=== PATIENT | female | born 1950 | race Caucasian/White ===

== ENCOUNTER 2016-03-05 12:53 | Emergency (ER) | payer MEDICARE, OTHER ==
[2016-03-05 14:00] VITALS: TEMP 98.3
[2016-03-05] MEDS ORDERED: IPRATROPIUM-ALBUTEROL 3 ML NEB INHALATION STA (14:56)
[2016-03-05] MEDS ORDERED: ASPIRIN 81 MG CHEW PO STA (14:58)
[2016-03-05 15:20] LABS: Basophils # (A) 0.1 k/uL (0-0.2); Basophils % (A) 1 %; CH 28.3; CHCM 32.9; Eosinophils # (A) 0.5 k/uL (0-0.7); Eosinophils % (A) 4 %; HCT 34.9 % (34.0-46.0); HGB 11.3 gm/dL (11.4-16.0); Luc # (Auto) 0.24; Luc % (Auto) 2; Lymphocytes # (A) 1.5 k/uL (1.0-4.8); Lymphocytes % (A) 12 %; MCHC 32.5 g/dL (31.0-37.0); MCV 86.1 fL (80.0-100.0); Monocytes # (A) 0.8 k/uL (0-1.0); Monocytes % (A) 6 %; Neutrophils # (A) 9.3 k/uL (1.3-7.7); Neutrophils % (A) 76 %; RBC 4.05 m/uL (3.80-5.40); RDW 13.6 % (11.5-15.5); WBC 12.2 k/uL (3.8-10.6)
[2016-03-05 15:25] LABS: Anion Gap 10 mmol/L; Blood Urea Nitrogen 30 mg/dL (7-17); Calcium 9.3 mg/dL (8.4-10.2); Carbon Dioxide 29 mmol/L (22-30); Chloride 98 mmol/L (98-107); Glucose 167 mg/dL (74-99); Magnesium 1.6 mg/dL (1.6-2.3); Non-African American GFR(MDRD) 55 (>60 ml/min/1.73 sqM); Potassium 5.1 mmol/L (3.5-5.1); Sodium 137 mmol/L (137-145)
--- NOTE | 2016-03-05 15:31 | ED ---
Chest Pain HPI - General Chief Complaint: Upper Respiratory Infection Stated Complaint: Chest Pain Time Seen by Provider: 03/05/16 14:37 Source: patient Mode of arrival: wheelchair Limitations: no limitations - History of Present Illness Initial Comments: Patient is a 65-year-old female with a history of CHF and COPD who presents to ED with a chief complaint of cough, shortness of breath, increased congestion. Patient states that her symptoms have been present over the course the past 2-1/ 2 weeks. She states that she went to go see her primary care practitioner, who started her on a course of antibiotics for home. Patient states that she did not have any improvement of her symptoms with this medication. She states that her PCP was concerned that she might be having an exacerbation of CHF. Patient also has a history of aortic stenosis with history of Her approximate 7 years ago. Patient follows with Dr. Silva (sp?) as her certified medical dosimetrist. She states she has an appointment with his physician at the end of the month. Patient denies any chest pain or diaphoresis. She states that she does note increased chest tightness that is resolved by using her albuterol nebulizer. Patient also notes increased sputum production. She describes the sputum as yellowish-green in color. Patient denies any fevers or chills. Patient denies any swelling in the lower extremities. - Related Data Home Medications Medication Instructions Recorded Confirmed Aspirin 81 mg PO DAILY 02/10/14 03/05/16 Digoxin [Lanoxin] 125 mcg PO HS 02/10/14 03/05/16 Lisinopril [Prinivil] 5 mg PO DAILY 02/10/14 03/05/16 PARoxetine HCL [Paxil] 20 mg PO DAILY 02/10/14 03/05/16 Albuterol Sulfate [Proair Hfa] 2 puff INHALATION RT-BID PRN 06/02/14 03/05/16 Atorvastatin [Lipitor] 40 mg PO HS 06/02/14 03/05/16 Zolpidem [Ambien] 5 mg PO HS PRN 06/02/14 03/05/16 Famotidine [Pepcid] 40 mg PO DAILY 01/02/15 03/05/16 HYDROcodone/APAP 10-325MG [Willard 1 tab PO QID PRN 01/02/15 03/05/16 10-325] Insulin Aspart [NovoLOG] See Protocol SQ TID-W/MEALS PRN 01/02/15 03/05/16 Insulin Glargine,Hum.rec.anlog 16 unit SQ HS 01/02/15 03/05/16 [Lantus Solostar] Carvedilol [Coreg] 3.125 mg PO BID 03/16/15 03/05/16 Furosemide [Lasix] 40 mg PO DAILY 03/16/15 03/05/16 Cetirizine HCl [Zyrtec] 10 mg PO DAILY 11/12/15 03/05/16 Albuterol Nebulized [Ventolin 2.5 mg INHALATION RT-TID PRN 03/05/16 03/05/16 Nebulized] Tiotropium [place] [Spiriva] 1 cap INHALATION RT-DAILY 03/05/16 03/05/16 Previous Rx's Medication Instructions Recorded Moxifloxacin HCl [Avelox] 400 mg PO DAILY #5 tablet 03/05/16 predniSONE 40 mg PO DAILY #10 tab 03/05/16 Allergies Allergy/AdvReac Type Severity Reaction Status Date / Time oxytetracycline Allergy Rash/Hives Verified 03/05/16 14:24 [From Terramycin] oxytetracycline HCl Allergy Rash/Hives Verified 03/05/16 14:24 [From Terramycin] Review of Systems ROS Statement: Those systems with pertinent positive or pertinent negative responses have been documented in the HPI. ROS Other: All systems not noted in ROS Statement are negative. Constitutional: Denies: fever, chills, weakness Eyes: Denies: eye pain ENT: Denies: throat pain Respiratory: Reports: cough, wheezes. Denies: dyspnea, hemoptysis, stridor Cardiovascular: Reports: dyspnea on exertion. Denies: chest pain, palpitations Endocrine: Denies: fatigue Gastrointestinal: Denies: abdominal pain, nausea, vomiting Genitourinary: Denies: urgency, dysuria Musculoskeletal: Denies: back pain Skin: Denies: rash, lesions Neurological: Denies: headache, weakness Past Medical History Past Medical History: Asthma, Cancer, Heart Failure, COPD, Diabetes Mellitus, GERD/Reflux, Hyperlipidemia, Hypertension, Myocardial Infarction (non Q-wave), Osteoarthritis (OA), Renal Disease Additional Past Medical History / Comment(s): HX BLOOD IN URINE, hx leukemia, O2 AT 2L [place], SILENT [place] Last Myocardial Infarction Date:: UNKNOWN History of Any Multi-Drug Resistant Organisms: None Reported Past Surgical History: AICD, Back Surgery, Cholecystectomy, Heart Catheterization, Hernia Repair, Hysterectomy, Orthopedic Surgery, Tonsillectomy Additional Past Surgical History / Comment(s): EDD 06/25/14, JOAN cataract, bone marrow transplant, venogram-last 03/17/15, right wrist, C-5 fusion, EYE LID SX. AORTIC VALVE REPLACEMENT x2, MITRAL VALVE REPAIR, Past Anesthesia/Blood Transfusion Reactions: No Reported Reaction Type of Cardiac Device: AICD Device Placement Date:: 2009-[employer] Past Psychological History: Anxiety, Depression Smoking Status: Never smoker Past Alcohol Use History: None Reported Past Drug Use History: None Reported - Past Family History Father Family Medical History: Cancer General Exam Limitations: no limitations General appearance: alert, in no apparent distress Head exam: Present: atraumatic, normocephalic Eye exam: Present: normal appearance, PERRL, other (Patient wears glasses) Pupils: Present: normal accommodation ENT exam: Present: normal exam, normal oropharynx Neck exam: Present: normal inspection Respiratory exam: Present: wheezes Cardiovascular Exam: Present: regular rate, normal rhythm, systolic murmur (4/6 systolic murmur best appreciated at the right sternal border) GI/Abdominal exam: Present: soft. Absent: distended, tenderness Extremities exam: Present: normal inspection. Absent: tenderness Neurological exam: Present: alert, oriented X3 Psychiatric exam: Present: normal affect, normal mood Skin exam: Present: warm, dry, intact Course Vital Signs 03/05/16 03/05/16 03/05/16 13:56 14:48 15:21 Temperature 98.3 F Pulse Rate 94 86 Respiratory 16 18 Rate Blood Pressure 121/65 O2 Sat by Pulse 94 L Oximetry 03/05/16 03/05/16 03/05/16 15:32 16:14 16:40 Temperature Pulse Rate 86 90 87 Respiratory 18 16 Rate Blood Pressure 111/60 116/70 O2 Sat by Pulse 98 95 Oximetry Chest Pain MDM - MDM Patient is a 65-year-old female who presents to ED with a chief complaint of shortness of breath and cough. Patient states that the symptoms of the present intermittently over the course the past 2.5 weeks. Patient denies any fevers or chills associated with these symptoms. Does note that she has had increased sputum production. His sputum is greenish-yellow in color. Patient does have a known history of COPD. Patient also has a history of CHF. She was treated with amoxicillin as an outpatient without improvement of her symptoms. As such , the patient's PCP was concerned that the patient may be suffering from an acute exacerbation of CHF. Will check a chest x-ray, BNP. Check troponin as well. Check CBC, BMP, mag. Provide patient with dose of albuterol nebulizer. 4:27 PM Updated patient of overall findings, including no evidence of fluid overload on x-ray. Patient will be discharged with a 5-day course of prednisone. Patient will also be discharged with a 5-day course of Avelox. Suspect the patient is suffering from acute exacerbation of COPD. Counseled the patient to follow up with her PCP for further management of her long-term health problems. Encouraged the patient return to the ED should her symptoms worsen in any way, shape, or form. I have answered all the patient's questions to her satisfaction. I have encouraged the patient to use her albuterol nebulizer every 6 hours over the course in the next 24 hours and as needed over the course of the next 48 hours. Disposition Clinical Impression: COPD with exacerbation, Acute bronchitis Disposition: HOME SELF-CARE Condition: Good Instructions: Upper Respiratory Infection (ED), Acute Bronchitis (ED), COPD ( Chronic Obstructive Pulmonary Disease) (ED), Prednisone (By mouth) Additional Instructions: Please return to the ED should you have worsening cough or shortness of breath while at home. Also return should you have worsening chest pain. Prescriptions: Moxifloxacin HCl [Avelox] 400 mg PO DAILY #5 tablet predniSONE 40 mg PO DAILY #10 tab Referrals: Kaylee Suero MD [Primary Care Provider] - 03/07/16 (Please follow up with Dr. Suero on Monday to ensure that your symptoms are improving) Time of Disposition: 16:27
[2016-03-05] MEDS ORDERED: predniSONE 20 MG TAB PO STA (16:00)
[2016-03-05 16:41] VITALS: BP 116/70; PULSE 87; RESP 16
--- NOTE | 2016-03-05 16:42 | XR ---
EXAMINATION TYPE: XR chest 2V DATE OF EXAM: 03/05/2016 3:38 PM COMPARISON: 11/12/2015 INDICATION: Cough short of breath TECHNIQUE: Frontal and lateral views of the chest are obtained. FINDINGS: The heart size is normal. Pulmonary vasculature is prominent. Electronic device overlies left chest. The lungs are clear. Stent is in the ascending thoracic aortic region. Old right rib fractures evide nt on 4 and 6. IMPRESSION: 1. Correlate for mild volume overload.
== END 2016-03-05 16:41 | disposition home or self-care (01) ==
LOC: EC 12:53
DX: J44.1 Chronic obstructive pulmonary disease with (acute) exacerbation (principal); J44.0 Chronic obstructive pulmonary disease with (acute) lower respiratory infection; J20.9 Acute bronchitis, unspecified; E11.9 Type 2 diabetes mellitus without complications; E78.5 Hyperlipidemia, unspecified; I10 Essential (primary) hypertension; I25.2 Old myocardial infarction; I50.9 Heart failure, unspecified; K21.9 Gastro-esophageal reflux disease without esophagitis; Z79.4 Long term (current) use of insulin; Z79.82 Long term (current) use of aspirin; Z95.810 Presence of automatic (implantable) cardiac defibrillator; Z79.899 Other long term (current) drug therapy; Z88.1 Allergy status to other antibiotic agents; F41.9 Anxiety disorder, unspecified; F32.9 Major depressive disorder, single episode, unspecified; J45.909 Unspecified asthma, uncomplicated; I11.0 Hypertensive heart disease with heart failure; Z95.2 Presence of prosthetic heart valve
CPT/HCPCS: 99284 ×2; 36415; 94640; 93005; 83880; 80048; 83735; 84484; 85025; 71020; J7512

== ENCOUNTER → 2016-04-20 | Outpatient (CLI) | payer MEDICARE, OTHER ==
[2016-04-20 07:55] LABS: Blood Urea Nitrogen 33 mg/dL (7-17); Non-African American GFR(MDRD) 57 (>60 ml/min/1.73 sqM)
--- NOTE | 2016-04-20 09:22 | CT ---
EXAMINATION TYPE: CT brain wo/w con DATE OF EXAM: 04/20/2016 9:17 AM COMPARISON: 11/26/2015 HISTORY: Dizziness CT DLP: 1988.3 mGycm Unenhanced followed by contrast enhanced CT of the brain was performed. Omni 300/100 ml. The ventricles, basal cisterns and sulci overlying the cerebral convexities demonstrate mild enlargem ent. There is no evidence for intracranial hemorrhage or sulcal effacement. There is decreased attenuation about the periventricular white matter and deep white matter of both c erebral hemispheres, compatible with chronic small vessel ischemia. Differential diagnosis does inclu de demyelination. No mass effects are seen.No midline shift. Osseous calvarium is intact. Chronic ethmoidal and the maxillary sinusitis with changes of prior par tial medial maxillary antrectomy. No enhancing lesion. If symptoms persist consider MRI. IMPRESSION: 1. Age related atrophic and chronic small vessel ischemic change without acute intracranial process s een at this time. No enhancing lesion identified.
--- NOTE | 2016-05-03 09:41 | ENG ---
DATE OF SERVICE: 04/20/2016 INDICATION FOR EXAMINATION: A 65-year-old presented with a chief complaint of dizziness which occurs with head motion with loss of balance. Caloric test : Unilateral weakness on the right. No directional preponderance. FFS: Negative. GAZE TEST: Negative. SINUSOIDAL TRACKING TEST: No significant break-ups. OKN TEST: No asymmetry. SPONTANEOUS NYSTAGMUS: Eye open negative. Eye closed negative. POSITIONAL NYSTAGMUS: Supine Negative. Right lateral negative, left lateral negative. ARIANNA-HALLPIKE TEST: Could not be performed because of patient having COPD and being on oxygen. CONCLUSION: The video electronystagmogram could not be done completely because patient has chronic obstructive pulmonary disease and being on continuous oxygen; however, unilateral weakness on the right is indicative of right peripheral vestibular dysfunction. Clinical correlations are advised. MTDD
== END | disposition home or self-care (01) ==
LOC: RADCTMAIN 07:19
PROVIDERS: ATTEND Psychiatry & Neurology Neurology
DX: C71.0 Malignant neoplasm of cerebrum, except lobes and ventricles (principal)
CPT/HCPCS: 92540; 92537; 82565; 84520; 70470; 36415; Q9967

== ENCOUNTER → 2016-08-08 | Outpatient (CLI) | payer MEDICARE, OTHER ==
[2016-08-08 12:49] LABS: Anion Gap 9 mmol/L; Blood Urea Nitrogen 29 mg/dL (7-17); Carbon Dioxide 29 mmol/L (22-30); Chloride 100 mmol/L (98-107); Non-African American GFR(MDRD) 55 (>60 ml/min/1.73 sqM); Potassium 5.5 mmol/L (3.5-5.1); Sodium 138 mmol/L (137-145)
== END | disposition home or self-care (01) ==
LOC: LABWHC1 11:51
PROVIDERS: ATTEND Internal Medicine Cardiovascular Disease
DX: I50.22 Chronic systolic (congestive) heart failure (principal)
CPT/HCPCS: 36415; 80051; 82565; 84520

== ENCOUNTER 2016-09-09 14:09 | Inpatient (IN) | payer MEDICARE, OTHER ==
[2016-09-09] MEDS ORDERED: KETOROLAC 30 MG/ML 1 ML VIAL IVP STA (14:24)
[2016-09-09] MEDS ORDERED: SODIUM CHLORIDE 0.9% 1,000 ML IV STA ×2 (14:24)
[2016-09-09] MEDS ORDERED: SODIUM CHLORIDE 0.9% 500 ML IV STA (14:24)
--- NOTE | 2016-09-09 14:25 | ED ---
General Adult HPI - General Chief complaint: Fever Stated complaint: Fever Time Seen by Provider: 09/09/16 14:23 Source: patient, RN notes reviewed, old records reviewed Mode of arrival: wheelchair Limitations: no limitations - History of Present Illness Initial comments: This is a 66-year-old the other ER for evaluation. This patient presents for evaluation regarding elevated temperature, fever, back pain weakness and nausea. Dysuria and pain and increased urination. Patient does have history of multiple urinary tract infections. No travel history no sick contacts no chest pain or shortness of breath no cough, no abdominal pain. - Related Data Home Medications Medication Instructions Recorded Confirmed Aspirin 81 mg PO DAILY 02/10/14 09/09/16 Digoxin [Lanoxin] 125 mcg PO HS 02/10/14 09/09/16 Lisinopril [Prinivil] 5 mg PO DAILY 02/10/14 09/09/16 PARoxetine HCL [Paxil] 20 mg PO DAILY 02/10/14 09/09/16 Albuterol Sulfate [Proair Hfa] 2 puff INHALATION RT-BID PRN 06/02/14 09/09/16 Atorvastatin [Lipitor] 40 mg PO HS 06/02/14 09/09/16 Zolpidem [Ambien] 5 mg PO HS PRN 06/02/14 09/09/16 Famotidine [Pepcid] 40 mg PO DAILY 01/02/15 09/09/16 Insulin Aspart [NovoLOG] See Protocol SQ TID-W/MEALS PRN 01/02/15 09/09/16 Insulin Glargine,Hum.rec.anlog 16 unit SQ HS 01/02/15 09/09/16 [Lantus Solostar] Carvedilol [Coreg] 3.125 mg PO BID 03/16/15 09/09/16 Furosemide [Lasix] 40 mg PO DAILY 03/16/15 09/09/16 Cetirizine HCl [Zyrtec] 10 mg PO DAILY 11/12/15 09/09/16 Albuterol Nebulized [Ventolin 2.5 mg INHALATION RT-TID PRN 03/05/16 09/09/16 Nebulized] Tiotropium [place] [Spiriva] 1 cap INHALATION RT-DAILY 03/05/16 09/09/16 metFORMIN HCL [Glucophage] 500 mg PO BID 09/09/16 09/09/16 Allergies Allergy/AdvReac Type Severity Reaction Status Date / Time oxytetracycline Allergy Rash/Hives Verified 09/09/16 14:34 [From Terramycin] oxytetracycline HCl Allergy Rash/Hives Verified 09/09/16 14:34 [From Terramycin] Review of Systems ROS Statement: Those systems with pertinent positive or pertinent negative responses have been documented in the HPI. ROS Other: All systems not noted in ROS Statement are negative. Past Medical History Past Medical History: Asthma, Cancer, Heart Failure, COPD, Diabetes Mellitus, GERD/Reflux, Hyperlipidemia, Hypertension, Myocardial Infarction (non Q-wave), Osteoarthritis (OA), Renal Disease Additional Past Medical History / Comment(s): HX BLOOD IN URINE, hx leukemia, O2 AT 2L [place], SILENT [place] Last Myocardial Infarction Date:: UNKNOWN History of Any Multi-Drug Resistant Organisms: None Reported Past Surgical History: AICD, Back Surgery, Cholecystectomy, Heart Catheterization, Hernia Repair, Hysterectomy, Orthopedic Surgery, Tonsillectomy Additional Past Surgical History / Comment(s): EDD 06/25/14, JOAN cataract, bone marrow transplant, venogram-last 03/17/15, right wrist, C-5 fusion, EYE LID SX. AORTIC VALVE REPLACEMENT x2, MITRAL VALVE REPAIR, Past Anesthesia/Blood Transfusion Reactions: No Reported Reaction Type of Cardiac Device: AICD Device Placement Date:: 2009-[employer] Past Psychological History: Anxiety, Depression Smoking Status: Never smoker Past Alcohol Use History: None Reported Past Drug Use History: None Reported - Past Family History Father Family Medical History: Cancer Mother Family Medical History: Diabetes Mellitus, Myocardial Infarction ([place]) General Exam Limitations: no limitations General appearance: alert, in no apparent distress Head exam: Present: atraumatic, normocephalic, normal inspection Eye exam: Present: normal appearance, PERRL, EOMI. Absent: scleral icterus, conjunctival injection, periorbital swelling ENT exam: Present: normal exam, mucous membranes moist Neck exam: Present: normal inspection. Absent: tenderness, meningismus, lymphadenopathy Respiratory exam: Present: normal lung sounds bilaterally. Absent: respiratory distress, wheezes, rales, rhonchi, stridor Cardiovascular Exam: Present: normal rhythm, tachycardia, normal heart sounds. Absent: systolic murmur, diastolic murmur, rubs, gallop, clicks GI/Abdominal exam: Present: soft, normal bowel sounds. Absent: distended, tenderness, guarding, rebound, rigid Extremities exam: Present: normal inspection, full ROM, normal capillary refill. Absent: tenderness, pedal edema, joint swelling, calf tenderness Back exam: Present: normal inspection Neurological exam: Present: alert, oriented X3, CN II-XII intact Psychiatric exam: Present: normal affect, normal mood Skin exam: Present: warm, dry, intact, normal color. Absent: rash Course Vital Signs 09/09/16 09/09/16 09/09/16 14:15 15:06 16:06 Temperature 101.1 F H Pulse Rate 122 H 114 H 104 H Respiratory 16 18 18 Rate Blood Pressure 169/81 158/93 107/55 O2 Sat by Pulse 93 L 96 98 Oximetry 09/09/16 16:53 Temperature 99.4 F Pulse Rate 101 H Respiratory 18 Rate Blood Pressure 103/50 O2 Sat by Pulse 99 Oximetry EKG Findings - EKG Comments: EKG Findings:: EKG shows sinus tachycardia rate 111, TX 120, QRS 120, QTC 489 Medical Decision Making - Medical Decision Making 66. The year for evaluation available positive bowel pain leukocytosis. Patient be admitted for IV antibiotics IV resuscitation. - Lab Data Result diagrams: 09/14/16 06:53 09/14/16 06:51 Lab Results 09/09/16 09/09/16 09/09/16 Range/Units 14:47 14:47 14:47 WBC 24.7 H (3.8-10.6) k/uL RBC 4.02 (3.80-5.40) m/uL Hgb 11.6 (11.4-16.0) gm/dL Hct 34.8 (34.0-46.0) % MCV 86.5 (80.0-100.0) fL MCH 28.9 (25.0-35.0) pg MCHC 33.4 (31.0-37.0) g/dL RDW 13.5 (11.5-15.5) % Plt Count 181 (150-450) k/uL Neutrophils % 94 % Lymphocytes % 2 % Monocytes % 3 % Eosinophils % 1 % Basophils % 0 % Neutrophils # 23.3 H (1.3-7.7) k/uL Lymphocytes # 0.4 L (1.0-4.8) k/uL Monocytes # 0.7 (0-1.0) k/uL Eosinophils # 0.2 (0-0.7) k/uL Basophils # 0.1 (0-0.2) k/uL PT (9.0-12.0) sec INR (<1.2) APTT (22.0-30.0) sec Sodium 134 L (137-145) mmol/L Potassium 4.3 (3.5-5.1) mmol/L Chloride 100 (98-107) mmol/L Carbon Dioxide 25 (22-30) mmol/L Anion Gap 9 mmol/L BUN 28 H (7-17) mg/dL Creatinine 0.85 (0.52-1.04) mg/dL Est GFR (MDRD) Af Amer >60 (>60 ml/min/1.73 sqM) Est GFR (MDRD) Non-Af >60 (>60 ml/min/1.73 sqM) Glucose 252 H (74-99) mg/dL Plasma Lactic Acid Claudio (0.7-2.0) mmol/L Calcium 9.4 (8.4-10.2) mg/dL Phosphorus 2.4 L (2.5-4.5) mg/dL Magnesium 1.0 L* (1.6-2.3) mg/dL Total Bilirubin 1.0 (0.2-1.3) mg/dL AST 83 H (14-36) U/L ALT 53 H (9-52) U/L Alkaline Phosphatase 100 (38-126) U/L Total Creatine Kinase 100 (30-135) U/L CK-MB (CK-2) 1.3 (0.0-2.4) ng/mL CK-MB (CK-2) Rel Index 1.3 Troponin I 0.017 (0.000-0.034) ng/mL Total Protein 7.5 (6.3-8.2) g/dL Albumin 3.8 (3.5-5.0) g/dL Urine Color Urine Appearance (Clear) Urine pH (5.0-8.0) Ur Specific [place] (1.001-1.035) Urine Protein (Negative) Urine Glucose (UA) (Negative) Urine Ketones (Negative) Urine Blood (Negative) Urine Nitrite (Negative) Urine Bilirubin (Negative) Urine Urobilinogen (<2.0) mg/dL Ur Leukocyte Esterase (Negative) Urine RBC (0-5) /hpf Urine WBC (0-5) /hpf Ur Squamous Epith Cells (0-4) /hpf Urine Bacteria (None) /hpf 09/09/16 09/09/16 09/09/16 Range/Units 14:47 14:47 15:07 WBC (3.8-10.6) k/uL RBC (3.80-5.40) m/uL Hgb (11.4-16.0) gm/dL Hct (34.0-46.0) % MCV (80.0-100.0) fL MCH (25.0-35.0) pg MCHC (31.0-37.0) g/dL RDW (11.5-15.5) % Plt Count (150-450) k/uL Neutrophils % % Lymphocytes % % Monocytes % % Eosinophils % % Basophils % % Neutrophils # (1.3-7.7) k/uL Lymphocytes # (1.0-4.8) k/uL Monocytes # (0-1.0) k/uL Eosinophils # (0-0.7) k/uL Basophils # (0-0.2) k/uL PT 10.7 (9.0-12.0) sec INR 1.1 (<1.2) APTT 21.1 L (22.0-30.0) sec Sodium (137-145) mmol/L Potassium (3.5-5.1) mmol/L Chloride (98-107) mmol/L Carbon Dioxide (22-30) mmol/L Anion Gap mmol/L BUN (7-17) mg/dL Creatinine (0.52-1.04) mg/dL Est GFR (MDRD) Af Amer (>60 ml/min/1.73 sqM) Est GFR (MDRD) Non-Af (>60 ml/min/1.73 sqM) Glucose (74-99) mg/dL Plasma Lactic Acid Claudio 1.5 (0.7-2.0) mmol/L Calcium (8.4-10.2) mg/dL Phosphorus (2.5-4.5) mg/dL Magnesium (1.6-2.3) mg/dL Total Bilirubin (0.2-1.3) mg/dL AST (14-36) U/L ALT (9-52) U/L Alkaline Phosphatase (38-126) U/L Total Creatine Kinase (30-135) U/L CK-MB (CK-2) (0.0-2.4) ng/mL CK-MB (CK-2) Rel Index Troponin I (0.000-0.034) ng/mL Total Protein (6.3-8.2) g/dL Albumin (3.5-5.0) g/dL Urine Color Yellow Urine Appearance Clear (Clear) Urine pH 6.5 (5.0-8.0) Ur Specific [place] 1.013 (1.001-1.035) Urine Protein 3+ H (Negative) Urine Glucose (UA) Trace H (Negative) Urine Ketones Negative (Negative) Urine Blood Small H (Negative) Urine Nitrite Negative (Negative) Urine Bilirubin Negative (Negative) Urine Urobilinogen <2.0 (<2.0) mg/dL Ur Leukocyte Esterase Negative (Negative) Urine RBC 7 H (0-5) /hpf Urine WBC 2 (0-5) /hpf Ur Squamous Epith Cells <1 (0-4) /hpf Urine Bacteria Rare H (None) /hpf - Radiology Data Radiology results: report reviewed (Chest x-ray CT of the pelvis negative for acute disease), image reviewed Disposition Clinical Impression: Urinary tract infection, Hypomagnesemia, Fever, Sepsis, Leukocytosis Disposition: ADMITTED IP TO THIS [facility] Condition: Fair
[2016-09-09] MEDS ORDERED: cefTRIAXone 2,000 MG in SODIUM CHLORIDE 0.9% 100 ML IVPB STA (14:26)
[2016-09-09] MEDS ORDERED: ACETAMINOPHEN IV (For NPO) 1,000 MG in EMPTY BAG 1 BAG IVPB STA (14:26)
[2016-09-09 15:14] LABS: Appearance,Urine Clear (Clear); Bacteria,Urine Rare /hpf; Bilirubin,Urine Negative (Negative); Glucose,Urine (UA) Trace (Negative); Ketones,Urine Negative (Negative); Leukocyte Esterase,Urine Negative (Negative); Nitrite,Urine Negative (Negative); PH, Urine 6.5 (5.0-8.0); Particle Count 2807; Protein,Urine 3+ (Negative); RBC,Urine 7 /hpf (0-5); Specific Gravity,Urine 1.013 (1.001-1.035); Squamous Epithelial Cell,Urine <1 /hpf (0-4); UA Billing (MACRO vs. MICRO) MICRO; Urobilinogen,Urine <2.0 mg/dL (<2.0); WBC,Urine 2 /hpf (0-5)
[2016-09-09 15:14] LABS: ALT 53 U/L (9-52); AST 83 U/L (14-36); Alkaline Phosphatase 100 U/L (38-126); Anion Gap 9 mmol/L; Blood Urea Nitrogen 28 mg/dL (7-17); Calcium 9.4 mg/dL (8.4-10.2); Carbon Dioxide 25 mmol/L (22-30); Chloride 100 mmol/L (98-107); Glucose 252 mg/dL (74-99); Non-African American GFR(MDRD) >60 (>60 ml/min/1.73 sqM); Phosphorous 2.4 mg/dL (2.5-4.5); Potassium 4.3 mmol/L (3.5-5.1); Sodium 134 mmol/L (137-145); Total Protein 7.5 g/dL (6.3-8.2)
[2016-09-09 15:19] LABS: INR 1.1 (<1.2); Prothrombin Time 10.7 sec (9.0-12.0)
[2016-09-09 15:28] LABS: Basophils # (A) 0.1 k/uL (0-0.2); Basophils % (A) 0 %; CH 28.4; Eosinophils # (A) 0.2 k/uL (0-0.7); Eosinophils % (A) 1 %; HCT 34.8 % (34.0-46.0); HDW 2.51; HGB 11.6 gm/dL (11.4-16.0); Luc # (Auto) 0.08; Luc % (Auto) 0; Lymphocytes # (A) 0.4 k/uL (1.0-4.8); Lymphocytes % (A) 2 %; MCH 28.9 pg (25.0-35.0); MCHC 33.4 g/dL (31.0-37.0); MCV 86.5 fL (80.0-100.0); Mean Platelet Volume 7.3; Monocytes # (A) 0.7 k/uL (0-1.0); Monocytes % (A) 3 %; Neutrophils # (A) 23.3 k/uL (1.3-7.7); Neutrophils % (A) 94 %; RBC 4.02 m/uL (3.80-5.40); RDW 13.5 % (11.5-15.5); WBC 24.7 k/uL (3.8-10.6); WBC (Perox) 24.43
--- NOTE | 2016-09-09 15:33 | XR ---
EXAMINATION TYPE: XR chest 2V DATE OF EXAM: 09/09/2016 HISTORY: Weakness. REFERENCE: Previous study dated 03/05/2016. FINDINGS: There is a multilead pacing device in place on the left. The heart is mildly enlarged. There is chronic pleural parenchymal change at the right lung base. I d o not see evidence of pneumonia or edema. There are multiple healed right-sided rib fractures. IMPRESSION: 1. MILD CARDIOMEGALY. 2. CHRONIC PLEURAL PARENCHYMAL CHANGE, RIGHT LUNG BASE. 3. POSTTRAUMATIC CHANGE.
[2016-09-09] MEDS ORDERED: RX INFO: IV CONTRAST WAS GIVEN 1 EACH MISC MISCELLANE PRN (15:35)
[2016-09-09 15:37] LABS: Creatine Kinase MB 1.3 ng/mL (0.0-2.4); Troponin I 0.017 ng/mL (0.000-0.034)
[2016-09-09 15:44] LABS: Partial Thromboplastin Time 21.1 sec (22.0-30.0)
--- NOTE | 2016-09-09 16:53 | CT ---
EXAMINATION TYPE: CT abdomen pelvis w con DATE OF EXAM: 09/09/2016 COMPARISON: 04/03/2012 HISTORY: 66-year-old female with abdominal pain and diarrhea. History of leukemia. TECHNIQUE: Contiguous axial scanning of the abdomen and pelvis following administration of 100 ml Omn ipaque 300 IV contrast. Delayed images through the kidneys and coronal/sagittal reconstructions perf ormed. CT DLP: 485.7 mGycm Automated exposure control for dose reduction was used. FINDINGS: The heart is upper limits of normal in size without pericardial effusion. An AICD right ventricular l ead is seen. Calcifications are marker for coronary artery disease. Prior surgical changes along the lower right lateral hemithorax with a overlying areas of fat necrosi s in the subcutaneous fat. Hazy and reticular densities in the lower lungs are unchanged likely refle cting some degree of underlying fibrosis. Small hiatal hernia. No focal liver lesion or biliary ductal dilatation. Portal venous system is patent Gallbladder surgically absent. Adrenal glands, kidneys, spleen, pancreas appear within normal limits. Moderate atherosclerotic calcifications within the abdominal aorta without aneurysm. No dilated small bowel, free fluid, or free air. No mesenteric or retroperitoneal lymphadenopathy see n. There are some surgical changes along the anterior lower abdominal wall. There is some soft tissue th ickening along the superficial fascia of the ventral abdominal wall musculature just above the umbili cus. This measures 2.9 cm wide and 1.0 cm thick. Possible scar tissue slightly more situated from juancarlos or. Correlate with physical exam findings. Prominent fecal distention of the rectum measuring up to 7.1 cm wide. No abnormal fluid collection th e pelvis. Previously seen cystic right adnexal lesion is no longer apparent. Circumferential bladder wall thickening. Bones: Degenerative changes at the pubic symphysis, hips, and lumbar spine with grade 1 anterolisthes es at L4-L5 and L5-S1. No osseous destructive process. IMPRESSION: 1. PROMINENT FECAL DISTENTION OF THE RECTUM MEASURING UP TO 7.1 CM WIDE. GIVEN THE PROVIDED HISTORY O F DIARRHEA, FECAL IMPACTION IS UNLIKELY. CLINICALLY CORRELATE. 2. SOME SOFT TISSUE THICKENING (2.9 X 1.0 CM) ALONG THE ABDOMINAL WALL MUSCULATURE JUST ABOVE THE UMB ILICUS COULD REPRESENT SOME CHRONIC SCAR TISSUE BUT APPEARS MORE PRONOUNCED FROM 2013. CORRELATE WITH PHYSICAL EXAM FINDINGS TO EXCLUDE A PALPABLE ABNORMALITY. 3. CIRCUMFERENTIAL BLADDER WALL THICKENING. CORRELATE TO EXCLUDE CYSTITIS. 4. SMALL HIATAL HERNIA. 5. CHRONIC POSTSURGICAL CHANGES ALONG THE LATERAL LOWER RIGHT HEMITHORAX.
[2016-09-09] MEDS: SODIUM CHLORIDE 0.9% 1,000 ML IV SCH (17:59)
[2016-09-09] MEDS: MAGNESIUM SULFATE-D5W PMX 1 GM in DEXTROSE/WATER 1 100ML.BAG IVPB SCH ×2 (18:01→20:37)
[2016-09-09] MEDS ORDERED: ALBUTEROL NEBULIZED 2.5 MG/3 ML INHALATION PRN (19:16)
[2016-09-09] MEDS: CARVEDILOL 3.125 MG TAB PO SCH (20:19)
[2016-09-09 20:32] LABS: Glucose,Whole Blood 379 mg/dL (75-99)
[2016-09-09] MEDS: INSULIN GLARGINE 100 UNIT/ML 10 ML VIAL SQ SCH (20:34)
[2016-09-09] MEDS: DIGOXIN 125 MCG TAB PO SCH (20:34)
[2016-09-09] MEDS: ATORVASTATIN 40 MG TAB PO SCH (20:34)
[2016-09-09] MEDS: metFORMIN 500 MG TAB PO SCH (20:34)
[2016-09-09] MEDS: INSULIN LISPRO (humaLOG) 300 UNIT/3 ML VIAL SQ SCH (20:34)
[2016-09-09] MEDS: HYDROcodone/APAP 5-325MG 1 EACH TAB PO PRN (20:36)
[2016-09-09] MEDS: AMPICILLIN-SULBACTAM 3 GM in SODIUM CHLORIDE 0.9% 100 ML IVPB SCH (20:37)
[2016-09-09 20:42] LABS: Hemoglobin A1C 10.5 % (4.2-6.1)
[2016-09-09] MEDS: ZOLPIDEM 5 MG TAB PO PRN (22:50)
[2016-09-10] MEDS: AMPICILLIN-SULBACTAM 3 GM in SODIUM CHLORIDE 0.9% 100 ML IVPB SCH ×5 (00:14→23:15)
[2016-09-10] MEDS: SODIUM CHLORIDE 0.9% 1,000 ML IV SCH ×3 (01:03→13:04)
[2016-09-10] MEDS: MAGNESIUM SULFATE-D5W PMX 1 GM in DEXTROSE/WATER 1 100ML.BAG IVPB SCH ×2 (02:06→03:28)
[2016-09-10] MEDS: HYDROcodone/APAP 5-325MG 1 EACH TAB PO PRN ×3 (05:48→19:39)
[2016-09-10] MEDS: TIOTROPIUM 18 MCG/PUFF INHALER INHALATION SCH (07:32)
[2016-09-10 07:49] LABS: Basophils % (A) 0 %; CH 28.1; CHCM 31.5; Eosinophils % (A) 0 %; HCT 28.9 % (34.0-46.0); HDW 2.45; HGB 9.4 gm/dL (11.4-16.0); Luc % (Auto) 1; Lymphocytes # (A) 0.4 k/uL (1.0-4.8); Lymphocytes % (A) 2 %; MCH 29.1 pg (25.0-35.0); MCHC 32.5 g/dL (31.0-37.0); MCV 89.6 fL (80.0-100.0); Mean Platelet Volume 7.4; Monocytes # (A) 0.5 k/uL (0-1.0); Monocytes % (A) 3 %; Neutrophils # (A) 15.7 k/uL (1.3-7.7); Neutrophils % (A) 94 %; RBC 3.23 m/uL (3.80-5.40); RDW 13.7 % (11.5-15.5); WBC 16.6 k/uL (3.8-10.6)
[2016-09-10 07:54] LABS: Anion Gap 6 mmol/L; Blood Urea Nitrogen 33 mg/dL (7-17); Calcium 8.4 mg/dL (8.4-10.2); Carbon Dioxide 24 mmol/L (22-30); Chloride 105 mmol/L (98-107); Glucose 208 mg/dL (74-99); Magnesium 2.4 mg/dL (1.6-2.3); Non-African American GFR(MDRD) 52 (>60 ml/min/1.73 sqM); Phosphorous 3.6 mg/dL (2.5-4.5); Potassium 4.6 mmol/L (3.5-5.1); Sodium 135 mmol/L (137-145)
[2016-09-10 07:55] LABS: Glucose,Whole Blood 226 mg/dL (75-99)
[2016-09-10] MEDS: LISINOPRIL 5 MG TAB PO SCH (08:17)
[2016-09-10] MEDS: FUROSEMIDE 40 MG TAB PO SCH (08:17)
[2016-09-10] MEDS: ASPIRIN 81 MG PO SCH (08:17)
[2016-09-10] MEDS: PARoxetine 20 MG TAB PO SCH (08:17)
[2016-09-10] MEDS: metFORMIN 500 MG TAB PO SCH ×2 (08:17→21:20)
[2016-09-10] MEDS: CARVEDILOL 3.125 MG TAB PO SCH ×2 (08:17→21:20)
[2016-09-10] MEDS: ENOXAPARIN 40 MG/0.4 ML SYRINGE SQ SCH (08:18)
[2016-09-10] MEDS: LORATADINE 10 MG TAB PO SCH (08:18)
[2016-09-10] MEDS: INSULIN LISPRO (humaLOG) 300 UNIT/3 ML VIAL SQ SCH ×4 (08:25→21:21)
[2016-09-10] MEDS ORDERED: NON-FORMULARY DRUG (Famotidine [Pepcid] 40 MG) PO SCH (09:00)
[2016-09-10] MEDS: ESOMEPRAZOLE 20 MG in SODIUM CHLORIDE 0.9% 50 ML IVPB SCH (09:20)
--- NOTE | 2016-09-10 10:25 | HP ---
Chief complaints are fever and as well as back pain and nausea. HISTORY OF PRESENT ILLNESS: This 66-year-old woman with a past medical history of multiple medical problems such as asthma, history of COPD, CHF, GERD, hypertension, hyperlipidemia being followed by Dr. Suero in the outpatient setting not feeling well over the past one week. The patient has recurrent fever, back pain, nausea. The patient also. The patient came to [facility] and UTI was suspected and a CAT scan of the abdomen showed prominent fecal distention and soft tissue thickening of the abdominal wall and circumferential bladder thickening and hiatal hernia. Patient admitted for further evaluation and treatment. There is no history of any fever or rigors. No history of headache, loss of consciousness or seizures. PAST MEDICAL HISTORY: History of asthma, COPD, diabetes mellitus, GERD, hypertension, hyperlipidemia, history of anxiety and depression. Medications prior to admission include home medications are: 1. Glucophage 500 mg p.o. b.i.d. 2. Ambien 5 mg q.h.s.p.r.n. 3. Spiriva 1 puff a day. 4. Paxil 20 mg daily. 5. Prinivil 5 mg p.o. daily. 6. NovoLog t.i.d. with meals. 7. Insulin, Lantus, 16 subcu q.h.s. 8. Lasix 40 mg daily. 9. Pepcid 40 mg p.o. daily. 10. Lanoxin 125 mcg q.h.s. 11. Zyrtec 10 mg p.o. daily. 12. Coreg 3.125 mg p.o. b.i.d. 13. Lipitor 40 mg q.h.s. 14. Aspirin 81 mg p.o. daily. 15. Albuterol 2 puffs b.i.d. p.r.n. Allergies are TERRAMYCIN. FAMILY HISTORY: History of cancer in the family. SOCIAL HISTORY: No history of smoking. No history of alcohol. REVIEW OF SYSTEMS: ENT: No diminished hearing or diminished vision. CARDIOVASCULAR: No angina. RESPIRATORY: No cough. GI: As mentioned earlier. : As mentioned earlier. NERVOUS SYSTEM: No numbness or weakness. ALLERGIES/IMMUNOLOGY: Asthma. MUSCULOSKELETAL: As mentioned earlier. HEMATOLOGY/ONCOLOGY: No history of anemia. ENDOCRINE: History of diabetes mellitus. CONSTITUTIONAL: As mentioned earlier. DERMATOLOGY: Negative. RHEUMATOLOGY: Negative. PSYCHIATRY: As mentioned earlier. PHYSICAL EXAMINATION: The patient is alert and oriented x3. Pulse is 104, blood pressure 107/55, respirations 18, temperature 99.4, pulse ox 98% on room air. HEENT: Conjunctivae normal. NECK: No jugular venous distention. CARDIOVASCULAR: S1 and S2 muffled. No S3, no S4. RESPIRATORY: Breath sounds diminished at the bases. A few scattered rhonchi, no crackles. ABDOMEN: Soft. Mild diffuse discomfort. No guarding, no rigidity. No mass palpable. LEGS: No edema, no swelling. NERVOUS SYSTEM: Higher function as mentioned. Moves all 4 limbs. No focal deficits. LYMPHATICS: No lymphadenopathy of the neck, axillae or groin. SKIN: No ulcers, rashes or bleeding. Labs reveal WBC 24.7. Sodium 134. Magnesium 1. UA noted. ASSESSMENT: 1. Urinary tract infection with possible sepsis, present on admission. 2. Increased WBC. 3. Hyponatremia. 4. Hypomagnesemia. 5. Increased AST and ALT, possibly mild acute hepatitis. 6. Prominent fecal distention of the rectum. 7. Asthma. 8. Chronic obstructive pulmonary disease. 9. History of congestive heart failure. 10. Diabetes mellitus type 2. 11. Hypertension. 12. Hyperlipidemia. 13. Myocardial infarction. 14. History of AICD. RECOMMENDATIONS AND DISCUSSION: In this 66-year-old woman who presented with multiple complex medical issues, will monitor the patient closely. Continue the current medications. Continue symptomatic treatment. Will initiate current medications, empiric antibiotics. Would also recommend resume the home medications and I would also recommend consult Dr. Silva for rectal dilatation also for possible evaluation. Prognosis guarded. Further recommendations to follow. See orders for further details. A copy of dictation forwarded to Dr. Suero who is the primary physician. [facility]
--- NOTE | 2016-09-10 10:49 | CONS ---
DATE OF CONSULTATION: 09/10/2016 REASON FOR CONSULTATION: Abnormal CAT scan that showed a dilated rectum. HISTORY OF PRESENT ILLNESS: The patient is a 66-year-old pleasant lady who was admitted to the hospital when she presented with fever, chills, weakness, dysuria and increased urination for the last two weeks duration. Came her to the emergency room and she had CT of the abdomen and pelvis done that showed a dilated rectum measuring 7 cm and, hence, we are consulted in regards to this issue. The patient this morning is feeling better. She still has a low grade fever. She denies any rectal bleeding or melena. She does have some abdominal discomfort, most in the suprapubic area. Denies any significant change in her bowel habits. Usually has one bowel movement a day. She recalls having a colonoscopy about three years ago which was within normal limits. PAST MEDICAL HISTORY: Significant for asthma, COPD, degenerative joint disease , chronic renal insufficiency, hypertension, hyperlipidemia, history of [place] in the past. PAST SURGICAL HISTORY: Cholecystectomy, back surgery, AICD implantation, hernia repair, hysterectomy, tonsillectomy, bilateral cataract surgery, aortic valve replacement, mitral valve repair, C5 fusion surgery. MEDICATIONS AT HOME: 1. Glucophage. 2. Spiriva. 3. Ventolin. 4. Zyrtec. 5. Lasix. 6. Coreg. 7. Lantus. 8. Novolog. 9. Pepcid. 10. Advair. 11. Lipitor. 12. ProAir. 13. Paxil. 14. Prinivil. 15. Lanoxin. 16. Aspirin. ALLERGIES: TETRAMYCIN, TERRAMYCIN. SOCIAL HISTORY: History of smoking in the past. No alcohol use. FAMILY HISTORY: Unremarkable. Father had some kind of a cancer. REVIEW OF SYSTEMS: CARDIOPULMONARY: No chest pain, shortness of breath. : She did have some dysuria and painful micturition. NEUROLOGY: Unremarkable. PSYCHIATRIC: Unremarkable. ENT: Vision unremarkable. CONSTITUTIONAL: No recent weight loss. No fever, chills, night sweats. ENDOCRINE: Unremarkable. HEMATOLOGY: Unremarkable. PSYCHIATRIC: Unremarkable. PHYSICAL EXAMINATION: She appears comfortable, no apparent distress. VITAL SIGNS: Stable. Blood pressure 103/50, pulse rate 101, temperature 99.4. HEENT: Unremarkable. Conjunctivae pink. Sclerae anicteric. Oral cavity, no lesions. CHEST: Clear to auscultation. HEART: Regular rate and rhythm. ABDOMEN: Soft. Nontender, nondistended. Liver and spleen are not palpable. Bowel sounds are positive. No organomegaly. EXTREMITIES: No pedal edema. SKIN: No rashes. NEURO: Alert and oriented x3. No focal deficits. LABS: WBC was 24.7, this morning it is 16.3. Hemoglobin 9.4, platelets 127. PT 10.7, INR 1.1. BUN 33, creatinine 1.05. AST, ALT is 83 and 53 respectively. T. bili and alkaline phosphatase are within normal limits. Urinalysis showed rare bacteria. CT of the abdomen and pelvis done in the emergency room showed a dilated rectum measuring 7 cm but the rest of the colon was unremarkable. IMPRESSION: 1. Urinary tract infection, presently on broad spectrum antibiotics. 2. Abnormal CAT scan findings of dilated rectum but clinically the patient is asymptomatic. No significant change in her bowel habits or abdominal pain. Her last colonoscopy done by Dr. Miller in March of 2014 showed a normal colonoscopy. RECOMMENDATIONS: I discussed the findings of the CAT scan with the patient and discussed about dilated rectum. At this time, since she is asymptomatic and does not have any lower GI symptoms and the fact that she had a colonoscopy in March of 2014 which was completely normal, I did not see any reason to proceed with further endoscopic investigations. I did suggest that she avoid constipation, continue on a high fiber diet and take fiber supplements if needed. Thank you for this consultation. We will sign off. Please call us if needed. MTDEmelyn
[2016-09-10 11:32] LABS: Glucose,Whole Blood 171 mg/dL (75-99)
[2016-09-10] MEDS ORDERED: IV VANCOMYCIN PER PHARMACY 1 EACH MISC MISCELLANE PRN (11:39)
[2016-09-10] MEDS ORDERED: VANCOMYCIN 1,000 MG in SODIUM CHLORIDE 0.9% 250 ML IVPB ONE (13:00)
[2016-09-10 17:33] LABS: Glucose,Whole Blood 80 mg/dL (75-99)
--- NOTE | 2016-09-10 19:32 | PN ---
DATE OF SERVICE: This 66-year-old woman who was admitted with UTI with sepsis, also had elevated WBC. The patient also had ( ) dilatation. No chest pain. No palpitations. No fever. On exam, alert and oriented times three. Pulse 92. Blood pressure 102/58. Respiratory rate 18. Temperature 98.2. Pulse ox 97% on 2 L. HEENT: Conjunctivae normal. NECK: No JVD. Cardiovascular: S1, S2 muffled. Respiratory: Breath sounds diminished at the bases. A few scattered rhonchi. No crackles. Abdomen soft. Nontender. No mass palpable. Legs, no edema. No swelling. Nervous system: No focal deficits. Labs: WBC 16.7, hemoglobin 9.4. Sodium 135. ASSESSMENT: 1. Urinary tract infection with possible sepsis present on admission. 2. Increased WBC. 3. Hyponatremia. 5. Increased AST/ALT, possible mild acute hepatitis. 6. History of rectal distention, undetermined etiology. 7. Asthma. 8. Chronic obstructive pulmonary disease. 9. History of congestive heart failure. 10. History of diabetes mellitus Type 2. 11. History of hypertension. 12. Hyperlipidemia. 13. History of myocardial infarction. 14. History of AICD. RECOMMENDATIONS AND DISCUSSION: Continue the current medications, continue with monitoring, symptomatic treatment. Otherwise, at this time, we will monitor the patient closely. Continue the antibiotics. Follow the cultures. See orders for further details. Prognosis guarded. Further recommendations to follow. MTDD
[2016-09-10] MEDS: ATORVASTATIN 40 MG TAB PO SCH (19:40)
[2016-09-10] MEDS: DIGOXIN 125 MCG TAB PO SCH (19:40)
[2016-09-10 20:59] LABS: Glucose,Whole Blood 207 mg/dL (75-99)
[2016-09-10] MEDS: INSULIN GLARGINE 100 UNIT/ML 10 ML VIAL SQ SCH (21:20)
[2016-09-10] MEDS: ZOLPIDEM 5 MG TAB PO PRN (21:27)
[2016-09-11] MEDS: VANCOMYCIN 1,000 MG in SODIUM CHLORIDE 0.9% 250 ML IVPB SCH ×2 (00:19→16:25)
[2016-09-11] MEDS: SODIUM CHLORIDE 0.9% 1,000 ML IV SCH ×3 (00:20→16:23)
[2016-09-11] MEDS: HYDROcodone/APAP 5-325MG 1 EACH TAB PO PRN ×3 (03:53→19:58)
[2016-09-11] MEDS: AMPICILLIN-SULBACTAM 3 GM in SODIUM CHLORIDE 0.9% 100 ML IVPB SCH ×4 (05:36→23:12)
[2016-09-11 06:56] LABS: Basophils % (A) 0 %; CH 28.7; CHCM 31.7; Eosinophils # (A) 0.1 k/uL (0-0.7); Eosinophils % (A) 1 %; HCT 27.9 % (34.0-46.0); HDW 2.44; HGB 8.9 gm/dL (11.4-16.0); Luc # (Auto) 0.26; Luc % (Auto) 3; Lymphocytes # (A) 0.7 k/uL (1.0-4.8); Lymphocytes % (A) 9 %; MCH 28.9 pg (25.0-35.0); MCHC 31.7 g/dL (31.0-37.0); MCV 90.9 fL (80.0-100.0); Mean Platelet Volume 8.8; Monocytes # (A) 0.4 k/uL (0-1.0); Monocytes % (A) 5 %; Neutrophils # (A) 6.3 k/uL (1.3-7.7); Neutrophils % (A) 82 %; RBC 3.07 m/uL (3.80-5.40); RDW 14.3 % (11.5-15.5); WBC 7.7 k/uL (3.8-10.6); WBC (Perox) 8.44
[2016-09-11 07:08] LABS: Calcium 7.8 mg/dL (8.4-10.2); Potassium 4.1 mmol/L (3.5-5.1)
[2016-09-11] MEDS: TIOTROPIUM 18 MCG/PUFF INHALER INHALATION SCH (07:23)
[2016-09-11] MEDS: INSULIN LISPRO (humaLOG) 300 UNIT/3 ML VIAL SQ SCH ×4 (07:36→21:24)
[2016-09-11] MEDS: PARoxetine 20 MG TAB PO SCH ×2 (07:39→07:42)
[2016-09-11] MEDS: FUROSEMIDE 40 MG TAB PO SCH (07:39)
[2016-09-11] MEDS: metFORMIN 500 MG TAB PO SCH ×2 (07:39→21:24)
[2016-09-11] MEDS: LORATADINE 10 MG TAB PO SCH (07:39)
[2016-09-11] MEDS: ASPIRIN 81 MG PO SCH ×2 (07:40→07:42)
[2016-09-11] MEDS: ENOXAPARIN 40 MG/0.4 ML SYRINGE SQ SCH (07:42)
[2016-09-11 07:43] LABS: Creatine Kinase MB 1.6 ng/mL (0.0-2.4)
[2016-09-11] MEDS: CARVEDILOL 3.125 MG TAB PO SCH ×2 (07:43→19:58)
[2016-09-11 07:46] LABS: Troponin I 0.102 ng/mL (0.000-0.034)
[2016-09-11 07:54] LABS: Glucose,Whole Blood 123 mg/dL (75-99)
[2016-09-11] MEDS ORDERED: SODIUM CHLORIDE 0.9% 1,000 ML IV SCH (08:00)
[2016-09-11] MEDS ORDERED: MAGNESIUM SULFATE-D5W PMX 1 GM in DEXTROSE/WATER 1 100ML.BAG IVPB ONE (08:40)
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
[2016-09-11] MEDS: ESOMEPRAZOLE 20 MG in SODIUM CHLORIDE 0.9% 50 ML IVPB SCH (09:23)
[2016-09-11] MEDS: LISINOPRIL 5 MG TAB PO SCH ×2 (09:25→13:11)
--- NOTE | 2016-09-11 11:18 | PN ---
DATE OF SERVICE: 09/11/2016 REQUESTING PHYSICIAN: Dr. Kaylee Suero The patient is a 66-year-old pleasant lady admitted to the hospital with urosepsis. She had severe leukocytosis, was started on broad spectrum antibiotics and she is much improved. She still had low grade fever last night. She denies any abdominal pain. Reports no nausea or vomiting. Has been having regular bowel movements. In fact, she had loose bowel movements yesterday. No rectal bleeding or melena. PHYSICAL EXAMINATION: Appears comfortable, no apparent distress. Vital signs are stable. T-max was 100.1, this morning it is 97.8. Blood pressure 112/55, pulse rate 83 per minute. HEENT: Unremarkable. Conjunctivae pink, sclerae anicteric. Oral cavity, no lesions. NECK: No JVD or lymph node enlargement. CHEST: Clear to auscultation. HEART: Regular rate and rhythm. ABDOMEN: Soft. EXTREMITIES: No pedal edema. SKIN: No rashes. NEURO: Alert and oriented x3. No focal deficits. Labs done today: WBC 7.7, hemoglobin 8.9, platelets 114. Sodium 135, potassium 4.1. BUN 33, creatinine 1.16. IMPRESSION: Anemia with gradual drop in hemoglobin since admission to the hospital and no evidence of active gastrointestinal bleed. Last hemoglobin was 8.9 gm/dl. Some of it is most likely from a dilutional effect and partly anemia of chronic disease. As mentioned yesterday, she did have a colonoscopy done by Dr. Miller in March of 2014 that was unremarkable. RECOMMENDATIONS: Continue with broad spectrum antibiotics. No need for any endoscopic intervention. Will sign off at this time. Please call us if needed. SAYD
[2016-09-11 11:30] LABS: Glucose,Whole Blood 191 mg/dL (75-99)
--- NOTE | 2016-09-11 13:02 | XR ---
EXAMINATION TYPE: XR chest 1V portable DATE OF EXAM: 09/11/2016 Comparison: 09/09/2016 Clinical History: 66-year-old female with shortness of breath Findings: The heart is mildly enlarged. Diffuse interstitial and vascular prominence and indistinctness of the pulmonary vasculature. Some patchy airspace opacities present in the infrahilar regions and lung base s. Trace effusions suspected. Left anterior chest wall ICD generator with right atrial, right ventric ular, and coronary sinus leads. Impression: Correlate for CHF and interstitial pulmonary edema. Trace effusions suspected.
[2016-09-11] MEDS ORDERED: FUROSEMIDE 10 MG/ML 4 ML VIAL IV STA (13:34)
[2016-09-11 16:25] LABS: Glucose,Whole Blood 233 mg/dL (75-99)
[2016-09-11] MEDS ORDERED: HYDROmorphone 1 MG/ML 1 ML SYRINGE IVP PRN (17:57)
[2016-09-11] MEDS: ATORVASTATIN 40 MG TAB PO SCH (19:58)
[2016-09-11] MEDS: DIGOXIN 125 MCG TAB PO SCH (19:58)
[2016-09-11 21:02] LABS: Glucose,Whole Blood 175 mg/dL (75-99)
[2016-09-11] MEDS: INSULIN GLARGINE 100 UNIT/ML 10 ML VIAL SQ SCH (21:25)
[2016-09-11] MEDS: ZOLPIDEM 5 MG TAB PO PRN (21:27)
[2016-09-12] MEDS: HYDROcodone/APAP 5-325MG 1 EACH TAB PO PRN ×4 (03:11→21:30)
[2016-09-12] MEDS: AMPICILLIN-SULBACTAM 3 GM in SODIUM CHLORIDE 0.9% 100 ML IVPB SCH ×3 (06:19→18:12)
[2016-09-12 06:21] LABS: Aty Lym Flag Slight; CH 28.1; CHCM 31.6; HCT 27.5 % (34.0-46.0); HDW 2.46; HGB 8.9 gm/dL (11.4-16.0); MCH 28.8 pg (25.0-35.0); MCHC 32.3 g/dL (31.0-37.0); MCV 89.2 fL (80.0-100.0); Mean Platelet Volume 7.9; RBC 3.09 m/uL (3.80-5.40); RDW 13.7 % (11.5-15.5); WBC 7.9 k/uL (3.8-10.6); WBC (Perox) 8.17
[2016-09-12 06:34] LABS: Calcium 8.6 mg/dL (8.4-10.2); Digoxin 0.9 ng/mL; Magnesium 1.7 mg/dL (1.6-2.3); Potassium 4.5 mmol/L (3.5-5.1)
[2016-09-12 06:48] LABS: Glucose,Whole Blood 151 mg/dL (75-99)
[2016-09-12] MEDS: INSULIN LISPRO (humaLOG) 300 UNIT/3 ML VIAL SQ SCH ×4 (06:49→21:30)
[2016-09-12 07:40] LABS: Add Differential Manual Differential
[2016-09-12 07:42] LABS: Manual Review Performed; Nucleated Red Blood Cells 0 /100 WBC (0-0); Total Cells Counted 100
[2016-09-12 07:45] LABS: Basophilic Stippling Present
[2016-09-12] MEDS: TIOTROPIUM 18 MCG/PUFF INHALER INHALATION SCH (07:47)
--- NOTE | 2016-09-12 08:28 | PN ---
DATE OF SERVICE: 09/11/16 This 66-year-old woman was admitted with UTI with sepsis also had chest discomfort. Tropnions elevated. The patient also had cardiac arrhythmia showing probable SVT versus V-Tach in the rhythm strip. The patient also has features of CHF and cardiology is following the patient closely. Past medical history reviewed. REVIEW OF SYSTEMS: Cardiovascular: As mentioned earlier. Respiratory: Occasional cough. GI: As mentioned earlier. : No dysuria. Nervous system: No numbness or weakness. Current medications are reviewed and include: 1. [place] 5 mg q6h prn. 2. Xanax 0.25 t.i.d. 3. Unasyn 3 gm IV q6h. 4. Lipitor. 5. Coreg. 6. Lanoxin 125 qhs. 7. Lovenox 40 mg subcu daily. 8. Nexium 20 mg daily. 9. Lasix 40 mg daily. 10. Lantus 15 units subcu q.h.s. 12. Zestril 5 mg daily. 14. Glucophage. 15. Paxil. 16. Spiriva. 17. Vancomycin. 18. Ambien. PHYSICAL EXAMINATION: The patient is alert and oriented times three. Pulse 70. Blood pressure 118/68. Respiratory rate 18. Temperature 98.2 degrees. Pulse ox 96% on 2 L. HEENT: Conjunctivae normal. Oral mucosa moist. NECK: No JVD. No carotid bruit. No lymph node enlargement. CARDIOVASCULAR: S1, S2 muffled. No S3, no S4. RESPIRATORY: Breath sounds diminished at the bases. Scattered rhonchi and no crackles. ABDOMEN: Soft, nontender. No mass palpable. LEGS: No edema. No swelling. NERVOUS SYSTEM: Higher functions as mentioned earlier. Moves all four limbs. No focal deficits. LYMPHATICS: No lymph nodes palpable in the neck, axillae or groin. LABS: WBC 7.5, hemoglobin 8.3. Creatinine 1.16. Troponin 0.12. ASSESSMENT: 1. Urinary tract infection with possible sepsis, present on admission. 2. Troponin 0.102, possibly acute non-ST elevation myocardial infarction with chest pain. 3. Congestive heart failure, acute exacerbation, ejection fraction 25-30% with acute on chronic systolic dysfunction. 4. Increased WBC. 5. Hyponatremia. 6. Increased AST/ALT possible acute mild acute hepatitis. 7. History of rectal distention, undetermined etiology. 8. History of asthma, chronic obstructive pulmonary disease. 9. History of congestive heart failure. 10. History of diabetes mellitus Type 2. 11. History of hypertension. 12. History of hyperlipidemia. 13. History of myocardial infarction. 14. History of AICD. 15. Nonsustained ventricular tachycardia versus supraventricular tachycardia. RECOMMENDATIONS AND DISCUSSION: In this 66 -year-old gentleman who presented with multiple complex medical issues, we will monitor the patient closely. Continue the current medications, continue with symptomatic treatment. Otherwise, at this time, I recommend transfer the patient to telemetry for monitored bed. Continue with IV Lasix. Cardiology consultation appreciated. Otherwise, magnesium has been given . Digoxin level has been requested. Guarded prognosis because of multiple complex medical issues. See orders for details. Further recommendations to follow. MTDD
[2016-09-12] MEDS ORDERED: FUROSEMIDE 10 MG/ML 4 ML VIAL IV SCH (09:00)
[2016-09-12] MEDS: ENOXAPARIN 40 MG/0.4 ML SYRINGE SQ SCH (09:45)
[2016-09-12] MEDS: metFORMIN 500 MG TAB PO SCH ×2 (09:45→21:31)
[2016-09-12] MEDS: LORATADINE 10 MG TAB PO SCH (09:45)
[2016-09-12] MEDS: CARVEDILOL 3.125 MG TAB PO SCH ×2 (09:45→21:32)
[2016-09-12] MEDS: LISINOPRIL 5 MG TAB PO SCH (09:45)
[2016-09-12] MEDS: ESOMEPRAZOLE 20 MG in SODIUM CHLORIDE 0.9% 50 ML IVPB SCH (09:45)
[2016-09-12] MEDS: VANCOMYCIN 1,000 MG in SODIUM CHLORIDE 0.9% 250 ML IVPB SCH (10:49)
[2016-09-12 11:35] LABS: Glucose,Whole Blood 249 mg/dL (75-99)
[2016-09-12] MEDS: FUROSEMIDE 40 MG TAB PO SCH (11:38)
--- NOTE | 2016-09-12 14:07 | P.PN ---
Subjective This is a 66-year-old female with history of nonischemic cardiomyopathy, aortic valve replacement and also mitral valve repair done at [facility]. She claims that subsequently she has also had TAVR. Patient also had biventricular defibrillator implantation. Patient is now admitted to the hospital mainly because of UTI. We're asked to see the patient because of an episode of nonsustained V. tach consisting of 5-6 beats. Patient also complains some palpitations, but mostly seems to be associated with occasional PVCs. She denies any chest pain or shortness of breath. She also is noted to have anemia with a hemoglobin dropping below 9. Her potassium level is within normal limits. Patient has a biventricular pacemaker and the QT interval seems to be within normal limits. At this point I'm going to obtain a digoxin level. We'll treat her 1 g of magnesium and get a magnesium level also. Otherwise, continue current medical therapy. 09/12/2016. No further episodes of NSVT have been noted. Repeat chest x-ray revealed congestive heart failure and interstitial pulmonary edema. Patient was given IV Lasix, diuresed well overall. Changed over to oral Lasix today. Creatinine 1.3. Blood pressure 140/60. Objective - Vital Signs Vital signs: Vital Signs Temp 97.8 F 09/12/16 09:25 Pulse 60 09/12/16 12:25 Resp 16 09/12/16 12:25 BP 140/65 09/12/16 12:25 Pulse Ox 100 09/12/16 12:25 Intake & Output 09/11/16 09/12/16 09/12/16 18:59 06:59 18:59 Intake Total 822 821 4447 Output Total 1100 1350 200 Balance -740 -1190 940 Weight 65.5 kg Intake: IV 160 160 Sodium Chloride 0.9% 1, 160 160 000 ml @ 20 mls/hr IV . Q24H [facility] Rx#:[id number] Intake, IV Titration 400 Amount Ampicillin-Sulbactam 3 gm 100 In Sodium Chloride 0.9% 100 ml @ 100 mls/hr IVPB Q6HR [facility] Rx#:[id number] Esomeprazole 20 mg In 50 Sodium Chloride 0.9% 50 ml @ 100 mls/hr IVPB DAILY [facility] Rx#:[id number] Vancomycin 1,000 mg In 250 Sodium Chloride 0.9% 250 ml @ 125 mls/hr IVPB Q16H [facility] Rx#:[id number] Oral 360 580 Output: Urine 1100 1350 200 Other: Voiding Method Toilet Toilet Toilet # Voids 3 1 3 # Bowel Movements 2 - Exam GENERAL EXAM: Patient is alert and oriented and doesn't appear to be in any acute distress HEENT: Normocephalic. Normal reaction of pupils, equal size, normal range of extraocular motion. No erythema or exudates in the throat. NECK: No masses, no nuchal rigidity. CHEST: No chest wall deformity. LUNGS: Equal air entry with no crackles or wheeze. HEART: S1 and S2 normal with no audible mumurs or gallops. Regular rhythm, femorals equal on both sides.. ABDOMEN: No hepatosplenomegaly, normal bowel sounds, no guarding or rigidity. SKIN: No rashes CENTRAL NERVOUS SYSTEM: No focal deficits. EXTREMITIES: No cyanosis, clubbing or edema. - Labs CBC & Chem 7: 09/12/16 05:56 09/12/16 05:56 Labs: Abnormal Lab Results - Last 24 Hours (Table) 09/11/16 09/11/16 09/11/16 Range/Units 16:23 18:38 20:58 RBC (3.80-5.40) m/uL Hgb (11.4-16.0) gm/dL Hct (34.0-46.0) % Plt Count (150-450) k/uL Sodium (137-145) mmol/L BUN (7-17) mg/dL Creatinine (0.52-1.04) mg/dL Glucose (74-99) mg/dL POC Glucose (mg/dL) 233 H 175 H (75-99) mg/dL Troponin I 0.075 H* (0.000-0.034) ng/mL 09/12/16 09/12/16 09/12/16 Range/Units 05:56 05:56 06:45 RBC 3.09 L (3.80-5.40) m/uL Hgb 8.9 L (11.4-16.0) gm/dL Hct 27.5 L (34.0-46.0) % Plt Count 139 L (150-450) k/uL Sodium 135 L (137-145) mmol/L BUN 36 H (7-17) mg/dL Creatinine 1.30 H (0.52-1.04) mg/dL Glucose 150 H (74-99) mg/dL POC Glucose (mg/dL) 151 H (75-99) mg/dL Troponin I (0.000-0.034) ng/mL 09/12/16 Range/Units 11:34 RBC (3.80-5.40) m/uL Hgb (11.4-16.0) gm/dL Hct (34.0-46.0) % Plt Count (150-450) k/uL Sodium (137-145) mmol/L BUN (7-17) mg/dL Creatinine (0.52-1.04) mg/dL Glucose (74-99) mg/dL POC Glucose (mg/dL) 249 H (75-99) mg/dL Troponin I (0.000-0.034) ng/mL Microbiology - Last 24 Hours (Table) 09/09/16 19:29 Blood Culture Gram Stain - Final Blood Blood Culture - Final Staphylococcus aureus Assessment and Plan Plan: Assessment and Plan (1) Nonsustained ventricular tachycardia Status: Acute (2) PVCs (premature ventricular contractions) Status: Acute (3) Urinary tract infection Status: Acute (4) History of aortic valve replacement Status: Acute (5) History of mitral valve repair Status: Acute (6) Nonischemic cardiomyopathy Status: Acute (7) Cardiac defibrillator in place Status: Acute (8) Cardiac resynchronization therapy defibrillator ([employer]ICE PRESIDENT-D) in place Status: Acute Magnesium level I.7 today. We will give the patient 2 g of magnesium today. We will ALSO discontinue the IV Lasix and start the patient on diuretics. DNP note has been reviewed, I agree with a documented findings and plan of care. Patient was seen and examined.
--- NOTE | 2016-09-12 14:52 | CDI ---
In responding to this query, please exercise your independent professional judgment. The [facility] Coding Staff and Clinical Documentation Specialists appreciate your assistance in clarifying documentation, maintaining compliance with coding guidelines, accurately documenting patients condition and capturing severity of illness. The fact that a question is asked does not imply that any particular answer is desired or expected. Communication forms are a method of clarifying documentation and are not made part of the Legal Health Record. Thank you in advance for your clarification. Last Revision, December 2014 Isma Rhodes [address] [place] [address] Documentation Clarification Form Date: 09/12/2016 2:41:00 PM From: Kamala Ortega RN, CCDS Admit Date: 09/09/2016 4:11:00 PM Patient Name: Jillian Busby Visit Number: [id number] Dr. Philip Silver History/Risk Factors: Hx of renal disease, UTI with sepsis this admission, NSTEMI, CHF, DM2, HTN Clinical Indicators: 03/05/16 & 08/08/16 Patients baseline BUN/CR/GFR: 30/1/>60 Patient presents with a BUN: 28/33/36 CR: .85/1.05/1.16/1.3 GFR: >50/52/1.16/1.3 Treatment: Consults: Cardiology & GI IVF: 1.5 L IVF Bolus Other: Lasix 40mg IVP x3 doses, followed by 40mg PO QD In order to capture the severity of condition, please clarify if the condition signifies: Acute renal failure Please specify (if known): Cortical, Medullary, or Tubular Necrosis? Acute kidney injury Acute on chronic renal failure Chronic renal failure, please stage Chronic kidney disease (CKD) and please stage Stage 1 GFR >90 Stage 2 GFR 60-89 Stage 3 GFR 30-59 Stage 4 GFR 15-29 Stage 5 GFR <15 ESRD Unable to determine Other, specify Please document in your progress notes and discharge summary in order to capture severity of illness and risk of mortality. Include clinical findings that support your diagnosis. FYI: Press F11 to launch patient chart. FEDERICO
[2016-09-12] MEDS: SODIUM CHLORIDE 0.9% 1,000 ML IV SCH (15:08)
[2016-09-12] MEDS: MAGNESIUM SULFATE-D5W PMX 1 GM in DEXTROSE/WATER 1 100ML.BAG IVPB SCH ×2 (15:08→16:50)
[2016-09-12 16:38] LABS: Glucose,Whole Blood 143 mg/dL (75-99)
[2016-09-12 21:03] LABS: Glucose,Whole Blood 180 mg/dL (75-99)
[2016-09-12] MEDS: ZOLPIDEM 5 MG TAB PO PRN (21:29)
[2016-09-12] MEDS: INSULIN GLARGINE 100 UNIT/ML 10 ML VIAL SQ SCH (21:29)
[2016-09-12] MEDS: ATORVASTATIN 40 MG TAB PO SCH (21:31)
[2016-09-12] MEDS: DIGOXIN 125 MCG TAB PO SCH (21:32)
[2016-09-12] MEDS ORDERED: VANCOMYCIN TROUGH DUE 1 EACH MISC MISCELLANE ONE (23:00)
[2016-09-12] MEDS: ceFAZolin 2 GM in SODIUM CHLORIDE 0.9% 100 ML IVPB SCH (23:28)
[2016-09-13 05:46] LABS: Glucose,Whole Blood 135 mg/dL (75-99)
[2016-09-13 06:15] LABS: Basophils % (A) 1 %; CH 28.7; CHCM 32.5; Eosinophils # (A) 0.3 k/uL (0-0.7); Eosinophils % (A) 4 %; HCT 28.9 % (34.0-46.0); HDW 2.48; HGB 9.2 gm/dL (11.4-16.0); Luc # (Auto) 0.35; Luc % (Auto) 4; Lymphocytes # (A) 1.2 k/uL (1.0-4.8); Lymphocytes % (A) 15 %; MCH 28.4 pg (25.0-35.0); MCHC 31.9 g/dL (31.0-37.0); MCV 88.9 fL (80.0-100.0); Mean Platelet Volume 8.5; Monocytes # (A) 0.5 k/uL (0-1.0); Monocytes % (A) 6 %; Neutrophils # (A) 5.6 k/uL (1.3-7.7); Neutrophils % (A) 70 %; RBC 3.25 m/uL (3.80-5.40); RDW 14.1 % (11.5-15.5); WBC (Perox) 8.58
[2016-09-13 06:26] LABS: Calcium 8.7 mg/dL (8.4-10.2); Magnesium 1.7 mg/dL (1.6-2.3); Potassium 4.2 mmol/L (3.5-5.1)
[2016-09-13] MEDS: INSULIN LISPRO (humaLOG) 300 UNIT/3 ML VIAL SQ SCH ×4 (06:31→22:20)
[2016-09-13] MEDS ORDERED: LOPERAMIDE 2 MG CAP PO PRN (08:09)
[2016-09-13] MEDS ORDERED: Magnesium Replacement Protocol 1 EACH MISC MISCELLANE PRN ×2 (08:09→08:11)
[2016-09-13] MEDS ORDERED: Potassium Replacement Protocol 1 EACH MISC MISCELLANE PRN (08:10)
[2016-09-13] MEDS ORDERED: MAGNESIUM SULFATE-D5W PMX 1 GM in DEXTROSE/WATER 1 100ML.BAG IVPB SCH (08:15)
[2016-09-13] MEDS ORDERED: SODIUM CHLORIDE 0.9% 1,000 ML IV SCH (08:15)
--- NOTE | 2016-09-13 08:16 | PN ---
DATE OF SERVICE: 09/12/2016 This 66-year-old woman who was admitted with UTI with sepsis, also had elevated troponin. The patient also had CHF acute exacerbation as well as renal failure also. The patient is monitored in telemetry at this time. Cardiology is following the patient closely. No fever, no cough. The patient had episodes of nonsustained V-tach as well. The patient has history of aortic valve replacement and aortic valve repair also. PAST MEDICAL HISTORY: Reviewed. REVIEW OF SYSTEMS: CARDIOVASCULAR SYSTEM: As mentioned earlier. RESPIRATORY: As mentioned earlier. GI: No nausea, vomiting. : No dysuria. NERVOUS SYSTEM: No numbness or weakness. Current medications are: 1. [place] 5 mg q.6 p.r.n. 2. Xanax 0.25 t.i.d. 3. Unasyn 3 g IV q.6. 4. Aspirin 81 mg. 5. Lipitor 40 mg q.h.s. 6. Coreg 3.125 mg p.o. b.i.d. 7. Lanoxin 125 mcg q.h.s. 8. Lovenox 40 mg subcu daily. 9. Lasix 40 mg daily. 10. Dilaudid. 11. Lantus. 12. Zestril 5 mg daily. 13. Claritin 10 mg daily. 14. Glucophage 500 mg p.o. b.i.d. 15. Paxil 20 mg p.o. daily. 16. Spiriva 1 puff daily. 17. Vancomycin. 18. Ambien. PHYSICAL EXAM: The patient is alert and oriented x3. Pulse 60, blood pressure 140/65, respirations 16, temperature 97.8, pulse ox 100% on room air. HEENT: Conjunctivae normal. Oral mucosa moist. NECK: No jugular venous distention. No carotid bruit. No lymph node enlargement. CARDIOVASCULAR: S1 and S2 muffled. Ejection systolic murmur. RESPIRATORY: Breath sounds diminished at the bases. Scattered rhonchi and basal crackles present. ABDOMEN: Soft, nontender. LEGS: No edema, no swelling. NERVOUS SYSTEM: No focal deficits. Labs are hemoglobin 8.9. Creatinine is 1.30. ASSESSMENT: 1. Urinary tract infection with possible sepsis present on admission. 2. Troponin 0.102, possible acute non-ST segment elevation myocardial infarction with chest pain. 3. Congestive heart failure, acute exacerbation. Ejection fraction 25% to 30% with acute on chronic systolic dysfunction. 4. Increased WBC. 5. Hyponatremia. 6. Increased AST/ALT, acute hepatitis. 7. History of asthma, chronic obstructive pulmonary disease. RECOMMENDATION AND DISCUSSION: Recommend to continue current medications. Continue with monitoring and symptomatic treatment. Otherwise, at this time will monitor fluid electrolyte balance closely. Continue the rest of the medications. Accu-Cheks a.c. and at bedtime. Continue with diuretics. Closely monitor renal function. Repeat labs. Closely follow with multiple consultants. Prognosis guarded. Further recommendations to follow. MTDD
[2016-09-13] MEDS: HYDROcodone/APAP 5-325MG 1 EACH TAB PO PRN ×3 (08:49→22:26)
[2016-09-13] MEDS: ceFAZolin 2 GM in SODIUM CHLORIDE 0.9% 100 ML IVPB SCH ×2 (08:49→16:12)
[2016-09-13] MEDS: CARVEDILOL 3.125 MG TAB PO SCH ×2 (08:50→22:20)
[2016-09-13] MEDS: ENOXAPARIN 40 MG/0.4 ML SYRINGE SQ SCH (08:50)
[2016-09-13] MEDS: LISINOPRIL 5 MG TAB PO SCH (08:50)
[2016-09-13] MEDS: LORATADINE 10 MG TAB PO SCH (08:50)
[2016-09-13] MEDS: FUROSEMIDE 40 MG TAB PO SCH (08:50)
[2016-09-13] MEDS: ASPIRIN 81 MG PO SCH (08:50)
[2016-09-13] MEDS: metFORMIN 500 MG TAB PO SCH ×2 (08:51→22:20)
[2016-09-13] MEDS: PARoxetine 20 MG TAB PO SCH (08:51)
[2016-09-13] MEDS: TIOTROPIUM 18 MCG/PUFF INHALER INHALATION SCH (08:54)
[2016-09-13] MEDS: ALBUTEROL NEBULIZED 2.5 MG/3 ML INHALATION PRN (08:54)
[2016-09-13] MEDS ORDERED: POTASSIUM CHLORIDE ER 20 MEQ TAB.ER PO SCH (09:00)
[2016-09-13] MEDS: ESOMEPRAZOLE 20 MG in SODIUM CHLORIDE 0.9% 50 ML IVPB SCH (11:20)
--- NOTE | 2016-09-13 11:27 | ECHOF ---
Referral Reason:Staph aureus bacteremia , ?endocarditis MEASUREMENTS -------- HEIGHT: 157.5 cm WEIGHT: 70.8 kg BP: 163/70 IVSd: 1.2 cm (0.6 - 1.1) LVIDd: 4.4 cm (3.9 - 5.3) LVPWd: 1.5 cm (0.6 - 1.1) IVSs: 1.4 cm LVIDs: 3.7 cm LVPWs: 1.5 cm LA Diam: 4.6 cm (2.7 - 3.8) LAESV Index (A-L): 33.40 ml/m MV EXCURSION: 17.354 mm (> 18.000) MV EF SLOPE: 27 mm/s (70 - 150) EPSS: 1.1 cm MV E Truong: 1.65 m/s MV DecT: 256 ms MV A Truong: 1.53 m/s MV E/A Ratio: 1.07 MV DecT: 256 ms AV maxP.81 mmHg AV meanP.93 mmHg RAP: 5.00 mmHg RVSP: 61.00 mmHg FINDINGS -------- Paced rhythm. This was a technically adequate study. There is mild concentric left ventricular hypertrophy. Overall left ventricular systolic function is low-normal with, an EF between 50 - 55 %. The right ventricle is normal in size. LA is midly dilated 29-33ml/m2. The right atrial size is normal. Peak/mean gradient across the Aortic Valve is 26.81mmHg / 15.93mmHg. Pt had bioprosthetic valve 2004, TAVR procedure done in 2014. The mitral valve leaflets are moderately thickened. Moderate mitral annular calcification present. Mild mitral regurgitation is present. The peak and mean MV gradients are 13.75mmHg 5.13mmHg as measured by doppler. Mild mitral stenosis. Posterior MV is Stenotic. Mild tricuspid regurgitation present. There is moderate pulmonary hypertension. The right ventricular systolic pressure, as measured by Doppler, is 61.00mmHg. Trace/mild (physiologic) pulmonic regurgitation. The aortic root size is normal. There is no pericardial effusion. CONCLUSIONS -------- 1. There is mild concentric left ventricular hypertrophy. 2. Mild mitral stenosis. 3. Posterior MV is Stenotic. 4. Mild tricuspid regurgitation present. 5. There is moderate pulmonary hypertension. 6. The right ventricular systolic pressure, as measured by Doppler, is 61.00mmHg. 7. Trace/mild (physiologic) pulmonic regurgitation. 8. The aortic root size is normal. 9. There is no pericardial effusion. 10. Overall left ventricular systolic function is low-normal with, an EF between 50 - 55 %. 11. LA is midly dilated 29-33ml/m2. 12. Peak/mean gradient across the Aortic Valve is 26.81mmHg / 15.93mmHg. 13. Pt had bioprosthetic valve 2004, TAVR procedure done in 2014. 14. The mitral valve leaflets are moderately thickened. 15. Moderate mitral annular calcification present. 16. Mild mitral regurgitation is present. 17. The peak and mean MV gradients are 13.75mmHg 5.13mmHg as measured by doppler. DRAWING FRAME TENDER: Ambika Loo RDCS
[2016-09-13 11:42] LABS: Glucose,Whole Blood 215 mg/dL (75-99)
[2016-09-13] MEDS: MAGNESIUM SULFATE-D5W PMX 1 GM in DEXTROSE/WATER 1 100ML.BAG IVPB SCH ×2 (12:19→13:59)
--- NOTE | 2016-09-13 13:00 | CONS ---
DATE OF CONSULTATION: 09/12/2016 REASON FOR CONSULTATION: MRSA bacteremia. HISTORY OF PRESENT ILLNESS: The patient is a 66-year old female who presented to the [facility] ER on 09/09/16 with chief complaint of fever and chills. The patient complaining of weakness, lethargy and also having urinary burning and frequency but no hematuria or any suprapubic pain. The patient feels nauseated with an episode of vomiting. No significant abdominal pain. No chest pain or shortness of breath or cough. The patient subsequently was evaluated by the ER physician. Chest x-ray did show some chronic changes in the right lower lobe pneumonia. CT of the abdomen and pelvis did show distention of the rectum and some abdominal wall abnormality. The patient did have fever of 101 degrees on arrival to the ER and elevated white count at 4.7. UA was not significantly positive. The patient has been treated with Unasyn which blood cultures coming positive with MRSA. Vancomycin was added. The patient did have follow-up blood cultures done on 09/11 which are negative so far. Urine culture has been negative. I was asked to see the patient today for further recommendations regarding antibiotic therapy. The patient remains to be urinary frequency though burning has improved. Nausea and vomiting has improved as well. The patient denies significant chest pain, shortness of breath, cough. The patient did have history of pacemaker placement about three years ago. The patient denies having any pain at the pacemaker site or any swelling or redness. The patient also had aortic valve replacement about ten years ago with repeat surgery a few years later because of a leak. REVIEW OF SYSTEMS: Constitutional: Positive for weakness and fever. Eyes: No complaint. ENT: No complaint. Respiratory: No complaint. Cardiovascular: No complaint. Genitourinary: As per history of present illness. Gastrointestinal: As per history of present illness. Musculoskeletal: No complaint. Integumentary: As per HPI. Psychological: No complaint. Endocrine : No complaint. Neurological: No complaint. Past medical history includes COPD, asthma, osteoarthritis, renal insufficiency , hypertension, hyperlipidemia, coronary artery disease. Past surgical history: Cholecystectomy, AICD placement, hernia repair, hysterectomy, tonsillectomy, bilateral cataract surgery, aortic valve replacement and mitral valve repair, C5 fusion. SOCIAL HISTORY: Remote history of smoking. No drinking or drug use. FAMILY HISTORY: Father with history cancer. ALLERGIES: TETRAMYCIN. Medications currently include the patient is on: 1. Ambien. 2. Vancomycin. 3. Spiriva. 4. Paxil. 5. [place]. 6. Unasyn. On examination, blood pressure is 121/71 with a pulse of 80. Temperature 97.4. 95% on 2 L nasal cannula. General description is an elderly female lying in bed in no distress. No tachypnea or accessory muscles of respiration use. HEENT: Examination shows pallor. No sclera icterus. Oral mucosa membranes dry. NECK: Trachea is central. No thyromegaly. LUNGS: Unlabored breathing. Coarse crackles bilaterally. HEART: S1, S2 regular rate and rhythm. ABDOMEN: Soft, no tenderness. No guarding or rigidity. EXTREMITIES: No edema of the feet. SKIN: No rash or mass palpable. NEUROLOGICALLY: The patient is alert and oriented times three. Mood and affect normal. LABS: Hemoglobin 8.9, white count 7.9 with admission white count 24.7 with a BUN 36, creatinine 1.30. Urine was not significantly positive though. Blood cultures on admission showing MRSA positive for MSSA, repeat blood cultures so far negative. DIAGNOSTIC IMPRESSION AND PLAN: Patient admitted to the hospital with sepsis in a patient who did have a fever of 102 degrees. The patient did have elevated white count meeting criteria for SIRS, the patients predominant symptoms has been urine, however, UA was not significantly positive. The patient did have evidence of MSSA bacteremia. The patient did have an AICD pacer , site looks clean and did have aortic valve replacement. High risk of endovascular complications or source as the patients abdomen exam failed to reveal any significant pathology. PLAN: 1. Discontinue the Vancomycin and Unasyn. 2. Start the patient on Cefazolin 2 gm [id number]. 3. Will obtain echocardiogram and if there is any evidence of persistent bacteremia, may benefit from EDD. 4. depending on clinical response as well as repeat cultures, we will further adjust medication if needed. Thank you for this consultation. We will follow this patient along with you. FEDERICO
[2016-09-13] MEDS ORDERED: FUROSEMIDE 10 MG/ML 4 ML VIAL IV STA (13:51)
[2016-09-13] MEDS: SODIUM CHLORIDE 0.9% 1,000 ML IV SCH (14:06)
--- NOTE | 2016-09-13 14:38 | P.PN ---
Subjective This is a 66-year-old female with history of nonischemic cardiomyopathy, aortic valve replacement and also mitral valve repair done at [facility]. She claims that subsequently she has also had TAVR. Patient also had biventricular defibrillator implantation. Patient is now admitted to the hospital mainly because of UTI. We're asked to see the patient because of an episode of nonsustained V. tach consisting of 5-6 beats. Patient also complains some palpitations, but mostly seems to be associated with occasional PVCs. She denies any chest pain or shortness of breath. She also is noted to have anemia with a hemoglobin dropping below 9. Her potassium level is within normal limits. Patient has a biventricular pacemaker and the QT interval seems to be within normal limits. At this point I'm going to obtain a digoxin level. We'll treat her 1 g of magnesium and get a magnesium level also. Otherwise, continue current medical therapy. 09/12/2016. No further episodes of NSVT have been noted. Repeat chest x-ray revealed congestive heart failure and interstitial pulmonary edema. Patient was given IV Lasix, diuresed well overall. Changed over to oral Lasix today. Creatinine 1.3. Blood pressure 140/60. 09/13/2016 Patient seen and examined this morning, she states she is feeling more short of breath than her usual, not feeling as well as she did yesterday. Her IV Lasix was discontinued yesterday and she was started on oral diuretics. We will give her a one-time dose of IV Lasix today. We will also check a BNP level and repeat a chest x-ray. BUN 26 creatinine 1.2. Hemoglobin 9.2. Blood pressure 142/60 with a heart rate in the 80s. Echocardiogram with Doppler study was performed today which revealed an ejection fraction of 50-55%. Objective - Vital Signs Vital signs: Vital Signs Temp 97.6 F 09/13/16 08:00 Pulse 84 09/13/16 12:19 Resp 16 09/13/16 12:19 BP 161/75 09/13/16 12:19 Pulse Ox 97 09/13/16 12:19 Intake & Output 09/12/16 09/13/16 09/13/16 18:59 06:59 18:59 Intake Total 1260 280 237 Output Total 1100 1450 Balance 160 -1170 237 Weight 70.9 kg Intake: IV 160 280 Sodium Chloride 0.9% 1, 160 180 000 ml @ 20 mls/hr IV . Q24H [facility] Rx#:[id number] ceFAZolin 2 gm In Sodium 100 Chloride 0.9% 100 ml @ 100 mls/hr IVPB Q8HR [facility] Rx#:[id number] Intake, IV Titration 400 Amount Ampicillin-Sulbactam 3 gm 100 In Sodium Chloride 0.9% 100 ml @ 100 mls/hr IVPB Q6HR [facility] Rx#:[id number] Esomeprazole 20 mg In 50 Sodium Chloride 0.9% 50 ml @ 100 mls/hr IVPB DAILY [facility] Rx#:[id number] Vancomycin 1,000 mg In 250 Sodium Chloride 0.9% 250 ml @ 125 mls/hr IVPB Q16H [facility] Rx#:[id number] Oral 700 237 Output: Urine 1100 1450 Other: Voiding Method Toilet Toilet # Voids 3 - Exam PHYSICAL EXAMINATION: HEENT: Head is atraumatic, normocephalic. Pupils equal, round. Neck is supple. There is no elevated jugular venous pressure. HEART EXAMINATION: Heart S1, S2 normal. No murmur or gallop heard. CHEST EXAMINATION: Lungs reveal diminished air entry to bilateral bases. ABDOMEN: Soft, nontender. Bowel sounds are heard. No organomegaly noted. EXTREMITIES:[ 2+ peripheral pulses with no evidence of peripheral edema and no calf tenderness noted]. NEUROLOGIC [patient is awake, alert and oriented -3.] . - Labs CBC & Chem 7: 09/13/16 05:46 09/13/16 05:46 Labs: Abnormal Lab Results - Last 24 Hours (Table) 09/12/16 09/12/16 09/13/16 Range/Units 16:35 21:01 05:45 RBC (3.80-5.40) m/uL Hgb (11.4-16.0) gm/dL Hct (34.0-46.0) % BUN (7-17) mg/dL Creatinine (0.52-1.04) mg/dL Glucose (74-99) mg/dL POC Glucose (mg/dL) 143 H 180 H 135 H (75-99) mg/dL 09/13/16 09/13/16 09/13/16 Range/Units 05:46 05:46 11:39 RBC 3.25 L (3.80-5.40) m/uL Hgb 9.2 L (11.4-16.0) gm/dL Hct 28.9 L (34.0-46.0) % BUN 26 H (7-17) mg/dL Creatinine 1.22 H (0.52-1.04) mg/dL Glucose 120 H (74-99) mg/dL POC Glucose (mg/dL) 215 H (75-99) mg/dL Microbiology - Last 24 Hours (Table) 09/11/16 12:07 Blood Culture - Preliminary Blood No Growth after 24 hours Assessment and Plan Plan: Assessment and Plan (1) Nonsustained ventricular tachycardia Status: Acute (2) PVCs (premature ventricular contractions) Status: Acute (3) Urinary tract infection Status: Acute (4) History of aortic valve replacement Status: Acute (5) History of mitral valve repair Status: Acute (6) Nonischemic cardiomyopathy Status: Acute (7) Cardiac defibrillator in place Status: Acute (8) Cardiac resynchronization therapy defibrillator ([employer] WORKER-D) in place Status: Acute We will repeat a chest x-ray. Obtain BNP level. Give the patient a one time dose of 40 mg IV Lasix. DNP note has been reviewed, I agree with a documented findings and plan of care. Patient was seen and examined.
--- NOTE | 2016-09-13 15:27 | P.PN ---
Subjective Date of service 09/13/2016. Progress Note being dictated for Dr. Silver. Interval history: This is a 66-year-old female admitted with acute UTI with sepsis, acute CHF exacerbation, renal failure, and multiple other medical issues. Telemetry dual paced. MSSA bacteremia, repeat cultures pending. Afebrile. Maintained on cefazolin. Diuresing well on oral Lasix with 24-hour I &O reflecting a negative fluid balance. Renal function mildly improved. Review of systems: HEENT: Denies headache or focal deficits. Denies any dizziness or lightheadedness. Respiratory: Denies any increased shortness of breath. Cardiac: Denies any chest pain, palpitations. GI: Denies any nausea, vomiting, or diarrhea. Denies any abdominal tenderness. : Denies any dysuria. Psychiatry: Denies any anxiety or depression. Active Medications Hydrocodone Bitart/Acetaminophen ([place] 5-325) 1 each PO Q6HR PRN PRN Reason: Pain Last Admin: 09/13/16 08:49 Dose: 1 each Albuterol Sulfate (Ventolin Nebulized) 2.5 mg INHALATION RT-TID PRN PRN Reason: Shortness Of Breath Last Admin: 09/13/16 08:54 Dose: 2.5 mg Alprazolam (Xanax) 0.25 mg PO TID PRN PRN Reason: Anxiety Aspirin (Aspirin) 81 mg PO DAILY [facility] Last Admin: 09/13/16 08:50 Dose: 81 mg Atorvastatin Calcium (Lipitor) 40 mg PO HS [facility] Last Admin: 09/12/16 21:31 Dose: 40 mg Carvedilol (Coreg) 3.125 mg PO BID [facility] Last Admin: 09/13/16 08:50 Dose: 3.125 mg Digoxin (Lanoxin) 125 mcg PO HS [facility] Last Admin: 09/12/16 21:32 Dose: 125 mcg Enoxaparin Sodium (Lovenox) 40 mg SQ DAILY [facility] Last Admin: 09/13/16 08:50 Dose: 40 mg Furosemide (Lasix) 40 mg PO DAILY [facility] Last Admin: 09/13/16 08:50 Dose: 40 mg Hydromorphone HCl (Dilaudid) 0.25 mg IVP Q4HR PRN PRN Reason: Pain Last Admin: 09/11/16 18:03 Dose: 0.25 mg Esomeprazole Magnesium 20 mg/ (Sodium Chloride) 50 mls @ 100 mls/hr IVPB DAILY [facility] Last Admin: 09/13/16 11:20 Dose: 100 mls/hr Sodium Chloride (Saline 0.9%) 1,000 mls @ 20 mls/hr IV .Q24H [facility] Last Admin: 09/13/16 14:06 Dose: Not Given Cefazolin Sodium 2 gm/ Sodium (Chloride) 100 mls @ 100 mls/hr IVPB Q8HR [facility] Last Admin: 09/13/16 08:49 Dose: 100 mls/hr Insulin Glargine (Lantus) 16 unit SQ HS [facility] Last Admin: 09/12/16 21:29 Dose: 16 unit Insulin Human Lispro (Humalog) 0 unit SQ ACHS [facility] PRN Reason: Protocol Last Admin: 09/13/16 12:20 Dose: 3 unit Lisinopril (Zestril) 5 mg PO DAILY [facility] Last Admin: 09/13/16 08:50 Dose: 5 mg Loratadine (Claritin) 10 mg PO DAILY [facility] Last Admin: 09/13/16 08:50 Dose: 10 mg Metformin HCl (Glucophage) 500 mg PO BID [facility] Last Admin: 09/13/16 08:51 Dose: 500 mg Miscellaneous Information (Magnesium Per Protocol) 1 each MISCELLANE DAILY PRN ; Protocol PRN Reason: Per Protocol Paroxetine HCl (Paxil) 20 mg PO DAILY [facility] Last Admin: 09/13/16 08:51 Dose: 20 mg Tiotropium [place] (Spiriva) 1 puff INHALATION RT-DAILY [facility] Last Admin: 09/13/16 08:54 Dose: 1 puff Zolpidem Tartrate (Ambien) 5 mg PO PRN PRN Reason: Insomnia Last Admin: 09/12/16 21:29 Dose: 5 mg Objective - Vital Signs Vital signs: Vital Signs Temp 97.6 F 09/13/16 08:00 Pulse 84 09/13/16 12:19 Resp 16 09/13/16 12:19 BP 161/75 09/13/16 12:19 Pulse Ox 97 09/13/16 12:19 Intake & Output 09/12/16 09/13/16 09/13/16 18:59 06:59 18:59 Intake Total 1260 280 417 Output Total 1100 1450 400 Balance 160 -1170 17 Weight 70.9 kg Intake: IV 160 280 Sodium Chloride 0.9% 1, 160 180 000 ml @ 20 mls/hr IV . Q24H [facility] Rx#:[id number] ceFAZolin 2 gm In Sodium 100 Chloride 0.9% 100 ml @ 100 mls/hr IVPB Q8HR [facility] Rx#:[id number] Intake, IV Titration 400 Amount Ampicillin-Sulbactam 3 gm 100 In Sodium Chloride 0.9% 100 ml @ 100 mls/hr IVPB Q6HR [facility] Rx#:[id number] Esomeprazole 20 mg In 50 Sodium Chloride 0.9% 50 ml @ 100 mls/hr IVPB DAILY [facility] Rx#:[id number] Vancomycin 1,000 mg In 250 Sodium Chloride 0.9% 250 ml @ 125 mls/hr IVPB Q16H [facility] Rx#:[id number] Oral 700 417 Output: Urine 1100 1450 400 Other: Voiding Method Toilet Toilet # Voids 3 - Exam PHYSICAL EXAM: VITAL SIGNS: As above GENERAL: [Sitting up in bed, no acute distress] HEENT: [Pupils equal conjunctiva normal.] NECK: [Supple, no JVD] RESPIRATORY EFFORT:[ Normal] LUNGS: [Bilateral bases diminished scattered crackles and occasional rhonchi] CARDIOVASCULAR[ regular S1 and S2, positive systolic murmur, no rubs or gallops , no edema] GI: [Abdomen soft, nontender, positive bowel sounds.] PSYCH: [Alert and oriented -3, mood and affect normal.] NEURO: No focal deficits Microbiology 09/11/16 12:07 Blood Blood Culture - Preliminary No Growth after 48 hours 09/09/16 19:29 Blood Blood Culture Gram Stain - Final 09/09/16 19:29 Blood Blood Culture - Final Staphylococcus aureus 09/09/16 15:07 Urine,Voided Urine Culture - Final 09/09/16 19:29 Blood Blood Culture - Final - Labs CBC & Chem 7: 09/13/16 05:46 09/13/16 05:46 Labs: Abnormal Lab Results - Last 24 Hours (Table) 09/12/16 09/12/16 09/13/16 Range/Units 16:35 21:01 05:45 RBC (3.80-5.40) m/uL Hgb (11.4-16.0) gm/dL Hct (34.0-46.0) % BUN (7-17) mg/dL Creatinine (0.52-1.04) mg/dL Glucose (74-99) mg/dL POC Glucose (mg/dL) 143 H 180 H 135 H (75-99) mg/dL 09/13/16 09/13/16 09/13/16 Range/Units 05:46 05:46 11:39 RBC 3.25 L (3.80-5.40) m/uL Hgb 9.2 L (11.4-16.0) gm/dL Hct 28.9 L (34.0-46.0) % BUN 26 H (7-17) mg/dL Creatinine 1.22 H (0.52-1.04) mg/dL Glucose 120 H (74-99) mg/dL POC Glucose (mg/dL) 215 H (75-99) mg/dL Microbiology - Last 24 Hours (Table) 09/11/16 12:07 Blood Culture - Preliminary Blood No Growth after 48 hours Assessment and Plan Plan: 1. Acute UTI with possible sepsis, present on admission. MSSA bacteremia, repeat cultures pending. 2. [ Troponin 0.102, possible acute non-STEMI with chest pain]. 3. [ Acute on chronic exacerbation CHF, EF 50-55%, diastolic dysfunction]. 4. Acute hepatitis]. 5. [ Acute on chronic renal failure, stage III]. 6. Moderate pulmonary hypertension Plan: Continue on current medication regime ,monitoring and symptomatic treatment. Maintain diuresing. Close monitoring of renal function with repeat labs in a.m. antibiotics as per infectious disease, continue monitoring cultures .follow closely with cardiology and pulmonary. Further recommendations to follow. The impression and plan of care has been dictated as directed. : I performed a H&P examination of this patient and discussed the same with the dictator. I agree with the dictator's note. Any additional findings/opinions/ etc. will be noted.
[2016-09-13 17:02] LABS: Glucose,Whole Blood 129 mg/dL (75-99)
[2016-09-13 20:51] LABS: Glucose,Whole Blood 182 mg/dL (75-99)
[2016-09-13] MEDS: INSULIN GLARGINE 100 UNIT/ML 10 ML VIAL SQ SCH (22:19)
[2016-09-13] MEDS: DIGOXIN 125 MCG TAB PO SCH (22:20)
[2016-09-13] MEDS: ATORVASTATIN 40 MG TAB PO SCH (22:20)
[2016-09-13] MEDS: ALPRAZolam 0.25 MG TAB PO PRN (22:23)
[2016-09-13] MEDS: ZOLPIDEM 5 MG TAB PO PRN (23:22)
[2016-09-14] MEDS: ceFAZolin 2 GM in SODIUM CHLORIDE 0.9% 100 ML IVPB SCH ×4 (05:08→21:46)
[2016-09-14 06:42] LABS: Glucose,Whole Blood 126 mg/dL (75-99)
[2016-09-14] MEDS: INSULIN LISPRO (humaLOG) 300 UNIT/3 ML VIAL SQ SCH ×4 (06:55→21:47)
[2016-09-14 07:26] LABS: Anion Gap 10 mmol/L; Blood Urea Nitrogen 31 mg/dL (7-17); Calcium 9.1 mg/dL (8.4-10.2); Carbon Dioxide 30 mmol/L (22-30); Chloride 98 mmol/L (98-107); Glucose 124 mg/dL (74-99); Magnesium 1.7 mg/dL (1.6-2.3); Non-African American GFR(MDRD) 53 (>60 ml/min/1.73 sqM); Potassium 4.1 mmol/L (3.5-5.1); Sodium 138 mmol/L (137-145)
[2016-09-14 07:46] LABS: Aty Lym Flag Slight; CH 28.3; CHCM 32.3; HDW 2.52; HGB 9.9 gm/dL (11.4-16.0); MCV 87.9 fL (80.0-100.0); Mean Platelet Volume 7.5; RBC 3.41 m/uL (3.80-5.40); RDW 13.5 % (11.5-15.5); WBC 7.2 k/uL (3.8-10.6)
--- NOTE | 2016-09-14 08:21 | XR ---
EXAMINATION TYPE: XR chest 2V DATE OF EXAM: 09/14/2016 COMPARISON: 09/11/2016 HISTORY: 66-year-old female follow-up CHF TECHNIQUE: Frontal and lateral views FINDINGS: Left anterior chest wall AICD generator with right atrial, right ventricular, and coronary sinus lead s. There is a prosthetic endovascular aortic valve replacement. Heart remains upper limits of normal in size. Atherosclerotic arch calcifications. Diffuse interstiti al and vascular prominence persists though bibasilar opacities show slight improved aeration. No sign ificant pleural effusion. IMPRESSION: CHF with pulmonary vascular congestion, slight interval improvement.
[2016-09-14 08:31] LABS: Add Differential Manual Differential
[2016-09-14 08:36] LABS: Nucleated Red Blood Cells 0 /100 WBC (0-0); Total Cells Counted 100
[2016-09-14] MEDS: TIOTROPIUM 18 MCG/PUFF INHALER INHALATION SCH (09:07)
[2016-09-14] MEDS: metFORMIN 500 MG TAB PO SCH ×2 (09:15→21:48)
[2016-09-14] MEDS: PARoxetine 20 MG TAB PO SCH (09:15)
[2016-09-14] MEDS: LISINOPRIL 5 MG TAB PO SCH (09:15)
[2016-09-14] MEDS: ASPIRIN 81 MG PO SCH (09:15)
[2016-09-14] MEDS: FUROSEMIDE 40 MG TAB PO SCH (09:15)
[2016-09-14] MEDS: LORATADINE 10 MG TAB PO SCH (09:15)
[2016-09-14] MEDS: CARVEDILOL 3.125 MG TAB PO SCH ×2 (09:15→21:47)
[2016-09-14] MEDS: ENOXAPARIN 40 MG/0.4 ML SYRINGE SQ SCH (09:16)
[2016-09-14] MEDS: HYDROcodone/APAP 5-325MG 1 EACH TAB PO PRN ×3 (09:21→22:00)
[2016-09-14] MEDS: ESOMEPRAZOLE 20 MG in SODIUM CHLORIDE 0.9% 50 ML IVPB SCH (10:25)
[2016-09-14 11:28] VITALS: BMI 25.0
--- NOTE | 2016-09-14 11:40 | PN ---
DATE OF SERVICE: 09/13/2016 Reason for followup is MSSA bacteremia. INTERVAL HISTORY: The patient is afebrile. She is breathing comfortably. The patient denies significant chest pain or some shortness of breath. Occasional cough. No abdominal pain. No nausea. vomiting. ( ) has improved. Denies having any pain in her back area. On examination, blood pressure is 121/56 with a pulse of 84, temperature 98. She is 95% on 2 L nasal cannula. General description is an elderly female lying in bed in no distress. RESPIRATORY SYSTEM: Unlabored breathing. Clear to auscultation anteriorly. HEART: S1 and S2, regular rate and rhythm. ABDOMEN: Soft, no tenderness. No palpable abnormality. EXTREMITIES: No edema of feet. LABS: Hemoglobin is 9.2. White count 8.0. BUN 26 and creatinine is 1.22. DIAGNOSTIC IMPRESSION AND PLAN: Patient with an MSSA bacteremia. Patient predominantly with urinary symptom and currently no clear localizing source of infection. The patient did have a history of aortic valve replacement and pacemaker, though site looks clean. Awaiting the 2-D echocardiogram in view of the bacteremia clearing very quickly less likely endovascular source. If the blood culture remains to be negative by tomorrow, she should be able to get a PICC line for outpatient IV antibiotic therapy, which should be at least 2 weeks for gram negative blood culture. Continue supportive care. FEDER[place]
[2016-09-14 11:46] LABS: Glucose,Whole Blood 173 mg/dL (75-99)
[2016-09-14] MEDS: SODIUM CHLORIDE 0.9% 1,000 ML IV SCH (11:47)
[2016-09-14] MEDS: SPIRONOLACTONE 25 MG TAB PO SCH (15:01)
[2016-09-14] MEDS: FUROSEMIDE 10 MG/ML 4 ML VIAL IV SCH ×2 (15:01→21:47)
[2016-09-14] MEDS: DOCUSATE 100 MG CAP PO PRN ×2 (15:07→21:49)
--- NOTE | 2016-09-14 15:42 | P.PN ---
Subjective This is a 66-year-old female with history of nonischemic cardiomyopathy, aortic valve replacement and also mitral valve repair done at [facility]. She claims that subsequently she has also had TAVR. Patient also had biventricular defibrillator implantation. Patient is now admitted to the hospital mainly because of UTI. We're asked to see the patient because of an episode of nonsustained V. tach consisting of 5-6 beats. Patient also complains some palpitations, but mostly seems to be associated with occasional PVCs. She denies any chest pain or shortness of breath. She also is noted to have anemia with a hemoglobin dropping below 9. Her potassium level is within normal limits. Patient has a biventricular pacemaker and the QT interval seems to be within normal limits. At this point I'm going to obtain a digoxin level. We'll treat her 1 g of magnesium and get a magnesium level also. Otherwise, continue current medical therapy. 09/12/2016. No further episodes of NSVT have been noted. Repeat chest x-ray revealed congestive heart failure and interstitial pulmonary edema. Patient was given IV Lasix, diuresed well overall. Changed over to oral Lasix today. Creatinine 1.3. Blood pressure 140/60. 09/13/2016 Patient seen and examined this morning, she states she is feeling more short of breath than her usual, not feeling as well as she did yesterday. Her IV Lasix was discontinued yesterday and she was started on oral diuretics. We will give her a one-time dose of IV Lasix today. We will also check a BNP level and repeat a chest x-ray. BUN 26 creatinine 1.2. Hemoglobin 9.2. Blood pressure 142/60 with a heart rate in the 80s. Echocardiogram with Doppler study was performed today which revealed an ejection fraction of 50-55%. 09/14/2016 Patient seen and examined this morning, states that her breathing is improving. Dr. Callejas did have a discussion today with Dr. Marcus he explaining that if a EDD was suggested that he would perform it. Patient apparently is waiting to have a line placed for IV antibiotics.in the meantime patient remains afebrile. We will discontinue the oral Lasix and start the patient on Lasix 40 IV twice a day, chest x-ray shows heart failure. We will also add Aldactone to her medication regime. Objective - Vital Signs Vital signs: Vital Signs Temp 97 F L 09/14/16 11:32 Pulse 81 09/14/16 11:32 Resp 20 09/14/16 11:32 BP 169/78 09/14/16 11:32 Pulse Ox 98 09/14/16 11:32 Intake & Output 09/13/16 09/14/16 09/14/16 18:59 06:59 18:59 Intake Total 653 340 620 Output Total 400 Balance 253 340 620 Weight 62 kg 62 kg Intake: IV 100 260 Sodium Chloride 0.9% 1, 160 000 ml @ 20 mls/hr IV . Q24H [facility] Rx#:[id number] ceFAZolin 2 gm In Sodium 100 100 Chloride 0.9% 100 ml @ 100 mls/hr IVPB Q8HR [facility] Rx#:[id number] Oral 653 240 360 Output: Urine 400 Other: Voiding Method Toilet Toilet Toilet # Voids 1 2 - Exam PHYSICAL EXAMINATION: HEENT: Head is atraumatic, normocephalic. Pupils equal, round. Neck is supple. There is no elevated jugular venous pressure. HEART EXAMINATION: Heart S1, S2 normal. No murmur or gallop heard. CHEST EXAMINATION: Lungs reveal crackles on the left posteriorly. ABDOMEN: Soft, nontender. Bowel sounds are heard. No organomegaly noted. EXTREMITIES:[ 2+ peripheral pulses with no evidence of peripheral edema and no calf tenderness noted]. NEUROLOGIC [patient is awake, alert and oriented -3.] . - Labs CBC & Chem 7: 09/14/16 06:53 09/14/16 06:51 Labs: Abnormal Lab Results - Last 24 Hours (Table) 09/13/16 09/13/16 09/14/16 Range/Units 17:00 20:43 05:41 RBC (3.80-5.40) m/uL Hgb (11.4-16.0) gm/dL Hct (34.0-46.0) % BUN (7-17) mg/dL Glucose (74-99) mg/dL POC Glucose (mg/dL) 129 H 182 H 126 H (75-99) mg/dL 09/14/16 09/14/16 09/14/16 Range/Units 06:51 06:53 11:39 RBC 3.41 L (3.80-5.40) m/uL Hgb 9.9 L (11.4-16.0) gm/dL Hct 30.0 L (34.0-46.0) % BUN 31 H (7-17) mg/dL Glucose 124 H (74-99) mg/dL POC Glucose (mg/dL) 173 H (75-99) mg/dL Microbiology - Last 24 Hours (Table) 09/11/16 12:07 Blood Culture - Preliminary Blood No Growth after 72 hours Assessment and Plan Plan: Assessment and Plan (1) Nonsustained ventricular tachycardia Status: Acute (2) PVCs (premature ventricular contractions) Status: Acute (3) Urinary tract infection Status: Acute (4) History of aortic valve replacement Status: Acute (5) History of mitral valve repair Status: Acute (6) Nonischemic cardiomyopathy Status: Acute (7) Cardiac defibrillator in place Status: Acute (8) Cardiac resynchronization therapy defibrillator (WAX ENGRAVER-D) in place Status: Acute repeat chest x-ray did reveal congestive cardiac failure. We'll discontinue the oral Lasix and start the patient on Lasix 40 IV twice a day. We will also add Aldactone to the patient's medication regime. Patient may require a EDD for evaluation of the heart valves. DNP note has been reviewed, I agree with a documented findings and plan of care. Patient was seen and examined.
[2016-09-14 16:34] LABS: Glucose,Whole Blood 103 mg/dL (75-99)
--- NOTE | 2016-09-14 17:26 | PN ---
DATE OF SERVICE: 09/14/2016 REASON FOR FOLLOW UP: MSSA bacteremia. INTERVAL HISTORY: The patient is afebrile. She is feeling better, breathing comfortably. Denies significant chest pain. No shortness of breath. Minimal cough. No abdominal pain, no diarrhea. Did have some frequency of urine but no burning. On examination, blood pressure 169/78, pulse of 81, temperature 97.3, she is 90 % on 2 liters. GENERAL DESCRIPTION: Elderly female lying in bed in no distress. RESPIRATORY: Unlabored breathing. Clear to auscultation. HEART: S1/S2 regular rate and rhythm. SPINE: No evidence of any swelling, numbness or tenderness to palpation. LABS: Hemoglobin 9.9, white count 7.2. BUN 31, creatinine 1.03. Blood culture repeat has been negative. DIAGNOSTIC IMPRESSION: Patient with methicillin-susceptible Staphylococcus aureus. Patient presented to the hospital predominantly with urinary symptoms, however, the urine was negative. No other clinical focus of infection. Echo was negative. Clinically not endovascular infection, the patient has a very short lived bacteremia. The patient will get a PICC line for outpatient IV cefazolin 2 gm every eight hours. Continue supportive care. MTDD
[2016-09-14 20:40] LABS: Glucose,Whole Blood 145 mg/dL (75-99)
[2016-09-14] MEDS: ALBUTEROL NEBULIZED 2.5 MG/3 ML INHALATION PRN (20:49)
[2016-09-14] MEDS: ALPRAZolam 0.25 MG TAB PO PRN (21:46)
[2016-09-14] MEDS: ZOLPIDEM 5 MG TAB PO PRN (21:46)
[2016-09-14] MEDS: DIGOXIN 125 MCG TAB PO SCH (21:47)
[2016-09-14] MEDS: INSULIN GLARGINE 100 UNIT/ML 10 ML VIAL SQ SCH (21:47)
[2016-09-14] MEDS: ATORVASTATIN 40 MG TAB PO SCH (21:47)
--- NOTE | 2016-09-14 22:07 | PN ---
DATE OF SERVICE: 09/14/16 This 66 -year-old woman who was admitted with UTI/sepsis, also had MSSA bacteremia. The final cultures are pending at this time. The patient is on broad spectrum IV antibiotics. The most recent chest x-ray showed CHF and some pulmonary vascular congestion. Past medical history reviewed. REVIEW OF SYSTEMS: CARDIOVASCULAR: No angina. GI: As mentioned earlier. : No dysuria. Nervous system: noted Current medications are reviewed and include: 1. [place] 5 mg q6h prn 2. Ventolin. 3. Xanax 0.25 t.i.d. 4. Aspirin 81 mg daily. 5. Lipitor 40 mg q.h.s. 6. Coreg 3.125 mg b.i.d. 7. Cefazolin 2 gm q8. 8. Lanoxin 125 mg po q.h.s. 9. Colace. 10. Lovenox 40 mg subcu daily. 12. Dilaudid. 13. Lantus. 15. Glucophage. 16. Paxil. 17. Aldactone. 18. Spiriva. 19. Ambien. PHYSICAL EXAMINATION: The patient is alert and oriented times three. Pulse 84 Blood pressure 141/64. Respiratory rate 18. Temperature 97.4 degrees. Pulse ox 97% on 2 L. HEENT: Conjunctivae normal. Oral mucosa moist. NECK: No JVD. No carotid bruit. No lymph node enlargement. CARDIOVASCULAR: S1, S2 muffled. RESPIRATORY: Breath sounds diminished at the bases. A few scattered rhonchi and crackles. Abdomen is soft. Nontender. No mass palpable. LEGS: No edema noted. Nervous system: Diffusely weak. LABS: WBC 7.9, Hemoglobin 9.9, glucose 124. ASSESSMENT: 1. Acute urinary tract infection with possible sepsis. 2. MSSA bacteremia, repeat cultures pending. 3. Troponin 0.102, possible acute non-ST elevation myocardial infarction, present on admission. 4. Congestive heart failure, acute exacerbation with acute on chronic diastolic dysfunction. Ejection fraction 50-55%. 5. Acute hepatitis of undetermined etiology. 6. Acute on chronic renal failure Stage III. 7. Moderate pulmonary hypertension. RECOMMENDATIONS AND DISCUSSION: Continue the current medications. Continue symptomatic treatment. Continue with monitoring. Otherwise, at this time, I recommend continue with the current medications. Continue symptomatic treatment. Otherwise, monitor closely. Further recommendations to follow. MTDD
[2016-09-15 02:18] LABS: Glucose,Whole Blood 124 mg/dL (75-99)
[2016-09-15 05:57] LABS: Glucose,Whole Blood 180 mg/dL (75-99)
[2016-09-15] MEDS: TIOTROPIUM 18 MCG/PUFF INHALER INHALATION SCH (08:14)
[2016-09-15] MEDS: INSULIN LISPRO (humaLOG) 300 UNIT/3 ML VIAL SQ SCH ×4 (08:59→20:39)
[2016-09-15] MEDS: PANTOPRAZOLE 40 MG TABLET PO SCH (08:59)
[2016-09-15] MEDS: LISINOPRIL 5 MG TAB PO SCH (09:00)
[2016-09-15] MEDS: LORATADINE 10 MG TAB PO SCH (09:00)
[2016-09-15] MEDS: DOCUSATE 100 MG CAP PO PRN (09:00)
[2016-09-15] MEDS: ASPIRIN 81 MG PO SCH (09:00)
[2016-09-15] MEDS: SPIRONOLACTONE 25 MG TAB PO SCH (09:00)
[2016-09-15] MEDS: CARVEDILOL 3.125 MG TAB PO SCH ×2 (09:00→20:48)
[2016-09-15] MEDS: metFORMIN 500 MG TAB PO SCH ×2 (09:00→20:47)
[2016-09-15] MEDS: PARoxetine 20 MG TAB PO SCH (09:00)
[2016-09-15] MEDS: FUROSEMIDE 10 MG/ML 4 ML VIAL IV SCH ×2 (09:00→20:48)
[2016-09-15] MEDS: ceFAZolin 2 GM in SODIUM CHLORIDE 0.9% 100 ML IVPB SCH ×3 (09:11→23:31)
[2016-09-15] MEDS: ENOXAPARIN 40 MG/0.4 ML SYRINGE SQ SCH (09:12)
[2016-09-15] MEDS ORDERED: LIDOCAINE 2% INJ 20 MG/ML (20 ML MDV) ONE (09:36)
[2016-09-15] MEDS ORDERED: LIDOCAINE 2% INJ 20 MG/ML SQ ONE (09:59)
[2016-09-15 10:21] LABS: Calcium 8.9 mg/dL (8.4-10.2)
--- NOTE | 2016-09-15 10:28 | IR ---
EXAMINATION TYPE: IR cvc insert >=5 years DATE OF EXAM: 09/15/2016 COMPARISON: NONE CLINICAL HISTORY: Infection Needs long-term intravenous access for antibiotics. PROCEDURE: After informed consent, the skin overlying the right basilic vein was localized with ultrasound and n oted to be compressible and patent. An ultrasound image was obtained and submitted on the patient's chart. The overlying skin was prepped and draped and Lidocaine was used for local anesthesia. A ski n lora was made with a scalpel. Access was gained to the vein under ultrasound guidance with a 21 ga uge needle and a 0.018 inch wire was advanced. Access site was dilated with Peel-Away sheath and cat heter tailored to the appropriate length and advanced such that the distal tip is at the cavoatrial j unction. Spot image was obtained verifying placement. Catheter was fixed to the skin with suture an d a sterile dressing was placed following hemostasis. Catheter was aspirated and flushed with saline . Patient was discharged in stable condition without complication. Maximal barrier technique is util ized. Ultrasound image is documented on the chart. Ultrasound used with sterile technique. Fluoro time and fluoroscopic images submitted to document procedure: Intraoperative C-arm image jose d archers the procedure, 0.6 minutes fluoroscopy time IMPRESSION: STATUS POST ULTRASOUND AND FLUOROSCOPIC GUIDED PICC LINE PLACEMENT, READY FOR USE. THIS PROCEDURE WAS PERFORMED BY THE UNDERSIGNED.
[2016-09-15] MEDS: SODIUM CHLORIDE 0.9% 1,000 ML IV SCH (10:29)
[2016-09-15 11:42] LABS: Glucose,Whole Blood 224 mg/dL (75-99)
--- NOTE | 2016-09-15 13:07 | P.PN ---
Subjective This is a 66-year-old female with history of nonischemic cardiomyopathy, aortic valve replacement and also mitral valve repair done at [facility]. She claims that subsequently she has also had TAVR. Patient also had biventricular defibrillator implantation. Patient is now admitted to the hospital mainly because of UTI. We're asked to see the patient because of an episode of nonsustained V. tach consisting of 5-6 beats. Patient also complains some palpitations, but mostly seems to be associated with occasional PVCs. She denies any chest pain or shortness of breath. She also is noted to have anemia with a hemoglobin dropping below 9. Her potassium level is within normal limits. Patient has a biventricular pacemaker and the QT interval seems to be within normal limits. At this point I'm going to obtain a digoxin level. We'll treat her 1 g of magnesium and get a magnesium level also. Otherwise, continue current medical therapy. 09/12/2016. No further episodes of NSVT have been noted. Repeat chest x-ray revealed congestive heart failure and interstitial pulmonary edema. Patient was given IV Lasix, diuresed well overall. Changed over to oral Lasix today. Creatinine 1.3. Blood pressure 140/60. 09/13/2016 Patient seen and examined this morning, she states she is feeling more short of breath than her usual, not feeling as well as she did yesterday. Her IV Lasix was discontinued yesterday and she was started on oral diuretics. We will give her a one-time dose of IV Lasix today. We will also check a BNP level and repeat a chest x-ray. BUN 26 creatinine 1.2. Hemoglobin 9.2. Blood pressure 142/60 with a heart rate in the 80s. Echocardiogram with Doppler study was performed today which revealed an ejection fraction of 50-55%. 09/14/2016 Patient seen and examined this morning, states that her breathing is improving. Dr. Callejas did have a discussion today with Dr. Marcus he explaining that if a EDD was suggested that he would perform it. Patient apparently is waiting to have a line placed for IV antibiotics.in the meantime patient remains afebrile. We will discontinue the oral Lasix and start the patient on Lasix 40 IV twice a day, chest x-ray shows heart failure. We will also add Aldactone to her medication regime. 09/15/2016 Patient seen and examined this morning, states that her breathing is somewhat improved today. Blood cultures came back positive for gram-positive cocci in clusters. Because of a history of valve replacement along with the positive blood cultures patient has been recommended to undergo a EDD. The risks and the benefits as well as the procedure have been explained to the patient in detail. This will be performed tomorrow by Dr. Callejas. Objective - Vital Signs Vital signs: Vital Signs Temp 96.3 F L 09/15/16 09:11 Pulse 76 09/15/16 09:11 Resp 18 09/15/16 09:11 BP 113/57 09/15/16 09:11 Pulse Ox 98 09/15/16 09:11 Intake & Output 09/14/16 09/15/16 09/15/16 18:59 06:59 18:59 Intake Total 740 340 240 Output Total 200 Balance 740 140 240 Weight 62 kg 60.8 kg Intake: IV 260 340 Sodium Chloride 0.9% 1, 160 240 000 ml @ 20 mls/hr IV . Q24H [facility] Rx#:[id number] ceFAZolin 2 gm In Sodium 100 100 Chloride 0.9% 100 ml @ 100 mls/hr IVPB Q8HR [facility] Rx#:[id number] Oral 480 240 Output: Urine 200 Other: Voiding Method Toilet Toilet Toilet # Voids 1 1 # Bowel Movements 0 - Exam PHYSICAL EXAMINATION: HEENT: Head is atraumatic, normocephalic. Pupils equal, round. Neck is supple. There is no elevated jugular venous pressure. HEART EXAMINATION: Heart S1, S2 normal. No murmur or gallop heard. CHEST EXAMINATION: Lungs reveal crackles on the left posteriorly. ABDOMEN: Soft, nontender. Bowel sounds are heard. No organomegaly noted. EXTREMITIES:[ 2+ peripheral pulses with no evidence of peripheral edema and no calf tenderness noted]. NEUROLOGIC [patient is awake, alert and oriented -3.] . - Labs CBC & Chem 7: 09/14/16 06:53 09/15/16 05:35 Labs: Abnormal Lab Results - Last 24 Hours (Table) 09/14/16 09/14/16 09/15/16 Range/Units 16:31 20:38 02:16 ESR (0-20) mm/hr Sodium (137-145) mmol/L Chloride (98-107) mmol/L BUN (7-17) mg/dL Creatinine (0.52-1.04) mg/dL Glucose (74-99) mg/dL POC Glucose (mg/dL) 103 H 145 H 124 H (75-99) mg/dL C-Reactive Protein (<10.0) mg/L 09/15/16 09/15/16 09/15/16 Range/Units 05:35 05:35 05:35 ESR 112 H (0-20) mm/hr Sodium 135 L (137-145) mmol/L Chloride 95 L (98-107) mmol/L BUN 39 H (7-17) mg/dL Creatinine 1.17 H (0.52-1.04) mg/dL Glucose 168 H (74-99) mg/dL POC Glucose (mg/dL) (75-99) mg/dL C-Reactive Protein 49.8 H (<10.0) mg/L 09/15/16 09/15/16 Range/Units 05:55 11:38 ESR (0-20) mm/hr Sodium (137-145) mmol/L Chloride (98-107) mmol/L BUN (7-17) mg/dL Creatinine (0.52-1.04) mg/dL Glucose (74-99) mg/dL POC Glucose (mg/dL) 180 H 224 H (75-99) mg/dL C-Reactive Protein (<10.0) mg/L Microbiology - Last 24 Hours (Table) 09/11/16 12:07 Blood Culture - Preliminary Blood No Growth after 72 hours Assessment and Plan Plan: Assessment and Plan (1) Nonsustained ventricular tachycardia Status: Acute (2) PVCs (premature ventricular contractions) Status: Acute (3) Urinary tract infection Status: Acute (4) History of aortic valve replacement Status: Acute (5) History of mitral valve repair Status: Acute (6) Nonischemic cardiomyopathy Status: Acute (7) Cardiac defibrillator in place Status: Acute (8) Cardiac resynchronization therapy defibrillator (DRY BOX TENDER-D) in place Status: Acute Blood cultures positive for gram-positive cocci in clusters. Patient will be scheduled for a EDD tomorrow with Dr. Callejas. We will continue current dose of IV Lasix. DNP note has been reviewed, I agree with a documented findings and plan of care. Patient was seen and examined.
[2016-09-15] MEDS: HYDROcodone/APAP 5-325MG 1 EACH TAB PO PRN ×2 (14:36→20:57)
[2016-09-15 17:13] LABS: Glucose,Whole Blood 169 mg/dL (75-99)
[2016-09-15 20:37] LABS: Glucose,Whole Blood 127 mg/dL (75-99)
[2016-09-15] MEDS: ZOLPIDEM 5 MG TAB PO PRN (20:47)
[2016-09-15] MEDS: ATORVASTATIN 40 MG TAB PO SCH (20:47)
[2016-09-15] MEDS: DIGOXIN 125 MCG TAB PO SCH (20:48)
[2016-09-15] MEDS: INSULIN GLARGINE 100 UNIT/ML 10 ML VIAL SQ SCH (20:49)
[2016-09-15] MEDS ORDERED: LIDOCAINE 1% 20 ML VIAL (10MG/ML) FOR IV START INTRADERMA PRN (21:23)
[2016-09-15] MEDS: LACTATED RINGERS 1,000 ML IV SCH (22:01)
[2016-09-16] MEDS: HYDROcodone/APAP 5-325MG 1 EACH TAB PO PRN ×3 (04:06→17:56)
[2016-09-16 05:53] LABS: Glucose,Whole Blood 162 mg/dL (75-99)
[2016-09-16 06:07] LABS: Basophils # (A) 0.1 k/uL (0-0.2); Basophils % (A) 1 %; CH 28.6; CHCM 32.2; Eosinophils # (A) 0.4 k/uL (0-0.7); Eosinophils % (A) 5 %; HCT 29.7 % (34.0-46.0); HDW 2.51; HGB 9.4 gm/dL (11.4-16.0); Luc # (Auto) 0.34; Luc % (Auto) 4; Lymphocytes # (A) 1.4 k/uL (1.0-4.8); Lymphocytes % (A) 16 %; MCH 28.3 pg (25.0-35.0); MCHC 31.8 g/dL (31.0-37.0); MCV 89.1 fL (80.0-100.0); Mean Platelet Volume 8.4; Monocytes # (A) 0.7 k/uL (0-1.0); Monocytes % (A) 8 %; Neutrophils # (A) 5.8 k/uL (1.3-7.7); Neutrophils % (A) 67 %; RBC 3.34 m/uL (3.80-5.40); RDW 14.1 % (11.5-15.5); WBC 8.7 k/uL (3.8-10.6); WBC (Perox) 9.43
[2016-09-16 06:20] LABS: Calcium 8.6 mg/dL (8.4-10.2); Potassium 4.2 mmol/L (3.5-5.1)
[2016-09-16] MEDS: INSULIN LISPRO (humaLOG) 300 UNIT/3 ML VIAL SQ SCH ×4 (06:44→22:01)
[2016-09-16] MEDS: PANTOPRAZOLE 40 MG TABLET PO SCH (06:46)
[2016-09-16] MEDS ORDERED: MIDAZOLAM 2 MG/2 ML VIAL ONE (07:12)
[2016-09-16] MEDS ORDERED: fentaNYL (PF) 50 MCG/ML 2 ML AMP ONE (07:12)
--- NOTE | 2016-09-16 08:02 | PN ---
DATE OF SERVICE: 09/15/2016 This 66-year-old woman was admitted with acute UTI with possible sepsis, also MSSA bacteremia. Dr. Marcus has seen the patient and recommending PICC line and empiric antibiotics. Echocardiogram is negative. PHYSICAL EXAM: Patient is alert and oriented x3. Pulse is 58, blood pressure 135/61, respirations 18, temperature is 97.2, pulse ox 97% on 2 L. HEENT: Conjunctivae normal. NECK; No jugular venous distension. CARDIOVASCULAR: S1, S2, muffled. RESPIRATORY: Breath sounds diminished at the bases. A few rhonchi, no crackles. ABDOMEN: Soft, nontender. NERVOUS SYSTEM: No focal deficits. LABS: Hemoglobin 9.9, sodium 135, Accu-Cheks noted. CRP is 49.8, ESR is 112. ASSESSMENT: 1. Acute urinary tract infection with possible sepsis. 2. Methicillin-susceptible Staphylococcus aureus bacteremia, cultures pending. 3. Troponin is 0.102, possible acute non-ST segment elevation myocardial infarction, present on admission. 4. Congestive heart failure acute exacerbation. 5. Acute on chronic diastolic dysfunction, ejection fraction 50% to 55%. 6. Acute hepatitis of undetermined etiology. 7. Acute on chronic renal failure, stage III. 8. Moderate primary hypertension. RECOMMENDATION: Recommend to continue with the current medication. Continue with the symptomatic treatment with broad spectrum IV antibiotics. Otherwise, PICC line has been inserted for antibiotic treatment and EDD scheduled tomorrow by Dr. Callejas. Guarded prognosis because of multiple complex medical issues. Further recommendations to follow. FEDERICO
[2016-09-16] MEDS ORDERED: IV FLUID CONTINUATION 1,000 ML IV ONE (08:04)
[2016-09-16] MEDS ORDERED: BENZOCAINE SPRAY 1 SPRAY CAN MUCOUS MEM ONE (08:20)
[2016-09-16] MEDS ORDERED: MIDAZOLAM 2 MG/2 ML VIAL IV ONE (08:24)
[2016-09-16] MEDS ORDERED: fentaNYL (PF) 50 MCG/ML 2 ML AMP IV ONE (08:24)
[2016-09-16] MEDS: ceFAZolin 2 GM in SODIUM CHLORIDE 0.9% 100 ML IVPB SCH ×2 (09:01→15:15)
[2016-09-16] MEDS: ENOXAPARIN 40 MG/0.4 ML SYRINGE SQ SCH (09:01)
[2016-09-16] MEDS: FUROSEMIDE 10 MG/ML 4 ML VIAL IV SCH ×2 (09:01→22:00)
--- NOTE | 2016-09-16 09:02 | P.PCN ---
Date of Procedure: 09/16/16 Preoperative Diagnosis: Staph bacteremia. Rule out endocarditis Postoperative Diagnosis: No definite evidence of endocarditis at this time Procedure(s) Performed: EDD Implants: Indications for Procedure: Operative Findings: Description of Procedure: INDICATION: This patient is admitted to the hospital with a suspected UTI. One of the blood cultures was positive for staph bacteremia. EDD is recommended to rule out endocarditis CONSENT: . Informed consent was obtained from patient PROCEDURE: , Patient was brought to the lab in a fasting state. Patient was prepped and draped in the usual fashion. The throat was sprayed with a Cetacaine. A lubricated Omni probe was introduced in the oropharynx and was advanced into the esophagus after patient was given IV conscious sedation. Multiple views were obtained. Patient tolerated the procedure well. Color Doppler study and also saline contrast bubble injection was performed CONSCIOUS SEDATION: Patient was given 1 mg of Versed and 25 g of fentanyl for sedation. The duration of separation is 22 minutes FINDINGS: . The prosthetic aortic valve seems to function normally. No vegetation noted on the aortic valve. Trace regurgitation noted. A peak gradient of 20 was obtained across the prosthetic aortic valve. There appears to be perivalvular without any shunt. The mitral valve shows evidence of previous repair. The posterior leaflet is immobile. There is mild regurgitation. No evidence of any regurgitation or regurgitation. The tricuspid valve is not well visualized but seems to be functioning normally with moderate regurgitation. No definite vegetation noted on the valve. Pacemaker wire was noted in the atrium and also crossing the Valve. There appears to be echo dense fibrotic material around the pacemaker wire near the tricuspid valve. No definite vegetation could be identified, though, that cannot be completely excluded. LV function appeared to be preserved. IMPRESSION: #1. Prosthetic aortic valve which seemed to function normally without clearcut vegetation #2. Repaired mitral valve showing some thickening and immobile posterior leaflet. No definite vegetation noted. #3. Tricuspid valve is not well visualized but no vegetation noted. #4. There are echo dense fibrotic changes around the pacemaker wire near the tricuspid valve. No definite vegetation could be identified, though, that possibility cannot be excluded completely. #5. Left ventricular function is normal. #6. Left atrial appendage is free of any clot. #7. No evidence of PFO. PLAN: . Continue current medical therapy. Continue close monitoring. If there is any clinical suspicion of endocarditis, repeat blood culture be obtained. ID follow-up
[2016-09-16] MEDS: TIOTROPIUM 18 MCG/PUFF INHALER INHALATION SCH (09:09)
--- NOTE | 2016-09-16 09:26 | PN ---
DATE OF SERVICE: 09/15/16 REASON FOR FOLLOW UP: Bacteremia. INTERVAL HISTORY: The patient is afebrile. He is breathing comfortably. The patient did get a PICC line. Currently discharge put on hold as cardiology doing EDD tomorrow. The patient is breathing comfortably. Occasional cough. No abdominal pain or diarrhea. On examination, blood pressure 134/51, pulse 58, temperature 97.2, she is 97% on 2 L nasal cannula. General description is an elderly female lying in the bed, in no distress. Respiratory system: Unlabored breathing. Some decreased breath sounds at the base. No wheeze. Heart: S1, S2 regular rate and rhythm. Abdomen soft, no tenderness. LABS: BUN 39, creatinine 1.17. Blood cultures from 09/11 so far negative. DIAGNOSTIC IMPRESSION AND PLAN: Patient with MSSA bacteremia. No clear focus. Initial echo was negative. However, the patient did not have any evidence of persistent bacteremia. Await the EDD. If negative, she will be able to go home with IV Cefazolin 2 gm q8 for 2 weeks with close outpatient follow-up. FEDERICO
[2016-09-16] MEDS: SPIRONOLACTONE 25 MG TAB PO SCH (10:20)
[2016-09-16] MEDS: LISINOPRIL 5 MG TAB PO SCH (10:20)
[2016-09-16] MEDS: metFORMIN 500 MG TAB PO SCH ×2 (10:20→22:01)
[2016-09-16] MEDS: LORATADINE 10 MG TAB PO SCH (10:20)
[2016-09-16] MEDS: SODIUM CHLORIDE 0.9% 1,000 ML IV SCH ×2 (10:21→11:02)
[2016-09-16] MEDS: PARoxetine 20 MG TAB PO SCH (10:21)
[2016-09-16] MEDS: CARVEDILOL 3.125 MG TAB PO SCH ×2 (10:21→22:01)
[2016-09-16] MEDS: ASPIRIN 81 MG PO SCH (10:22)
[2016-09-16 12:21] LABS: Glucose,Whole Blood 122 mg/dL (75-99)
[2016-09-16 16:58] LABS: Glucose,Whole Blood 120 mg/dL (75-99)
--- NOTE | 2016-09-16 18:44 | PN ---
DATE OF SERVICE: 09/16/2016 REASON FOR FOLLOW UP: MSSA bacteremia. INTERVAL HISTORY: The patient is afebrile. She is breathing comfortably. The patient is status post EDD this morning which the patient did tolerate. She denied any significant chest pain, shortness of breath. No vomiting or diarrhea. On examination, blood pressure 160/65 with a pulse of 92, temperature 97.2, she is 99% on 2 liters nasal cannula. GENERAL DESCRIPTION: Elderly female lying in bed in no distress. RESPIRATORY: Unlabored breathing. Clear to auscultation anteriorly. HEART: S1/S2, regular. ABDOMEN: Soft LAB: Hemoglobin 9.4, white count 8.7. BUN 47, creatinine 1.40. Blood culture repeat 09/11 negative. DIAGNOSTIC IMPRESSION: Patient with methicillin-susceptible Staphylococcus aureus bacteremia in a patient who came to the hospital with gastrointestinal and urinary symptoms. CT of abdomen and pelvis without any abscess and urinalysis has been negative. The patient responded to Cefzil that she will continue for at least two more weeks with close outpatient follow up. FEDERICO
[2016-09-16 20:36] LABS: Glucose,Whole Blood 201 mg/dL (75-99)
[2016-09-16] MEDS: DIGOXIN 125 MCG TAB PO SCH (22:00)
[2016-09-16] MEDS: ATORVASTATIN 40 MG TAB PO SCH (22:00)
[2016-09-16] MEDS: INSULIN GLARGINE 100 UNIT/ML 10 ML VIAL SQ SCH (22:00)
[2016-09-16] MEDS: ZOLPIDEM 5 MG TAB PO PRN (22:05)
[2016-09-16 22:09] LABS: Calcium 8.8 mg/dL (8.4-10.2); Potassium 4.5 mmol/L (3.5-5.1); Total Bilirubin 0.4 mg/dL (0.2-1.3); Total Protein 7.8 g/dL (6.3-8.2)
[2016-09-16] MEDS: LACTATED RINGERS 1,000 ML IV SCH (22:32)
[2016-09-17] MEDS: HYDROcodone/APAP 5-325MG 1 EACH TAB PO PRN ×4 (00:05→21:38)
[2016-09-17 02:46] LABS: Glucose,Whole Blood 161 mg/dL (75-99)
[2016-09-17 06:04] LABS: Glucose,Whole Blood 155 mg/dL (75-99)
[2016-09-17] MEDS: INSULIN LISPRO (humaLOG) 300 UNIT/3 ML VIAL SQ SCH ×4 (06:05→21:40)
[2016-09-17] MEDS: PANTOPRAZOLE 40 MG TABLET PO SCH (06:32)
[2016-09-17] MEDS: ALBUTEROL NEBULIZED 2.5 MG/3 ML INHALATION PRN (08:35)
[2016-09-17] MEDS: TIOTROPIUM 18 MCG/PUFF INHALER INHALATION SCH (08:36)
[2016-09-17] MEDS: CARVEDILOL 3.125 MG TAB PO SCH ×2 (08:53→21:39)
[2016-09-17] MEDS: PARoxetine 20 MG TAB PO SCH (08:53)
[2016-09-17] MEDS: FUROSEMIDE 10 MG/ML 4 ML VIAL IV SCH (08:53)
[2016-09-17] MEDS: LISINOPRIL 5 MG TAB PO SCH (08:53)
[2016-09-17] MEDS: ASPIRIN 81 MG PO SCH (08:53)
[2016-09-17] MEDS: metFORMIN 500 MG TAB PO SCH ×2 (08:53→21:39)
[2016-09-17] MEDS: SPIRONOLACTONE 25 MG TAB PO SCH (08:53)
[2016-09-17] MEDS: ENOXAPARIN 40 MG/0.4 ML SYRINGE SQ SCH (08:53)
[2016-09-17] MEDS: LORATADINE 10 MG TAB PO SCH (08:53)
[2016-09-17] MEDS ORDERED: ceFAZolin 1,000 MG in DEXTROSE/WATER 1 50ML.BAG IVPB SCH (09:00)
--- NOTE | 2016-09-17 09:29 | P.PN ---
Subjective Principal diagnosis: CHF This is a pleasant 66-year-old female patient with history of severe cardiomyopathy and status post by the ICD, valvular heart disease and status post aortic valve replacement and mitral valve repair who was admitted to the hospital with heart failure. The patient was admitted predominantly with symptoms of left heart failure. She was found to have positive blood culture and transesophageal echocardiogram was performed yesterday and showed no evidence of endocarditis. On follow-up with the patient today she is feeling better. She denies having any chest pain or discomfort. The shortness of breath is slightly better she stated that she is able to lay flat in bed but she has to be on oxygen. I am going to DC the Lasix IV and start the patient on Lasix by mouth. Monitor the patient for additional 24 hour period Objective - Vital Signs Vital signs: Vital Signs Temp 97.1 F L 09/17/16 07:46 Pulse 76 09/17/16 08:56 Resp 18 09/17/16 07:46 BP 130/78 09/17/16 07:46 Pulse Ox 98 09/17/16 07:46 Intake & Output 09/16/16 09/17/16 09/17/16 18:59 06:59 18:59 Intake Total 460 180 Output Total 1000 1100 Balance -540 -920 Weight 61.4 kg Intake: IV 100 180 Sodium Chloride 0.9% 1, 180 000 ml @ 20 mls/hr IV . Q24H [facility] Rx#:[id number] Oral 360 Output: Urine 1000 1100 Other: Voiding Method Toilet Toilet Toilet # Voids 1 # Bowel Movements 0 - Constitutional General appearance: Present: no acute distress - Respiratory Respiratory: bilateral: CTA - Cardiovascular Rhythm: regular Heart sounds: normal: S1, S2 Abnormal Heart Sounds: Present: systolic murmur - Labs CBC & Chem 7: 09/16/16 05:55 09/16/16 21:38 Labs: Abnormal Lab Results - Last 24 Hours (Table) 09/16/16 09/16/16 09/16/16 Range/Units 11:58 16:48 20:34 Sodium (137-145) mmol/L Chloride (98-107) mmol/L Carbon Dioxide (22-30) mmol/L BUN (7-17) mg/dL Creatinine (0.52-1.04) mg/dL Glucose (74-99) mg/dL POC Glucose (mg/dL) 122 H 120 H 201 H (75-99) mg/dL AST (14-36) U/L Alkaline Phosphatase (38-126) U/L 09/16/16 09/17/16 09/17/16 Range/Units 21:38 02:40 06:00 Sodium 134 L (137-145) mmol/L Chloride 92 L (98-107) mmol/L Carbon Dioxide 32 H (22-30) mmol/L BUN 43 H (7-17) mg/dL Creatinine 1.26 H (0.52-1.04) mg/dL Glucose 214 H (74-99) mg/dL POC Glucose (mg/dL) 161 H 155 H (75-99) mg/dL AST 60 H (14-36) U/L Alkaline Phosphatase 227 H (38-126) U/L Microbiology - Last 24 Hours (Table) 09/11/16 12:07 Blood Culture - Preliminary Blood No Growth after 120 hours Assessment and Plan Plan: Assessment Congestive heart failure secondary to systolic dysfunction Valvular heart disease as described above Status post by V ICD Plan DC Lasix IV and start the patient on Lasix by mouth Continue monitor the kidney function and electrolytes Follow-up with the patient
--- NOTE | 2016-09-17 10:43 | PN ---
DATE OF SERVICE: 09/16/2016 This is a 66-year-old woman who was admitted with multiple medical problems, UTI with possible sepsis. Also had MSSA bacteremia, EDD showed no convincing evidence of endocarditis per Cardiology. Repeat cultures are being obtained at this time. Dr. Marcus is recommending PICC line and long-term outpatient antibiotics. The patient is responding to cephazolin. PAST MEDICAL HISTORY: Reviewed. REVIEW OF SYSTEMS: CARDIOVASCULAR SYSTEM: As mentioned earlier. GI: No nausea. : No dysuria. NERVOUS SYSTEM: No numbness or weakness. Current medications are reviewed and include [place] 5 mg, Xanax, Aspirin 81 mg, Lipitor 40 mg, Coreg 3.125 mg p.o. b.i.d., cephazolin, Lanoxin 125 mcg p.o. daily, Colace 100 mg p.o. b.i.d., Lovenox 40 mg subQ daily, Lasix 40 mg b.i.d., Dilaudid 0.25 IV q.4, Lantus 16 subQ q.h.s., Humalog a.c. and at bedtime, Lactated ringers, Zestril 5 mg p.o. b.i.d., Claritin, Glucophage 500 mg p.o. b.i.d, Protonix 40 mg p.o. b.i.d., Paxil, Spiriva, Ambien. PHYSICAL EXAM: Patient is alert and oriented x3. Pulse is 83, blood pressure is 108/62, respirations 16, temperature is 97.8, pulse ox 98% on 2 L. HEENT: Conjunctivae normal. NECK: No jugular venous distension. CARDIOVASCULAR SYSTEM: S1, S2. RESPIRATORY: Breath sounds diminished at the bases, a few scattered rhonchi, no crackles. Abdomen is soft, nontender, no mass palpable. LEGS: No edema, no swelling. NERVOUS SYSTEM: Diffusely weak. Labs are WBC 8.7, hemoglobin is 9.4, sodium 136, creatinine is 1.4. ASSESSMENT: 1. Acute urinary tract infection with possible sepsis. 2. Methicillin-susceptible Staphylococcus aureus bacteremia, primary unknown. 3. Troponin 0.12, possibly non-ST elevation myocardial infarction, present on admission. 4. Congestive heart failure acute exacerbation with acute on chronic diastolic dysfunction, ejection fraction 50% to 55%. 5. Acute hepatitis of undetermined etiology. 6. Acute on chronic renal failure, stage III. RECOMMENDATION: In this 66-year-old woman who presented with multiple complex medical issues, will monitor the patient closely, continue with the current medication and symptomatic treatment. Otherwise, at this time, continue with the antibiotics, PICC line care. Continue to monitor. EDD result reviewed. Discussed with the patient. Discussed with Cardiology. Guarded prognosis because of multiple complex medical issues. Further recommendations to follow. Will closely follow with Infectious Disease. Increase ambulation. MTDD
[2016-09-17 12:17] LABS: Glucose,Whole Blood 296 mg/dL (75-99)
[2016-09-17] MEDS: SODIUM CHLORIDE 0.9% 1,000 ML IV SCH ×2 (15:13→18:24)
[2016-09-17] MEDS: FUROSEMIDE 40 MG TAB PO SCH (15:16)
[2016-09-17 17:24] LABS: Glucose,Whole Blood 113 mg/dL (75-99)
[2016-09-17 20:37] LABS: Glucose,Whole Blood 217 mg/dL (75-99)
[2016-09-17] MEDS: ZOLPIDEM 5 MG TAB PO PRN (21:38)
[2016-09-17] MEDS: ATORVASTATIN 40 MG TAB PO SCH (21:39)
[2016-09-17] MEDS: INSULIN GLARGINE 100 UNIT/ML 10 ML VIAL SQ SCH (21:39)
[2016-09-17] MEDS: DIGOXIN 125 MCG TAB PO SCH (21:39)
[2016-09-17] MEDS: HEPARIN SODIUM,PORCINE 5,000 UNIT/ML 1 ML VIAL SQ SCH (21:40)
[2016-09-17] MEDS: ceFAZolin 2 GM in SODIUM CHLORIDE 0.9% 100 ML IVPB SCH (23:09)
[2016-09-18 06:42] LABS: Glucose,Whole Blood 180 mg/dL (75-99)
[2016-09-18] MEDS: INSULIN LISPRO (humaLOG) 300 UNIT/3 ML VIAL SQ SCH ×4 (06:50→21:02)
[2016-09-18] MEDS: PANTOPRAZOLE 40 MG TABLET PO SCH (06:51)
[2016-09-18 07:13] LABS: Basophils # (A) 0.1 k/uL (0-0.2); Basophils % (A) 1 %; CH 28.5; Eosinophils # (A) 0.6 k/uL (0-0.7); Eosinophils % (A) 6 %; HCT 28.8 % (34.0-46.0); HDW 2.47; HGB 9.1 gm/dL (11.4-16.0); Luc # (Auto) 0.41; Luc % (Auto) 4; Lymphocytes # (A) 1.5 k/uL (1.0-4.8); Lymphocytes % (A) 15 %; MCH 28.4 pg (25.0-35.0); MCHC 31.7 g/dL (31.0-37.0); MCV 89.6 fL (80.0-100.0); Mean Platelet Volume 7.7; Monocytes # (A) 0.8 k/uL (0-1.0); Monocytes % (A) 8 %; Neutrophils % (A) 67 %; RBC 3.21 m/uL (3.80-5.40); RDW 13.9 % (11.5-15.5); WBC 10.4 k/uL (3.8-10.6); WBC (Perox) 10.15
[2016-09-18] MEDS: TIOTROPIUM 18 MCG/PUFF INHALER INHALATION SCH (07:20)
[2016-09-18 07:23] LABS: Calcium 8.8 mg/dL (8.4-10.2)
[2016-09-18] MEDS: ASPIRIN 81 MG PO SCH (08:00)
[2016-09-18] MEDS: LORATADINE 10 MG TAB PO SCH (08:01)
[2016-09-18] MEDS: FUROSEMIDE 40 MG TAB PO SCH ×2 (08:01→15:07)
[2016-09-18] MEDS: metFORMIN 500 MG TAB PO SCH ×2 (08:01→21:02)
[2016-09-18] MEDS: PARoxetine 20 MG TAB PO SCH (08:01)
[2016-09-18] MEDS: LISINOPRIL 5 MG TAB PO SCH (08:01)
[2016-09-18] MEDS: HEPARIN SODIUM,PORCINE 5,000 UNIT/ML 1 ML VIAL SQ SCH ×2 (08:01→21:02)
[2016-09-18] MEDS: CARVEDILOL 3.125 MG TAB PO SCH ×2 (08:01→21:02)
[2016-09-18] MEDS: SPIRONOLACTONE 25 MG TAB PO SCH (08:01)
[2016-09-18] MEDS: HYDROcodone/APAP 5-325MG 1 EACH TAB PO PRN ×3 (08:03→21:01)
[2016-09-18] MEDS: ceFAZolin 2 GM in SODIUM CHLORIDE 0.9% 100 ML IVPB SCH ×3 (08:42→23:55)
[2016-09-18 09:26] VITALS: RESP 18
--- NOTE | 2016-09-18 09:36 | PN ---
DATE OF SERVICE: 09/17/16 This 66-year-old woman who was admitted with apparent UTI/sepsis and also had features of MSSA. The patient had EDD showed no definite evidence of endocarditis. The most recent cultures are negative at this time. The patient had aortic valve replacement, mitral valve repair previously. No chest pain, no palpitations. No fever. PHYSICAL EXAMINATION: On exam, alert and oriented times three. Pulse 83, blood pressure 130/66. Respiratory rate 18. Temperature 97 degrees. Pulse ox 98% on 2 L. HEENT: Conjunctivae pale. NECK: no JVD. CARDIOVASCULAR: S1, S2 muffled. RESPIRATORY: Breath sounds diminished at the bases. A few scattered rhonchi and crackles. Abdomen is soft. Nontender. LEGS: No edema. No swelling. Nervous system: No focal deficits. LABS: Sodium 134, INR 1.26. Labs, Accu-Cheks are noted. ASSESSMENT: 1. Acute urinary tract infection with possible sepsis present on admission. 2. MSSA sepsis, primary unknown. 3. Troponin 0.12. possibly non-ST segment myocardial infarction, present on admission. 4. Congestive heart failure acute exacerbation with acute on chronic diastolic dysfunction, ejection fraction 50-55%. 5. History of aortic valve replacement and mitral valve repair. 6. Acute hepatitis, undetermined etiology. 7. Acute on chronic renal failure with baseline chronic kidney disease Stage III. RECOMMENDATIONS AND DISCUSSION: Continue the current medications. Continue with monitoring and symptomatic treatment. Otherwise, at this time, we will monitor the patient closely. Continue empiric antibiotics. Further recommendations to follow. SAYD
[2016-09-18] MEDS: SODIUM CHLORIDE 0.9% 1,000 ML IV SCH (10:10)
[2016-09-18] MEDS: ALBUTEROL NEBULIZED 2.5 MG/3 ML INHALATION PRN (11:26)
[2016-09-18 12:24] LABS: Glucose,Whole Blood 248 mg/dL (75-99)
--- NOTE | 2016-09-18 13:48 | PN ---
DATE OF SERVICE: 09/17/16 REASON FOR FOLLOW UP: MSSA bacteremia. INTERVAL HISTORY: The patient is afebrile. She has been breathing comfortably. The patient denies significant chest pain, shortness of breath or any cough. On examination, blood pressure 143/71, pulse 92, temperature 97.1, she is 96 % on 2 L nasal cannula. General description is an elderly female lying in the bed in no distress. Respiratory system: Unlabored breathing. Clear to auscultation anteriorly. Heart: S1, S2 regular rate and rhythm. Abdomen soft, no tenderness. Extremities: No edema of feet. LABS: Follow-up blood cultures as of 7:30 08 has been negative. DIAGNOSTIC IMPRESSION AND PLAN: Patient with MSSA bacteremia. Patient predominantly with abdominal ( ) however, cultures so far negative, even the EDD. The patient did have GFR of 42. Antibiotics should be q8 hours in the form of Cefazolin. The patient will be monitored closely. Continue with supportive care. FEDERICO
--- NOTE | 2016-09-18 14:05 | P.PN ---
Subjective Principal diagnosis: CHF This is a pleasant 66-year-old female patient with history of severe cardiomyopathy and status post by the ICD, valvular heart disease and status post aortic valve replacement and mitral valve repair who was admitted to the hospital with heart failure. The patient was admitted predominantly with symptoms of left heart failure. She was found to have positive blood culture and transesophageal echocardiogram was performed yesterday and showed no evidence of endocarditis. On follow-up with the patient today she is feeling better. She denies having any chest pain or discomfort. The shortness of breath is slightly better. On physical examination she still have diminished breathing sounds bilaterally. Objective - Vital Signs Vital signs: Vital Signs Temp 97.2 F L 09/18/16 11:36 Pulse 72 09/18/16 11:37 Resp 18 09/18/16 11:36 BP 108/54 09/18/16 11:36 Pulse Ox 100 09/18/16 11:36 Intake & Output 09/17/16 09/18/16 09/18/16 18:59 06:59 18:59 Intake Total 260 280 Output Total 300 200 Balance -40 80 Weight 61.6 kg Intake: IV 260 180 Sodium Chloride 0.9% 1, 160 180 000 ml @ 20 mls/hr IV . Q24H [facility] Rx#:[id number] ceFAZolin 2 gm In Sodium 100 Chloride 0.9% 100 ml @ 100 mls/hr IVPB Q8HR [facility] Rx#:[id number] Intake, IV Titration 100 Amount ceFAZolin 2 gm In Sodium 100 Chloride 0.9% 100 ml @ 100 mls/hr IVPB Q8HR [facility] Rx#:[id number] Output: Urine 300 200 Other: Voiding Method Toilet Toilet # Voids 1 2 - Constitutional General appearance: Present: no acute distress - Respiratory Respiratory: bilateral: diminished - Cardiovascular Heart sounds: normal: S1, S2 - Labs CBC & Chem 7: 09/18/16 05:47 09/18/16 05:47 Labs: Abnormal Lab Results - Last 24 Hours (Table) 09/17/16 09/17/16 09/18/16 Range/Units 17:18 20:35 05:47 RBC 3.21 L (3.80-5.40) m/uL Hgb 9.1 L (11.4-16.0) gm/dL Hct 28.8 L (34.0-46.0) % Sodium (137-145) mmol/L Chloride (98-107) mmol/L Carbon Dioxide (22-30) mmol/L BUN (7-17) mg/dL Creatinine (0.52-1.04) mg/dL Glucose (74-99) mg/dL POC Glucose (mg/dL) 113 H 217 H (75-99) mg/dL 09/18/16 09/18/16 09/18/16 Range/Units 05:47 06:29 11:41 RBC (3.80-5.40) m/uL Hgb (11.4-16.0) gm/dL Hct (34.0-46.0) % Sodium 136 L (137-145) mmol/L Chloride 95 L (98-107) mmol/L Carbon Dioxide 33 H (22-30) mmol/L BUN 46 H (7-17) mg/dL Creatinine 1.20 H (0.52-1.04) mg/dL Glucose 166 H (74-99) mg/dL POC Glucose (mg/dL) 180 H 248 H (75-99) mg/dL Microbiology - Last 24 Hours (Table) 09/16/16 10:23 Urine Culture - Final Urine,Voided 09/16/16 11:59 Blood Culture - Preliminary Blood No Growth after 24 hours 09/11/16 12:07 Blood Culture - Final Blood No Growth after 144 hours Assessment and Plan Plan: Assessment Congestive heart failure secondary to systolic dysfunction Valvular heart disease as described above Status post by V ICD Plan Continue the Lasix by mouth Continue monitor the kidney function and electrolytes Follow-up with the patient
[2016-09-18 17:38] LABS: Glucose,Whole Blood 159 mg/dL (75-99)
[2016-09-18] MEDS: DIGOXIN 125 MCG TAB PO SCH (21:02)
[2016-09-18] MEDS: ATORVASTATIN 40 MG TAB PO SCH (21:02)
[2016-09-18 21:07] LABS: Glucose,Whole Blood 216 mg/dL (75-99)
[2016-09-18] MEDS: ZOLPIDEM 5 MG TAB PO PRN (21:11)
[2016-09-18] MEDS: INSULIN GLARGINE 100 UNIT/ML 10 ML VIAL SQ SCH (21:11)
[2016-09-18 22:42] VITALS: TEMP 97
[2016-09-19] MEDS: PANTOPRAZOLE 40 MG TABLET PO SCH (05:46)
[2016-09-19] MEDS: HYDROcodone/APAP 5-325MG 1 EACH TAB PO PRN (05:49)
[2016-09-19 06:35] LABS: Glucose,Whole Blood 174 mg/dL (75-99)
[2016-09-19 06:51] LABS: Basophils # (A) 0.1 k/uL (0-0.2); Basophils % (A) 1 %; CH 28.7; CHCM 32.1; Eosinophils # (A) 0.5 k/uL (0-0.7); Eosinophils % (A) 6 %; HCT 28.5 % (34.0-46.0); HDW 2.48; HGB 8.6 gm/dL (11.4-16.0); Luc # (Auto) 0.29; Luc % (Auto) 3; Lymphocytes # (A) 1.4 k/uL (1.0-4.8); Lymphocytes % (A) 15 %; MCH 27.2 pg (25.0-35.0); MCHC 30.2 g/dL (31.0-37.0); MCV 89.8 fL (80.0-100.0); Mean Platelet Volume 7.4; Monocytes # (A) 0.6 k/uL (0-1.0); Monocytes % (A) 7 %; Neutrophils # (A) 6.1 k/uL (1.3-7.7); Neutrophils % (A) 68 %; RBC 3.18 m/uL (3.80-5.40); RDW 13.9 % (11.5-15.5); WBC (Perox) 9.57
[2016-09-19 07:01] LABS: Calcium 8.4 mg/dL (8.4-10.2); Potassium 4.8 mmol/L (3.5-5.1)
[2016-09-19] MEDS: INSULIN LISPRO (humaLOG) 300 UNIT/3 ML VIAL SQ SCH ×2 (07:05→12:12)
[2016-09-19] MEDS: CARVEDILOL 3.125 MG TAB PO SCH (09:24)
[2016-09-19] MEDS: ASPIRIN 81 MG PO SCH (09:25)
[2016-09-19] MEDS: HEPARIN SODIUM,PORCINE 5,000 UNIT/ML 1 ML VIAL SQ SCH (09:25)
[2016-09-19] MEDS: PARoxetine 20 MG TAB PO SCH (09:25)
[2016-09-19] MEDS: LORATADINE 10 MG TAB PO SCH (09:25)
[2016-09-19] MEDS: FUROSEMIDE 40 MG TAB PO SCH (09:25)
[2016-09-19] MEDS: SODIUM CHLORIDE 0.9% 1,000 ML IV SCH (09:26)
[2016-09-19] MEDS: metFORMIN 500 MG TAB PO SCH (09:26)
[2016-09-19] MEDS: LISINOPRIL 5 MG TAB PO SCH (09:26)
[2016-09-19] MEDS: ceFAZolin 2 GM in SODIUM CHLORIDE 0.9% 100 ML IVPB SCH (09:26)
[2016-09-19] MEDS: SPIRONOLACTONE 25 MG TAB PO SCH (09:27)
[2016-09-19] MEDS: TIOTROPIUM 18 MCG/PUFF INHALER INHALATION SCH (11:42)
--- NOTE | 2016-09-19 11:49 | PN ---
DATE OF SERVICE: 09/18/2016 This 66-year-old woman who was admitted with acute UTI with possible sepsis which was present on admission, MSSA. The patient is feeling better. White count is normal. Creatinine is 1.2. No chest pain, no palpitation, no fever. Infectious disease recommending outpatient antibiotics with PICC line. On exam, alert and oriented x3. Pulse 80, blood pressure 108/54, respirations 18, temperature 97.2, pulse ox 100% on 2 liters. HEENT: Conjunctivae normal. Oral mucosa moist. NECK: No JVD. HEART: S1/S2. Ejection systolic murmur. RESPIRATORY: Diminished breath sounds especially at the bases. Scattered rhonchi. ABDOMEN: Soft, nontender. No mass palpable. LEGS: No edema. NEURO: No focal deficit. LAB: WBC 10, hemoglobin 9.. Creatinine 1.2. ASSESSMENT: 1. Acute urinary tract infection with possible sepsis, present on admission. 2. Methicillin-susceptible Staphylococcus aureus sepsis, primary unknown. 3. Troponin 0.012 with chest discomfort, possible acute non ST segment elevation myocardial infarction. 4. Congestive heart failure acute exacerbation with acute on chronic diastolic dysfunction, ejection fraction 50-55%. 5. History of aortic valve replacement, mitral valve repair. 6. Acute hepatitis, undetermined etiology. 7. Acute on chronic renal failure with baseline chronic kidney disease stage 3. RECOMMENDATIONS AND DISCUSSION: Continue current medication, continue to monitor, continue symptomatic treatment. Otherwise, continue with empiric antibiotics per infectious disease. Monitor blood sugars closely. Monitor electrolytes closely. Closely follow with cardiology. Increase ambulation. Guarded prognosis because of multiple complex medical issues. Further recommendations to follow. SAYD
[2016-09-19 12:10] LABS: Glucose,Whole Blood 190 mg/dL (75-99)
[2016-09-19 12:40] VITALS: BP 129/69; PULSE 77
--- NOTE | 2016-09-19 15:28 | P.PN ---
Subjective This is a 66-year-old female with history of nonischemic cardiomyopathy, aortic valve replacement and also mitral valve repair done at [facility]. She claims that subsequently she has also had TAVR. Patient also had biventricular defibrillator implantation. Patient is now admitted to the hospital mainly because of UTI. We're asked to see the patient because of an episode of nonsustained V. tach consisting of 5-6 beats. Patient also complains some palpitations, but mostly seems to be associated with occasional PVCs. She denies any chest pain or shortness of breath. She also is noted to have anemia with a hemoglobin dropping below 9. Her potassium level is within normal limits. Patient has a biventricular pacemaker and the QT interval seems to be within normal limits. At this point I'm going to obtain a digoxin level. We'll treat her 1 g of magnesium and get a magnesium level also. Otherwise, continue current medical therapy. 09/12/2016. No further episodes of NSVT have been noted. Repeat chest x-ray revealed congestive heart failure and interstitial pulmonary edema. Patient was given IV Lasix, diuresed well overall. Changed over to oral Lasix today. Creatinine 1.3. Blood pressure 140/60. 09/13/2016 Patient seen and examined this morning, she states she is feeling more short of breath than her usual, not feeling as well as she did yesterday. Her IV Lasix was discontinued yesterday and she was started on oral diuretics. We will give her a one-time dose of IV Lasix today. We will also check a BNP level and repeat a chest x-ray. BUN 26 creatinine 1.2. Hemoglobin 9.2. Blood pressure 142/60 with a heart rate in the 80s. Echocardiogram with Doppler study was performed today which revealed an ejection fraction of 50-55%. 09/14/2016 Patient seen and examined this morning, states that her breathing is improving. Dr. Callejas did have a discussion today with Dr. Marcus he explaining that if a EDD was suggested that he would perform it. Patient apparently is waiting to have a line placed for IV antibiotics.in the meantime patient remains afebrile. We will discontinue the oral Lasix and start the patient on Lasix 40 IV twice a day, chest x-ray shows heart failure. We will also add Aldactone to her medication regime. 09/15/2016 Patient seen and examined this morning, states that her breathing is somewhat improved today. Blood cultures came back positive for gram-positive cocci in clusters. Because of a history of valve replacement along with the positive blood cultures patient has been recommended to undergo a EDD. The risks and the benefits as well as the procedure have been explained to the patient in detail. This will be performed tomorrow by Dr. Callejas. 09/19/2016 Patient did undergo a transesophageal echocardiogram by Dr. Callejas which did not reveal any evidence of vegetation. Maximal medical therapy was advised. If there was any clinical suspicion of endocarditis repeat blood culture would be obtained and ID follow-up recommended. Overall patient is feeling much better, arrangements are being made for discharge home today. Objective - Vital Signs Vital signs: Vital Signs Temp 97 F L 09/19/16 04:00 Pulse 77 09/19/16 12:40 Resp 18 09/19/16 12:40 BP 129/69 09/19/16 12:40 Pulse Ox 100 09/19/16 12:40 Intake & Output 09/18/16 09/19/16 09/19/16 18:59 06:59 18:59 Intake Total 260 340 580 Output Total 600 300 Balance -340 340 280 Weight 61 kg Intake: Intake, IV Titration 260 340 100 Amount Sodium Chloride 0.9% 1, 160 240 000 ml @ 20 mls/hr IV . Q24H CHERIE Rx#:[id number] ceFAZolin 2 gm In Sodium 100 100 100 Chloride 0.9% 100 ml @ 100 mls/hr IVPB Q8HR [facility]ERIE Rx#:[id number] Oral 480 Output: Urine 600 300 Other: Voiding Method Toilet Toilet # Voids 2 1 2 - Exam PHYSICAL EXAMINATION: HEENT: Head is atraumatic, normocephalic. Pupils equal, round. Neck is supple. There is no elevated jugular venous pressure. HEART EXAMINATION: Heart S1, S2 normal. No murmur or gallop heard. CHEST EXAMINATION: Lungs reveal crackles on the left posteriorly. ABDOMEN: Soft, nontender. Bowel sounds are heard. No organomegaly noted. EXTREMITIES:[ 2+ peripheral pulses with no evidence of peripheral edema and no calf tenderness noted]. NEUROLOGIC [patient is awake, alert and oriented -3.] . - Labs CBC & Chem 7: 09/19/16 05:57 09/19/16 05:57 Labs: Abnormal Lab Results - Last 24 Hours (Table) 09/18/16 09/18/16 09/19/16 Range/Units 17:20 21:01 05:57 RBC 3.18 L (3.80-5.40) m/uL Hgb 8.6 L (11.4-16.0) gm/dL Hct 28.5 L (34.0-46.0) % MCHC 30.2 L (31.0-37.0) g/dL Sodium (137-145) mmol/L Chloride (98-107) mmol/L BUN (7-17) mg/dL Creatinine (0.52-1.04) mg/dL Glucose (74-99) mg/dL POC Glucose (mg/dL) 159 H 216 H (75-99) mg/dL 09/19/16 09/19/16 09/19/16 Range/Units 05:57 06:32 11:48 RBC (3.80-5.40) m/uL Hgb (11.4-16.0) gm/dL Hct (34.0-46.0) % MCHC (31.0-37.0) g/dL Sodium 133 L (137-145) mmol/L Chloride 97 L (98-107) mmol/L BUN 51 H (7-17) mg/dL Creatinine 1.11 H (0.52-1.04) mg/dL Glucose 164 H (74-99) mg/dL POC Glucose (mg/dL) 174 H 190 H (75-99) mg/dL Microbiology - Last 24 Hours (Table) 09/16/16 11:59 Blood Culture - Preliminary Blood No Growth after 72 hours 09/16/16 10:23 Urine Culture - Final Urine,Voided Assessment and Plan Plan: Assessment and Plan (1) Nonsustained ventricular tachycardia Status: Acute (2) PVCs (premature ventricular contractions) Status: Acute (3) Urinary tract infection Status: Acute (4) History of aortic valve replacement Status: Acute (5) History of mitral valve repair Status: Acute (6) Nonischemic cardiomyopathy Status: Acute (7) Cardiac defibrillator in place Status: Acute (8) Cardiac resynchronization therapy defibrillator (CONTROL TOWER OPERATOR-D) in place Status: Acute Blood cultures positive for gram-positive cocci in clusters. EDD negative for any endocarditis. We will continue the patient on her current medications. A follow-up appointment will be made with Dr. brook Gamble in the office post discharge. DNP note has been reviewed, I agree with a documented findings and plan of care. Patient was seen and examined.
--- NOTE | 2016-09-19 16:51 | PN ---
DATE OF SERVICE: 09/18/2016 REASON FOR FOLLOW UP: MSSA bacteremia. INTERVAL HISTORY: The patient is afebrile. She is breathing comfortably. Denies significant chest pain. No shortness of breath or cough. No significant abdominal pain. No nausea, vomiting or any diarrhea. On examination, blood pressure 132/90 with a pulse of 85, temperature 97.3. She is 100% on 2 liters nasal cannula. GENERAL DESCRIPTION: Elderly female lying in bed in no distress. RESPIRATORY: Unlabored breathing. Clear to auscultation anteriorly. HEART: S1/S2 regular. ABDOMEN: Soft with significant tenderness. LABS: Hemoglobin 9.1, white cell count 10.4. BUN 46, creatinine 1.20. DIAGNOSTIC IMPRESSION:. Patient with methicillin-sensitive Staphylococcus aureus bacteremia. Follow up blood cultures have been negative. She will continue on cefazolin 2 gm q8 for another 10 days to finish her course of therapy. Continue supportive care. MTDD
--- NOTE | 2016-09-19 19:13 | P.DS ---
Providers Date of admission: 09/09/16 16:11 Attending physician: Philip Silver Consults: 09/11/16 06:20 Consult Physician Stat Consulting Provider: Rodney Callejas Consult Reason/Comments: 6 beat run vtach, abnormal ekg Do you want consulting provider notified?: Yes 09/12/16 12:31 Consult Physician Routine Consulting Provider: Marcella Marcus Consult Reason/Comments: sepsis Do you want consulting provider notified?: Yes Primary care physician: Kaylee Suero [facility] Course: This is a 66-year-old female with history of nonischemic cardiomyopathy, aortic valve replacement and also mitral valve repair done at [facility]. She claims that subsequently she has also had TAVR. Patient also had biventricular defibrillator implantation. Patient is now admitted to the hospital mainly because of UTI. We're asked to see the patient because of an episode of nonsustained V. tach consisting of 5-6 beats. Patient also complains some palpitations, but mostly seems to be associated with occasional PVCs. She denies any chest pain or shortness of breath. She also is noted to have anemia with a hemoglobin dropping below 9. Her potassium level is within normal limits. Patient has a biventricular pacemaker and the QT interval seems to be within normal limits. Brief summary Pt was noted to be acute HfpEF , severe pulmonary htn was given diuretics, and improved however pt was noted to have MSSA bacteremia, unknown source endocarditis was ruled out discharged to complete a course of abx on cefazolin - Exam PHYSICAL EXAMINATION: HEENT: Head is atraumatic, normocephalic. Pupils equal, round. Neck is supple. There is no elevated jugular venous pressure. HEART EXAMINATION: Heart S1, S2 normal. No murmur or gallop heard. CHEST EXAMINATION: Lungs reveal crackles on the left posteriorly. ABDOMEN: Soft, nontender. Bowel sounds are heard. No organomegaly noted. EXTREMITIES:[ 2+ peripheral pulses with no evidence of peripheral edema and no calf tenderness noted]. NEUROLOGIC [patient is awake, alert and oriented -3.] . Assessment and Plan (1) Nonsustained ventricular tachycardia Status: Acute (2) PVCs (premature ventricular contractions) Status: Acute (3) Urinary tract infection Status: Acute (4) History of aortic valve replacement Status: Acute (5) History of mitral valve repair Status: Acute (6) Nonischemic cardiomyopathy, Status: Acute (7) Cardiac defibrillator in place Status: Acute (8) severe pulmonary HTN Patient Condition at Discharge: Fair Plan - Discharge Summary New Discharge Prescriptions: New ceFAZolin [Kefzol] 2,000 mg IVPB Q8HR #42 bag Spironolactone [Aldactone] 25 mg PO DAILY #30 tab Continue Digoxin [Lanoxin] 125 mcg PO HS Aspirin 81 mg PO DAILY PARoxetine HCL [Paxil] 20 mg PO DAILY Lisinopril [Prinivil] 5 mg PO DAILY Zolpidem [Ambien] 5 mg PO HS PRN PRN Reason: Insomnia Albuterol Sulfate [Proair Hfa] 2 puff INHALATION RT-BID PRN PRN Reason: Shortness Of Breath Atorvastatin [Lipitor] 40 mg PO HS Famotidine [Pepcid] 40 mg PO DAILY Insulin Glargine,Hum.rec.anlog [Lantus Solostar] 16 unit SQ HS Insulin Aspart [NovoLOG] See Protocol SQ TID-W/MEALS PRN PRN Reason: Blood Sugar - High Carvedilol [Coreg] 3.125 mg PO BID Furosemide [Lasix] 40 mg PO DAILY Cetirizine HCl [Zyrtec] 10 mg PO DAILY Tiotropium Reeder [Spiriva] 1 cap INHALATION RT-DAILY Albuterol Nebulized [Ventolin Nebulized] 2.5 mg INHALATION RT-TID PRN PRN Reason: Shortness Of Breath metFORMIN HCL [Glucophage] 500 mg PO BID Discharge Medication List Aspirin 81 mg PO DAILY 02/10/14 [History] Digoxin [Lanoxin] 125 mcg PO HS 02/10/14 [History] Lisinopril [Prinivil] 5 mg PO DAILY 02/10/14 [History] PARoxetine HCL [Paxil] 20 mg PO DAILY 02/10/14 [History] Albuterol Sulfate [Proair Hfa] 2 puff INHALATION RT-BID PRN 06/02/14 [History] Atorvastatin [Lipitor] 40 mg PO HS 06/02/14 [History] Zolpidem [Ambien] 5 mg PO HS PRN 06/02/14 [History] Famotidine [Pepcid] 40 mg PO DAILY 01/02/15 [History] Insulin Aspart [NovoLOG] See Protocol SQ TID-W/MEALS PRN 01/02/15 [History] Insulin Glargine,Hum.rec.anlog [Lantus Solostar] 16 unit SQ HS 01/02/15 [History ] Carvedilol [Coreg] 3.125 mg PO BID 03/16/15 [History] Furosemide [Lasix] 40 mg PO DAILY 03/16/15 [History] Cetirizine HCl [Zyrtec] 10 mg PO DAILY 11/12/15 [History] Albuterol Nebulized [Ventolin Nebulized] 2.5 mg INHALATION RT-TID PRN 03/05/16 [ History] Tiotropium Reeder [Spiriva] 1 cap INHALATION RT-DAILY 03/05/16 [History] metFORMIN HCL [Glucophage] 500 mg PO BID 09/09/16 [History] ceFAZolin [Kefzol] 2,000 mg IVPB Q8HR #42 bag 09/14/16 [Rx] Spironolactone [Aldactone] 25 mg PO DAILY #30 tab 09/19/16 [Rx] Follow up Appointment(s)/Referral(s): [facility], [NON-STAFF] - [facility], [REFERRING] - Kaylee Suero MD [Primary Care Provider] - 09/28/16 4:45 pm (Please call and make follow up appointment during normal business hours. ) Marcella Marcus MD [STAFF PHYSICIAN] - 09/29/16 10:45 am Patient Instructions/Handouts: Urinary Tract Infection in Women (DC), Sepsis ( GEN) Activity/Diet/Wound Care/Special Instructions: Pt to receive IV antibiotics at home with [facility] infusion/home care. Will arrive at the house by 6 PM on 09/19/16. Discharge Disposition: HOME WITH HOME HEALTH SERVICES
--- NOTE | 2016-09-20 05:45 | PN ---
DATE OF SERVICE: 09/19/2016 Reason for followup is MSSA bacteremia. INTERVAL HISTORY: The patient is afebrile. She is breathing comfortably. Patient denies significant chest pain, shortness of breath or cough. No abdominal pain or any diarrhea. On examination, the blood pressure is 118/64 with a pulse of 81, temperature 97. She is 99% on 2 L nasal cannula. General description is an elderly female, lying in bed in no distress. RESPIRATORY SYSTEM: Unlabored breathing. Clear to auscultation anteriorly. HEART: S1 and S2, regular rate and rhythm. ABDOMEN: Soft, no tenderness. LABS: Hemoglobin 8.6, white count 9.0 with a BUN of 51 and creatinine 1.11. Blood cultures on 09/11 and 09/16 remain to be negative. DIAGNOSTIC IMPRESSION AND PLAN: Patient with methicillin-susceptible Staphylococcus aureus bacteremia. Patient did have extensive workup to look for any vascular source that has been negative. In view of patient's aortic valve replacement and pacemaker, she has been continued on IV cefazolin for another 10 days with close outpatient followup. [place]
== END 2016-09-19 15:49 | disposition home health service (06) | DRG 871 ==
LOC: EC 14:09 → 5MS5E 16:11 → 6SEL 09-11 14:16
PROVIDERS: ADMIT Hospitalist; ATTEND Hospitalist
PROC: 02HV33Z Insertion of Infusion Device into Superior Vena Cava, Percutaneous Approach (ICD-10-PCS; 2016-09-15 09:43)
PROC: B246ZZ4 Ultrasonography of Right and Left Heart, Transesophageal (ICD-10-PCS; principal; 2016-09-16 08:00)
DX: A41.01 Sepsis due to Methicillin susceptible Staphylococcus aureus (principal); I50.33 Acute on chronic diastolic (congestive) heart failure; I21.4 Non-ST elevation (NSTEMI) myocardial infarction; I47.2 Ventricular tachycardia; N17.9 Acute kidney failure, unspecified; Z94.81 Bone marrow transplant status; N18.3 Chronic kidney disease, stage 3 (moderate); I42.9 Cardiomyopathy, unspecified; E83.42 Hypomagnesemia; I13.0 Hypertensive heart and chronic kidney disease with heart failure and stage 1 through stage 4 chronic kidney disease, or unspecified chronic kidney disease; E87.1 Hypo-osmolality and hyponatremia; N39.0 Urinary tract infection, site not specified; B17.9 Acute viral hepatitis, unspecified; E11.22 Type 2 diabetes mellitus with diabetic chronic kidney disease; I27.2 Other secondary pulmonary hypertension; R93.3 Abnormal findings on diagnostic imaging of other parts of digestive tract; I49.3 Ventricular premature depolarization; D63.8 Anemia in other chronic diseases classified elsewhere; E78.5 Hyperlipidemia, unspecified; I25.2 Old myocardial infarction; K21.9 Gastro-esophageal reflux disease without esophagitis; J44.9 Chronic obstructive pulmonary disease, unspecified; K44.9 Diaphragmatic hernia without obstruction or gangrene; R53.1 Weakness; M19.90 Unspecified osteoarthritis, unspecified site; R01.1 Cardiac murmur, unspecified; F32.9 Major depressive disorder, single episode, unspecified; F41.9 Anxiety disorder, unspecified; R11.2 Nausea with vomiting, unspecified; Z95.810 Presence of automatic (implantable) cardiac defibrillator; Z95.2 Presence of prosthetic heart valve; Z79.82 Long term (current) use of aspirin; Z79.899 Other long term (current) drug therapy; Z80.9 Family history of malignant neoplasm, unspecified; Z83.3 Family history of diabetes mellitus; Z82.49 Family history of ischemic heart disease and other diseases of the circulatory system; Z87.440 Personal history of urinary (tract) infections; Z85.6 Personal history of leukemia; Z87.891 Personal history of nicotine dependence; Z88.1 Allergy status to other antibiotic agents; Z87.01 Personal history of pneumonia (recurrent); Z87.828 Personal history of other (healed) physical injury and trauma; Z87.81 Personal history of (healed) traumatic fracture; Z79.4 Long term (current) use of insulin; Z79.51 Long term (current) use of inhaled steroids; Z71.3 Dietary counseling and surveillance; Z98.1 Arthrodesis status; Z98.42 Cataract extraction status, left eye; Z98.41 Cataract extraction status, right eye; Z90.710 Acquired absence of both cervix and uterus; Z90.49 Acquired absence of other specified parts of digestive tract; Z99.81 Dependence on supplemental oxygen
CPT/HCPCS: 36415; 36569; 71010; 71020; 74177; 76937; 77001; 80048; 80053; 80162; 80202; 81001; 82550; 82553; 83036; 83605; 83735; 83880; 84100; 84484; 85025; 85610; 85652; 85730; 86140; 87040; 87077; 87086; 87186; 93005; 93306; 93312; 93320; 93325; 94640; 94760; 96361; 96365; 96375; 99285

== ENCOUNTER 2016-09-28 15:10 | Inpatient (IN) | payer MEDICARE, OTHER ==
[2016-09-28] MEDS ORDERED: SODIUM CHLORIDE 0.9% 1,000 ML IV STA ×2 (15:57)
[2016-09-28] MEDS ORDERED: methylPREDNISolone SOD SUCCI 125 MG/2 ML VIAL IV STA (15:58)
--- NOTE | 2016-09-28 15:59 | ED ---
General Adult HPI - General Chief complaint: Recheck/Abnormal Lab/Rx Stated complaint: SOB-revisit Time Seen by Provider: 09/28/16 15:43 Source: patient, RN notes reviewed, old records reviewed Mode of arrival: wheelchair Limitations: no limitations - History of Present Illness Initial comments: This is a 66-year-old female here for evaluation of weakness, continue weakness despite good appetite. Patient's known blood infection and bacteremia on outpatient antibiotics through a PICC line. She also complains of cough and congestion, history of COPD doing breathing treatments with this or shortness of breath is getting worse. Mainly just more fatigued than normal. - Related Data Home Medications Medication Instructions Recorded Confirmed Aspirin 81 mg PO DAILY 02/10/14 09/28/16 Digoxin [Lanoxin] 125 mcg PO HS 02/10/14 09/28/16 Lisinopril [Prinivil] 5 mg PO DAILY 02/10/14 09/28/16 PARoxetine HCL [Paxil] 20 mg PO DAILY 02/10/14 09/28/16 Albuterol Sulfate [Proair Hfa] 2 puff INHALATION RT-BID PRN 06/02/14 09/28/16 Atorvastatin [Lipitor] 40 mg PO HS 06/02/14 09/28/16 Zolpidem [Ambien] 5 mg PO HS PRN 06/02/14 09/28/16 Famotidine [Pepcid] 40 mg PO DAILY 01/02/15 09/28/16 Insulin Aspart [NovoLOG] See Protocol SQ TID-W/MEALS PRN 01/02/15 09/28/16 Insulin Glargine,Hum.rec.anlog 16 unit SQ HS 01/02/15 09/28/16 [Lantus Solostar] Carvedilol [Coreg] 3.125 mg PO BID 03/16/15 09/28/16 Furosemide [Lasix] 40 mg PO DAILY 03/16/15 09/28/16 Cetirizine HCl [Zyrtec] 10 mg PO DAILY 11/12/15 09/28/16 Albuterol Nebulized [Ventolin 2.5 mg INHALATION RT-TID PRN 03/05/16 09/28/16 Nebulized] Tiotropium [place] [Spiriva] 1 cap INHALATION RT-DAILY 01/21/17 08/16/17 metFORMIN HCL [Glucophage] 500 mg PO BID 09/09/16 09/28/16 Previous Rx's Medication Instructions Recorded ceFAZolin [Kefzol] 2,000 mg IVPB Q8HR #42 bag 09/14/16 Spironolactone [Aldactone] 25 mg PO DAILY #30 tab 09/19/16 Allergies Allergy/AdvReac Type Severity Reaction Status Date / Time oxytetracycline Allergy Rash/Hives Verified 09/28/16 16:09 [From Terramycin] oxytetracycline HCl Allergy Rash/Hives Verified 09/28/16 16:09 [From Terramycin] Review of Systems ROS Statement: Those systems with pertinent positive or pertinent negative responses have been documented in the HPI. ROS Other: All systems not noted in ROS Statement are negative. Past Medical History Past Medical History: Asthma, Cancer, Heart Failure, COPD, Diabetes Mellitus, GERD/Reflux, Hyperlipidemia, Hypertension, Myocardial Infarction (non Q-wave), Osteoarthritis (OA), Renal Disease Additional Past Medical History / Comment(s): HX BLOOD IN URINE, hx leukemia, O2 AT 2L [place], SILENT [place] Last Myocardial Infarction Date:: UNKNOWN History of Any Multi-Drug Resistant Organisms: None Reported Past Surgical History: AICD, Back Surgery, Cholecystectomy, Heart Catheterization, Hernia Repair, Hysterectomy, Orthopedic Surgery, Tonsillectomy Additional Past Surgical History / Comment(s): EDD 06/25/14, JOAN cataract, bone marrow transplant, venogram-last 03/17/15, right wrist, C-5 fusion, EYE LID SX. AORTIC VALVE REPLACEMENT x2, MITRAL VALVE REPAIR, Past Anesthesia/Blood Transfusion Reactions: No Reported Reaction Additional Past Anesthesia/Blood Transfusion Reaction / Comment(s): blood-sx reaction Type of Cardiac Device: AICD Device Placement Date:: 2009-[employer] Past Psychological History: Anxiety, Depression Smoking Status: Never smoker Past Alcohol Use History: None Reported Past Drug Use History: None Reported - Past Family History Mother Family Medical History: Diabetes Mellitus, Myocardial Infarction ([place]) Father Family Medical History: Cancer General Exam Limitations: no limitations General appearance: alert, in no apparent distress Head exam: Present: atraumatic, normocephalic, normal inspection Eye exam: Present: normal appearance, PERRL, EOMI. Absent: scleral icterus, conjunctival injection, periorbital swelling ENT exam: Present: normal exam, mucous membranes moist Neck exam: Present: normal inspection. Absent: tenderness, meningismus, lymphadenopathy Respiratory exam: Present: normal lung sounds bilaterally. Absent: respiratory distress, wheezes, rales, rhonchi, stridor Cardiovascular Exam: Present: regular rate, normal rhythm, normal heart sounds. Absent: systolic murmur, diastolic murmur, rubs, gallop, clicks GI/Abdominal exam: Present: soft, normal bowel sounds. Absent: distended, tenderness, guarding, rebound, rigid Extremities exam: Present: normal inspection, full ROM, normal capillary refill. Absent: tenderness, pedal edema, joint swelling, calf tenderness Back exam: Present: normal inspection Neurological exam: Present: alert, oriented X3, CN II-XII intact Psychiatric exam: Present: normal affect, normal mood Skin exam: Present: warm, dry, intact, normal color. Absent: rash Course Vital Signs 09/28/16 09/28/16 15:13 16:44 Temperature 97.0 F L Pulse Rate 88 86 Respiratory 20 18 Rate Blood Pressure 180/89 175/91 O2 Sat by Pulse 90 L 100 Oximetry Medical Decision Making - Medical Decision Making 59 female in the ER for evaluation of weakness shortness of breath significant shortness of breath, likely hypertensive urgency emergency with CHF, patient will be admitted for cardiology evaluation - Lab Data Result diagrams: 09/28/16 16:24 09/28/16 16:24 Lab Results 09/28/16 09/28/16 09/28/16 Range/Units 16:24 16:24 16:24 WBC 10.4 (3.8-10.6) k/uL RBC 3.30 L (3.80-5.40) m/uL Hgb 9.5 L (11.4-16.0) gm/dL Hct 29.1 L (34.0-46.0) % MCV 88.1 (80.0-100.0) fL MCH 28.7 (25.0-35.0) pg MCHC 32.6 (31.0-37.0) g/dL RDW 13.6 (11.5-15.5) % Plt Count 392 (150-450) k/uL Neutrophils % 72 % Lymphocytes % 13 % Monocytes % 7 % Eosinophils % 5 % Basophils % 1 % Neutrophils # 7.5 (1.3-7.7) k/uL Lymphocytes # 1.3 (1.0-4.8) k/uL Monocytes # 0.7 (0-1.0) k/uL Eosinophils # 0.5 (0-0.7) k/uL Basophils # 0.1 (0-0.2) k/uL Hypochromasia Slight PT (9.0-12.0) sec INR (<1.2) APTT (22.0-30.0) sec Sodium 139 (137-145) mmol/L Potassium 5.9 H (3.5-5.1) mmol/L Chloride 107 (98-107) mmol/L Carbon Dioxide 22 (22-30) mmol/L Anion Gap 10 mmol/L BUN 75 H (7-17) mg/dL Creatinine 1.40 H (0.52-1.04) mg/dL Est GFR (MDRD) Af Amer 45 (>60 ml/min/1.73 sqM) Est GFR (MDRD) Non-Af 38 (>60 ml/min/1.73 sqM) Glucose 118 H (74-99) mg/dL Plasma Lactic Acid Claudio (0.7-2.0) mmol/L Calcium 8.9 (8.4-10.2) mg/dL Phosphorus 4.7 H (2.5-4.5) mg/dL Magnesium 1.9 (1.6-2.3) mg/dL Total Bilirubin 0.4 (0.2-1.3) mg/dL AST 22 (14-36) U/L ALT 23 (9-52) U/L Alkaline Phosphatase 116 (38-126) U/L Total Creatine Kinase 45 (30-135) U/L CK-MB (CK-2) 3.0 H* (0.0-2.4) ng/mL CK-MB (CK-2) Rel Index 6.7 Troponin I 0.018 (0.000-0.034) ng/mL Total Protein 7.1 (6.3-8.2) g/dL Albumin 3.1 L (3.5-5.0) g/dL Urine Color Urine Appearance (Clear) Urine pH (5.0-8.0) Ur Specific Bradford (1.001-1.035) Urine Protein (Negative) Urine Glucose (UA) (Negative) Urine Ketones (Negative) Urine Blood (Negative) Urine Nitrite (Negative) Urine Bilirubin (Negative) Urine Urobilinogen (<2.0) mg/dL Ur Leukocyte Esterase (Negative) Urine RBC (0-5) /hpf Urine WBC (0-5) /hpf Ur Squamous Epith Cells (0-4) /hpf Amorphous Sediment (None) /hpf Hyaline Casts (0-2) /lpf Urine Mucus (None) /hpf 09/28/16 09/28/16 09/28/16 Range/Units 16:24 16:24 17:03 WBC (3.8-10.6) k/uL RBC (3.80-5.40) m/uL Hgb (11.4-16.0) gm/dL Hct (34.0-46.0) % MCV (80.0-100.0) fL MCH (25.0-35.0) pg MCHC (31.0-37.0) g/dL RDW (11.5-15.5) % Plt Count (150-450) k/uL Neutrophils % % Lymphocytes % % Monocytes % % Eosinophils % % Basophils % % Neutrophils # (1.3-7.7) k/uL Lymphocytes # (1.0-4.8) k/uL Monocytes # (0-1.0) k/uL Eosinophils # (0-0.7) k/uL Basophils # (0-0.2) k/uL Hypochromasia PT 11.0 (9.0-12.0) sec INR 1.1 (<1.2) APTT 22.7 (22.0-30.0) sec Sodium (137-145) mmol/L Potassium (3.5-5.1) mmol/L Chloride (98-107) mmol/L Carbon Dioxide (22-30) mmol/L Anion Gap mmol/L BUN (7-17) mg/dL Creatinine (0.52-1.04) mg/dL Est GFR (MDRD) Af Amer (>60 ml/min/1.73 sqM) Est GFR (MDRD) Non-Af (>60 ml/min/1.73 sqM) Glucose (74-99) mg/dL Plasma Lactic Acid Claudio 0.8 (0.7-2.0) mmol/L Calcium (8.4-10.2) mg/dL Phosphorus (2.5-4.5) mg/dL Magnesium (1.6-2.3) mg/dL Total Bilirubin (0.2-1.3) mg/dL AST (14-36) U/L ALT (9-52) U/L Alkaline Phosphatase (38-126) U/L Total Creatine Kinase (30-135) U/L CK-MB (CK-2) (0.0-2.4) ng/mL CK-MB (CK-2) Rel Index Troponin I (0.000-0.034) ng/mL Total Protein (6.3-8.2) g/dL Albumin (3.5-5.0) g/dL Urine Color Yellow Urine Appearance Clear (Clear) Urine pH 6.0 (5.0-8.0) Ur Specific Bradford 1.011 (1.001-1.035) Urine Protein 3+ H (Negative) Urine Glucose (UA) Negative (Negative) Urine Ketones Negative (Negative) Urine Blood Moderate H (Negative) Urine Nitrite Negative (Negative) Urine Bilirubin Negative (Negative) Urine Urobilinogen <2.0 (<2.0) mg/dL Ur Leukocyte Esterase Negative (Negative) Urine RBC 10 H (0-5) /hpf Urine WBC 5 (0-5) /hpf Ur Squamous Epith Cells 3 (0-4) /hpf Amorphous Sediment Rare H (None) /hpf Hyaline Casts 15 H (0-2) /lpf Urine Mucus Rare H (None) /hpf - Radiology Data Radiology results: report reviewed (Chest x-ray shows worsening of CHF), image reviewed Critical Care Time Critical Care Time: Yes Total Critical Care Time: 31 Disposition Clinical Impression: Urinary tract infection, Orthostatic hypotension, Congestive heart failure, Weakness, Hypertensive urgency Disposition: ADMITTED IP TO THIS [facility] Condition: Fair Referrals: Kaylee Suero MD [Primary Care Provider] - 1-2 days
[2016-09-28 16:45] LABS: Basophils # (A) 0.1 k/uL (0-0.2); Basophils % (A) 1 %; CH 27.8; CHCM 31.6; Eosinophils # (A) 0.5 k/uL (0-0.7); Eosinophils % (A) 5 %; HCT 29.1 % (34.0-46.0); HDW 2.55; HGB 9.5 gm/dL (11.4-16.0); Hypochromasia Slight; Luc # (Auto) 0.26; Luc % (Auto) 3; Lymphocytes # (A) 1.3 k/uL (1.0-4.8); Lymphocytes % (A) 13 %; MCH 28.7 pg (25.0-35.0); MCHC 32.6 g/dL (31.0-37.0); MCV 88.1 fL (80.0-100.0); Mean Platelet Volume 7.2; Monocytes # (A) 0.7 k/uL (0-1.0); Monocytes % (A) 7 %; Neutrophils # (A) 7.5 k/uL (1.3-7.7); Neutrophils % (A) 72 %; RDW 13.6 % (11.5-15.5); WBC 10.4 k/uL (3.8-10.6); WBC (Perox) 11.05
[2016-09-28 16:54] LABS: Calcium 8.9 mg/dL (8.4-10.2); Magnesium 1.9 mg/dL (1.6-2.3); Phosphorous 4.7 mg/dL (2.5-4.5); Potassium 5.9 mmol/L (3.5-5.1); Total Bilirubin 0.4 mg/dL (0.2-1.3); Total Protein 7.1 g/dL (6.3-8.2)
[2016-09-28 16:55] LABS: INR 1.1 (<1.2); Partial Thromboplastin Time 22.7 sec (22.0-30.0)
--- NOTE | 2016-09-28 17:15 | XR ---
EXAMINATION TYPE: XR chest 2V DATE OF EXAM: 09/28/2016 COMPARISON: 09/14/2016 HISTORY: Weakness TECHNIQUE: Frontal and lateral views of the chest are obtained. FINDINGS: There is coarsening of interstitial pulmonary markings. There is pulmonary interstitial ed suzanna. Heart is enlarged. There is slight blunting of costophrenic angles. There is a left axillary pac emaker with lead tips in the right ventricle. There are chest leads. IMPRESSION: Mild congestive heart failure with small pleural effusions. This appears the same or sli ghtly worse than last exam.
[2016-09-28 17:20] LABS: Troponin I 0.018 ng/mL (0.000-0.034)
[2016-09-28 17:37] LABS: Amorphous Sediment,Urine Rare /hpf; Appearance,Urine Clear (Clear); Bilirubin,Urine Negative (Negative); Glucose,Urine (UA) Negative (Negative); Ketones,Urine Negative (Negative); Leukocyte Esterase,Urine Negative (Negative); Mucus,Urine Rare /hpf; Nitrite,Urine Negative (Negative); Particle Count 3597; Protein,Urine 3+ (Negative); RBC,Urine 10 /hpf (0-5); Specific Gravity,Urine 1.011 (1.001-1.035); Squamous Epithelial Cell,Urine 3 /hpf (0-4); UA Billing (MACRO vs. MICRO) MICRO; Urobilinogen,Urine <2.0 mg/dL (<2.0); WBC,Urine 5 /hpf (0-5)
[2016-09-28] MEDS ORDERED: FUROSEMIDE 10 MG/ML 4 ML VIAL IV STA (17:53)
[2016-09-28] MEDS ORDERED: hydrALAZINE HCL 20 MG/ML 1 ML VIAL IVP PRN (17:59)
[2016-09-28] MEDS ORDERED: hydrALAZINE HCL 20 MG/ML 1 ML VIAL IVP STA (17:59)
[2016-09-28 20:45] LABS: Glucose,Whole Blood 168 mg/dL (75-99)
[2016-09-28] MEDS ORDERED: INSULIN ASPART SQ PRN (21:33)
[2016-09-28] MEDS: NITROGLYCERIN OINT 1 INCH/GM PACKET TOPICAL SCH ×2 (22:22→22:33)
[2016-09-28] MEDS: DIGOXIN 125 MCG TAB PO SCH (22:25)
[2016-09-28] MEDS: ASPIRIN 81 MG CHEW PO SCH (22:25)
[2016-09-28] MEDS: CARVEDILOL 3.125 MG TAB PO SCH (22:26)
[2016-09-28] MEDS: ATORVASTATIN 40 MG TAB PO SCH (22:26)
[2016-09-28] MEDS: metFORMIN 500 MG TAB PO SCH (22:28)
[2016-09-28] MEDS: INSULIN GLARGINE 100 UNIT/ML 10 ML VIAL SQ SCH (22:32)
[2016-09-28 22:56] VITALS: BMI 25.0
[2016-09-28 23:23] LABS: Troponin I 0.015 ng/mL (0.000-0.034)
[2016-09-28 23:24] LABS: Creatine Kinase MB 3.2 ng/mL (0.0-2.4)
[2016-09-28] MEDS: ceFAZolin 2 GM in SODIUM CHLORIDE 0.9% 100 ML IVPB SCH (23:45)
[2016-09-28] MEDS: FUROSEMIDE 10 MG/ML 4 ML VIAL IV SCH (23:45)
[2016-09-28] MEDS: ZOLPIDEM 5 MG TAB PO PRN (23:53)
[2016-09-29] MEDS ORDERED: ceFAZolin 1,000 MG/50 ML BAG (PMX) IVPB SCH
[2016-09-29 04:59] LABS: Creatine Kinase MB 3.6 ng/mL (0.0-2.4); Troponin I 0.016 ng/mL (0.000-0.034)
[2016-09-29 06:40] LABS: Glucose,Whole Blood 334 mg/dL (75-99)
[2016-09-29] MEDS: INSULIN LISPRO (humaLOG) 300 UNIT/3 ML VIAL SQ SCH ×4 (06:41→20:41)
[2016-09-29] MEDS: HYDROcodone/APAP 5-325MG 1 EACH TAB PO PRN ×3 (08:18→20:40)
[2016-09-29] MEDS: ceFAZolin 2 GM in SODIUM CHLORIDE 0.9% 100 ML IVPB SCH ×3 (08:20→22:53)
[2016-09-29] MEDS: SPIRONOLACTONE 25 MG TAB PO SCH (08:23)
[2016-09-29] MEDS: NITROGLYCERIN OINT 1 INCH/GM PACKET TOPICAL SCH ×4 (08:23→22:50)
[2016-09-29] MEDS: FAMOTIDINE 20 MG TAB PO SCH (08:23)
[2016-09-29] MEDS: CARVEDILOL 3.125 MG TAB PO SCH ×2 (08:23→20:41)
[2016-09-29] MEDS: FUROSEMIDE 10 MG/ML 4 ML VIAL IV SCH ×3 (08:23→22:53)
[2016-09-29] MEDS: PARoxetine 20 MG TAB PO SCH (08:23)
[2016-09-29] MEDS: LISINOPRIL 5 MG TAB PO SCH (08:23)
[2016-09-29] MEDS: ASPIRIN 81 MG CHEW PO SCH (08:23)
[2016-09-29] MEDS: metFORMIN 500 MG TAB PO SCH ×2 (08:23→20:41)
[2016-09-29] MEDS: LORATADINE 10 MG TAB PO SCH (08:24)
[2016-09-29] MEDS: TIOTROPIUM 18 MCG/PUFF INHALER INHALATION SCH (08:48)
[2016-09-29] MEDS: ALBUTEROL NEBULIZED 2.5 MG/3 ML INHALATION PRN ×2 (08:49→20:44)
--- NOTE | 2016-09-29 10:02 | P.CRDCN ---
History of Present Illness Consult date: 09/29/16 Requesting physician: Philip Silver Consult reason: congestive heart failure Chief complaint: Worsening shortness of breath History of present illness: This is a pleasant 66-year-old female who was just recently in the hospital earlier this month, discharged on the seventh. Admitted with bacteremia discharged home with a PICC line and IV antibiotics. She also underwent a EDD during that admission to rule out endocarditis which was negative. Patient has a history of nonischemic cardiomyopathy and prior AICD implantation, hypertension, diabetes, hyperlipidemia, prior aortic valve replacement with tissue valve and prior mitral valve repair. Subsequent to that patient also underwent TAVR. History also of COPD, asthma, history of leukemia with prior bone marrow transplant. Since her discharge from the hospital patient has been getting progressively more and more short of breath and weak, for this reason she repeat presented to the hospital. Chest x-ray revealed mild congestive heart failure with small pleural effusions. EKG shows a paced rhythm with underlying normal sinus rhythm. WBC 10.4, hemoglobin 9.5, platelet count 392, potassium 5.9, BUN 75, creatinine 1.4. Magnesium level I.9 , BNP level 16,400. Troponin 0.018, 0.015, 0.016. At the time of my examination this morning, patient still complains of orthopnea and PND. She does state that she had significant peripheral edema on admission here which has improved since yesterday. Past Medical History Past Medical History: Asthma, Cancer, Heart Failure, COPD, Diabetes Mellitus, GERD/Reflux, Hyperlipidemia, Hypertension, Myocardial Infarction (non Q-wave), Osteoarthritis (OA), Renal Disease Additional Past Medical History / Comment(s): HX BLOOD IN URINE, hx leukemia, O2 AT 2L [place], SILENT [place] Last Myocardial Infarction Date:: UNKNOWN History of Any Multi-Drug Resistant Organisms: None Reported Past Surgical History: AICD, Back Surgery, Cholecystectomy, Heart Catheterization, Hernia Repair, Hysterectomy, Orthopedic Surgery, Tonsillectomy Additional Past Surgical History / Comment(s): EDD 06/25/14, JOAN cataract, bone marrow transplant, venogram-last 03/17/15, right wrist, C-5 fusion, EYE LID SX. AORTIC VALVE REPLACEMENT x2, MITRAL VALVE REPAIR, Past Anesthesia/Blood Transfusion Reactions: No Reported Reaction Additional Past Anesthesia/Blood Transfusion Reaction / Comment(s): blood-sx reaction Type of Cardiac Device: AICD Device Placement Date:: 2009-[employer] Past Psychological History: Anxiety, Depression Additional Psychological History / Comment(s): pt is a . Is independant. lives with her sister in a single level home that has 4 steps. no home care services recieved, has home o2,nebulizer, glucometer. Smoking Status: Never smoker Past Alcohol Use History: None Reported Past Drug Use History: None Reported - Past Family History Mother Family Medical History: Diabetes Mellitus, Myocardial Infarction ([place]) Father Family Medical History: Cancer Medications and Allergies Home Medications Medication Instructions Recorded Confirmed Type Aspirin 81 mg PO DAILY 02/10/14 09/28/16 History Digoxin [Lanoxin] 125 mcg PO HS 02/10/14 09/28/16 History Lisinopril [Prinivil] 5 mg PO DAILY 02/10/14 09/28/16 History PARoxetine HCL [Paxil] 20 mg PO DAILY 02/10/14 09/28/16 History Albuterol Sulfate [Proair Hfa] 2 puff INHALATION RT-BID PRN 06/02/14 09/28/16 History Atorvastatin [Lipitor] 40 mg PO HS 06/02/14 09/28/16 History Zolpidem [Ambien] 5 mg PO HS PRN 06/02/14 09/28/16 History Famotidine [Pepcid] 40 mg PO DAILY 01/02/15 09/28/16 History Insulin Aspart [NovoLOG] See Protocol SQ TID-W/MEALS PRN 01/02/15 09/28/16 History Insulin Glargine,Hum.rec.anlog 16 unit SQ HS 01/02/15 09/28/16 History [Lantus Solostar] Carvedilol [Coreg] 3.125 mg PO BID 03/16/15 09/28/16 History Furosemide [Lasix] 40 mg PO DAILY 03/16/15 09/28/16 History Cetirizine HCl [Zyrtec] 10 mg PO DAILY 11/12/15 09/28/16 History Albuterol Nebulized [Ventolin 2.5 mg INHALATION RT-TID PRN 03/05/16 09/28/16 History Nebulized] Tiotropium [place] [Spiriva] 1 cap INHALATION RT-DAILY 03/05/16 09/28/16 History metFORMIN HCL [Glucophage] 500 mg PO BID 09/09/16 09/28/16 History Allergies Allergy/AdvReac Type Severity Reaction Status Date / Time oxytetracycline Allergy Rash/Hives Verified 09/28/16 16:09 [From Terramycin] oxytetracycline HCl Allergy Rash/Hives Verified 09/28/16 16:09 [From Terramycin] Physical Exam Vitals: Vital Signs Temp Pulse Pulse Pulse Resp BP BP 09/29/16 09:01 104 H 09/29/16 08:50 100 09/29/16 08:00 98.3 F 90 20 159/82 09/29/16 04:00 97.5 F L 97 18 161/87 09/29/16 01:07 102 H 18 09/29/16 00:00 97.2 F L 102 H 104 H 18 136/82 09/28/16 20:00 102 H 20 09/28/16 19:09 96.8 F L 97 28 H 163/87 09/28/16 18:42 97.2 F L 98 20 188/84 09/28/16 18:41 97.4 F L 105 H 19 157/86 09/28/16 16:44 86 18 175/91 09/28/16 15:13 97.0 F L 88 20 180/89 Pulse Ox 09/29/16 09:01 09/29/16 08:50 09/29/16 08:00 96 09/29/16 04:00 97 09/29/16 01:07 09/29/16 00:00 96 09/28/16 20:00 09/28/16 19:09 96 09/28/16 18:42 98 09/28/16 18:41 96 09/28/16 16:44 100 09/28/16 15:13 90 L Intake and Output 09/28/16 09/29/16 09/29/16 22:59 06:59 14:59 Intake Total 950 180 Output Total 100 700 Balance -100 250 180 Intake: Intake, IV Titration 600 Amount Sodium Chloride 0.9% 1, 500 000 ml @ 100 mls/hr IV . Q10H STA Rx#:[id number] ceFAZolin 2 gm In Sodium 100 Chloride 0.9% 100 ml @ 100 mls/hr IVPB Q8HR CHERIE Rx#:[id number] Oral 350 180 Output: Urine 100 700 Other: Voiding Method Toilet Toilet Toilet # Voids 1 1 1 Weight 62.2 kg 62.2 kg PHYSICAL EXAMINATION: HEENT: Head is atraumatic, normocephalic. Pupils equal, round. Neck is supple. There is no elevated jugular venous pressure. HEART EXAMINATION: Heart S1, S2 normal. No murmur or gallop heard. CHEST EXAMINATION: Lungs reveal diminished air entry to bilateral bases. ABDOMEN: Soft, nontender. Bowel sounds are heard. No organomegaly noted. EXTREMITIES: 2+ peripheral pulses with trace evidence of peripheral edema and no calf tenderness noted. NEUROLOGIC patient is awake, alert and oriented -3.] . Results 09/28/16 16:24 09/28/16 16:24 Cardiac Enzymes 09/28/16 09/28/16 09/28/16 Range/Units 16:24 16:24 22:26 AST 22 (14-36) U/L CK-MB (CK-2) 3.0 H* 3.2 H* (0.0-2.4) ng/mL Troponin I 0.018 0.015 (0.000-0.034) ng/mL 09/29/16 Range/Units 04:14 AST (14-36) U/L CK-MB (CK-2) 3.6 H* (0.0-2.4) ng/mL Troponin I 0.016 (0.000-0.034) ng/mL Coagulation 09/28/16 Range/Units 16:24 PT 11.0 (9.0-12.0) sec APTT 22.7 (22.0-30.0) sec CBC 09/28/16 Range/Units 16:24 WBC 10.4 (3.8-10.6) k/uL RBC 3.30 L (3.80-5.40) m/uL Hgb 9.5 L (11.4-16.0) gm/dL Hct 29.1 L (34.0-46.0) % Plt Count 392 (150-450) k/uL Comprehensive Metabolic Panel 09/28/16 Range/Units 16:24 Sodium 139 (137-145) mmol/L Potassium 5.9 H (3.5-5.1) mmol/L Chloride 107 (98-107) mmol/L Carbon Dioxide 22 (22-30) mmol/L BUN 75 H (7-17) mg/dL Creatinine 1.40 H (0.52-1.04) mg/dL Glucose 118 H (74-99) mg/dL Calcium 8.9 (8.4-10.2) mg/dL AST 22 (14-36) U/L ALT 23 (9-52) U/L Alkaline Phosphatase 116 (38-126) U/L Total Protein 7.1 (6.3-8.2) g/dL Albumin 3.1 L (3.5-5.0) g/dL Current Medications Generic Name Dose Route Start Last Admin Trade Name Freq PRN Reason Stop Dose Admin Hydrocodone Bitart/Acetaminophen 1 each 09/28/16 21:41 09/29/16 08:18 [place] 5-325 PO 1 each Q4HR PRN Administration Pain Albuterol Sulfate 2.5 mg 09/28/16 21:33 09/29/16 08:49 Ventolin Nebulized INHALATION 2.5 mg RT-BID PRN Administration Shortness Of Breath Albuterol Sulfate 2.5 mg 09/28/16 21:33 Ventolin Nebulized INHALATION RT-TID PRN Shortness Of Breath Aspirin 81 mg 09/28/16 21:45 09/29/16 08:23 Aspirin PO 81 mg DAILY CHERIE Administration Atorvastatin Calcium 40 mg 09/28/16 21:45 09/28/16 22:26 Lipitor PO 40 mg HS CHERIE Administration Carvedilol 3.125 mg 09/28/16 21:45 09/29/16 08:23 Coreg PO 3.125 mg BID CHERIE Administration Digoxin 125 mcg 09/28/16 21:45 09/28/16 22:25 Lanoxin PO 125 mcg HS CHERIE Administration Famotidine 40 mg 09/29/16 09:00 09/29/16 08:23 Pepcid PO 40 mg DAILY CHERIE Administration Furosemide 40 mg 09/29/16 00:00 09/29/16 08:23 Lasix IV 40 mg Q8HR CHERIE Administration Hydralazine HCl 10 mg 09/28/16 17:59 Apresoline IVP Q6HR PRN Blood Pressure - High Cefazolin Sodium 2 gm/ Sodium 100 mls @ 100 mls/hr 09/29/16 00:00 09/29/16 08 :20 Chloride IVPB 100 mls/hr Q8HR CHERIE Administration Insulin Glargine 16 unit 09/28/16 21:45 09/28/16 22:32 Lantus SQ 16 unit HS CHERIE Administration Insulin Human Lispro 0 unit 09/29/16 07:30 09/29/16 06:41 Humalog SQ 6 unit ACHS CHERIE Administration Protocol Lisinopril 5 mg 09/29/16 09:00 09/29/16 08:23 Zestril PO 5 mg DAILY CHERIE Administration Loratadine 10 mg 09/29/16 09:00 09/29/16 08:24 Claritin PO 10 mg DAILY CHERIE Administration Metformin HCl 500 mg 09/28/16 21:45 09/29/16 08:23 Glucophage PO 500 mg BID CHERIE Administration Nitroglycerin 1 inch 09/28/16 18:00 09/29/16 08:23 Nitro-Bid Oint TOPICAL 1 inch QID CHERIE Administration Paroxetine HCl 20 mg 09/29/16 09:00 09/29/16 08:23 Paxil PO 20 mg DAILY CHERIE Administration Spironolactone 25 mg 09/29/16 09:00 09/29/16 08:23 Aldactone PO 25 mg DAILY [facility] Administration Tiotropium Hunt[place] 1 puff 09/29/16 08:00 09/29/16 08:48 Spiriva INHALATION 1 puff RT-DAILY [facility] Administration Zolpidem Tartrate 5 mg 09/28/16 21:33 09/28/16 23:53 Ambien PO 5 mg HS PRN Administration Insomnia Intake and Output 09/28/16 09/29/16 09/29/16 22:59 06:59 14:59 Intake Total 950 180 Output Total 100 700 Balance -100 250 180 Intake: Intake, IV Titration 600 Amount Sodium Chloride 0.9% 1, 500 000 ml @ 100 mls/hr IV . Q10H STA Rx#:[id number] ceFAZolin 2 gm In Sodium 100 Chloride 0.9% 100 ml @ 100 mls/hr IVPB Q8HR CHERIE Rx#:[id number] Oral 350 180 Output: Urine 100 700 Other: Voiding Method Toilet Toilet Toilet # Voids 1 1 1 Weight 62.2 kg 62.2 kg 09/28/16 16:24 09/28/16 16:24 EKG Interpretations (text) EKG shows a paced rhythm with underlying normal sinus rhythm. Assessment and Plan Plan: Assessment and plan #1 diastolic congestive heart failure acute on chronic #2 nonischemic cardiomyopathy with prior ICD implant #3 recent admission for UTI with bacteremia, EDD performed at that time to rule out endocarditis which was negative. No sign of vegetation. #4 history of aortic valve replacement with tissue valve, prior mitral valve repair, subsequent TAVR, most recent echo was performed earlier this month which revealed an ejection fraction of 50-55%. Moderate pulmonary hypertension. Peak mean gradient across aortic valve was 26/15. #5 hypertension #6Diabetes #7 hyperlipidemia #8 history of leukemia with prior bone marrow transplant #9 COPD #10 asthma #11 recent ventricular tachycardia Plan We will recommend to keep the patient on IV Lasix, monitor intake and output along with daily weights and daily lytes BUN and creatinine. Further recommendations to follow. DNP note has been reviewed, I agree with a documented findings and plan of care. Patient was seen and examined.
[2016-09-29 10:46] LABS: Basophils % (A) 1 %; CH 28.4; Eosinophils % (A) 0 %; HCT 32.4 % (34.0-46.0); HDW 2.36; HGB 9.7 gm/dL (11.4-16.0); Hypochromasia Marked; Luc # (Auto) 0.03; Luc % (Auto) 1; Lymphocytes # (A) 0.5 k/uL (1.0-4.8); Lymphocytes % (A) 9 %; MCH 28.4 pg (25.0-35.0); MCHC 29.9 g/dL (31.0-37.0); Mean Platelet Volume 8.7; Monocytes # (A) 0.1 k/uL (0-1.0); Monocytes % (A) 2 %; Neutrophils # (A) 4.7 k/uL (1.3-7.7); Neutrophils % (A) 87 %; RBC 3.41 m/uL (3.80-5.40); WBC 5.4 k/uL (3.8-10.6); WBC (Perox) 5.72
[2016-09-29 10:50] LABS: Calcium 8.5 mg/dL (8.4-10.2); Total Bilirubin 0.3 mg/dL (0.2-1.3); Total Protein 7.2 g/dL (6.3-8.2)
[2016-09-29 10:52] LABS: MCV 95.1 fL (80.0-100.0)
[2016-09-29 11:33] LABS: Glucose,Whole Blood 243 mg/dL (75-99)
[2016-09-29 16:45] LABS: Glucose,Whole Blood 137 mg/dL (75-99)
[2016-09-29 20:37] LABS: Glucose,Whole Blood 187 mg/dL (75-99)
[2016-09-29] MEDS: INSULIN GLARGINE 100 UNIT/ML 10 ML VIAL SQ SCH (20:39)
[2016-09-29] MEDS: ATORVASTATIN 40 MG TAB PO SCH (20:40)
[2016-09-29] MEDS: DIGOXIN 125 MCG TAB PO SCH (20:41)
--- NOTE | 2016-09-29 21:57 | P.HPIM ---
History of Present Illness H&P Date: 09/29/16 Chief Complaint: Shortness of breath This is a pleasant 66-year-old female with a recent history of UTI and MSSA bacteremia with at home PICC line and IV antibiotics-cefazolin, nonischemic cardiomyopathy and prior AICD implantation, hypertension, diabetes, hyperlipidemia, prior aortic valve replacement with tissue valve and prior mitral valve repair. Subsequent to that patient also underwent TAVR, COPD, asthma, history of leukemia with prior bone marrow transplant presented to ER with worsening short of breath and leg swelling since discharge. Patient denied any fever or chills. No headache or dizziness or lightheadedness patient denied any chest pain. Patient had leg swelling yesterday but which is improved now. Patient does have orthopnea and PND. Chest x-ray revealed mild congestive heart failure with small pleural effusions. EKG shows a paced rhythm with underlying normal sinus rhythm. BNP level 16,400. Troponin 0.018, 0.015, 0.016. She had EDD during recent admission to rule out endocarditis which was negative. Review of Systems CONSTITUTIONAL: No fever, no malaise, no fatigue. Generalized weakness HEENT: No recent visual problems or hearing problems. Denied any sore throat. CARDIOVASCULAR: No chest pain, positive orthopnea and leg swelling and PND, no palpitations, no syncope. PULMONARY: , no hemoptysis. No cough or sputum production GASTROINTESTINAL: No diarrhea, no nausea, no vomiting, no abdominal pain. Normoactive bowel sounds. NEUROLOGICAL: No headaches, no weakness, no numbness. HEMATOLOGICAL: Denies any bleeding or petechiae. GENITOURINARY: Denies any burning micturition, frequency, or urgency. MUSCULOSKELETAL/RHEUMATOLOGICAL: Denies any joint pain, swelling, or any muscle pain. ENDOCRINE: Denies any polyuria or polydipsia. The rest of the 14-point review of systems is negative. Past Medical History Past Medical History: Asthma, Cancer, Heart Failure, COPD, Diabetes Mellitus, GERD/Reflux, Hyperlipidemia, Hypertension, Myocardial Infarction (non Q-wave), Osteoarthritis (OA), Renal Disease Additional Past Medical History / Comment(s): HX BLOOD IN URINE, hx leukemia, O2 AT 2L [place], SILENT [place] Last Myocardial Infarction Date:: UNKNOWN History of Any Multi-Drug Resistant Organisms: None Reported Past Surgical History: AICD, Back Surgery, Cholecystectomy, Heart Catheterization, Hernia Repair, Hysterectomy, Orthopedic Surgery, Tonsillectomy Additional Past Surgical History / Comment(s): EDD 06/25/14, JOAN cataract, bone marrow transplant, venogram-last 03/17/15, right wrist, C-5 fusion, EYE LID SX. AORTIC VALVE REPLACEMENT x2, MITRAL VALVE REPAIR, Past Anesthesia/Blood Transfusion Reactions: No Reported Reaction Additional Past Anesthesia/Blood Transfusion Reaction / Comment(s): blood-sx reaction Type of Cardiac Device: AICD Device Placement Date:: 2009-MED Past Psychological History: Anxiety, Depression Additional Psychological History / Comment(s): pt is a . Is independant. lives with her sister in a single level home that has 4 steps. no home care services recieved, has home o2,nebulizer, glucometer. Smoking Status: Never smoker Past Alcohol Use History: None Reported Past Drug Use History: None Reported - Past Family History Mother Family Medical History: Diabetes Mellitus, Myocardial Infarction ([place]) Father Family Medical History: Cancer Medications and Allergies Home Medications Medication Instructions Recorded Confirmed Type Aspirin 81 mg PO DAILY 02/10/14 09/28/16 History Digoxin [Lanoxin] 125 mcg PO HS 02/10/14 09/28/16 History Lisinopril [Prinivil] 5 mg PO DAILY 02/10/14 09/28/16 History PARoxetine HCL [Paxil] 20 mg PO DAILY 02/10/14 09/28/16 History Albuterol Sulfate [Proair Hfa] 2 puff INHALATION RT-BID PRN 06/02/14 09/28/16 History Atorvastatin [Lipitor] 40 mg PO HS 06/02/14 09/28/16 History Zolpidem [Ambien] 5 mg PO HS PRN 06/02/14 09/28/16 History Famotidine [Pepcid] 40 mg PO DAILY 01/02/15 09/28/16 History Insulin Aspart [NovoLOG] See Protocol SQ TID-W/MEALS PRN 01/02/15 09/28/16 History Insulin Glargine,Hum.rec.anlog 16 unit SQ HS 01/02/15 09/28/16 History [Lantus Solostar] Carvedilol [Coreg] 3.125 mg PO BID 03/16/15 09/28/16 History Furosemide [Lasix] 40 mg PO DAILY 03/16/15 09/28/16 History Cetirizine HCl [Zyrtec] 10 mg PO DAILY 11/12/15 09/28/16 History Albuterol Nebulized [Ventolin 2.5 mg INHALATION RT-TID PRN 03/05/16 09/28/16 History Nebulized] Tiotropium [place] [Spiriva] 1 cap INHALATION RT-DAILY 03/05/16 09/28/16 History metFORMIN HCL [Glucophage] 500 mg PO BID 09/09/16 09/28/16 History Allergies Allergy/AdvReac Type Severity Reaction Status Date / Time oxytetracycline Allergy Rash/Hives Verified 09/28/16 16:09 [From Terramycin] oxytetracycline HCl Allergy Rash/Hives Verified 09/28/16 16:09 [From Terramycin] Physical Exam Vitals: Vital Signs Temp Pulse Pulse Pulse Resp BP BP 09/29/16 09:01 104 H 09/29/16 08:50 100 09/29/16 08:00 98.3 F 90 20 159/82 09/29/16 04:00 97.5 F L 97 18 161/87 09/29/16 01:07 102 H 18 09/29/16 00:00 97.2 F L 102 H 104 H 18 136/82 09/28/16 20:00 102 H 20 09/28/16 19:09 96.8 F L 97 28 H 163/87 09/28/16 18:42 97.2 F L 98 20 188/84 09/28/16 18:41 97.4 F L 105 H 19 157/86 09/28/16 16:44 86 18 175/91 09/28/16 15:13 97.0 F L 88 20 180/89 Pulse Ox 09/29/16 09:01 09/29/16 08:50 09/29/16 08:00 96 09/29/16 04:00 97 09/29/16 01:07 09/29/16 00:00 96 09/28/16 20:00 09/28/16 19:09 96 09/28/16 18:42 98 09/28/16 18:41 96 09/28/16 16:44 100 09/28/16 15:13 90 L Intake and Output 09/28/16 09/29/16 09/29/16 22:59 06:59 14:59 Intake Total 950 180 Output Total 100 700 Balance -100 250 180 Intake: Intake, IV Titration 600 Amount Sodium Chloride 0.9% 1, 500 000 ml @ 100 mls/hr IV . Q10H [facility] Rx#:[id number] ceFAZolin 2 gm In Sodium 100 Chloride 0.9% 100 ml @ 100 mls/hr IVPB Q8HR [facility] Rx#:[id number] Oral 350 180 Output: Urine 100 700 Other: Voiding Method Toilet Toilet Toilet # Voids 1 1 2 Weight 62.2 kg 62.2 kg PHYSICAL EXAMINATION: Patient is lying in the bed comfortably, no acute distress, awake alert and oriented.. HEENT: Normocephalic. Neck is supple. Pupils reactive. Nostrils clear. Oral cavity is moist. Ears reveal no drainage. Neck reveals no JVD, carotid bruits, or thyromegaly. CHEST EXAMINATION: Trachea is central. Symmetrical expansion. Decreased breath sounds bilateral basally and prolonged expiration CARDIAC: Normal S1, S2 with no gallops. No murmurs ABDOMEN: Soft. Bowel sounds normal. No organomegaly. No abdominal bruits. Extremities 1 plus edema. No clubbing or cyanosis Neurologically awake, alert, oriented x3 with well-coordinated movements. Skin: no rash or skin lesions Musculoskeletal: no joint swelling or deformity. Results CBC & Chem 7: 09/29/16 04:14 09/29/16 04:14 Labs: Abnormal Lab Results - Last 24 Hours (Table) 09/28/16 09/28/16 09/28/16 Range/Units 16:24 16:24 16:24 RBC 3.30 L (3.80-5.40) m/uL Hgb 9.5 L (11.4-16.0) gm/dL Hct 29.1 L (34.0-46.0) % MCHC (31.0-37.0) g/dL Lymphocytes # (1.0-4.8) k/uL Sodium (137-145) mmol/L Potassium 5.9 H (3.5-5.1) mmol/L Carbon Dioxide (22-30) mmol/L BUN 75 H (7-17) mg/dL Creatinine 1.40 H (0.52-1.04) mg/dL Glucose 118 H (74-99) mg/dL POC Glucose (mg/dL) (75-99) mg/dL Phosphorus 4.7 H (2.5-4.5) mg/dL CK-MB (CK-2) 3.0 H* (0.0-2.4) ng/mL Albumin 3.1 L (3.5-5.0) g/dL Urine Protein (Negative) Urine Blood (Negative) Urine RBC (0-5) /hpf Amorphous Sediment (None) /hpf Hyaline Casts (0-2) /lpf Urine Mucus (None) /hpf 09/28/16 09/28/16 09/28/16 Range/Units 17:03 20:43 22:26 RBC (3.80-5.40) m/uL Hgb (11.4-16.0) gm/dL Hct (34.0-46.0) % MCHC (31.0-37.0) g/dL Lymphocytes # (1.0-4.8) k/uL Sodium (137-145) mmol/L Potassium (3.5-5.1) mmol/L Carbon Dioxide (22-30) mmol/L BUN (7-17) mg/dL Creatinine (0.52-1.04) mg/dL Glucose (74-99) mg/dL POC Glucose (mg/dL) 168 H (75-99) mg/dL Phosphorus (2.5-4.5) mg/dL CK-MB (CK-2) 3.2 H* (0.0-2.4) ng/mL Albumin (3.5-5.0) g/dL Urine Protein 3+ H (Negative) Urine Blood Moderate H (Negative) Urine RBC 10 H (0-5) /hpf Amorphous Sediment Rare H (None) /hpf Hyaline Casts 15 H (0-2) /lpf Urine Mucus Rare H (None) /hpf 09/29/16 09/29/16 09/29/16 Range/Units 04:14 04:14 04:14 RBC 3.41 L (3.80-5.40) m/uL Hgb 9.7 L (11.4-16.0) gm/dL Hct 32.4 L (34.0-46.0) % MCHC 29.9 L (31.0-37.0) g/dL Lymphocytes # 0.5 L (1.0-4.8) k/uL Sodium 136 L (137-145) mmol/L Potassium 6.0 H (3.5-5.1) mmol/L Carbon Dioxide 19 L (22-30) mmol/L BUN 86 H* (7-17) mg/dL Creatinine 1.43 H (0.52-1.04) mg/dL Glucose 318 H (74-99) mg/dL POC Glucose (mg/dL) (75-99) mg/dL Phosphorus (2.5-4.5) mg/dL CK-MB (CK-2) 3.6 H* (0.0-2.4) ng/mL Albumin 3.2 L (3.5-5.0) g/dL Urine Protein (Negative) Urine Blood (Negative) Urine RBC (0-5) /hpf Amorphous Sediment (None) /hpf Hyaline Casts (0-2) /lpf Urine Mucus (None) /hpf 09/29/16 09/29/16 Range/Units 06:38 11:30 RBC (3.80-5.40) m/uL Hgb (11.4-16.0) gm/dL Hct (34.0-46.0) % MCHC (31.0-37.0) g/dL Lymphocytes # (1.0-4.8) k/uL Sodium (137-145) mmol/L Potassium (3.5-5.1) mmol/L Carbon Dioxide (22-30) mmol/L BUN (7-17) mg/dL Creatinine (0.52-1.04) mg/dL Glucose (74-99) mg/dL POC Glucose (mg/dL) 334 H 243 H (75-99) mg/dL Phosphorus (2.5-4.5) mg/dL CK-MB (CK-2) (0.0-2.4) ng/mL Albumin (3.5-5.0) g/dL Urine Protein (Negative) Urine Blood (Negative) Urine RBC (0-5) /hpf Amorphous Sediment (None) /hpf Hyaline Casts (0-2) /lpf Urine Mucus (None) /hpf Microbiology - Last 24 Hours (Table) 09/28/16 17:03 Urine Culture - Preliminary Urine,Voided Thrombosis Risk Factor Assmnt - DVT/VTE Prophylaxis DVT/VTE Prophylaxis: Pharmacologic Prophylaxis ordered - Choose All That Apply Any of the Below Risk Factors Present?: Yes Each Factor Represents 1 point: Abnormal pulmonary function (COPD), Age 41-60 years, Sepsis (< 1month) Other congenital or acquired thrombophilia - If yes, enter type in comment: No Thrombosis Risk Factor Assessment Total Risk Factor Score: 3 Thrombosis Risk Factor Assessment Level: Moderate Risk Assessment and Plan Plan: #1 acute on chronic CHF with diastolic dysfunction. Elevated BNP. Recent echocardiogram showed ejection fraction of 50-55% and moderate pulmonary hypertension. #2 nonischemic cardiomyopathy with prior ICD implant #3 recent admission for UTI with MSSA bacteremia, EDD performed at that time to rule out endocarditis which was negative. No sign of vegetation. #4 history of aortic valve replacement with tissue valve, prior mitral valve repair, subsequent TAVR. #5 hypertension #6 Diabetes-2 #7 hyperlipidemia #8 history of leukemia with prior bone marrow transplant #9 COPD stable #10 asthma #11 recent ventricular tachycardia DVT prophylaxis Plan Patient will be considered on IV Lasix 40 mg every 8 hourly. Patient also will be continued on cefazolin with a PICC line. Continue with aspirin atorvastatin and Coreg and lisinopril along with Digoxin. Will follow-up renal function. Continue her insulin regimen and breathing treatments when necessary. Continue with current management and follow up closely. Time with Patient: Greater than 30
[2016-09-29] MEDS: ZOLPIDEM 5 MG TAB PO PRN (22:53)
[2016-09-29] MEDS: HEPARIN SODIUM,PORCINE 5,000 UNIT/ML 1 ML VIAL SQ SCH (22:53)
[2016-09-30 05:50] LABS: Glucose,Whole Blood 105 mg/dL (75-99)
[2016-09-30 06:02] LABS: Basophils # (A) 0.1 k/uL (0-0.2); Basophils % (A) 1 %; CH 28.5; CHCM 30.9; Eosinophils # (A) 0.5 k/uL (0-0.7); Eosinophils % (A) 4 %; HDW 2.45; HGB 8.4 gm/dL (11.4-16.0); Hypochromasia Slight; Luc % (Auto) 2; Lymphocytes # (A) 1.9 k/uL (1.0-4.8); Lymphocytes % (A) 17 %; MCHC 30.1 g/dL (31.0-37.0); MCV 92.8 fL (80.0-100.0); Mean Platelet Volume 7.7; Monocytes # (A) 0.6 k/uL (0-1.0); Monocytes % (A) 5 %; Neutrophils # (A) 7.6 k/uL (1.3-7.7); Neutrophils % (A) 71 %; RBC 3.02 m/uL (3.80-5.40); WBC 10.8 k/uL (3.8-10.6); WBC (Perox) 10.83
[2016-09-30 06:13] LABS: Calcium 8.7 mg/dL (8.4-10.2); Potassium 5.7 mmol/L (3.5-5.1)
[2016-09-30] MEDS: INSULIN LISPRO (humaLOG) 300 UNIT/3 ML VIAL SQ SCH ×4 (06:49→20:42)
[2016-09-30] MEDS: HYDROcodone/APAP 5-325MG 1 EACH TAB PO PRN ×3 (08:03→22:25)
[2016-09-30] MEDS: SPIRONOLACTONE 25 MG TAB PO SCH (08:04)
[2016-09-30] MEDS: FAMOTIDINE 20 MG TAB PO SCH (08:04)
[2016-09-30] MEDS: ASPIRIN 81 MG CHEW PO SCH (08:04)
[2016-09-30] MEDS: CARVEDILOL 3.125 MG TAB PO SCH ×2 (08:04→17:36)
[2016-09-30] MEDS: PARoxetine 20 MG TAB PO SCH (08:04)
[2016-09-30] MEDS: FUROSEMIDE 10 MG/ML 4 ML VIAL IV SCH ×3 (08:04→23:31)
[2016-09-30] MEDS: HEPARIN SODIUM,PORCINE 5,000 UNIT/ML 1 ML VIAL SQ SCH ×3 (08:04→23:31)
[2016-09-30] MEDS: LISINOPRIL 5 MG TAB PO SCH (08:04)
[2016-09-30] MEDS: LORATADINE 10 MG TAB PO SCH (08:04)
[2016-09-30] MEDS: NITROGLYCERIN OINT 1 INCH/GM PACKET TOPICAL SCH ×4 (08:05→20:34)
[2016-09-30] MEDS: ceFAZolin 2 GM in SODIUM CHLORIDE 0.9% 100 ML IVPB SCH ×2 (08:39→20:41)
[2016-09-30] MEDS: ALBUTEROL NEBULIZED 2.5 MG/3 ML INHALATION PRN ×2 (09:15→20:42)
[2016-09-30] MEDS: TIOTROPIUM 18 MCG/PUFF INHALER INHALATION SCH (09:15)
[2016-09-30 11:45] LABS: Glucose,Whole Blood 190 mg/dL (75-99)
--- NOTE | 2016-09-30 12:26 | P.PN ---
Subjective Principal diagnosis: CHF, COPD This is a pleasant 66-year-old female who was just recently in the hospital earlier this month, discharged on the seventh. Admitted with bacteremia discharged home with a PICC line and IV antibiotics. She also underwent a EDD during that admission to rule out endocarditis which was negative. Patient has a history of nonischemic cardiomyopathy and prior AICD implantation, hypertension, diabetes, hyperlipidemia, prior aortic valve replacement with tissue valve and prior mitral valve repair. Subsequent to that patient also underwent TAVR. History also of COPD, asthma, history of leukemia with prior bone marrow transplant. Since her discharge from the hospital patient has been getting progressively more and more short of breath and weak, for this reason she repeat presented to the hospital. Chest x-ray revealed mild congestive heart failure with small pleural effusions. EKG shows a paced rhythm with underlying normal sinus rhythm. WBC 10.4, hemoglobin 9.5, platelet count 392, potassium 5.9, BUN 75, creatinine 1.4. Magnesium level I.9 , BNP level 16,400. Troponin 0.018, 0.015, 0.016. She's been on Lasix 40 mg IV push every 8 hours and according to the patient has been urinating large amounts. Laboratory values show a BUN of 88, creatinine 1.49 and potassium of 5.7. On examination this morning, patient was walking to the bathroom without much difficulty. Still complains of some orthopnea and her breathing is not quite back to baseline. Also noticed some dependent edema. Objective - Vital Signs Vital signs: Vital Signs Temp 98.4 F 09/30/16 11:28 Pulse 86 09/30/16 11:29 Resp 18 09/30/16 11:29 BP 149/73 09/30/16 11:28 Pulse Ox 95 09/30/16 11:28 Intake & Output 09/29/16 09/30/16 09/30/16 18:59 06:59 18:59 Intake Total 1016 100 340 Output Total 353 300 Balance 663 100 40 Weight 62.2 kg 63.6 kg Intake: IV 100 100 ceFAZolin 2 gm In Sodium 100 100 Chloride 0.9% 100 ml @ 100 mls/hr IVPB Q8HR [facility] Rx#:[id number] Intake, IV Titration 200 Amount ceFAZolin 2 gm In Sodium 200 Chloride 0.9% 100 ml @ 100 mls/hr IVPB Q8HR [facility] Rx#:[id number] Oral 816 240 Output: Urine 353 300 Other: Voiding Method Toilet Toilet Toilet # Voids 350 2 3 - Exam PHYSICAL EXAMINATION: HEENT: Head is atraumatic, normocephalic. Pupils equal, round. Neck is supple. There is no elevated jugular venous pressure. HEART EXAMINATION: Heart sounds regular, S1 and S2 normal. No murmur or gallop heard. CHEST EXAMINATION: Lungs are clear to auscultation and precussion. No chest wall tenderness is noted on palpation or with deep breathing. ABDOMEN: Soft, nontender. Bowel sounds are heard. No organomegaly noted. EXTREMITIES: 2+ peripheral pulses with evidence of trace peripheral edema and no calf tenderness noted. NEUROLOGIC patient is awake, alert and oriented x3. . - Labs CBC & Chem 7: 09/30/16 05:28 09/30/16 05:28 Labs: Abnormal Lab Results - Last 24 Hours (Table) 09/29/16 09/29/16 09/30/16 Range/Units 16:37 20:35 05:28 WBC 10.8 H (3.8-10.6) k/uL RBC 3.02 L (3.80-5.40) m/uL Hgb 8.4 L (11.4-16.0) gm/dL Hct 28.0 L (34.0-46.0) % MCHC 30.1 L (31.0-37.0) g/dL Potassium (3.5-5.1) mmol/L Chloride (98-107) mmol/L Carbon Dioxide (22-30) mmol/L BUN (7-17) mg/dL Creatinine (0.52-1.04) mg/dL Glucose (74-99) mg/dL POC Glucose (mg/dL) 137 H 187 H (75-99) mg/dL 09/30/16 09/30/16 09/30/16 Range/Units 05:28 05:44 11:43 WBC (3.8-10.6) k/uL RBC (3.80-5.40) m/uL Hgb (11.4-16.0) gm/dL Hct (34.0-46.0) % MCHC (31.0-37.0) g/dL Potassium 5.7 H (3.5-5.1) mmol/L Chloride 109 H (98-107) mmol/L Carbon Dioxide 21 L (22-30) mmol/L BUN 88 H* (7-17) mg/dL Creatinine 1.49 H (0.52-1.04) mg/dL Glucose 102 H (74-99) mg/dL POC Glucose (mg/dL) 105 H 190 H (75-99) mg/dL Microbiology - Last 24 Hours (Table) 09/28/16 17:03 Urine Culture - Final Urine,Voided 09/28/16 16:24 Blood Culture - Preliminary Blood No Growth after 24 hours Assessment and Plan Plan: Assessment and plan #1 acute on chronic diastolic congestive heart failure #2 nonischemic cardiomyopathy status post ICD implantation #3 history of aortic valve replacement with tissue valve, prior mitral valve repair, subsequent TAVR #4 hypertension #5 recent admission for UTI with bacteremia EDD was negative for endocarditis with no sign of vegetation at that time. #6 diabetes #7 COPD #8 hyperkalemia From cardiology perspective, we will stop spironolactone due to hyperkalemia. We will recheck BMP in the morning. May need to hold lisinopril. Further recommendations to follow. STAFF INTERPRETER note has been reviewed, I agree with a documented findings and plan of care. Patient was seen and examined.
[2016-09-30 17:00] LABS: Glucose,Whole Blood 81 mg/dL (75-99)
[2016-09-30 20:36] LABS: Glucose,Whole Blood 202 mg/dL (75-99)
[2016-09-30] MEDS: ATORVASTATIN 40 MG TAB PO SCH (20:41)
[2016-09-30] MEDS: DIGOXIN 125 MCG TAB PO SCH (20:41)
[2016-09-30] MEDS: INSULIN GLARGINE 100 UNIT/ML 10 ML VIAL SQ SCH (20:42)
--- NOTE | 2016-09-30 22:14 | P.PN ---
Subjective Principal diagnosis: Acute CHF exacerbation This is a pleasant 66-year-old female with a recent history of UTI and MSSA bacteremia with at home PICC line and IV antibiotics-cefazolin, nonischemic cardiomyopathy and prior AICD implantation, hypertension, diabetes, hyperlipidemia, prior aortic valve replacement with tissue valve and prior mitral valve repair. Subsequent to that patient also underwent TAVR, COPD, asthma, history of leukemia with prior bone marrow transplant presented to ER with worsening short of breath and leg swelling since discharge. Patient denied any fever or chills. No headache or dizziness or lightheadedness patient denied any chest pain. Patient had leg swelling yesterday but which is improved now. Patient does have orthopnea and PND. Chest x-ray revealed mild congestive heart failure with small pleural effusions. EKG shows a paced rhythm with underlying normal sinus rhythm. BNP level 16,400. Troponin 0.018, 0.015, 0.016. She had EDD during recent admission to rule out endocarditis which was negative. ejection fraction 50-55% and moderate pulmonary hypertension 09/30/2016 Patient did improve symptomatically. Able to have relatively bathroom. Potassium level increased to 5.7 today. Still not at baseline. Objective - Vital Signs Vital signs: Vital Signs Temp 98.4 F 09/30/16 11:28 Pulse 92 09/30/16 21:00 Resp 18 09/30/16 16:00 BP 156/79 09/30/16 16:00 Pulse Ox 100 09/30/16 16:00 Intake & Output 09/30/16 09/30/16 10/01/16 06:59 18:59 06:59 Intake Total 100 580 Output Total 1100 700 Balance 100 -520 -700 Weight 63.6 kg Intake: IV 100 100 ceFAZolin 2 gm In Sodium 100 100 Chloride 0.9% 100 ml @ 100 mls/hr IVPB Q8HR [facility] Rx#:[id number] Oral 480 Output: Urine 1100 700 Other: Voiding Method Toilet Toilet # Voids 2 3 - Exam Patient is lying in the bed comfortably, no acute distress, awake alert and oriented.. HEENT: Normocephalic. Neck is supple. Pupils reactive. Nostrils clear. Oral cavity is moist. Ears reveal no drainage. Neck reveals no JVD, carotid bruits, or thyromegaly. CHEST EXAMINATION: Trachea is central. Symmetrical expansion. Air entry improved. Right basilar crackles positive. No wheezing CARDIAC: Normal S1, S2 with no gallops. No murmurs ABDOMEN: Soft. Bowel sounds normal. No organomegaly. No abdominal bruits. Extremities 1 plus edema. No clubbing or cyanosis Neurologically awake, alert, oriented x3 with well-coordinated movements. Skin: no rash or skin lesions Musculoskeletal: no joint swelling or deformity. - Labs CBC & Chem 7: 09/30/16 05:28 09/30/16 05:28 Labs: Abnormal Lab Results - Last 24 Hours (Table) 09/30/16 09/30/16 09/30/16 Range/Units 05:28 05:28 05:44 WBC 10.8 H (3.8-10.6) k/uL RBC 3.02 L (3.80-5.40) m/uL Hgb 8.4 L (11.4-16.0) gm/dL Hct 28.0 L (34.0-46.0) % MCHC 30.1 L (31.0-37.0) g/dL Potassium 5.7 H (3.5-5.1) mmol/L Chloride 109 H (98-107) mmol/L Carbon Dioxide 21 L (22-30) mmol/L BUN 88 H* (7-17) mg/dL Creatinine 1.49 H (0.52-1.04) mg/dL Glucose 102 H (74-99) mg/dL POC Glucose (mg/dL) 105 H (75-99) mg/dL 09/30/16 09/30/16 Range/Units 11:43 20:35 WBC (3.8-10.6) k/uL RBC (3.80-5.40) m/uL Hgb (11.4-16.0) gm/dL Hct (34.0-46.0) % MCHC (31.0-37.0) g/dL Potassium (3.5-5.1) mmol/L Chloride (98-107) mmol/L Carbon Dioxide (22-30) mmol/L BUN (7-17) mg/dL Creatinine (0.52-1.04) mg/dL Glucose (74-99) mg/dL POC Glucose (mg/dL) 190 H 202 H (75-99) mg/dL Microbiology - Last 24 Hours (Table) 09/28/16 16:24 Blood Culture - Preliminary Blood No Growth after 48 hours 09/28/16 17:03 Urine Culture - Final Urine,Voided Assessment and Plan Plan: #1 acute on chronic CHF with diastolic dysfunction. Elevated BNP. Recent echocardiogram showed ejection fraction of 50-55% and moderate pulmonary hypertension. #2 nonischemic cardiomyopathy with prior ICD implant #3 recent admission for UTI with MSSA bacteremia, EDD performed at that time to rule out endocarditis which was negative. No sign of vegetation. #4 history of aortic valve replacement with tissue valve, prior mitral valve repair, subsequent TAVR. #5 hypertension #6 Diabetes-2 #7 hyperlipidemia #8 history of leukemia with prior bone marrow transplant #9 COPD stable #10 asthma #11 recent ventricular tachycardia DVT prophylaxis Plan Patient will be considered on IV Lasix 40 mg every 8 hourly. Patient also will be continued on cefazolin with a PICC line. Continue with aspirin atorvastatin and Coreg and lisinopril along with Digoxin. Spironolactone was held due to hyperkalemia. Will follow-up renal function. Continue her insulin regimen and breathing treatments when necessary. Continue with current management and follow up closely.
[2016-09-30] MEDS: ZOLPIDEM 5 MG TAB PO PRN (22:26)
[2016-10-01] MEDS: HYDROcodone/APAP 5-325MG 1 EACH TAB PO PRN ×3 (03:40→19:52)
[2016-10-01 05:40] LABS: Glucose,Whole Blood 83 mg/dL (75-99)
[2016-10-01] MEDS: INSULIN LISPRO (humaLOG) 300 UNIT/3 ML VIAL SQ SCH ×4 (05:41→21:30)
[2016-10-01] MEDS: CARVEDILOL 3.125 MG TAB PO SCH ×2 (06:32→17:32)
[2016-10-01 06:45] LABS: Basophils # (A) 0.1 k/uL (0-0.2); Basophils % (A) 1 %; CH 28.4; CHCM 31.1; Eosinophils # (A) 0.7 k/uL (0-0.7); Eosinophils % (A) 8 %; HCT 27.5 % (34.0-46.0); HDW 2.49; HGB 8.3 gm/dL (11.4-16.0); Hypochromasia Slight; Luc # (Auto) 0.24; Luc % (Auto) 3; Lymphocytes # (A) 1.7 k/uL (1.0-4.8); Lymphocytes % (A) 19 %; MCH 27.8 pg (25.0-35.0); MCHC 30.2 g/dL (31.0-37.0); MCV 91.8 fL (80.0-100.0); Mean Platelet Volume 7.7; Monocytes # (A) 0.7 k/uL (0-1.0); Monocytes % (A) 8 %; Neutrophils # (A) 5.5 k/uL (1.3-7.7); Neutrophils % (A) 62 %; RDW 13.9 % (11.5-15.5); WBC 8.8 k/uL (3.8-10.6); WBC (Perox) 8.81
[2016-10-01 06:59] LABS: Calcium 8.6 mg/dL (8.4-10.2)
[2016-10-01] MEDS: ceFAZolin 2 GM in SODIUM CHLORIDE 0.9% 100 ML IVPB SCH ×2 (08:15→19:53)
[2016-10-01] MEDS: TIOTROPIUM 18 MCG/PUFF INHALER INHALATION SCH (08:20)
[2016-10-01] MEDS: ALBUTEROL NEBULIZED 2.5 MG/3 ML INHALATION PRN ×2 (08:21→18:49)
[2016-10-01] MEDS ORDERED: SODIUM POLYSTYRENE SULFONATE 15 GM/60 ML BOTTLE PO STA (08:59)
[2016-10-01] MEDS: LISINOPRIL 5 MG TAB PO SCH (08:59)
[2016-10-01] MEDS: FUROSEMIDE 10 MG/ML 4 ML VIAL IV SCH ×3 (09:03→22:54)
[2016-10-01] MEDS: HEPARIN SODIUM,PORCINE 5,000 UNIT/ML 1 ML VIAL SQ SCH ×3 (09:03→22:54)
[2016-10-01] MEDS: LORATADINE 10 MG TAB PO SCH (09:04)
[2016-10-01] MEDS: ASPIRIN 81 MG CHEW PO SCH (09:04)
[2016-10-01] MEDS: FAMOTIDINE 20 MG TAB PO SCH (09:04)
[2016-10-01] MEDS: PARoxetine 20 MG TAB PO SCH (09:05)
[2016-10-01] MEDS: NITROGLYCERIN OINT 1 INCH/GM PACKET TOPICAL SCH ×4 (09:05→21:29)
--- NOTE | 2016-10-01 11:17 | P.PN ---
Subjective This is a pleasant 66-year-old female who was just recently in the hospital earlier this month, discharged on the seventh. Admitted with bacteremia discharged home with a PICC line and IV antibiotics. She also underwent a EDD during that admission to rule out endocarditis which was negative. Patient has a history of nonischemic cardiomyopathy and prior AICD implantation, hypertension, diabetes, hyperlipidemia, prior aortic valve replacement with tissue valve and prior mitral valve repair. Subsequent to that patient also underwent TAVR. History also of COPD, asthma, history of leukemia with prior bone marrow transplant. Since her discharge from the hospital patient has been getting progressively more and more short of breath and weak, for this reason she repeat presented to the hospital. Chest x-ray revealed mild congestive heart failure with small pleural effusions. EKG shows a paced rhythm with underlying normal sinus rhythm. WBC 10.4, hemoglobin 9.5, platelet count 392, potassium 5.9, BUN 75, creatinine 1.4. Magnesium level I.9 , BNP level 16,400. Troponin 0.018, 0.015, 0.016. At the time of my examination this morning, patient still complains of orthopnea and PND. She does state that she had significant peripheral edema on admission here which has improved since yesterday. 10/01/2016. Patient seen and examined this morning, overall feeling significantly better today breathing ferraro. Discomfort complains of feeling extremely tired today. Blood pressure 150/80 with a heart rate in the 80s. 99% on 2 L of oxygen. Weight is down 1 pound today. She is diuresing well overall. Obtain used to be on IV Lasix 40 mg every 8 hourly. Hemoglobin 8.3, BUN 82, creatinine 1.4, potassium 6.0. We will hold patient's fosinopril today. Objective - Vital Signs Vital signs: Vital Signs Temp 97.2 F L 10/01/16 08:00 Pulse 88 10/01/16 08:34 Resp 18 10/01/16 08:00 BP 150/80 10/01/16 08:00 Pulse Ox 99 10/01/16 08:00 Intake & Output 09/30/16 10/01/16 10/01/16 18:59 06:59 18:59 Intake Total 580 180 Output Total 1100 900 200 Balance -520 -900 -20 Weight 63.3 kg Intake: IV 100 ceFAZolin 2 gm In Sodium 100 Chloride 0.9% 100 ml @ 100 mls/hr IVPB Q8HR [facility] Rx#:[id number] Oral 480 180 Output: Urine 1100 900 200 Other: Voiding Method Toilet Toilet Toilet # Voids 3 - Exam PHYSICAL EXAMINATION: HEENT: Head is atraumatic, normocephalic. Pupils equal, round. Neck is supple. There is no elevated jugular venous pressure. HEART EXAMINATION: Heart S1, S2 normal. No murmur or gallop heard. CHEST EXAMINATION: Lungs reveal diminished air entry to bilateral bases. ABDOMEN: Soft, nontender. Bowel sounds are heard. No organomegaly noted. EXTREMITIES: 2+ peripheral pulses with no evidence of peripheral edema and no calf tenderness noted. NEUROLOGIC patient is awake, alert and oriented -3.] . - Labs CBC & Chem 7: 10/01/16 06:00 10/01/16 06:00 Labs: Abnormal Lab Results - Last 24 Hours (Table) 09/30/16 09/30/16 10/01/16 Range/Units 11:43 20:35 06:00 RBC 3.00 L (3.80-5.40) m/uL Hgb 8.3 L (11.4-16.0) gm/dL Hct 27.5 L (34.0-46.0) % MCHC 30.2 L (31.0-37.0) g/dL Potassium (3.5-5.1) mmol/L BUN (7-17) mg/dL Creatinine (0.52-1.04) mg/dL Glucose (74-99) mg/dL POC Glucose (mg/dL) 190 H 202 H (75-99) mg/dL 10/01/16 Range/Units 06:00 RBC (3.80-5.40) m/uL Hgb (11.4-16.0) gm/dL Hct (34.0-46.0) % MCHC (31.0-37.0) g/dL Potassium 6.0 H (3.5-5.1) mmol/L BUN 82 H* (7-17) mg/dL Creatinine 1.48 H (0.52-1.04) mg/dL Glucose 64 L (74-99) mg/dL POC Glucose (mg/dL) (75-99) mg/dL Microbiology - Last 24 Hours (Table) 09/28/16 16:24 Blood Culture - Preliminary Blood No Growth after 48 hours Assessment and Plan Plan: Assessment and plan #1 diastolic congestive heart failure acute on chronic #2 nonischemic cardiomyopathy with prior ICD implant #3 recent admission for UTI with bacteremia, EDD performed at that time to rule out endocarditis which was negative. No sign of vegetation. #4 history of aortic valve replacement with tissue valve, prior mitral valve repair, subsequent TAVR, most recent echo was performed earlier this month which revealed an ejection fraction of 50-55%. Moderate pulmonary hypertension. Peak mean gradient across aortic valve was 26/15. #5 hypertension #6Diabetes #7 hyperlipidemia #8 history of leukemia with prior bone marrow transplant #9 COPD #10 asthma #11 recent ventricular tachycardia Plan We will recommend to keep the patient on IV Lasix, discontinue KENN inhibitor. Neck lytes BUN and and creatinine in the morning. DNP note has been reviewed, I agree with a documented findings and plan of care. Patient was seen and examined.
[2016-10-01 16:44] LABS: Glucose,Whole Blood 138 mg/dL (75-99)
[2016-10-01] MEDS: ATORVASTATIN 40 MG TAB PO SCH (19:52)
[2016-10-01 20:45] LABS: Glucose,Whole Blood 224 mg/dL (75-99)
[2016-10-01] MEDS: INSULIN GLARGINE 100 UNIT/ML 10 ML VIAL SQ SCH (21:30)
[2016-10-01] MEDS: ZOLPIDEM 5 MG TAB PO PRN (22:52)
--- NOTE | 2016-10-01 23:56 | P.PN ---
Subjective Principal diagnosis: Acute CHF exacerbation This is a pleasant 66-year-old female with a recent history of UTI and MSSA bacteremia with at home PICC line and IV antibiotics-cefazolin, nonischemic cardiomyopathy and prior AICD implantation, hypertension, diabetes, hyperlipidemia, prior aortic valve replacement with tissue valve and prior mitral valve repair. Subsequent to that patient also underwent TAVR, COPD, asthma, history of leukemia with prior bone marrow transplant presented to ER with worsening short of breath and leg swelling since discharge. Patient denied any fever or chills. No headache or dizziness or lightheadedness patient denied any chest pain. Patient had leg swelling yesterday but which is improved now. Patient does have orthopnea and PND. Chest x-ray revealed mild congestive heart failure with small pleural effusions. EKG shows a paced rhythm with underlying normal sinus rhythm. BNP level 16,400. Troponin 0.018, 0.015, 0.016. She had EDD during recent admission to rule out endocarditis which was negative. ejection fraction 50-55% and moderate pulmonary hypertension 09/30/2016 Patient did improve symptomatically. Able to have relatively bathroom. Potassium level increased to 5.7 today. Still not at baseline. 10/01/2016 Patient did improve symptomatically. Potassium level increased to 6.0 today. Patient was given a dose of Kayexalate and lisinopril has been held. No fever no chills. No acute overnight issues CONSTITUTIONAL: No fever, no malaise, no fatigue. HEENT: No recent visual problems or hearing problems. Denied any sore throat. CARDIOVASCULAR: No chest pain, orthopnea, PND, no palpitations, no syncope, shortness of breath with walking. PULMONARY: , no hemoptysis. GASTROINTESTINAL: No diarrhea, no nausea, no vomiting, no abdominal pain. Normoactive bowel sounds. NEUROLOGICAL: No headaches, no weakness, no numbness. Legs: No edema pulses palpable bilaterally Objective - Vital Signs Vital signs: Vital Signs Temp 97.1 F L 10/01/16 16:00 Pulse 104 H 10/01/16 18:59 Resp 18 10/01/16 16:00 BP 170/98 10/01/16 16:00 Pulse Ox 97 10/01/16 16:00 Intake & Output 10/01/16 10/01/16 10/02/16 06:59 18:59 06:59 Intake Total 180 Output Total 900 2200 Balance - Weight 63.3 kg Intake: Oral 180 Output: Urine 900 2200 Other: Voiding Method Toilet Toilet - Exam Patient is lying in the bed comfortably, no acute distress, awake alert and oriented.. HEENT: Normocephalic. Neck is supple. Pupils reactive. Nostrils clear. Oral cavity is moist. Ears reveal no drainage. Neck reveals no JVD, carotid bruits, or thyromegaly. CHEST EXAMINATION: Trachea is central. Symmetrical expansion. Air entry improved. Right basilar crackles positive. No wheezing CARDIAC: Normal S1, S2 with no gallops. No murmurs ABDOMEN: Soft. Bowel sounds normal. No organomegaly. No abdominal bruits. Extremities 1 plus edema. No clubbing or cyanosis Neurologically awake, alert, oriented x3 with well-coordinated movements. Skin: no rash or skin lesions Musculoskeletal: no joint swelling or deformity. - Labs CBC & Chem 7: 10/01/16 06:00 10/01/16 06:00 Labs: Abnormal Lab Results - Last 24 Hours (Table) 10/01/16 10/01/16 10/01/16 Range/Units 06:00 06:00 16:43 RBC 3.00 L (3.80-5.40) m/uL Hgb 8.3 L (11.4-16.0) gm/dL Hct 27.5 L (34.0-46.0) % MCHC 30.2 L (31.0-37.0) g/dL Potassium 6.0 H (3.5-5.1) mmol/L BUN 82 H* (7-17) mg/dL Creatinine 1.48 H (0.52-1.04) mg/dL Glucose 64 L (74-99) mg/dL POC Glucose (mg/dL) 138 H (75-99) mg/dL 10/01/16 Range/Units 20:43 RBC (3.80-5.40) m/uL Hgb (11.4-16.0) gm/dL Hct (34.0-46.0) % MCHC (31.0-37.0) g/dL Potassium (3.5-5.1) mmol/L BUN (7-17) mg/dL Creatinine (0.52-1.04) mg/dL Glucose (74-99) mg/dL POC Glucose (mg/dL) 224 H (75-99) mg/dL Microbiology - Last 24 Hours (Table) 09/28/16 16:24 Blood Culture - Preliminary Blood No Growth after 72 hours Assessment and Plan Plan: #1 acute on chronic CHF with diastolic dysfunction. Elevated BNP. Recent echocardiogram showed ejection fraction of 50-55% and moderate pulmonary hypertension. #2 hyperkalemia likely due to acute kidney injury. Lisinopril and Aldactone has been held. #2 nonischemic cardiomyopathy with prior ICD implant #3 recent admission for UTI with MSSA bacteremia, EDD performed at that time to rule out endocarditis which was negative. No sign of vegetation. #4 history of aortic valve replacement with tissue valve, prior mitral valve repair, subsequent TAVR. #5 hypertension #6 Diabetes-2 #7 hyperlipidemia #8 history of leukemia with prior bone marrow transplant #9 COPD stable #10 asthma #11 recent ventricular tachycardia DVT prophylaxis Plan Patient will be considered on IV Lasix 40 mg every 8 hourly. Patient also will be continued on cefazolin with a PICC line. Continue with aspirin atorvastatin and Coreg along with Digoxin. Spironolactone and lisinopril was held due to hyperkalemia. Will follow-up renal function. Continue her insulin regimen and breathing treatments when necessary. Continue with current management and follow up closely. Time with Patient: Greater than 30
[2016-10-02] MEDS: HYDROcodone/APAP 5-325MG 1 EACH TAB PO PRN ×4 (04:14→21:59)
[2016-10-02 06:09] LABS: Glucose,Whole Blood 125 mg/dL (75-99)
[2016-10-02] MEDS: INSULIN LISPRO (humaLOG) 300 UNIT/3 ML VIAL SQ SCH ×4 (06:09→20:43)
[2016-10-02] MEDS: CARVEDILOL 3.125 MG TAB PO SCH ×2 (06:16→16:17)
[2016-10-02] MEDS: SENNOSIDES-DOCUSATE SODIUM 1 EACH TAB PO PRN ×2 (06:25→22:00)
[2016-10-02 06:30] LABS: Basophils # (A) 0.1 k/uL (0-0.2); Basophils % (A) 1 %; CH 28.5; CHCM 31.4; Eosinophils # (A) 0.7 k/uL (0-0.7); Eosinophils % (A) 9 %; HCT 29.1 % (34.0-46.0); HDW 2.52; HGB 8.8 gm/dL (11.4-16.0); Hypochromasia Slight; Luc # (Auto) 0.22; Luc % (Auto) 3; Lymphocytes # (A) 1.5 k/uL (1.0-4.8); Lymphocytes % (A) 18 %; MCH 27.7 pg (25.0-35.0); MCHC 30.3 g/dL (31.0-37.0); MCV 91.4 fL (80.0-100.0); Mean Platelet Volume 7.7; Monocytes # (A) 0.7 k/uL (0-1.0); Monocytes % (A) 8 %; Neutrophils # (A) 5.3 k/uL (1.3-7.7); Neutrophils % (A) 62 %; RBC 3.18 m/uL (3.80-5.40); RDW 14.2 % (11.5-15.5); WBC 8.6 k/uL (3.8-10.6); WBC (Perox) 9.29
[2016-10-02 06:41] LABS: Calcium 8.9 mg/dL (8.4-10.2); Potassium 5.8 mmol/L (3.5-5.1)
[2016-10-02] MEDS: ALBUTEROL NEBULIZED 2.5 MG/3 ML INHALATION PRN ×3 (08:41→21:30)
[2016-10-02] MEDS: TIOTROPIUM 18 MCG/PUFF INHALER INHALATION SCH (08:41)
[2016-10-02] MEDS: FUROSEMIDE 10 MG/ML 4 ML VIAL IV SCH ×3 (08:58→23:54)
[2016-10-02] MEDS: ASPIRIN 81 MG CHEW PO SCH (08:58)
[2016-10-02] MEDS: HEPARIN SODIUM,PORCINE 5,000 UNIT/ML 1 ML VIAL SQ SCH ×3 (08:58→23:54)
[2016-10-02] MEDS: FAMOTIDINE 20 MG TAB PO SCH (08:59)
[2016-10-02] MEDS: ceFAZolin 2 GM in SODIUM CHLORIDE 0.9% 100 ML IVPB SCH ×2 (08:59→20:43)
[2016-10-02] MEDS: NITROGLYCERIN OINT 1 INCH/GM PACKET TOPICAL SCH ×4 (09:00→20:43)
[2016-10-02] MEDS: LORATADINE 10 MG TAB PO SCH (09:00)
[2016-10-02] MEDS: PARoxetine 20 MG TAB PO SCH (09:00)
--- NOTE | 2016-10-02 09:59 | PN ---
Jillian is doing better today. She is sitting comfortably in bed. She had no lower extremity edema. She is noted to be short of breath. Vitals are stable. She is afebrile. 97.4 degrees. Pulse rate in the 90s. Blood pressure 147/85 mmHg. Respiratory rate about 14 to 16. Breath sounds are ( ) bilaterally with crackles bilaterally but they seemed to be improved since yesterday. Air entry is better. Abdomen is soft, nontender. Heart sounds soft. No edema. IMPRESSION: Congestive heart failure. PLAN: Continue IV Lasix for now. MTDD
[2016-10-02 11:39] LABS: Glucose,Whole Blood 215 mg/dL (75-99)
[2016-10-02 16:43] LABS: Glucose,Whole Blood 138 mg/dL (75-99)
[2016-10-02 20:40] LABS: Glucose,Whole Blood 258 mg/dL (75-99)
[2016-10-02] MEDS: INSULIN GLARGINE 100 UNIT/ML 10 ML VIAL SQ SCH (20:43)
[2016-10-02] MEDS: ATORVASTATIN 40 MG TAB PO SCH (20:43)
[2016-10-02] MEDS: ZOLPIDEM 5 MG TAB PO PRN (21:59)
--- NOTE | 2016-10-03 01:45 | P.PN ---
Subjective Principal diagnosis: Acute CHF exacerbation This is a pleasant 66-year-old female with a recent history of UTI and MSSA bacteremia with at home PICC line and IV antibiotics-cefazolin, nonischemic cardiomyopathy and prior AICD implantation, hypertension, diabetes, hyperlipidemia, prior aortic valve replacement with tissue valve and prior mitral valve repair. Subsequent to that patient also underwent TAVR, COPD, asthma, history of leukemia with prior bone marrow transplant presented to ER with worsening short of breath and leg swelling since discharge. Patient denied any fever or chills. No headache or dizziness or lightheadedness patient denied any chest pain. Patient had leg swelling yesterday but which is improved now. Patient does have orthopnea and PND. Chest x-ray revealed mild congestive heart failure with small pleural effusions. EKG shows a paced rhythm with underlying normal sinus rhythm. BNP level 16,400. Troponin 0.018, 0.015, 0.016. She had EDD during recent admission to rule out endocarditis which was negative. ejection fraction 50-55% and moderate pulmonary hypertension 09/30/2016 Patient did improve symptomatically. Able to have relatively bathroom. Potassium level increased to 5.7 today. Still not at baseline. 10/01/2016 Patient did improve symptomatically. Potassium level increased to 6.0 today. Patient was given a dose of Kayexalate and lisinopril has been held. No fever no chills. No acute overnight issues 10/02/2016 Patient is still having shortness of breath. No, no chest pain. No fever no chills no acute overnight issues. Professional improved to 5.8 today as well as renal function with creatinine level improved from 1.48-1.3. CONSTITUTIONAL: No fever, no malaise, no fatigue. HEENT: No recent visual problems or hearing problems. Denied any sore throat. CARDIOVASCULAR: No chest pain, orthopnea, PND, no palpitations, no syncope, shortness of breath with walking. PULMONARY: , no hemoptysis. GASTROINTESTINAL: No diarrhea, no nausea, no vomiting, no abdominal pain. Normoactive bowel sounds. NEUROLOGICAL: No headaches, no weakness, no numbness. Legs: No edema pulses palpable bilaterally Objective - Vital Signs Vital signs: Vital Signs Temp 97.4 F L 10/02/16 04:00 Pulse 100 10/02/16 13:53 Resp 16 10/02/16 15:38 BP 185/96 10/02/16 12:00 Pulse Ox 98 10/02/16 12:00 Intake & Output 10/02/16 10/02/16 10/03/16 06:59 18:59 06:59 Intake Total 180 Output Total 425 Balance -425 180 Weight 61.6 kg Intake: Oral 180 Output: Urine 425 Other: Voiding Method Toilet Toilet # Voids 1 2 - Exam Patient is lying in the bed comfortably, no acute distress, awake alert and oriented.. HEENT: Normocephalic. Neck is supple. Pupils reactive. Nostrils clear. Oral cavity is moist. Ears reveal no drainage. Neck reveals no JVD, carotid bruits, or thyromegaly. CHEST EXAMINATION: Trachea is central. Symmetrical expansion. Air entry improved. Right basilar crackles positive. No wheezing CARDIAC: Normal S1, S2 with no gallops. No murmurs ABDOMEN: Soft. Bowel sounds normal. No organomegaly. No abdominal bruits. Extremities 1 plus edema. No clubbing or cyanosis Neurologically awake, alert, oriented x3 with well-coordinated movements. Skin: no rash or skin lesions Musculoskeletal: no joint swelling or deformity. - Labs CBC & Chem 7: 10/02/16 06:10 10/02/16 06:10 Labs: Abnormal Lab Results - Last 24 Hours (Table) 10/02/16 10/02/16 10/02/16 Range/Units 06:08 06:10 06:10 RBC 3.18 L (3.80-5.40) m/uL Hgb 8.8 L (11.4-16.0) gm/dL Hct 29.1 L (34.0-46.0) % MCHC 30.3 L (31.0-37.0) g/dL Potassium 5.8 H (3.5-5.1) mmol/L BUN 74 H (7-17) mg/dL Creatinine 1.30 H (0.52-1.04) mg/dL Glucose 132 H (74-99) mg/dL POC Glucose (mg/dL) 125 H (75-99) mg/dL 10/02/16 10/02/16 10/02/16 Range/Units 11:35 16:22 20:38 RBC (3.80-5.40) m/uL Hgb (11.4-16.0) gm/dL Hct (34.0-46.0) % MCHC (31.0-37.0) g/dL Potassium (3.5-5.1) mmol/L BUN (7-17) mg/dL Creatinine (0.52-1.04) mg/dL Glucose (74-99) mg/dL POC Glucose (mg/dL) 215 H 138 H 258 H (75-99) mg/dL Microbiology - Last 24 Hours (Table) 09/28/16 16:24 Blood Culture - Preliminary Blood No Growth after 96 hours Assessment and Plan Plan: #1 acute on chronic CHF with diastolic dysfunction. Elevated BNP. Recent echocardiogram showed ejection fraction of 50-55% and moderate pulmonary hypertension. #2 hyperkalemia likely due to acute kidney injury. Lisinopril and Aldactone has been held. #2 nonischemic cardiomyopathy with prior ICD implant #3 recent admission for UTI with MSSA bacteremia, EDD performed at that time to rule out endocarditis which was negative. No sign of vegetation. #4 history of aortic valve replacement with tissue valve, prior mitral valve repair, subsequent TAVR. #5 hypertension #6 Diabetes-2 #7 hyperlipidemia #8 history of leukemia with prior bone marrow transplant #9 COPD stable #10 asthma #11 recent ventricular tachycardia DVT prophylaxis Plan Patient will be considered on IV Lasix 40 mg every 8 hourly. Patient also will be continued on cefazolin with a PICC line. Continue with aspirin atorvastatin and Coreg along with Digoxin. Spironolactone and lisinopril was held due to hyperkalemia. Will follow-up renal function. Continue her insulin regimen and breathing treatments when necessary. Continue with current management and follow up closely.
[2016-10-03] MEDS: HYDROcodone/APAP 5-325MG 1 EACH TAB PO PRN ×4 (02:38→21:54)
[2016-10-03 05:59] LABS: Glucose,Whole Blood 87 mg/dL (75-99)
[2016-10-03] MEDS: INSULIN LISPRO (humaLOG) 300 UNIT/3 ML VIAL SQ SCH ×4 (06:14→21:54)
[2016-10-03 06:22] LABS: Basophils # (A) 0.1 k/uL (0-0.2); Basophils % (A) 1 %; CH 28.5; CHCM 31.7; Eosinophils # (A) 0.8 k/uL (0-0.7); Eosinophils % (A) 9 %; HCT 27.8 % (34.0-46.0); HDW 2.49; HGB 8.5 gm/dL (11.4-16.0); Luc % (Auto) 2; Lymphocytes # (A) 1.4 k/uL (1.0-4.8); Lymphocytes % (A) 15 %; MCH 27.8 pg (25.0-35.0); MCHC 30.7 g/dL (31.0-37.0); MCV 90.6 fL (80.0-100.0); Mean Platelet Volume 7.3; Monocytes # (A) 0.7 k/uL (0-1.0); Monocytes % (A) 8 %; Neutrophils # (A) 5.9 k/uL (1.3-7.7); Neutrophils % (A) 65 %; RBC 3.07 m/uL (3.80-5.40); RDW 14.3 % (11.5-15.5); WBC 9.1 k/uL (3.8-10.6); WBC (Perox) 9.44
[2016-10-03] MEDS: CARVEDILOL 3.125 MG TAB PO SCH ×2 (06:22→17:34)
[2016-10-03 06:34] LABS: Calcium 8.4 mg/dL (8.4-10.2); Potassium 5.8 mmol/L (3.5-5.1)
[2016-10-03] MEDS: ALBUTEROL NEBULIZED 2.5 MG/3 ML INHALATION PRN (08:04)
[2016-10-03] MEDS: TIOTROPIUM 18 MCG/PUFF INHALER INHALATION SCH (08:04)
[2016-10-03 08:49] VITALS: RESP 18
[2016-10-03] MEDS: FUROSEMIDE 10 MG/ML 4 ML VIAL IV SCH ×4 (08:49→23:20)
[2016-10-03] MEDS: LISINOPRIL 5 MG TAB PO SCH (08:50)
[2016-10-03] MEDS: HEPARIN SODIUM,PORCINE 5,000 UNIT/ML 1 ML VIAL SQ SCH ×3 (08:50→23:20)
[2016-10-03] MEDS: LORATADINE 10 MG TAB PO SCH (08:50)
[2016-10-03] MEDS: ASPIRIN 81 MG CHEW PO SCH (08:50)
[2016-10-03] MEDS: FAMOTIDINE 20 MG TAB PO SCH (08:50)
[2016-10-03] MEDS: PARoxetine 20 MG TAB PO SCH (08:51)
[2016-10-03] MEDS: NITROGLYCERIN OINT 1 INCH/GM PACKET TOPICAL SCH (08:51)
[2016-10-03] MEDS: ceFAZolin 2 GM in SODIUM CHLORIDE 0.9% 100 ML IVPB SCH ×2 (08:59→21:53)
[2016-10-03] MEDS: SENNOSIDES-DOCUSATE SODIUM 1 EACH TAB PO PRN (11:18)
[2016-10-03 11:34] LABS: Glucose,Whole Blood 160 mg/dL (75-99)
[2016-10-03 14:12] LABS: Appearance,Urine Clear (Clear); Bilirubin,Urine Negative (Negative); Glucose,Urine (UA) Negative (Negative); Ketones,Urine Negative (Negative); Leukocyte Esterase,Urine Trace (Negative); Nitrite,Urine Negative (Negative); Particle Count 204; Protein,Urine 2+ (Negative); RBC,Urine 155 /hpf (0-5); UA Billing (MACRO vs. MICRO) MICRO; Urobilinogen,Urine <2.0 mg/dL (<2.0); WBC,Urine 7 /hpf (0-5)
[2016-10-03] MEDS ORDERED: SODIUM POLYSTYRENE SULFONATE 15 GM/60 ML BOTTLE PO ONE (14:47)
--- NOTE | 2016-10-03 14:55 | P.PN ---
Subjective This is a pleasant 66-year-old female who was just recently in the hospital earlier this month, discharged on the seventh. Admitted with bacteremia discharged home with a PICC line and IV antibiotics. She also underwent a EDD during that admission to rule out endocarditis which was negative. Patient has a history of nonischemic cardiomyopathy and prior AICD implantation, hypertension, diabetes, hyperlipidemia, prior aortic valve replacement with tissue valve and prior mitral valve repair. Subsequent to that patient also underwent TAVR. History also of COPD, asthma, history of leukemia with prior bone marrow transplant. Since her discharge from the hospital patient has been getting progressively more and more short of breath and weak, for this reason she repeat presented to the hospital. Chest x-ray revealed mild congestive heart failure with small pleural effusions. EKG shows a paced rhythm with underlying normal sinus rhythm. WBC 10.4, hemoglobin 9.5, platelet count 392, potassium 5.9, BUN 75, creatinine 1.4. Magnesium level I.9 , BNP level 16,400. Troponin 0.018, 0.015, 0.016. At the time of my examination this morning, patient still complains of orthopnea and PND. She does state that she had significant peripheral edema on admission here which has improved since yesterday. 10/01/2016. Patient seen and examined this morning, overall feeling significantly better today breathing ferraro. Discomfort complains of feeling extremely tired today. Blood pressure 150/80 with a heart rate in the 80s. 99% on 2 L of oxygen. Weight is down 1 pound today. She is diuresing well overall. Obtain used to be on IV Lasix 40 mg every 8 hourly. Hemoglobin 8.3, BUN 82, creatinine 1.4, potassium 6.0. We will hold patient's fosinopril today. 10/03/2016 Patient seen and examined this morning, continues to diurese on IV Lasix. We will repeat a chest x-ray tomorrow and depending on the findings request an ultrasound of the chest. Patient has quite diminished breath sounds on the right side. Hemoglobin 8.5, potassium 5.8, creatinine 1.3. Objective - Vital Signs Vital signs: Vital Signs Temp 97.0 F L 10/03/16 11:58 Pulse 91 10/03/16 11:58 Resp 18 10/03/16 11:58 BP 156/82 10/03/16 13:06 Pulse Ox 99 10/03/16 11:58 Intake & Output 10/02/16 10/03/16 10/03/16 18:59 06:59 18:59 Intake Total 180 380 Output Total 900 Balance 180 -520 Weight 61.6 kg Intake: Oral 180 380 Output: Urine 900 Other: Voiding Method Toilet Toilet Toilet # Voids 2 1 - Exam PHYSICAL EXAMINATION: HEENT: Head is atraumatic, normocephalic. Pupils equal, round. Neck is supple. There is no elevated jugular venous pressure. HEART EXAMINATION: Heart S1, S2 normal. No murmur or gallop heard. CHEST EXAMINATION: Lungs reveal diminished air entry to the right posteriorly, one quarter to half way up. ABDOMEN: Soft, nontender. Bowel sounds are heard. No organomegaly noted. EXTREMITIES: 2+ peripheral pulses with no evidence of peripheral edema and no calf tenderness noted. NEUROLOGIC patient is awake, alert and oriented -3.] . - Labs CBC & Chem 7: 10/03/16 05:20 10/03/16 05:20 Labs: Abnormal Lab Results - Last 24 Hours (Table) 10/02/16 10/02/16 10/03/16 Range/Units 16:22 20:38 05:20 RBC 3.07 L (3.80-5.40) m/uL Hgb 8.5 L (11.4-16.0) gm/dL Hct 27.8 L (34.0-46.0) % MCHC 30.7 L (31.0-37.0) g/dL Eosinophils # 0.8 H (0-0.7) k/uL Potassium (3.5-5.1) mmol/L BUN (7-17) mg/dL Creatinine (0.52-1.04) mg/dL POC Glucose (mg/dL) 138 H 258 H (75-99) mg/dL Urine Protein (Negative) Urine Blood (Negative) Ur Leukocyte Esterase (Negative) Urine RBC (0-5) /hpf Urine WBC (0-5) /hpf 10/03/16 10/03/16 10/03/16 Range/Units 05:20 11:32 13:15 RBC (3.80-5.40) m/uL Hgb (11.4-16.0) gm/dL Hct (34.0-46.0) % MCHC (31.0-37.0) g/dL Eosinophils # (0-0.7) k/uL Potassium 5.8 H (3.5-5.1) mmol/L BUN 71 H (7-17) mg/dL Creatinine 1.38 H (0.52-1.04) mg/dL POC Glucose (mg/dL) 160 H (75-99) mg/dL Urine Protein 2+ H (Negative) Urine Blood Large H (Negative) Ur Leukocyte Esterase Trace H (Negative) Urine RBC 155 H (0-5) /hpf Urine WBC 7 H (0-5) /hpf Microbiology - Last 24 Hours (Table) 09/28/16 16:24 Blood Culture - Preliminary Blood No Growth after 96 hours Assessment and Plan Plan: Assessment and plan #1 diastolic congestive heart failure acute on chronic #2 nonischemic cardiomyopathy with prior ICD implant #3 recent admission for UTI with bacteremia, EDD performed at that time to rule out endocarditis which was negative. No sign of vegetation. #4 history of aortic valve replacement with tissue valve, prior mitral valve repair, subsequent TAVR, most recent echo was performed earlier this month which revealed an ejection fraction of 50-55%. Moderate pulmonary hypertension. Peak mean gradient across aortic valve was 26/15. #5 hypertension #6Diabetes #7 hyperlipidemia #8 history of leukemia with prior bone marrow transplant #9 COPD #10 asthma #11 recent ventricular tachycardia Plan We will recommend to keep the patient on IV Lasix, repeat chest x-ray, if necessary ultrasound of the chest to assess for right-sided pleural effusion. DNP note has been reviewed, I agree with a documented findings and plan of care. Patient was seen and examined.
[2016-10-03] MEDS: ALTEPLASE 2 MG VIAL (CATHFLO) IV STA ×2 (16:14→16:17)
[2016-10-03 16:45] LABS: Glucose,Whole Blood 79 mg/dL (75-99)
[2016-10-03] MEDS: POLYETHYLENE GLYCOL 3350 17 GM POWD.PACK PO SCH (17:36)
[2016-10-03 20:49] LABS: Glucose,Whole Blood 158 mg/dL (75-99)
[2016-10-03] MEDS: INSULIN GLARGINE 100 UNIT/ML 10 ML VIAL SQ SCH (21:53)
[2016-10-03] MEDS: ATORVASTATIN 40 MG TAB PO SCH (21:53)
[2016-10-03] MEDS: ZOLPIDEM 5 MG TAB PO PRN (21:54)
--- NOTE | 2016-10-04 00:11 | P.PN ---
Subjective Principal diagnosis: Acute CHF exacerbation This is a pleasant 66-year-old female with a recent history of UTI and MSSA bacteremia with at home PICC line and IV antibiotics-cefazolin, nonischemic cardiomyopathy and prior AICD implantation, hypertension, diabetes, hyperlipidemia, prior aortic valve replacement with tissue valve and prior mitral valve repair. Subsequent to that patient also underwent TAVR, COPD, asthma, history of leukemia with prior bone marrow transplant presented to ER with worsening short of breath and leg swelling since discharge. Patient denied any fever or chills. No headache or dizziness or lightheadedness patient denied any chest pain. Patient had leg swelling yesterday but which is improved now. Patient does have orthopnea and PND. Chest x-ray revealed mild congestive heart failure with small pleural effusions. EKG shows a paced rhythm with underlying normal sinus rhythm. BNP level 16,400. Troponin 0.018, 0.015, 0.016. She had EDD during recent admission to rule out endocarditis which was negative. ejection fraction 50-55% and moderate pulmonary hypertension 09/30/2016 Patient did improve symptomatically. Able to have relatively bathroom. Potassium level increased to 5.7 today. Still not at baseline. 10/01/2016 Patient did improve symptomatically. Potassium level increased to 6.0 today. Patient was given a dose of Kayexalate and lisinopril has been held. No fever no chills. No acute overnight issues 10/02/2016 Patient is still having shortness of breath. No, no chest pain. No fever no chills no acute overnight issues. Professional improved to 5.8 today as well as renal function with creatinine level improved from 1.48-1.3. 10/03/2016 Patient says that her breathing is better. Patient complains of burning in the urine. Patient also having constipation. Percussion level still elevated at 5.8. No fever no chills. Patient continues to be on IV Lasix. Repeat chest x- ray was ordered for tomorrow. Urine culture was ordered. CONSTITUTIONAL: No fever, no malaise, no fatigue. HEENT: No recent visual problems or hearing problems. Denied any sore throat. CARDIOVASCULAR: No chest pain, orthopnea, PND, no palpitations, no syncope, shortness of breath with walking. PULMONARY: , no hemoptysis. GASTROINTESTINAL: No diarrhea, no nausea, no vomiting, no abdominal pain. Normoactive bowel sounds. NEUROLOGICAL: No headaches, no weakness, no numbness. Legs: No edema pulses palpable bilaterally Objective - Vital Signs Vital signs: Vital Signs Temp 97.8 F 10/03/16 15:47 Pulse 89 10/03/16 15:47 Resp 18 10/03/16 15:47 BP 154/81 10/03/16 15:47 Pulse Ox 96 10/03/16 20:21 Intake & Output 10/03/16 10/03/16 10/04/16 06:59 18:59 06:59 Intake Total 620 Output Total 1700 Balance -1080 Weight 61.6 kg Intake: Oral 620 Output: Urine 1700 Other: Voiding Method Toilet Toilet # Voids 1 - Exam Patient is lying in the bed comfortably, no acute distress, awake alert and oriented.. HEENT: Normocephalic. Neck is supple. Pupils reactive. Nostrils clear. Oral cavity is moist. Ears reveal no drainage. Neck reveals no JVD, carotid bruits, or thyromegaly. CHEST EXAMINATION: Trachea is central. Symmetrical expansion. Air entry improved. Right basilar crackles positive. No wheezing CARDIAC: Normal S1, S2 with no gallops. No murmurs ABDOMEN: Soft. Bowel sounds normal. No organomegaly. No abdominal bruits. Extremities 1 plus edema. No clubbing or cyanosis Neurologically awake, alert, oriented x3 with well-coordinated movements. Skin: no rash or skin lesions Musculoskeletal: no joint swelling or deformity. - Labs CBC & Chem 7: 10/03/16 05:20 10/03/16 05:20 Labs: Abnormal Lab Results - Last 24 Hours (Table) 10/03/16 10/03/16 10/03/16 Range/Units 05:20 05:20 11:32 RBC 3.07 L (3.80-5.40) m/uL Hgb 8.5 L (11.4-16.0) gm/dL Hct 27.8 L (34.0-46.0) % MCHC 30.7 L (31.0-37.0) g/dL Eosinophils # 0.8 H (0-0.7) k/uL Potassium 5.8 H (3.5-5.1) mmol/L BUN 71 H (7-17) mg/dL Creatinine 1.38 H (0.52-1.04) mg/dL POC Glucose (mg/dL) 160 H (75-99) mg/dL Urine Protein (Negative) Urine Blood (Negative) Ur Leukocyte Esterase (Negative) Urine RBC (0-5) /hpf Urine WBC (0-5) /hpf 10/03/16 10/03/16 Range/Units 13:15 20:46 RBC (3.80-5.40) m/uL Hgb (11.4-16.0) gm/dL Hct (34.0-46.0) % MCHC (31.0-37.0) g/dL Eosinophils # (0-0.7) k/uL Potassium (3.5-5.1) mmol/L BUN (7-17) mg/dL Creatinine (0.52-1.04) mg/dL POC Glucose (mg/dL) 158 H (75-99) mg/dL Urine Protein 2+ H (Negative) Urine Blood Large H (Negative) Ur Leukocyte Esterase Trace H (Negative) Urine RBC 155 H (0-5) /hpf Urine WBC 7 H (0-5) /hpf Microbiology - Last 24 Hours (Table) 10/03/16 13:15 Urine Culture - Preliminary Urine,Voided 09/28/16 16:24 Blood Culture - Preliminary Blood No Growth after 120 hours Assessment and Plan Plan: #1 acute on chronic CHF with diastolic dysfunction. Elevated BNP. Recent echocardiogram showed ejection fraction of 50-55% and moderate pulmonary hypertension. #2 hyperkalemia likely due to acute kidney injury. Lisinopril and Aldactone has been held. #2 nonischemic cardiomyopathy with prior ICD implant #3 recent admission for UTI with MSSA bacteremia, EDD performed at that time to rule out endocarditis which was negative. No sign of vegetation. #4 history of aortic valve replacement with tissue valve, prior mitral valve repair, subsequent TAVR. #5 hypertension #6 Diabetes-2 #7 hyperlipidemia #8 history of leukemia with prior bone marrow transplant #9 COPD stable #10 asthma #11 recent ventricular tachycardia DVT prophylaxis Plan Patient will be considered on IV Lasix 40 mg every 8 hourly. Patient also will be continued on cefazolin with a PICC line. Continue with aspirin atorvastatin and Coreg along with Digoxin. Spironolactone and lisinopril was held due to hyperkalemia. Will follow-up renal function. Continue her insulin regimen and breathing treatments when necessary. Continue with current management and follow up closely.
[2016-10-04] MEDS: HYDROcodone/APAP 5-325MG 1 EACH TAB PO PRN ×3 (03:29→20:59)
[2016-10-04 05:58] LABS: Glucose,Whole Blood 85 mg/dL (75-99)
[2016-10-04] MEDS: INSULIN LISPRO (humaLOG) 300 UNIT/3 ML VIAL SQ SCH ×4 (06:49→21:00)
[2016-10-04] MEDS: CARVEDILOL 3.125 MG TAB PO SCH ×2 (06:51→17:23)
[2016-10-04] MEDS: ASPIRIN 81 MG CHEW PO SCH (09:43)
[2016-10-04] MEDS: POLYETHYLENE GLYCOL 3350 17 GM POWD.PACK PO SCH (09:43)
[2016-10-04] MEDS: HEPARIN SODIUM,PORCINE 5,000 UNIT/ML 1 ML VIAL SQ SCH ×3 (09:43→23:09)
[2016-10-04] MEDS: FUROSEMIDE 10 MG/ML 4 ML VIAL IV SCH (09:43)
[2016-10-04] MEDS: LORATADINE 10 MG TAB PO SCH (09:43)
[2016-10-04] MEDS: FAMOTIDINE 20 MG TAB PO SCH (09:43)
[2016-10-04] MEDS: PARoxetine 20 MG TAB PO SCH (09:43)
[2016-10-04] MEDS: LISINOPRIL 5 MG TAB PO SCH (09:43)
[2016-10-04] MEDS: ceFAZolin 2 GM in SODIUM CHLORIDE 0.9% 100 ML IVPB SCH ×2 (09:50→20:58)
[2016-10-04] MEDS: TIOTROPIUM 18 MCG/PUFF INHALER INHALATION SCH (11:29)
[2016-10-04 11:49] LABS: Glucose,Whole Blood 230 mg/dL (75-99)
--- NOTE | 2016-10-04 14:22 | XR ---
EXAMINATION TYPE: XR chest 2V DATE OF EXAM: 10/04/2016 COMPARISON: 09/28/2016 INDICATION: Short of breath difficulty breathing COPD TECHNIQUE: Frontal and lateral views of the chest are obtained. FINDINGS: The heart size is normal. The pulmonary vasculature is normal. No suspicious focal consolidation. Hyperinflation is present. Electronic device overlies left chest. IMPRESSION: 1. Findings suggestive for COPD
--- NOTE | 2016-10-04 14:29 | P.PN ---
Subjective This is a pleasant 66-year-old female who was just recently in the hospital earlier this month, discharged on the seventh. Admitted with bacteremia discharged home with a PICC line and IV antibiotics. She also underwent a EDD during that admission to rule out endocarditis which was negative. Patient has a history of nonischemic cardiomyopathy and prior AICD implantation, hypertension, diabetes, hyperlipidemia, prior aortic valve replacement with tissue valve and prior mitral valve repair. Subsequent to that patient also underwent TAVR. History also of COPD, asthma, history of leukemia with prior bone marrow transplant. Since her discharge from the hospital patient has been getting progressively more and more short of breath and weak, for this reason she repeat presented to the hospital. Chest x-ray revealed mild congestive heart failure with small pleural effusions. EKG shows a paced rhythm with underlying normal sinus rhythm. WBC 10.4, hemoglobin 9.5, platelet count 392, potassium 5.9, BUN 75, creatinine 1.4. Magnesium level I.9 , BNP level 16,400. Troponin 0.018, 0.015, 0.016. At the time of my examination this morning, patient still complains of orthopnea and PND. She does state that she had significant peripheral edema on admission here which has improved since yesterday. 10/01/2016. Patient seen and examined this morning, overall feeling significantly better today breathing ferraro. Discomfort complains of feeling extremely tired today. Blood pressure 150/80 with a heart rate in the 80s. 99% on 2 L of oxygen. Weight is down 1 pound today. She is diuresing well overall. Obtain used to be on IV Lasix 40 mg every 8 hourly. Hemoglobin 8.3, BUN 82, creatinine 1.4, potassium 6.0. We will hold patient's fosinopril today. 10/03/2016 Patient seen and examined this morning, continues to diurese on IV Lasix. We will repeat a chest x-ray tomorrow and depending on the findings request an ultrasound of the chest. Patient has quite diminished breath sounds on the right side. Hemoglobin 8.5, potassium 5.8, creatinine 1.3. \ B 2016 Patient seen and examined this morning, repeat chest x-ray does not reveal any congestive heart failure shows COPD only. Hemodynamically stable. From cardiology's perspective, today we will discontinue the IV Lasix and start patient on oral diuretics. She may be able to be discharged once cleared by the primary and we will make her a follow-up appointment in the office post discharge. Objective - Vital Signs Vital signs: Vital Signs Temp 97.7 F 10/04/16 12:00 Pulse 86 10/04/16 12:00 Resp 18 10/04/16 12:00 BP 167/86 10/04/16 12:00 Pulse Ox 95 10/04/16 12:00 Intake & Output 10/03/16 10/04/16 10/04/16 18:59 06:59 18:59 Intake Total 620 100 322 Output Total 1700 200 700 Balance -1080 -100 -378 Weight 60.4 kg Intake: IV 100 ceFAZolin 2 gm In Sodium 100 Chloride 0.9% 100 ml @ 100 mls/hr IVPB Q8HR [facility] Rx#:[id number] Intake, IV Titration 100 Amount ceFAZolin 2 gm In Sodium 100 Chloride 0.9% 100 ml @ 100 mls/hr IVPB Q12HR [facility]IE Rx#:[id number] Oral 620 222 Output: Urine 1700 200 700 Other: Voiding Method Toilet Toilet Toilet - Exam PHYSICAL EXAMINATION: HEENT: Head is atraumatic, normocephalic. Pupils equal, round. Neck is supple. There is no elevated jugular venous pressure. HEART EXAMINATION: Heart S1, S2 normal. No murmur or gallop heard. CHEST EXAMINATION: Lungs reveal improvement in air entry bilaterally . ABDOMEN: Soft, nontender. Bowel sounds are heard. No organomegaly noted. EXTREMITIES: 2+ peripheral pulses with no evidence of peripheral edema and no calf tenderness noted. NEUROLOGIC patient is awake, alert and oriented -3.] . - Labs CBC & Chem 7: 10/03/16 05:20 10/03/16 05:20 Labs: Abnormal Lab Results - Last 24 Hours (Table) 10/03/16 10/04/16 Range/Units 20:46 11:33 POC Glucose (mg/dL) 158 H 230 H (75-99) mg/dL Microbiology - Last 24 Hours (Table) 10/03/16 13:15 Urine Culture - Preliminary Urine,Voided 09/28/16 16:24 Blood Culture - Preliminary Blood No Growth after 120 hours Assessment and Plan Plan: Assessment and plan #1 diastolic congestive heart failure acute on chronic #2 nonischemic cardiomyopathy with prior ICD implant #3 recent admission for UTI with bacteremia, EDD performed at that time to rule out endocarditis which was negative. No sign of vegetation. #4 history of aortic valve replacement with tissue valve, prior mitral valve repair, subsequent TAVR, most recent echo was performed earlier this month which revealed an ejection fraction of 50-55%. Moderate pulmonary hypertension. Peak mean gradient across aortic valve was 26/15. #5 hypertension #6Diabetes #7 hyperlipidemia #8 history of leukemia with prior bone marrow transplant #9 COPD #10 asthma #11 recent ventricular tachycardia Plan We'll discontinue the IV Lasix. Place the patient on 40 mg of Lasix daily. Follow-up appointment in 2 weeks in the office DNP note has been reviewed, I agree with a documented findings and plan of care. Patient was seen and examined.
[2016-10-04] MEDS: FUROSEMIDE 40 MG TAB PO SCH (14:41)
[2016-10-04 14:55] LABS: Calcium 8.4 mg/dL (8.4-10.2); Potassium 5.3 mmol/L (3.5-5.1)
[2016-10-04 17:08] LABS: Glucose,Whole Blood 128 mg/dL (75-99)
[2016-10-04 20:47] LABS: Glucose,Whole Blood 275 mg/dL (75-99)
[2016-10-04] MEDS: ATORVASTATIN 40 MG TAB PO SCH (20:58)
[2016-10-04] MEDS: INSULIN GLARGINE 100 UNIT/ML 10 ML VIAL SQ SCH (20:58)
[2016-10-04] MEDS: ZOLPIDEM 5 MG TAB PO PRN (21:00)
--- NOTE | 2016-10-05 00:14 | P.PN ---
Subjective Principal diagnosis: Acute CHF exacerbation This is a pleasant 66-year-old female with a recent history of UTI and MSSA bacteremia with at home PICC line and IV antibiotics-cefazolin, nonischemic cardiomyopathy and prior AICD implantation, hypertension, diabetes, hyperlipidemia, prior aortic valve replacement with tissue valve and prior mitral valve repair. Subsequent to that patient also underwent TAVR, COPD, asthma, history of leukemia with prior bone marrow transplant presented to ER with worsening short of breath and leg swelling since discharge. Patient denied any fever or chills. No headache or dizziness or lightheadedness patient denied any chest pain. Patient had leg swelling yesterday but which is improved now. Patient does have orthopnea and PND. Chest x-ray revealed mild congestive heart failure with small pleural effusions. EKG shows a paced rhythm with underlying normal sinus rhythm. BNP level 16,400. Troponin 0.018, 0.015, 0.016. She had EDD during recent admission to rule out endocarditis which was negative. ejection fraction 50-55% and moderate pulmonary hypertension 09/30/2016 Patient did improve symptomatically. Able to have relatively bathroom. Potassium level increased to 5.7 today. Still not at baseline. 10/01/2016 Patient did improve symptomatically. Potassium level increased to 6.0 today. Patient was given a dose of Kayexalate and lisinopril has been held. No fever no chills. No acute overnight issues 10/02/2016 Patient is still having shortness of breath. No, no chest pain. No fever no chills no acute overnight issues. Professional improved to 5.8 today as well as renal function with creatinine level improved from 1.48-1.3. 10/03/2016 Patient says that her breathing is better. Patient complains of burning in the urine. Patient also having constipation. Percussion level still elevated at 5.8. No fever no chills. Patient continues to be on IV Lasix. Repeat chest x- ray was ordered for tomorrow. Urine culture was ordered. 10/04/2016 Patient says that her breathing is improved but not her baseline. Chest x-ray showed COPD changes. Lasix has been changed to by mouth. Hyperkalemia improved. Continue to hold spironolactone. Will discontinue Digoxin and metformin at discharge. Anticipate discharge tomorrow CONSTITUTIONAL: No fever, no malaise, no fatigue. HEENT: No recent visual problems or hearing problems. Denied any sore throat. CARDIOVASCULAR: No chest pain, orthopnea, PND, no palpitations, no syncope, shortness of breath with walking. PULMONARY: , no hemoptysis. GASTROINTESTINAL: No diarrhea, no nausea, no vomiting, no abdominal pain. Normoactive bowel sounds. NEUROLOGICAL: No headaches, no weakness, no numbness. Legs: No edema pulses palpable bilaterally Objective - Vital Signs Vital signs: Vital Signs Temp 98.5 F 10/04/16 15:40 Pulse 90 10/04/16 15:40 Resp 18 10/04/16 15:40 BP 152/87 10/04/16 15:40 Pulse Ox 99 10/04/16 15:40 Intake & Output 10/04/16 10/04/16 10/05/16 06:59 18:59 06:59 Intake Total 100 1006 Output Total 200 700 Balance -100 306 Weight 60.4 kg Intake: IV 100 ceFAZolin 2 gm In Sodium 100 Chloride 0.9% 100 ml @ 100 mls/hr IVPB Q8HR [facility] Rx#:[id number] Intake, IV Titration 100 Amount ceFAZolin 2 gm In Sodium 100 Chloride 0.9% 100 ml @ 100 mls/hr IVPB Q12HR [facility] Rx#:[id number] Oral 906 Output: Urine 200 700 Other: Voiding Method Toilet Toilet - Exam Patient is lying in the bed comfortably, no acute distress, awake alert and oriented.. HEENT: Normocephalic. Neck is supple. Pupils reactive. Nostrils clear. Oral cavity is moist. Ears reveal no drainage. Neck reveals no JVD, carotid bruits, or thyromegaly. CHEST EXAMINATION: Trachea is central. Symmetrical expansion. Air entry improved. Right basilar crackles positive. No wheezing CARDIAC: Normal S1, S2 with no gallops. No murmurs ABDOMEN: Soft. Bowel sounds normal. No organomegaly. No abdominal bruits. Extremities 1 plus edema. No clubbing or cyanosis Neurologically awake, alert, oriented x3 with well-coordinated movements. Skin: no rash or skin lesions Musculoskeletal: no joint swelling or deformity. - Labs CBC & Chem 7: 10/03/16 05:20 10/04/16 14:26 Labs: Abnormal Lab Results - Last 24 Hours (Table) 10/04/16 10/04/16 10/04/16 Range/Units 11:33 14:26 16:48 Sodium 136 L (137-145) mmol/L Potassium 5.3 H (3.5-5.1) mmol/L Carbon Dioxide 31 H (22-30) mmol/L BUN 67 H (7-17) mg/dL Creatinine 1.48 H (0.52-1.04) mg/dL Glucose 206 H (74-99) mg/dL POC Glucose (mg/dL) 230 H 128 H (75-99) mg/dL 10/04/16 Range/Units 20:46 Sodium (137-145) mmol/L Potassium (3.5-5.1) mmol/L Carbon Dioxide (22-30) mmol/L BUN (7-17) mg/dL Creatinine (0.52-1.04) mg/dL Glucose (74-99) mg/dL POC Glucose (mg/dL) 275 H (75-99) mg/dL Microbiology - Last 24 Hours (Table) 10/03/16 13:15 Urine Culture - Final Urine,Voided 09/28/16 16:24 Blood Culture - Final Blood No Growth after 144 hours Assessment and Plan Plan: #1 acute on chronic CHF with diastolic dysfunction. Elevated BNP. Recent echocardiogram showed ejection fraction of 50-55% and moderate pulmonary hypertension. #2 hyperkalemia likely due to acute kidney injury. Lisinopril and Aldactone has been held. #2 nonischemic cardiomyopathy with prior ICD implant #3 recent admission for UTI with MSSA bacteremia, EDD performed at that time to rule out endocarditis which was negative. No sign of vegetation. #4 history of aortic valve replacement with tissue valve, prior mitral valve repair, subsequent TAVR. #5 hypertension #6 Diabetes-2 #7 hyperlipidemia #8 history of leukemia with prior bone marrow transplant #9 COPD stable #10 asthma #11 recent ventricular tachycardia DVT prophylaxis Plan Patient patient was continued on Lasix 40 mg IV every 8 hourly. Change to Lasix 40 mg daily now.. Patient also will be continued on cefazolin with a PICC line as per ID recommendations during recent discharge. Continue with aspirin atorvastatin and Coreg. Spironolactone and lisinopril was held due to hyperkalemia. Will follow-up renal function. Continue her insulin regimen and breathing treatments when necessary. Continue with current management and follow up closely. Time with Patient: Greater than 30
[2016-10-05] MEDS: ceFAZolin 2 GM in SODIUM CHLORIDE 0.9% 100 ML IVPB SCH ×2 (03:41→12:26)
[2016-10-05] MEDS: HYDROcodone/APAP 5-325MG 1 EACH TAB PO PRN ×2 (03:52→19:06)
[2016-10-05 06:09] LABS: Glucose,Whole Blood 126 mg/dL (75-99)
[2016-10-05] MEDS: INSULIN LISPRO (humaLOG) 300 UNIT/3 ML VIAL SQ SCH ×3 (06:36→18:06)
[2016-10-05] MEDS: CARVEDILOL 3.125 MG TAB PO SCH ×2 (06:37→18:06)
[2016-10-05 07:00] LABS: Calcium 8.5 mg/dL (8.4-10.2); Magnesium 1.6 mg/dL (1.6-2.3); Potassium 5.4 mmol/L (3.5-5.1); Total Bilirubin 0.2 mg/dL (0.2-1.3); Total Protein 6.1 g/dL (6.3-8.2)
[2016-10-05] MEDS: FAMOTIDINE 20 MG TAB PO SCH (08:08)
[2016-10-05] MEDS: HEPARIN SODIUM,PORCINE 5,000 UNIT/ML 1 ML VIAL SQ SCH ×2 (08:08→17:11)
[2016-10-05] MEDS: LORATADINE 10 MG TAB PO SCH (08:09)
[2016-10-05] MEDS: LISINOPRIL 5 MG TAB PO SCH (08:09)
[2016-10-05] MEDS: ASPIRIN 81 MG CHEW PO SCH (08:09)
[2016-10-05] MEDS: FUROSEMIDE 40 MG TAB PO SCH (08:09)
[2016-10-05] MEDS: PARoxetine 20 MG TAB PO SCH (08:10)
[2016-10-05] MEDS: POLYETHYLENE GLYCOL 3350 17 GM POWD.PACK PO SCH (08:11)
[2016-10-05] MEDS: TIOTROPIUM 18 MCG/PUFF INHALER INHALATION SCH (08:38)
[2016-10-05 11:50] LABS: Glucose,Whole Blood 200 mg/dL (75-99)
--- NOTE | 2016-10-05 14:03 | CT ---
EXAMINATION TYPE: CT chest wo con DATE OF EXAM: 10/05/2016 COMPARISON: Prior chest CT 04/26/2013, abdomen CT 09/01/2016 HISTORY: Patient complains of difficulty breathing. CT DLP: 207.5 mGycm. Automated Exposure Control for Dose Reduction was Utilized. TECHNIQUE: CT scan of the thorax is performed without IV contrast. FINDINGS: Postop changes to the right chest wall are again noted. LUNGS: Changes of mosaic perfusion are suspected within the lungs. There are interstitial changes pre sent. MEDIASTINUM: Lack of IV contrast is noted. Retrocaval pretracheal node is enlarged as on prior exam, there are prevascular nodes present Patient shows aortic valve replacement change, there are coronary artery calcifications, intracardiac defibrillator leads are noted. The heart is enlarged. The pulmon asha artery is enlarged, correlate for pulmonary artery hypertension. Post median sternotomy shows fus ion along the sternum. OTHER: The track like area of subcutaneous calcifications in the right lower chest anterolaterally is again noted and may be source of chronic infection. There is a spinal curvature present. IMPRESSION: Cardiomegaly, coronary artery disease, postop change. Correlate for pulmonary artery hype rtension. Interstitial lung disease. There may be underlying pneumonitis, allergic alveolitis, early pulmonary edema. Mediastinal adenopathy. Noncontrast exam. Additional findings above.
[2016-10-05 16:46] LABS: Glucose,Whole Blood 155 mg/dL (75-99)
[2016-10-05 17:56] VITALS: BP 156/84; PULSE 89; TEMP 98.2
[2016-10-05 20:51] LABS: Glucose,Whole Blood 161 mg/dL (75-99)
--- NOTE | 2016-10-05 21:08 | CONS ---
DATE OF SERVICE: 10/04/2016 REASON FOR CONSULTATION: MSSA bacteremia and antibiotic followup. HISTORY OF PRESENT ILLNESS: The patient is a 66-year-old female who was recently admitted to [facility]. At that time the patient had evidence of MSSA bacteremia, for which the patient did have an extensive workup done, including a EDD that was negative for any vegetation; however, the patient did have a pacemaker and valve replacement. The follow-up blood cultures were negative. The patient was advised a 2-week course of IV cefazolin 2 grams q.12 with negative blood culture. The patient was discharged home on September 19, coming back on September 28 with the chief complaint of progressive shortness of breath. The patient denies having any chest pain. She did have a mild cough, non-productive. No nausea or vomiting or fever. Subsequently she was evaluated by the ER physician and was diagnosed with mild congestive heart failure. Patient has been admitted to hospital and is being treated by the primary and the cardiology services ( ) with IV Lasix. X-ray done this morning shows evidence of COPD and no CHF. Patient also complains of some urinary burning. UA shows some evidence of hematuria but no significant infection. The patient did have a blood culture at admission on 09/28 that has been negative. Urine on 09/28 was negative as well. I was asked to see the patient last night for further recommendations regarding antibiotic therapy. Patient did have a normal white count on admission and it remains normal at 9.1. REVIEW OF SYSTEMS: CONSTITUTIONAL: Positive for weakness and no fever. EYES: No complaint. ENT: No complaint. RESPIRATORY: As per HPI. CARDIOVASCULAR: No complaint. GENITOURINARY: As per HPI. GASTROINTESTINAL: No complaint. MUSCULOSKELETAL: No complaint. INTEGUMENTARY: No complaint. PSYCHOLOGIC: No complaint. ENDOCRINE: No complaint. NEUROLOGICAL: No complaint. PAST MEDICAL HISTORY: 1. Congestive heart failure. 2. COPD. 3. MSSA bacteremia. 4. Asthma. 5. Diabetes mellitus. 6. Gastroesophageal reflux disease. 7. Leukemia. 8. Hypertension. 9. Hyperlipidemia. 10. ( ) PAST SURGICAL HISTORY: 1. ICD placement. 2. Back surgery. 3. Cholecystectomy. 4. Heart catheterization. 5. Hernia repair. 6. Hysterectomy. 7. Bilateral cataract surgery. 8. Bone marrow transplant. 9. Aortic valve replacement. SOCIAL HISTORY: No history of smoking, drinking or drug use. FAMILY HISTORY: Mother has diabetes and [place]. ALLERGIES: OXYTETRACYCLINE. Current medications include: 1. [place]. 2. Ventolin. 3. Aspirin. 4. Lipitor. 5. Coreg. 6. Cefazolin 2 grams q.12. 7. Pepcid. 8. Lasix. 9. Heparin. 10. Hydralazine. 11. Lantus. 12. Humalog. 13. Zestril. 14. Claritin. 15. Paxil. 16. Miralax. 17. Senokot. 18. Spiriva. 19. Ambien. On examination, blood pressure 154/87 with a pulse of 90, temperature 98.5. She is 99% on room air. General description is an elderly female lying in bed in no distress. No tachypnea or muscle of respiration use. HEENT examination shows slight pallor. No scleral icterus. A few fine crackles at the bases. No wheeze. HEART: S1, S2. Regular rate and rhythm. ABDOMEN: Soft. No tenderness. No guarding or rigidity. EXTREMITIES: No edema of the feet. SKIN EXAMINATION: No rash or mass palpable. Neurologically, the patient is awake, alert, oriented x3. Mood and affect normal. LABS: BUN of 66 with a creatinine 1.48. Hemoglobin 8.5, white count 9.1. UA with mostly hematuria and pyuria. Blood and urine cultures on admission have been negative. DIAGNOSTIC IMPRESSION AND PLAN: 1. Patient with MSSA bacteremia, for which the patient had an extensive workup done on her last admission, including CT of abdomen and pelvis, echocardiogram and EDD, with no ( ) of infection. In view of her underlying pacemaker and valve replacement, she has been treated with IV antibiotic therapy and so far has received almost 3 weeks from her negative blood culture on 09/11/2016. The patient has been admitted to hospital with congestive heart failure and being managed by the cardiology team. The patient during this examination with no fever, no elevated white count, and a blood culture done that was negative. 2. Patient has some evidence of hematuria; has some urinary symptoms, but no evidence of any pyuria or a UTI. PLAN: 1. We will the patient on cefazolin 2 grams, adjusted to every 8 hours. Recommend another week on discharge. That will finish a total of 4 weeks from her negative blood culture and should be enough, even for mild ( ) dealing with an intravascular source. 2. Will obtain an ultrasound of the kidneys. 3. Will follow up on the clinical condition to cultures to further adjust medication if needed. Thank you for this consultation. Will follow this patient along with you. [place]
--- NOTE | 2016-10-05 22:47 | P.DS ---
Providers Date of admission: 09/30/16 08:27 Expected date of discharge: 10/05/16 Attending physician: Philip Silver Consults: 09/28/16 17:52 Consult Physician Routine Consulting Provider: Tara Nair Consult Reason/Comments: chf Do you want consulting provider notified?: Yes 10/03/16 14:48 Consult Physician Urgent Consulting Provider: Marcella Marcus Consult Reason/Comments: right chest wound, uti Do you want consulting provider notified?: Yes Primary care physician: Kaylee Suero Hospital Course: Discharge diagnosis #1 acute on chronic CHF with diastolic dysfunction. Elevated BNP. Recent echocardiogram showed ejection fraction of 50-55% and moderate pulmonary hypertension. #2 hyperkalemia likely due to acute kidney injury. Lisinopril and Aldactone has been held. #2 nonischemic cardiomyopathy with prior ICD implant #3 recent admission for UTI with MSSA bacteremia, EDD performed at that time to rule out endocarditis which was negative. No sign of vegetation. #4 history of aortic valve replacement with tissue valve, prior mitral valve repair, subsequent TAVR. #5 hypertension #6 Diabetes-2 #7 hyperlipidemia #8 history of leukemia with prior bone marrow transplant #9 COPD stable #10 asthma #11 recent ventricular tachycardia DVT prophylaxis Hospital course This is a pleasant 66-year-old female with a recent history of UTI and MSSA bacteremia with at home PICC line and IV antibiotics-cefazolin, nonischemic cardiomyopathy and prior AICD implantation, hypertension, diabetes, hyperlipidemia, prior aortic valve replacement with tissue valve and prior mitral valve repair. Subsequent to that patient also underwent TAVR, COPD, asthma, history of leukemia with prior bone marrow transplant presented to ER with worsening short of breath and leg swelling since discharge. Patient denied any fever or chills. No headache or dizziness or lightheadedness patient denied any chest pain. Patient had leg swelling yesterday but which is improved now. Patient does have orthopnea and PND. Chest x-ray revealed mild congestive heart failure with small pleural effusions. EKG shows a paced rhythm with underlying normal sinus rhythm. BNP level 16,400. Troponin 0.018, 0.015, 0.016. She had EDD during recent admission to rule out endocarditis which was negative. ejection fraction 50-55% and moderate pulmonary hypertension 09/30/2016 Patient did improve symptomatically. Able to have relatively bathroom. Potassium level increased to 5.7 today. Still not at baseline. 10/01/2016 Patient did improve symptomatically. Potassium level increased to 6.0 today. Patient was given a dose of Kayexalate and lisinopril has been held. No fever no chills. No acute overnight issues 10/02/2016 Patient is still having shortness of breath. No, no chest pain. No fever no chills no acute overnight issues. Professional improved to 5.8 today as well as renal function with creatinine level improved from 1.48-1.3. 10/03/2016 Patient says that her breathing is better. Patient complains of burning in the urine. Patient also having constipation. Percussion level still elevated at 5.8. No fever no chills. Patient continues to be on IV Lasix. Repeat chest x- ray was ordered for tomorrow. Urine culture was ordered. 10/04/2016 Patient says that her breathing is improved but not her baseline. Chest x-ray showed COPD changes. Lasix has been changed to by mouth. Hyperkalemia improved. Continue to hold spironolactone. Will discontinue Digoxin and metformin at discharge. Anticipate discharge tomorrow 10/05/2016. Patient's breathing status much improved today. Repeat a CT of the chest showed interstitial lung disease, underlying pneumonitis and ALLERGIC alveolitis. Patient will be continued for another week of antibiotics in the form of cefazolin due to recent bacteremia. For a total of 4 weeks. Patient was advised to follow with ID clinic with Dr. Marcus and her primary care physician and cardiology clinic. Plan Patient patient was continued on Lasix 40 mg IV every 8 hourly. Change to Lasix 40 mg daily now.. Patient also will be continued on cefazolin with a PICC line as per ID recommendations during recent discharge. Continue with aspirin atorvastatin and Coreg. Spironolactone and lisinopril was held due to hyperkalemia. follow-up renal function. Continue her insulin regimen and breathing treatments when necessary. Patient will be discharged home in stable condition. Physical examination Patient is lying in the bed comfortably, no acute distress, awake alert and oriented.. HEENT: Normocephalic. Neck is supple. Pupils reactive. Nostrils clear. Oral cavity is moist. Ears reveal no drainage. Neck reveals no JVD, carotid bruits, or thyromegaly. CHEST EXAMINATION: Trachea is central. Symmetrical expansion. Air entry improved. Right basilar crackles positive. No wheezing CARDIAC: Normal S1, S2 with no gallops. No murmurs ABDOMEN: Soft. Bowel sounds normal. No organomegaly. No abdominal bruits. Extremities 1 plus edema. No clubbing or cyanosis Neurologically awake, alert, oriented x3 with well-coordinated movements. Skin: no rash or skin lesions Musculoskeletal: no joint swelling or deformity. Time taken greater than 35 minutes including 18 minutes for counseling and coordination of care Patient Condition at Discharge: Fair Plan - Discharge Summary New Discharge Prescriptions: Continue Aspirin 81 mg PO DAILY PARoxetine HCL [Paxil] 20 mg PO DAILY Lisinopril [Prinivil] 5 mg PO DAILY Zolpidem [Ambien] 5 mg PO HS PRN PRN Reason: Insomnia Albuterol Sulfate [Proair Hfa] 2 puff INHALATION RT-BID PRN PRN Reason: Shortness Of Breath Atorvastatin [Lipitor] 40 mg PO HS Famotidine [Pepcid] 40 mg PO DAILY Insulin Glargine,Hum.rec.anlog [Lantus Solostar] 16 unit SQ HS Insulin Aspart [NovoLOG] See Protocol SQ TID-W/MEALS PRN PRN Reason: Blood Sugar - High Carvedilol [Coreg] 3.125 mg PO BID Furosemide [Lasix] 40 mg PO DAILY Cetirizine HCl [Zyrtec] 10 mg PO DAILY Tiotropium [place] [Spiriva] 1 cap INHALATION RT-DAILY Albuterol Nebulized [Ventolin Nebulized] 2.5 mg INHALATION RT-TID PRN PRN Reason: Shortness Of Breath ceFAZolin [Kefzol] 2,000 mg IVPB Q8HR #42 bag Discontinued Digoxin [Lanoxin] 125 mcg PO HS metFORMIN HCL [Glucophage] 500 mg PO BID Spironolactone [Aldactone] 25 mg PO DAILY #30 tab Discharge Medication List Aspirin 81 mg PO DAILY 02/10/14 [History] Lisinopril [Prinivil] 5 mg PO DAILY 02/10/14 [History] PARoxetine HCL [Paxil] 20 mg PO DAILY 02/10/14 [History] Albuterol Sulfate [Proair Hfa] 2 puff INHALATION RT-BID PRN 04/20/15 [History] Atorvastatin [Lipitor] 40 mg PO HS 06/02/14 [History] Zolpidem [Ambien] 5 mg PO HS PRN 06/02/14 [History] Famotidine [Pepcid] 40 mg PO DAILY 01/02/15 [History] Insulin Aspart [NovoLOG] See Protocol SQ TID-W/MEALS PRN 01/02/15 [History] Insulin Glargine,Hum.rec.anlog [Lantus Solostar] 16 unit SQ HS 01/02/15 [History ] Carvedilol [Coreg] 3.125 mg PO BID 03/16/15 [History] Furosemide [Lasix] 40 mg PO DAILY 03/16/15 [History] Cetirizine HCl [Zyrtec] 10 mg PO DAILY 11/12/15 [History] Albuterol Nebulized [Ventolin Nebulized] 2.5 mg INHALATION RT-TID PRN 03/05/16 [ History] Tiotropium [place] [Spiriva] 1 cap INHALATION RT-DAILY 03/05/16 [History] ceFAZolin [Kefzol] 2,000 mg IVPB Q8HR #42 bag 09/14/16 [Rx] Follow up Appointment(s)/Referral(s): [facility], [NON-STAFF] - Kaylee Suero MD [Primary Care Provider] - 1-2 days Patient Instructions/Handouts: Heart Failure (DC), COPD (Chronic Obstructive Pulmonary Disease) (DC), Chronic Hypertension (DC) Discharge Disposition: HOME WITH HOME HEALTH SERVICES
[2016-10-06] MEDS ORDERED: ceFAZolin 2 GM in SODIUM CHLORIDE 0.9% 100 ML IVPB SCH ×2
--- NOTE | 2016-10-06 08:53 | PN ---
DATE OF SERVICE: 10/05/2016 REASON FOR FOLLOW UP: MSSA bacteremia. INTERVAL HISTORY: The patient is afebrile. She is breathing comfortably. She did have a congested cough, but not brining up any sputum. No abdominal pain. No nausea or vomiting or any diarrhea. The patient did mention a wound on the right lower chest for the first time to me today that apparently has been draining in the outpatient setting. No drainage at this point. No pain at that site. On examination: Blood pressure 133/65 with pulse 88. Temperature 98. She is 98 % on 2-L nasal cannula. General description is an elderly female lying in bed in no distress. RESPIRATORY: Unlabored breathing. Some coarse sounds at bases. HEART: S1, S2 regular rate and rhythm. ABDOMEN: Soft, no tenderness. LABS: BUN 64, creatinine 1.30, blood culture has been negative so far. DIAGNOSTIC IMPRESSION AND PLAN: Patient with MSSA bacteremia for which the patient did have MSSA workup. Patient now has a wound on the right lower chest area. I clinically doubt there is any evidence of abscess collection, but the patient did mention there was one suture that was removed. Will make sure there is no retained foreign body or sutures that remain to be removed or source of infection. She will continue on IV cefazolin for another week with outpatient followup. [place]
== END 2016-10-05 21:39 | disposition home health service (06) | DRG 292 ==
LOC: EC 15:10 → 6SEL 17:52 → OBSVTOIN 09-30 08:27
PROVIDERS: ADMIT Hospitalist; ATTEND Hospitalist
DX: I50.33 Acute on chronic diastolic (congestive) heart failure (principal); N17.9 Acute kidney failure, unspecified; J84.9 Interstitial pulmonary disease, unspecified; I42.9 Cardiomyopathy, unspecified; S21.109A Unspecified open wound of unspecified front wall of thorax without penetration into thoracic cavity, initial encounter; I11.0 Hypertensive heart disease with heart failure; I27.2 Other secondary pulmonary hypertension; E87.5 Hyperkalemia; E11.9 Type 2 diabetes mellitus without complications; E78.5 Hyperlipidemia, unspecified; F32.9 Major depressive disorder, single episode, unspecified; F41.9 Anxiety disorder, unspecified; I25.2 Old myocardial infarction; I95.1 Orthostatic hypotension; J44.9 Chronic obstructive pulmonary disease, unspecified; K21.9 Gastro-esophageal reflux disease without esophagitis; K59.00 Constipation, unspecified; M19.90 Unspecified osteoarthritis, unspecified site; Z79.82 Long term (current) use of aspirin; Z79.899 Other long term (current) drug therapy; Z79.4 Long term (current) use of insulin; Z88.1 Allergy status to other antibiotic agents; Z85.6 Personal history of leukemia; Z95.810 Presence of automatic (implantable) cardiac defibrillator; Z95.3 Presence of xenogenic heart valve; Z99.81 Dependence on supplemental oxygen; Z82.49 Family history of ischemic heart disease and other diseases of the circulatory system; X58.XXXA Exposure to other specified factors, initial encounter
CPT/HCPCS: 36415; 71020; 71250; 80048; 80053; 81001; 82550; 82553; 83605; 83735; 83880; 84100; 84484; 85025; 85610; 85730; 87040; 87086; 93005; 94640; 94760; 96361; 96365; 96366; 96372; 96374; 96375; 96376; 99291

== ENCOUNTER → 2016-11-25 | Outpatient (CLI) | payer MEDICARE, OTHER | END | disposition home or self-care (01) | LOC: LABWHC1 11:17 | PROVIDERS: ATTEND Internal Medicine Infectious Disease | DX: R78.81 Bacteremia (principal) | CPT/HCPCS: 36415; 87040 ==

== ENCOUNTER 2017-02-15 16:54 | Observation (INO) | payer MEDICARE, OTHER ==
[2017-02-15] MEDS ORDERED: ASPIRIN 81 MG PO STA (17:08)
[2017-02-15] MEDS ORDERED: NITROGLYCERIN OINT 1 INCH/GM PACKET TOPICAL STA (17:08)
[2017-02-15] MEDS ORDERED: IPRATROPIUM-ALBUTEROL 3 ML NEB INHALATION STA (17:09)
--- NOTE | 2017-02-15 17:13 | ED ---
General Adult HPI - General Chief complaint: Chest Pain Stated complaint: Chest Pain Time Seen by Provider: 02/15/17 17:02 Source: patient, family, RN notes reviewed Mode of arrival: wheelchair Limitations: no limitations - History of Present Illness Initial comments: Patient is a pleasant 66-year-old female presenting to the emergency department with chest discomfort. Onset of symptoms was yesterday. Patient states discomfort feels like an ache. Discomfort is more stable. Discomfort is left chest without radiation. Patient has been coughing for the past couple of weeks. No fevers. No dyspnea. Patient does have chronic COPD. No leg pain or leg swelling. - Related Data Home Medications Medication Instructions Recorded Confirmed Aspirin 81 mg PO DAILY 02/10/14 02/15/17 Lisinopril [Prinivil] 5 mg PO DAILY 02/10/14 02/15/17 PARoxetine HCL [Paxil] 20 mg PO DAILY 02/10/14 02/15/17 Albuterol Sulfate [Proair Hfa] 2 puff INHALATION RT-BID PRN 06/02/14 02/15/17 Atorvastatin [Lipitor] 40 mg PO HS 06/02/14 02/15/17 Zolpidem [Ambien] 5 mg PO HS PRN 06/02/14 02/15/17 Famotidine [Pepcid] 40 mg PO DAILY 01/02/15 02/15/17 Insulin Aspart [NovoLOG See Protocol SQ TID-W/MEALS PRN 01/02/15 02/15/17 (formulary)] Insulin Glargine,Hum.rec.anlog 16 unit SQ HS 01/02/15 02/15/17 [Lantus Solostar] Carvedilol [Coreg] 3.125 mg PO BID 03/16/15 02/15/17 Furosemide [Lasix] 40 mg PO DAILY 03/16/15 02/15/17 Cetirizine HCl [Zyrtec] 10 mg PO DAILY 11/12/15 02/15/17 Albuterol Nebulized [Ventolin 2.5 mg INHALATION RT-TID PRN 03/05/16 02/15/17 Nebulized] Tiotropium [place] [Spiriva] 1 cap INHALATION RT-DAILY 03/05/16 02/15/17 Allergies Allergy/AdvReac Type Severity Reaction Status Date / Time oxytetracycline Allergy Rash/Hives Verified 02/15/17 17:42 [From Terramycin] oxytetracycline HCl Allergy Rash/Hives Verified 02/15/17 17:42 [From Terramycin] Review of Systems ROS Statement: Those systems with pertinent positive or pertinent negative responses have been documented in the HPI. ROS Other: All systems not noted in ROS Statement are negative. Constitutional: Denies: fever Eyes: Denies: eye pain ENT: Denies: ear pain Respiratory: Reports: cough. Denies: dyspnea Cardiovascular: Reports: chest pain Endocrine: Reports: fatigue Gastrointestinal: Reports: nausea, vomiting (Patient did vomit a couple of times ). Denies: abdominal pain Genitourinary: Denies: dysuria Neurological: Denies: weakness Past Medical History Past Medical History: Asthma, Cancer, Heart Failure, COPD, Diabetes Mellitus, GERD/Reflux, Hyperlipidemia, Hypertension, Myocardial Infarction (non Q-wave), Osteoarthritis (OA), Renal Disease Additional Past Medical History / Comment(s): HX BLOOD IN URINE, hx leukemia, O2 AT 2L NC, SILENT DE Last Myocardial Infarction Date:: UNKNOWN History of Any Multi-Drug Resistant Organisms: None Reported Past Surgical History: AICD, Back Surgery, Cholecystectomy, Heart Catheterization, Hernia Repair, Hysterectomy, Orthopedic Surgery, Tonsillectomy Additional Past Surgical History / Comment(s): EDD 06/25/14, JOAN cataract, bone marrow transplant, venogram-last 03/17/15, right wrist, C-5 fusion, EYE LID SX. AORTIC VALVE REPLACEMENT x2, MITRAL VALVE REPAIR, Past Anesthesia/Blood Transfusion Reactions: No Reported Reaction Additional Past Anesthesia/Blood Transfusion Reaction / Comment(s): blood-sx reaction Type of Cardiac Device: AICD Device Placement Date:: 2009-MED Past Psychological History: Anxiety, Depression Smoking Status: Never smoker Past Alcohol Use History: None Reported Past Drug Use History: None Reported - Past Family History Mother Family Medical History: Diabetes Mellitus, Myocardial Infarction (DE) Father Family Medical History: Cancer General Exam Limitations: no limitations General appearance: alert, in no apparent distress Head exam: Present: atraumatic Eye exam: Present: normal appearance, PERRL ENT exam: Present: normal oropharynx Neck exam: Present: normal inspection Respiratory exam: Present: wheezes, rhonchi Cardiovascular Exam: Present: regular rate, normal rhythm Expanded Peripheral pulses: 2+: Radial (R), Radial (L), Dorsalis Pedis (R), Dorsalis Pedis (L) GI/Abdominal exam: Present: soft. Absent: tenderness Extremities exam: Present: normal inspection. Absent: pedal edema, calf tenderness Neurological exam: Present: alert Psychiatric exam: Present: normal affect, normal mood Skin exam: Present: normal color Course Vital Signs 02/15/17 02/15/17 02/15/17 16:57 17:57 18:06 Temperature 97.5 F L Pulse Rate 90 81 81 Respiratory 22 Rate Blood Pressure 174/72 O2 Sat by Pulse 98 Oximetry 02/15/17 18:58 Temperature 97.2 F L Pulse Rate 82 Respiratory 18 Rate Blood Pressure 157/75 O2 Sat by Pulse 94 L Oximetry EKG Findings - EKG Comments: EKG Findings:: Pacemaker spikes are present. Rate of 80. MI 152. QRS 100. QT 414. QTC 477. Normal axis. Nonspecific ST-T. Old EKG reviewed dated 10/01. Medical Decision Making - Medical Decision Making Patient reevaluated and resting comfortably in bed. Patient updated on results and plan. Case was discussed with practitioner Kelby, who will admit for Dr. Silver, covering for Dr. Suero. Dr. Reina will also be consulted. - Lab Data Result diagrams: 02/15/17 17:20 02/15/17 17:20 Lab Results 02/15/17 02/15/17 02/15/17 Range/Units 17:20 17:20 17:20 WBC 5.1 (3.8-10.6) k/uL RBC 3.93 (3.80-5.40) m/uL Hgb 10.6 L (11.4-16.0) gm/dL Hct 34.5 (34.0-46.0) % MCV 87.6 (80.0-100.0) fL MCH 26.9 (25.0-35.0) pg MCHC 30.7 L (31.0-37.0) g/dL RDW 15.2 (11.5-15.5) % Plt Count 173 (150-450) k/uL Neutrophils % 72 % Lymphocytes % 16 % Monocytes % 4 % Eosinophils % 5 % Basophils % 1 % Neutrophils # 3.7 (1.3-7.7) k/uL Lymphocytes # 0.8 L (1.0-4.8) k/uL Monocytes # 0.2 (0-1.0) k/uL Eosinophils # 0.3 (0-0.7) k/uL Basophils # 0.0 (0-0.2) k/uL Hypochromasia Slight PT (9.0-12.0) sec INR (<1.2) APTT (22.0-30.0) sec D-Dimer (<0.60) mg/L FEU Sodium (137-145) mmol/L Potassium (3.5-5.1) mmol/L Chloride (98-107) mmol/L Carbon Dioxide (22-30) mmol/L Anion Gap mmol/L BUN (7-17) mg/dL Creatinine (0.52-1.04) mg/dL Est GFR (MDRD) Af Amer (>60 ml/min/1.73 sqM) Est GFR (MDRD) Non-Af (>60 ml/min/1.73 sqM) Glucose (74-99) mg/dL Calcium (8.4-10.2) mg/dL Magnesium (1.6-2.3) mg/dL Total Bilirubin (0.2-1.3) mg/dL AST (14-36) U/L ALT (9-52) U/L Alkaline Phosphatase (38-126) U/L Total Creatine Kinase 63 (30-135) U/L CK-MB (CK-2) 2.6 H* (0.0-2.4) ng/mL CK-MB (CK-2) Rel Index 4.1 Troponin I 0.012 (0.000-0.034) ng/mL NT-Pro-B Natriuret Pep 1580 pg/mL Total Protein (6.3-8.2) g/dL Albumin (3.5-5.0) g/dL Influenza Type A RNA (Not Detectd) Influenza Type B (PCR) (Not Detectd) 02/15/17 02/15/17 02/15/17 Range/Units 17:20 17:20 17:40 WBC (3.8-10.6) k/uL RBC (3.80-5.40) m/uL Hgb (11.4-16.0) gm/dL Hct (34.0-46.0) % MCV (80.0-100.0) fL MCH (25.0-35.0) pg MCHC (31.0-37.0) g/dL RDW (11.5-15.5) % Plt Count (150-450) k/uL Neutrophils % % Lymphocytes % % Monocytes % % Eosinophils % % Basophils % % Neutrophils # (1.3-7.7) k/uL Lymphocytes # (1.0-4.8) k/uL Monocytes # (0-1.0) k/uL Eosinophils # (0-0.7) k/uL Basophils # (0-0.2) k/uL Hypochromasia PT 10.3 (9.0-12.0) sec INR 1.1 (<1.2) APTT 20.9 L (22.0-30.0) sec D-Dimer 1.53 H (<0.60) mg/L FEU Sodium 139 (137-145) mmol/L Potassium 5.1 (3.5-5.1) mmol/L Chloride 103 (98-107) mmol/L Carbon Dioxide 27 (22-30) mmol/L Anion Gap 9 mmol/L BUN 44 H (7-17) mg/dL Creatinine 1.00 (0.52-1.04) mg/dL Est GFR (MDRD) Af Amer >60 (>60 ml/min/1.73 sqM) Est GFR (MDRD) Non-Af 55 (>60 ml/min/1.73 sqM) Glucose 180 H (74-99) mg/dL Calcium 9.0 (8.4-10.2) mg/dL Magnesium 1.8 (1.6-2.3) mg/dL Total Bilirubin 0.5 (0.2-1.3) mg/dL AST 35 (14-36) U/L ALT 50 (9-52) U/L Alkaline Phosphatase 99 (38-126) U/L Total Creatine Kinase (30-135) U/L CK-MB (CK-2) (0.0-2.4) ng/mL CK-MB (CK-2) Rel Index Troponin I (0.000-0.034) ng/mL NT-Pro-B Natriuret Pep pg/mL Total Protein 6.9 (6.3-8.2) g/dL Albumin 3.4 L (3.5-5.0) g/dL Influenza Type A RNA Not Detected (Not Detectd) Influenza Type B (PCR) Not Detected (Not Detectd) - Radiology Data Radiology results: image reviewed (Chest x-ray shows interstitial fibrosis.) Disposition Clinical Impression: Chest pain, Acute exacerbation of chronic obstructive pulmonary disease (COPD) Disposition: ADMITTED IP TO THIS HOSP Referrals: Leander Reina MD [Primary Care Provider] - 1-2 days Decision Time: 19:08
[2017-02-15 17:43] LABS: Basophils % (A) 1 %; Eosinophils # (A) 0.3 k/uL (0-0.7); Eosinophils % (A) 5 %; HCT 34.5 % (34.0-46.0); HGB 10.6 gm/dL (11.4-16.0); Hypochromasia Slight; Lymphocytes # (A) 0.8 k/uL (1.0-4.8); Lymphocytes % (A) 16 %; MCH 26.9 pg (25.0-35.0); MCHC 30.7 g/dL (31.0-37.0); MCV 87.6 fL (80.0-100.0); Mean Platelet Volume 7.8; Monocytes # (A) 0.2 k/uL (0-1.0); Monocytes % (A) 4 %; Neutrophils # (A) 3.7 k/uL (1.3-7.7); Neutrophils % (A) 72 %; Platelet Count 173 k/uL (150-450); RBC 3.93 m/uL (3.80-5.40); RDW 15.2 % (11.5-15.5); WBC 5.1 k/uL (3.8-10.6)
[2017-02-15 17:54] LABS: ALT 50 U/L (9-52); AST 35 U/L (14-36); Albumin 3.4 g/dL (3.5-5.0); Alkaline Phosphatase 99 U/L (38-126); Anion Gap 9 mmol/L; Blood Urea Nitrogen 44 mg/dL (7-17); Carbon Dioxide 27 mmol/L (22-30); Chloride 103 mmol/L (98-107); Glucose 180 mg/dL (74-99); Magnesium 1.8 mg/dL (1.6-2.3); Potassium 5.1 mmol/L (3.5-5.1); Sodium 139 mmol/L (137-145); Total Bilirubin 0.5 mg/dL (0.2-1.3); Total Protein 6.9 g/dL (6.3-8.2)
--- NOTE | 2017-02-15 18:01 | XR ---
EXAMINATION TYPE: XR chest 2V DATE OF EXAM: 02/15/2017 COMPARISON: 01/02/2017 HISTORY: Chest pain TECHNIQUE: Frontal and lateral views of the chest are obtained. FINDINGS: There is coarse interstitial density in both lungs. Heart is borderline enlarged. There is left axillary pacemaker with the lead tips in the right ventricle. There are chest leads. Pulmonary vascularity is difficult to evaluate because of the lung disease. IMPRESSION: Pulmonary interstitial fibrosis similar to last exam. No definite heart failure.
[2017-02-15 18:07] LABS: D-Dimer 1.53 mg/L FEU (<0.60); INR 1.1 (<1.2); Prothrombin Time 10.3 sec (9.0-12.0)
[2017-02-15 18:09] LABS: Partial Thromboplastin Time 20.9 sec (22.0-30.0)
[2017-02-15 18:12] LABS: Troponin I 0.012 ng/mL (0.000-0.034)
[2017-02-15 18:14] LABS: Creatine Kinase MB 2.6 ng/mL (0.0-2.4)
[2017-02-15] MEDS ORDERED: NITROGLYCERIN SL TABS 0.4 MG TAB SUBLINGUAL PRN (19:09)
[2017-02-15] MEDS ORDERED: HEPARIN SODIUM,PORCINE 5,000 UNIT/ML 1 ML VIAL IV ONE (19:09)
[2017-02-15] MEDS ORDERED: IPRATROPIUM-ALBUTEROL 3 ML NEB INHALATION PRN (19:09)
[2017-02-15] MEDS ORDERED: HEPARIN SODIUM,PORCINE 5,000 UNIT/ML 1 ML VIAL IV PRN (19:09)
[2017-02-15] MEDS ORDERED: RX INFO: IV CONTRAST WAS GIVEN 1 EACH MISC MISCELLANE PRN (19:11)
[2017-02-15] MEDS ORDERED: HEPARIN SOD,PORK IN 0.45% NACL 25,000 UNIT in 0.45% NACL 1 500ML.BAG IV SCH (19:15)
--- NOTE | 2017-02-15 20:17 | CT ---
EXAMINATION TYPE: CT angio chest DATE OF EXAM: 02/15/2017 8:05 PM COMPARISON: 04/16/2013 HISTORY: Chest pain and dizziness x1 day. CT DLP: 267.8 mGycm Automated exposure control for dose reduction was used. CONTRAST: CTA scan of the thorax is performed with IV Contrast, patient injected with 80ml mL of Visipaque 320, pulmonary embolism protocol. There are 3-D post processed images.. FINDINGS: There is coarse patchy reticular interstitial infiltrate in both lungs. There is some coalescence in the lingula left upper lobe. There is no pleural effusion. There is no evidence of a pulmonary mass. There is a stent in the ascending aorta. There is no evidence of aortic dissection. I see no filling defects in the pulmonary arteries. There are a few mediastinal lymph nodes that measure up to 1.5 cm. There are spondylotic changes in the tho racic spine. IMPRESSION: EXTENSIVE PULMONARY INTERSTITIAL FIBROTIC CHANGES. NO EVIDENCE OF PULMONARY EMBOLISM. THERE ARE A FEW MEDIASTINAL LYMPH NODES PROBABLY DUE TO INFLAMMATORY DISEASE. NO SIGNIFICANT CHANGE COMPARED TO OLD EXAM.
[2017-02-15 21:05] LABS: Glucose,Whole Blood 119 mg/dL (75-99)
[2017-02-15] MEDS: IPRATROPIUM-ALBUTEROL 3 ML NEB INHALATION SCH (21:26)
[2017-02-15] MEDS: methylPREDNISolone SOD SUCCI 125 MG/2 ML VIAL IV SCH (22:26)
[2017-02-15] MEDS ORDERED: ZOLPIDEM 5 MG TAB PO PRN (22:41)
[2017-02-15] MEDS ORDERED: ATORVASTATIN 40 MG TAB PO SCH (22:45)
[2017-02-15] MEDS ORDERED: INSULIN DETEMIR 100 UNIT/ML 10 ML VIAL SQ SCH (22:45)
[2017-02-15 23:34] VITALS: TEMP 97.5
[2017-02-15 23:38] VITALS: BMI 26.7
[2017-02-15] MEDS: CARVEDILOL 3.125 MG TAB PO SCH (23:47)
[2017-02-15] MEDS: HYDROcodone/APAP 10-325MG 1 EACH TAB PO PRN (23:51)
[2017-02-16 00:50] LABS: Creatine Kinase 69 U/L (30-135)
[2017-02-16 01:04] LABS: Troponin I <0.012 ng/mL (0.000-0.034)
[2017-02-16 01:13] LABS: Creatine Kinase MB 2.7 ng/mL (0.0-2.4)
[2017-02-16] MEDS: NITROGLYCERIN OINT 1 INCH/GM PACKET TOPICAL SCH ×2 (03:04→05:52)
[2017-02-16] MEDS: methylPREDNISolone SOD SUCCI 125 MG/2 ML VIAL IV SCH ×2 (03:09→09:45)
[2017-02-16 05:46] LABS: Basophils % (A) 0 %; Eosinophils % (A) 0 %; HCT 32.7 % (34.0-46.0); Hypochromasia Slight; Lymphocytes # (A) 0.6 k/uL (1.0-4.8); Lymphocytes % (A) 13 %; MCH 26.4 pg (25.0-35.0); MCHC 30.5 g/dL (31.0-37.0); MCV 86.4 fL (80.0-100.0); Mean Platelet Volume 7.7; Monocytes # (A) 0.1 k/uL (0-1.0); Monocytes % (A) 1 %; Neutrophils # (A) 3.6 k/uL (1.3-7.7); Neutrophils % (A) 83 %; Platelet Count 163 k/uL (150-450); RBC 3.78 m/uL (3.80-5.40); RDW 14.7 % (11.5-15.5); WBC 4.4 k/uL (3.8-10.6)
[2017-02-16 06:24] LABS: Troponin I 0.013 ng/mL (0.000-0.034)
[2017-02-16 06:27] LABS: Creatine Kinase MB 2.8 ng/mL (0.0-2.4)
[2017-02-16 06:59] LABS: Glucose,Whole Blood 203 mg/dL (75-99)
[2017-02-16] MEDS: HYDROcodone/APAP 10-325MG 1 EACH TAB PO PRN (07:08)
--- NOTE | 2017-02-16 07:26 | HP ---
HISTORY AND PHYSICAL CHIEF COMPLAINT: Chest pain. HISTORY OF PRESENT ILLNESS: This 66-year-old woman with a past medical history of multiple medical problems including history of asthma, COPD, history of CHF, history of diabetes mellitus , GERD, hypertension, hyperlipidemia being followed by Dr. Reina in the outpatient setting was complaining of chest pain. Patient also had a cough and some sputum also for the last couple of weeks and the chest pain is mainly in the center part of the left side also. The patient came to [facility] and was admitted for further evaluation and treatment. The troponins were found to be negative so far. Influenza was negative. There is no history of fever or rigors. No headache, loss of consciousness, or seizures. PAST MEDICAL HISTORY: History of asthma, CHF, COPD, diabetes, hypertension, hyperlipidemia, history of myocardial infarction, history of AICD, back surgery, DJD. MEDICATIONS: Home medications are: 1. Ambien 5 mg q.h.s. p.r.n. 2. Spiriva 1 puff daily. 3. Paxil 20 mg p.o. daily. 4. Prinivil 5 mg p.o. daily. 5. NovoLog t.i.d. with meals. 6. Lantus 16 units subcu q.h.s. 7. Lasix 40 mg daily. 8. Pepcid 40 mg daily. 9. Zyrtec 10 mg daily. 10.Coreg 3.125 mg p.o. b.i.d. 11.Lipitor 40 mg q.h.s. 12.Aspirin 81 mg p.o. daily. 13.ProAir HFA 2 puffs b.i.d. p.r.n. 14.Ventolin HFA 2.5 mg t.i.d. p.r.n. ALLERGIES: Allergies are TERRAMYCIN. FAMILY HISTORY: History of cancer in the family. SOCIAL HISTORY: No history of smoking. No history of alcohol intake. REVIEW OF SYSTEMS: ENT: No diminished hearing or diminished vision. CARDIOVASCULAR SYSTEM: As mentioned earlier. RESPIRATORY SYSTEM: As mentioned earlier. GI: No nausea, vomiting. : No dysuria. NERVOUS SYSTEM: No numbness or weakness. ALLERGY/IMMUNOLOGY: Asthma. MUSCULOSKELETAL: As mentioned earlier. HEMATOLOGY/ONCOLOGY: No history of anemia. ENDOCRINE: Diabetes mellitus. CONSTITUTIONAL: As mentioned earlier. DERMATOLOGY: Negative. RHEUMATOLOGY: Negative. PSYCHIATRY: As mentioned earlier. PHYSICAL EXAMINATION: The patient is alert and oriented x3. Pulse 82, blood pressure 131/74, respiration 18, temperature 97.4, pulse ox 99% on 2 L. HEENT: Conjunctivae normal. Oral mucosa moist. Neck is no jugular venous distention or carotid bruit. No lymph node enlargement. CARDIOVASCULAR: S1 and S2 muffled. No S3, no S4. RESPIRATORY: Breath sounds diminished in the bases. A few scattered rhonchi and crackles. No bronchial breath sounds. ABDOMEN: Soft, nontender. No mass palpable. LEGS: No edema, no swelling. NERVOUS SYSTEM: Higher functions as mentioned earlier. Moves all 4 limbs,. No focal motor or sensory deficits. LYMPHATICS: No lymphadenopathy of the neck, axillae or groin. SKIN: No ulcer, rash or bleeding. LABS: The labs are at this time shows WBC of 5.1, hemoglobin 10.6. D-dimer is 1.53. Otherwise troponin 0.012. Influenza is negative. Chest CTA extensive pulmonary interstitial fibrotic changes. No evidence of pulmonary embolism. A few mediastinal lymphadenopathy. ASSESSMENT: 1. Chest pain, rule out coronary artery disease and unstable angina, possibly musculoskeletal pain. 2. History of chronic obstructive pulmonary disease, asthma. 3. History of congestive heart failure. 4. Diabetes mellitus type 2. 5. Gastroesophageal reflux disease. 6. Hypertension. 7. Hyperlipidemia. 8. changes on the CAT scan. 9. History of leukemia. 10.Chronic hypoxic respiratory failure. 11.History of automated implantable cardioverter-defibrillator. 12.Degenerative joint disease. 13.Anxiety, depression. RECOMMENDATIONS AND DISCUSSION: This 66-year-old woman who presented with multiple complex medical issues, will monitor the patient closely. Continue the current medications, continue symptomatic treatment. Otherwise at this time I would recommend continue the bronchodilators, symptomatic treatment, cardiology consultation unstable angina protocol. Otherwise, consult Dr. Reina as well as repeat labs will be ordered in the morning. Prognosis guarded because of multiple complex medical issues. Further recommendations to follow. A copy of dictation forwarded to Dr. Reina who is the primary physician. MMODL / IJN: [id number] / MTDD
[2017-02-16] MEDS: IPRATROPIUM-ALBUTEROL 3 ML NEB INHALATION SCH ×3 (07:31→16:17)
[2017-02-16 07:40] LABS: Anion Gap 9 mmol/L; Blood Urea Nitrogen 46 mg/dL (7-17); Calcium 9.4 mg/dL (8.4-10.2); Carbon Dioxide 25 mmol/L (22-30); Chloride 105 mmol/L (98-107); Cholesterol 151 mg/dL (<200); Glucose 229 mg/dL (74-99); HDL Cholesterol 81 mg/dL (40-60); LDL Cholesterol,Calculated 61 mg/dL (0-99); Potassium 5.8 mmol/L (3.5-5.1); Sodium 139 mmol/L (137-145); Triglycerides 46 mg/dL (<150)
[2017-02-16] MEDS ORDERED: NON-FORMULARY DRUG (Tiotropium Bromide [Spiriva] 1 CAP) INHALATION SCH (08:00)
[2017-02-16] MEDS ORDERED: LISINOPRIL 5 MG TAB PO SCH (09:00)
[2017-02-16] MEDS ORDERED: FUROSEMIDE 40 MG TAB PO SCH (09:00)
[2017-02-16] MEDS ORDERED: LORATADINE 10 MG TAB PO SCH (09:00)
[2017-02-16] MEDS ORDERED: ASPIRIN 325 MG TAB PO SCH (09:00)
[2017-02-16] MEDS ORDERED: FAMOTIDINE 20 MG TAB PO SCH (09:00)
[2017-02-16] MEDS ORDERED: PARoxetine 20 MG TAB PO SCH (09:00)
--- NOTE | 2017-02-16 09:05 | P.CRDCN ---
History of Present Illness History of present illness: Patient presenting with a viral syndrome and flulike symptoms for over a week. She's been sick for several days now. Cartilages consulted on account of chest discomfort constant worse when taking a deep breath in troponins are normal white count is normal Chest 2-D echo and Doppler study to assess pericardial space Stop heparin No evidence for acute myocardial infarction or acute coronary syndrome A full dictation by nurse practitioner Past Medical History Past Medical History: Asthma, Cancer, Heart Failure, COPD, Diabetes Mellitus, GERD/Reflux, Hyperlipidemia, Hypertension, Myocardial Infarction (non Q-wave), Osteoarthritis (OA), Renal Disease Additional Past Medical History / Comment(s): HX BLOOD IN URINE, hx leukemia, O2 AT 2L [place], SILENT [place] Last Myocardial Infarction Date:: UNKNOWN History of Any Multi-Drug Resistant Organisms: None Reported Past Surgical History: AICD, Back Surgery, Cholecystectomy, Heart Catheterization, Hernia Repair, Hysterectomy, Orthopedic Surgery, Tonsillectomy Additional Past Surgical History / Comment(s): EDD 06/25/14, JOAN cataract, bone marrow transplant, venogram-last 03/17/15, right wrist, C-5 fusion, EYE LID SX. AORTIC VALVE REPLACEMENT x2, MITRAL VALVE REPAIR, Past Anesthesia/Blood Transfusion Reactions: No Reported Reaction Additional Past Anesthesia/Blood Transfusion Reaction / Comment(s): blood-sx reaction Type of Cardiac Device: AICD Device Placement Date:: 2009-[facility]leTRONIC Past Psychological History: Anxiety, Depression Additional Psychological History / Comment(s): pt is a . Is independant. lives with her sister in a single level home that has 4 steps. no home care services recieved, has home o2,nebulizer, glucometer. Smoking Status: Never smoker Past Alcohol Use History: None Reported Past Drug Use History: None Reported - Past Family History Mother Family Medical History: Diabetes Mellitus, Myocardial Infarction ([place]) Father Family Medical History: Cancer Medications and Allergies Home Medications Medication Instructions Recorded Confirmed Type Aspirin 81 mg PO DAILY 02/10/14 02/15/17 History Lisinopril [Prinivil] 5 mg PO DAILY 02/10/14 02/15/17 History PARoxetine HCL [Paxil] 20 mg PO DAILY 02/10/14 02/15/17 History Albuterol Sulfate [Proair Hfa] 2 puff INHALATION RT-BID PRN 06/02/14 02/15/17 History Atorvastatin [Lipitor] 40 mg PO HS 06/02/14 02/15/17 History Zolpidem [Ambien] 5 mg PO HS PRN 06/02/14 02/15/17 History Famotidine [Pepcid] 40 mg PO DAILY 01/02/15 02/15/17 History Insulin Aspart [NovoLOG See Protocol SQ TID-W/MEALS PRN 01/02/15 02/15/17 History (formulary)] Insulin Glargine,Hum.rec.anlog 16 unit SQ HS 01/02/15 02/15/17 History [Lantus Solostar] Carvedilol [Coreg] 3.125 mg PO BID 03/16/15 02/15/17 History Furosemide [Lasix] 40 mg PO DAILY 03/16/15 02/15/17 History Cetirizine HCl [Zyrtec] 10 mg PO DAILY 11/12/15 02/15/17 History Albuterol Nebulized [Ventolin 2.5 mg INHALATION RT-TID PRN 03/05/16 02/15/17 History Nebulized] Tiotropium [place] [Spiriva] 1 cap INHALATION RT-DAILY 03/05/16 02/15/17 History HYDROcodone/APAP 10-325MG [[place] 1 tab PO Q6H PRN 02/15/17 02/15/17 History 10-325] Allergies Allergy/AdvReac Type Severity Reaction Status Date / Time oxytetracycline Allergy Rash/Hives Verified 02/15/17 21:20 [From Terramycin] oxytetracycline HCl Allergy Rash/Hives Verified 02/15/17 21:20 [From Terramycin] Physical Exam Vitals: Vital Signs Temp Pulse Pulse Resp BP BP Pulse Ox 02/16/17 07:41 74 02/16/17 07:31 72 02/16/17 04:00 98 F 86 18 140/80 99 02/16/17 00:00 97.6 F 92 18 173/89 99 02/15/17 22:00 18 02/15/17 21:10 97.5 F L 82 18 131/74 99 02/15/17 20:24 97 F L 83 18 129/77 98 02/15/17 18:58 97.2 F L 82 18 157/75 94 L 02/15/17 18:06 81 02/15/17 17:57 81 02/15/17 16:57 97.5 F L 90 22 174/72 98 Intake and Output 02/15/17 02/16/17 02/16/17 22:59 06:59 14:59 Intake Total 940 567.724 Balance 940 567.724 Intake: IV 240 Heparin Sod,Pork in 0.45% 240 NaCl 25,000 unit In 0.45 % NaCl 1 500ml.bag @ 12 UNITS/KG/HR 15.24 mls/hr IV .Q24H [facility] Rx#: [id number] Intake, IV Titration 77.724 Amount Heparin Sod,Pork in 0.45% 77.724 NaCl 25,000 unit In 0.45 % NaCl 1 500ml.bag @ 12 UNITS/KG/HR 15.24 mls/hr IV .Q24H [facility] Rx#: [id number] Oral 940 250 Other: Voiding Method Toilet Toilet # Voids 3 Weight 66.4 kg Results 02/16/17 05:29 02/16/17 05:29 Cardiac Enzymes 02/15/17 02/15/17 02/16/17 Range/Units 17:20 17:20 00:05 AST 35 (14-36) U/L CK-MB (CK-2) 2.6 H* 2.7 H* (0.0-2.4) ng/mL Troponin I 0.012 <0.012 (0.000-0.034) ng/mL 02/16/17 Range/Units 05:29 AST (14-36) U/L CK-MB (CK-2) 2.8 H* (0.0-2.4) ng/mL Troponin I 0.013 (0.000-0.034) ng/mL Coagulation 02/15/17 02/16/17 02/16/17 Range/Units 17:20 00:05 05:29 PT 10.3 (9.0-12.0) sec APTT 20.9 L 38.9 H 47.9 H (22.0-30.0) sec Lipids 02/16/17 Range/Units 05:29 Triglycerides 46 (<150) mg/dL Cholesterol 151 (<200) mg/dL HDL Cholesterol 81 H (40-60) mg/dL CBC 02/15/17 02/16/17 Range/Units 17:20 05:29 WBC 5.1 4.4 (3.8-10.6) k/uL RBC 3.93 3.78 L (3.80-5.40) m/uL Hgb 10.6 L 10.0 L (11.4-16.0) gm/dL Hct 34.5 32.7 L (34.0-46.0) % Plt Count 173 163 (150-450) k/uL Comprehensive Metabolic Panel 02/15/17 02/16/17 Range/Units 17:20 05:29 Sodium 139 139 (137-145) mmol/L Potassium 5.1 5.8 H (3.5-5.1) mmol/L Chloride 103 105 (98-107) mmol/L Carbon Dioxide 27 25 (22-30) mmol/L BUN 44 H 46 H (7-17) mg/dL Creatinine 1.00 0.90 (0.52-1.04) mg/dL Glucose 180 H 229 H (74-99) mg/dL Calcium 9.0 9.4 (8.4-10.2) mg/dL AST 35 (14-36) U/L ALT 50 (9-52) U/L Alkaline Phosphatase 99 (38-126) U/L Total Protein 6.9 (6.3-8.2) g/dL Albumin 3.4 L (3.5-5.0) g/dL Current Medications Generic Name Dose Route Start Last Admin Trade Name Freq PRN Reason Stop Dose Admin Hydrocodone Bitart/Acetaminophen 1 each 02/15/17 23:45 02/16/17 07:08 [place] 10 PO 1 each Q8H PRN Administration Pain Albuterol/Ipratropium 3 ml 02/15/17 22:00 02/16/17 07:31 Duoneb 0.5 Mg-3 Mg/3 Ml Soln INHALATION 3 ml RT-QID CHERIE Administration Albuterol/Ipratropium 3 ml 02/15/17 19:09 Duoneb 0.5 Mg-3 Mg/3 Ml Soln INHALATION RT-Q4H PRN Shortness Of Breath Or Wheezing Aspirin 325 mg 02/16/17 09:00 Aspirin PO DAILY [facility] Atorvastatin Calcium 40 mg 02/15/17 22:45 02/15/17 23:47 Lipitor PO 40 mg HS [facility]ERIE Administration Carvedilol 3.125 mg 02/15/17 22:45 02/15/17 23:47 Coreg PO 3.125 mg BID CHERIE Administration Famotidine 40 mg 02/16/17 09:00 Pepcid PO DAILY [facility]ERIE Furosemide 40 mg 02/16/17 09:00 Lasix PO DAILY [facility] Heparin Sodium (Porcine) 0 unit 02/15/17 19:09 Heparin IV Q6HR PRN Low PTT Protocol Heparin Sodium/Sodium Chloride 500 mls @ 15.24 mls/hr 02/15/17 19:15 01:14 25,000 unit/ Sodium Chloride IV 15 units/kg/hr .Q24H CHERIE 19.05 mls/hr Protocol Titration 12 UNITS/KG/HR Insulin Detemir 16 unit 02/15/17 22:45 02/15/17 23:47 Levemir SQ 16 unit HS [facility] Administration Lisinopril 5 mg 02/16/17 09:00 Zestril PO DAILY [facility] Loratadine 10 mg 02/16/17 09:00 Claritin PO DAILY [facility] Methylprednisolone Sodium Succinate 60 mg 02/15/17 21:00 02/16/17 03:09 Solu-Medrol IV 60 mg Q6H CHERIE Administration Miscellaneous Information 1 each 02/15/17 19:11 Rx Info: Iv Contrast Was Given MISCELLANE 02/17/17 19:11 DAILY PRN Per Protocol Nitroglycerin 1 inch 02/16/17 00:00 02/16/17 05:52 Nitro-Bid Oint TOPICAL Not Given Q6HR [facility] Nitroglycerin 0.4 mg 02/15/17 19:09 Nitrostat SUBLINGUAL Q5M PRN Chest Pain Paroxetine HCl 20 mg 02/16/17 09:00 Paxil PO DAILY [facility] Zolpidem Tartrate 5 mg 02/15/17 22:41 02/15/17 23:49 Ambien PO 5 mg HS PRN Administration Insomnia Intake and Output 02/15/17 02/16/17 02/16/17 22:59 06:59 14:59 Intake Total 940 567.724 Balance 940 567.724 Intake: IV 240 Heparin Sod,Pork in 0.45% 240 NaCl 25,000 unit In 0.45 % NaCl 1 500ml.bag @ 12 UNITS/KG/HR 15.24 mls/hr IV .Q24H [facility]ERIE Rx#: [id number] Intake, IV Titration 77.724 Amount Heparin Sod,Pork in 0.45% 77.724 NaCl 25,000 unit In 0.45 % NaCl 1 500ml.bag @ 12 UNITS/KG/HR 15.24 mls/hr IV .Q24H [facility] Rx#: [id number] Oral 940 250 Other: Voiding Method Toilet Toilet # Voids 3 Weight 66.4 kg 02/16/17 05:29 02/16/17 05:29
[2017-02-16] MEDS: CARVEDILOL 3.125 MG TAB PO SCH (09:44)
[2017-02-16 11:52] LABS: Glucose,Whole Blood 287 mg/dL (75-99)
--- NOTE | 2017-02-16 13:09 | P.CRDCN ---
History of Present Illness Consult date: 02/16/17 History of present illness: Mrs. Busby is a pleasant 66-year-old female with past medical history significant for tissue aortic valve replacement, annuloplasty of mitral valve, non-ischemic cardiomyopathy with AICD placement, systolic heart failure, diabetes mellitus, COPD, dyslipidemia, hypertension and gastroesophageal reflux disease. She follows regularly Dr. Silva as an outpatient. We have been asked to see her in consultation for complaints of chest pain. She states she has had productive cough, nausea vomiting and upset stomach for the previous week and recently her chest started to feel tight when she took a deep breath. She denies associated dizziness, palpitations, diaphoresis or syncope. At the time of my exam she is seen resting comfortably in bed wearing oxygen which she wears at home [id number]. She denies chest pain at this time. EKG on arrival reveals sinus mechanism with evidence of old anterior and lateral infarct which is consistent with previous EKGs. Chest x-ray report shows pulmonary interstitial fibrosis with no signs of heart failure or infiltrate. CTA negative for pulmonary embolism. Laboratory data reviewed, hemoglobin 10, platelets 163, potassium 5.8, BUN 46, creatinine 0.9, cardiac enzymes negative 2, LDL 61, HDL 81, triglycerides 46, total cholesterol 151. CK MB mildly elevated, which seems to be chronic. Most recent echocardiogram in the office done 11/2016 reveals moderately decreased systolic function with ejection fraction 40%, mild concentric left ventricular hypertrophy, mildly dilated left atrium, there is annuloplasty ring mitral valve prosthesis in place with mild prosthetic valvular regurgitation pain gradient 6 mmHg, as a biologic aortic valve prosthesis in place with no regurgitation present, mean gradient 12 mmHg. Review of Systems CONSTITUTIONAL: Denies fever. Denies chills. EYES: Denies blurred vision. Denies vision changes. Denies eye pain. EARS, NOSE, MOUTH & THROAT: Denies headache. Denies sore throat. Denies ear pain. CARDIOVASCULAR: Complains of chest tightness with inspiration. Complains of shortness of breath. Denies orthopnea. Denies PND. Denies palpitations. RESPIRATORY: Complains of cough. GASTROINTESTINAL: Denies abdominal pain. Denies diarrhea. Denies constipation. Denies nausea. Denies vomiting. MUSCULOSKELETAL: Denies myalgias. INTEGUMENTARY: Denies pruitis. Denies rash. NEUROLOGIC: Denies numbness. Denies tingling. Denies weakness. PSYCHIATRIC: Denies anxiety. Denies depression. ENDOCRINE: Denies fatigue. Denies weight change. Denies polydipsia. Denies polyurina. GENITOURINARY: Denies burning, hematuria or urgency with micturation. HEMATOLOGIC: Denies history of anemia. Denies bleeding. Past Medical History Past Medical History: Asthma, Cancer, Heart Failure, COPD, Diabetes Mellitus, GERD/Reflux, Hyperlipidemia, Hypertension, Myocardial Infarction (non Q-wave), Osteoarthritis (OA), Renal Disease Additional Past Medical History / Comment(s): HX BLOOD IN URINE, hx leukemia, O2 AT 2L [place], SILENT [place] Last Myocardial Infarction Date:: UNKNOWN History of Any Multi-Drug Resistant Organisms: None Reported Past Surgical History: AICD, Back Surgery, Cholecystectomy, Heart Catheterization, Hernia Repair, Hysterectomy, Orthopedic Surgery, Tonsillectomy Additional Past Surgical History / Comment(s): EDD 06/25/14, JOAN cataract, bone marrow transplant, venogram-last 03/17/15, right wrist, C-5 fusion, EYE LID SX. AORTIC VALVE REPLACEMENT x2, MITRAL VALVE REPAIR, Past Anesthesia/Blood Transfusion Reactions: No Reported Reaction Additional Past Anesthesia/Blood Transfusion Reaction / Comment(s): blood-sx reaction Type of Cardiac Device: AICD Device Placement Date:: 2009-ABB Past Psychological History: Anxiety, Depression Additional Psychological History / Comment(s): pt is a . Is independant. lives with her sister in a single level home that has 4 steps. no home care services recieved, has home o2,nebulizer, glucometer. Smoking Status: Never smoker Past Alcohol Use History: None Reported Past Drug Use History: None Reported - Past Family History Mother Family Medical History: Diabetes Mellitus, Myocardial Infarction ([place]) Father Family Medical History: Cancer Medications and Allergies Home Medications Medication Instructions Recorded Confirmed Type Aspirin 81 mg PO DAILY 02/10/14 02/15/17 History Lisinopril [Prinivil] 5 mg PO DAILY 02/10/14 02/15/17 History PARoxetine HCL [Paxil] 20 mg PO DAILY 02/10/14 02/15/17 History Albuterol Sulfate [Proair Hfa] 2 puff INHALATION RT-BID PRN 06/02/14 02/15/17 History Atorvastatin [Lipitor] 40 mg PO HS 06/02/14 02/15/17 History Zolpidem [Ambien] 5 mg PO HS PRN 06/02/14 02/15/17 History Famotidine [Pepcid] 40 mg PO DAILY 01/02/15 02/15/17 History Insulin Aspart [NovoLOG See Protocol SQ TID-W/MEALS PRN 01/02/15 02/15/17 History (formulary)] Insulin Glargine,Hum.rec.anlog 16 unit SQ HS 01/02/15 02/15/17 History [Lantus Solostar] Carvedilol [Coreg] 3.125 mg PO BID 03/16/15 02/15/17 History Furosemide [Lasix] 40 mg PO DAILY 03/16/15 02/15/17 History Cetirizine HCl [Zyrtec] 10 mg PO DAILY 11/12/15 02/15/17 History Albuterol Nebulized [Ventolin 2.5 mg INHALATION RT-TID PRN 03/05/16 02/15/17 History Nebulized] Tiotropium [place] [Spiriva] 1 cap INHALATION RT-DAILY 03/05/16 02/15/17 History HYDROcodone/APAP 10-325MG [[place] 1 tab PO Q6H PRN 02/15/17 02/15/17 History 10-325] Allergies Allergy/AdvReac Type Severity Reaction Status Date / Time oxytetracycline Allergy Rash/Hives Verified 02/15/17 21:20 [From Terramycin] oxytetracycline HCl Allergy Rash/Hives Verified 02/15/17 21:20 [From Terramycin] Physical Exam Vitals: Vital Signs Temp Pulse Pulse Pulse Resp BP BP 02/16/17 08:00 76 18 143/68 02/16/17 07:41 74 02/16/17 07:31 72 02/16/17 04:00 98 F 86 18 140/80 02/16/17 00:00 97.6 F 92 18 173/89 02/15/17 22:00 18 02/15/17 21:10 97.5 F L 82 18 131/74 02/15/17 20:24 97 F L 83 18 129/77 02/15/17 18:58 97.2 F L 82 18 157/75 02/15/17 18:06 81 02/15/17 17:57 81 01/03/18 16:57 97.5 F L 90 22 174/72 Pulse Ox 02/16/17 08:00 96 02/16/17 07:41 02/16/17 07:31 02/16/17 04:00 99 02/16/17 00:00 99 02/15/17 22:00 02/15/17 21:10 99 02/15/17 20:24 98 02/15/17 18:58 94 L 02/15/17 18:06 02/15/17 17:57 02/15/17 16:57 98 Intake and Output 02/15/17 02/16/17 02/16/17 22:59 06:59 14:59 Intake Total 940 567.724 Balance 940 567.724 Intake: IV 240 Heparin Sod,Pork in 0.45% 240 NaCl 25,000 unit In 0.45 % NaCl 1 500ml.bag @ 12 UNITS/KG/HR 15.24 mls/hr IV .Q24H [facility] Rx#: [id number] Intake, IV Titration 77.724 Amount Heparin Sod,Pork in 0.45% 77.724 NaCl 25,000 unit In 0.45 % NaCl 1 500ml.bag @ 12 UNITS/KG/HR 15.24 mls/hr IV .Q24H [facility] Rx#: [id number] Oral 940 250 Other: Voiding Method Toilet Toilet Toilet # Voids 3 Weight 66.4 kg Blood pressure 143/68 with a heart rate 76 and afebrile. GENERAL: This is a 66-year-old female in no apparent distress at the time of my examination. HEENT: Head is atraumatic, normocephalic. Pupils are equal, round. Sclerae anicteric. Conjunctivae are clear. Mucous membranes of the mouth are moist. Neck is supple. There is no jugular venous distention. No carotid bruit is heard. LUNGS: Clear to auscultation no wheezes, rales or rhonchi. No chest wall tenderness is noted on palpation or with deep breathing. Diminished air entry. HEART: Regular rate and rhythm with ejection systolic murmur at the base and the apex, no rubs or gallops. S1 and S2 heard. ABDOMEN: Soft, nontender. Bowel sounds are heard. No organomegaly noted. EXTREMITIES: 2+ peripheral pulses with no evidence of peripheral edema and no calf tenderness noted. NEUROLOGIC: Patient is awake, alert and oriented x3. Results 02/16/17 05:29 02/16/17 05:29 Cardiac Enzymes 02/15/17 02/15/17 02/16/17 Range/Units 17:20 17:20 00:05 AST 35 (14-36) U/L CK-MB (CK-2) 2.6 H* 2.7 H* (0.0-2.4) ng/mL Troponin I 0.012 <0.012 (0.000-0.034) ng/mL 02/16/17 Range/Units 05:29 AST (14-36) U/L CK-MB (CK-2) 2.8 H* (0.0-2.4) ng/mL Troponin I 0.013 (0.000-0.034) ng/mL Coagulation 02/15/17 02/16/17 02/16/17 Range/Units 17:20 00:05 05:29 PT 10.3 (9.0-12.0) sec APTT 20.9 L 38.9 H 47.9 H (22.0-30.0) sec Lipids 02/16/17 Range/Units 05:29 Triglycerides 46 (<150) mg/dL Cholesterol 151 (<200) mg/dL HDL Cholesterol 81 H (40-60) mg/dL CBC 02/15/17 02/16/17 Range/Units 17:20 05:29 WBC 5.1 4.4 (3.8-10.6) k/uL RBC 3.93 3.78 L (3.80-5.40) m/uL Hgb 10.6 L 10.0 L (11.4-16.0) gm/dL Hct 34.5 32.7 L (34.0-46.0) % Plt Count 173 163 (150-450) k/uL Comprehensive Metabolic Panel 02/15/17 02/16/17 Range/Units 17:20 05:29 Sodium 139 139 (137-145) mmol/L Potassium 5.1 5.8 H (3.5-5.1) mmol/L Chloride 103 105 (98-107) mmol/L Carbon Dioxide 27 25 (22-30) mmol/L BUN 44 H 46 H (7-17) mg/dL Creatinine 1.00 0.90 (0.52-1.04) mg/dL Glucose 180 H 229 H (74-99) mg/dL Calcium 9.0 9.4 (8.4-10.2) mg/dL AST 35 (14-36) U/L ALT 50 (9-52) U/L Alkaline Phosphatase 99 (38-126) U/L Total Protein 6.9 (6.3-8.2) g/dL Albumin 3.4 L (3.5-5.0) g/dL Current Medications Generic Name Dose Route Start Last Admin Trade Name Freq PRN Reason Stop Dose Admin Hydrocodone Bitart/Acetaminophen 1 each 02/15/17 23:45 02/16/17 07:08 [place] 10 PO 1 each Q8H PRN Administration Pain Albuterol/Ipratropium 3 ml 02/15/17 22:00 02/16/17 11:08 Duoneb 0.5 Mg-3 Mg/3 Ml Soln INHALATION Not Given RT-QID CHERIE Albuterol/Ipratropium 3 ml 02/15/17 19:09 Duoneb 0.5 Mg-3 Mg/3 Ml Soln INHALATION RT-Q4H PRN Shortness Of Breath Or Wheezing Aspirin 325 mg 02/16/17 09:00 02/16/17 09:44 Aspirin PO 325 mg DAILY [facility]ERIE Administration Atorvastatin Calcium 40 mg 02/15/17 22:45 02/15/17 23:47 Lipitor PO 40 mg HS CHERIE Administration Carvedilol 3.125 mg 02/15/17 22:45 02/16/17 09:44 Coreg PO 3.125 mg BID CHERIE Administration Famotidine 40 mg 02/16/17 09:00 02/16/17 09:44 Pepcid PO 40 mg DAILY [facility] Administration Furosemide 40 mg 02/16/17 09:00 02/16/17 09:53 Lasix PO 40 mg DAILY [facility] Administration Insulin Detemir 16 unit 02/15/17 22:45 02/15/17 23:47 Levemir SQ 16 unit HS [facility]ERIE Administration Lisinopril 5 mg 02/16/17 09:00 02/16/17 09:44 Zestril PO 5 mg DAILY [facility] Administration Loratadine 10 mg 02/16/17 09:00 02/16/17 09:53 Claritin PO 10 mg DAILY [facility] Administration Methylprednisolone Sodium Succinate 60 mg 02/15/17 21:00 02/16/17 09:45 Solu-Medrol IV 60 mg Q6H [facility]IE Administration Miscellaneous Information 1 each 02/15/17 19:11 Rx Info: Iv Contrast Was Given MISCELLANE 02/17/17 19:11 DAILY PRN Per Protocol Nitroglycerin 0.4 mg 02/15/17 19:09 Nitrostat SUBLINGUAL Q5M PRN Chest Pain Paroxetine HCl 20 mg 02/16/17 09:00 02/16/17 09:53 Paxil PO 20 mg DAILY [facility] Administration Zolpidem Tartrate 5 mg 02/15/17 22:41 02/15/17 23:49 Ambien PO 5 mg HS PRN Administration Insomnia Intake and Output 02/15/17 02/16/17 02/16/17 22:59 06:59 14:59 Intake Total 940 567.724 Balance 940 567.724 Intake: IV 240 Heparin Sod,Pork in 0.45% 240 NaCl 25,000 unit In 0.45 % NaCl 1 500ml.bag @ 12 UNITS/KG/HR 15.24 mls/hr IV .Q24H [facility] Rx#: [id number] Intake, IV Titration 77.724 Amount Heparin Sod,Pork in 0.45% 77.724 NaCl 25,000 unit In 0.45 % NaCl 1 500ml.bag @ 12 UNITS/KG/HR 15.24 mls/hr IV .Q24H [facility] Rx#: [id number] Oral 940 250 Other: Voiding Method Toilet Toilet Toilet # Voids 3 Weight 66.4 kg 02/16/17 05:29 02/16/17 05:29 Assessment and Plan Assessment: ASSESSMENT 1. Chest pain, atypical for cardiac origin. Most likely related to pulmonary pathology. 2. Nonischemic cardiomyopathy 3. Chronic systolic heart failure most recent ejection fraction 40%. She appears euvolemic at this time. 4. Hyperkalemia 5. Dilated cardiomyopathy 6. 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 Mitral valve repair 8. Diabetes mellitus 9. Dyslipidemia 10. COPD PLAN Obtain 2-D echocardiogram and Doppler study to assess cardiac structure and function especially the pericardium. Hold lisinopril might of hyperkalemia. Repeat BMP in the morning. Continue with telemetry monitoring to evaluate for arrhythmia. Nurse Practitioner note has been reviewed, I agree with a documented findings and plan of care. Patient was seen and examined.
[2017-02-16 14:36] LABS: Hemoglobin A1C 8.6 % (4.0-6.0)
[2017-02-16 16:25] VITALS: BP 156/88; PULSE 76
[2017-02-16 16:45] VITALS: RESP 16
--- NOTE | 2017-02-16 17:11 | P.CNPUL ---
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 The patient was hospitalized because of pain across her left anterior chest area. The pain was pleuritic in nature and essentially worse when she takes a deep breath. She reported a sharp pain over the anterior chest pressure when she takes a deep breath. No patient with cough and. No association with activity. No neck pain. No back pain. No radiation to the or upper or lower extremities. No fever or chills. No hemoptysis. No pleurisy. EKG shows a normal sinus rhythm. There is old anterior and lateral infarct consistent with previous ME. Chest x-ray shows no acute pulmonary abnormalities. There is some limited interstitial changes in the lung bases bilaterally. CT angios the chest shows no evidence of any pulmonary embolism. The patient's cardiac enzymes is a been negative. Her most recent echocardiogram showed a moderate to severe LV dysfunction with an ejection fraction of 40% and there is mild concentric left ventricular hypertrophy and the mitral valve ring prosthesis is in place and the patient has a by prostatic aortic valve which is also in place. The white cell count is not elevated. Renal function test is within normal limits with a normal creatinine of 0.9. Review of Systems CONSTITUTIONAL: Denies fever. Denies chills. EYES: Denies blurred vision. Denies vision changes. Denies eye pain. EARS, NOSE, MOUTH & THROAT: Denies headache. Denies sore throat. Denies ear pain. CARDIOVASCULAR: Complains of chest tightness with inspiration. Complains of shortness of breath. Denies orthopnea. Denies PND. Denies palpitations. RESPIRATORY: Complains of cough. GASTROINTESTINAL: Denies abdominal pain. Denies diarrhea. Denies constipation. Denies nausea. Denies vomiting. MUSCULOSKELETAL: Denies myalgias. INTEGUMENTARY: Denies pruitis. Denies rash. NEUROLOGIC: Denies numbness. Denies tingling. Denies weakness. PSYCHIATRIC: Denies anxiety. Denies depression. ENDOCRINE: Denies fatigue. Denies weight change. Denies polydipsia. Denies polyurina. GENITOURINARY: Denies burning, hematuria or urgency with micturation. HEMATOLOGIC: Denies history of anemia. Denies bleeding. 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, history of AICD placement, history of ischemic cardio myopathy with the most recent echocardiogram showing improvement in ejection fraction of to 40% history of MSSA bacteremia treated appropriately Last Myocardial Infarction Date:: UNKNOWN History of Any Multi-Drug Resistant Organisms: None Reported Past Surgical History: AICD, Back Surgery, Cholecystectomy, Heart Catheterization, Hernia Repair, Hysterectomy, Orthopedic Surgery, Tonsillectomy Additional Past Surgical History / Comment(s): Bilateral cataract surgery, bone marrow transplantation, C5 cervical spine fusion, aortic valve replacement and mitral valve annuloplasty, AICD placement, back surgery, cholecystectomy, cardiac catheterization, hernia repair, hysterectomy, bilateral cataract surgery , wrist surgery, venogram, EDD Past Anesthesia/Blood Transfusion Reactions: No Reported Reaction Additional Past Anesthesia/Blood Transfusion Reaction / Comment(s): blood-sx reaction Type of Cardiac Device: AICD Device Placement Date:: 2009-[employer] Past Psychological History: Anxiety, Depression Additional Psychological History / Comment(s): pt is a . Is independant. lives with her sister in a single level home that has 4 steps. no home care services recieved, has home o2,nebulizer, glucometer. Smoking Status: Never smoker Past Alcohol Use History: None Reported Past Drug Use History: None Reported - Past Family History Mother Family Medical History: Diabetes Mellitus, Myocardial Infarction (ME) Father Family Medical History: Cancer Medications and Allergies Home Medications Medication Instructions Recorded Confirmed Type Aspirin 81 mg PO DAILY 02/10/14 02/15/17 History Lisinopril [Prinivil] 5 mg PO DAILY 02/10/14 02/15/17 History PARoxetine HCL [Paxil] 20 mg PO DAILY 02/10/14 02/15/17 History Albuterol Sulfate [Proair Hfa] 2 puff INHALATION RT-BID PRN 06/02/14 02/15/17 History Atorvastatin [Lipitor] 40 mg PO HS 06/02/14 02/15/17 History Zolpidem [Ambien] 5 mg PO HS PRN 06/02/14 02/15/17 History Famotidine [Pepcid] 40 mg PO DAILY 01/02/15 02/15/17 History Insulin Aspart [NovoLOG See Protocol SQ TID-W/MEALS PRN 01/02/15 02/15/17 History (formulary)] Insulin Glargine,Hum.rec.anlog 16 unit SQ HS 01/02/15 02/15/17 History [Lantus Solostar] Carvedilol [Coreg] 3.125 mg PO BID 03/16/15 02/15/17 History Furosemide [Lasix] 40 mg PO DAILY 03/16/15 02/15/17 History Cetirizine HCl [Zyrtec] 10 mg PO DAILY 11/12/15 02/15/17 History Albuterol Nebulized [Ventolin 2.5 mg INHALATION RT-TID PRN 03/05/16 02/15/17 History Nebulized] Tiotropium [place] [Spiriva] 1 cap INHALATION RT-DAILY 03/05/16 02/15/17 History HYDROcodone/APAP 10-325MG [[place] 1 tab PO Q6H PRN 02/15/17 02/15/17 History 10-325] Levofloxacin [Levaquin] 500 mg PO DAILY #5 tab 02/16/17 Rx predniSONE 10 mg PO DIRECTED #30 tab 02/16/17 Rx Allergies Allergy/AdvReac Type Severity Reaction Status Date / Time oxytetracycline Allergy Rash/Hives Verified 02/15/17 21:20 [From Terramycin] oxytetracycline HCl Allergy Rash/Hives Verified 02/15/17 21:20 [From Terramycin] Physical Exam Vitals: Vital Signs Temp Pulse Pulse Pulse Pulse Pulse Pulse 02/16/17 16:28 76 02/16/17 16:17 76 02/16/17 16:00 97.5 F L 79 02/16/17 13:30 78 80 80 02/16/17 12:00 97.9 F 72 02/16/17 08:00 76 02/16/17 07:41 74 02/16/17 07:31 72 02/16/17 04:00 98 F 86 02/16/17 00:00 97.6 F 92 02/15/17 22:00 02/15/17 21:10 97.5 F L 82 02/15/17 20:24 97 F L 83 02/15/17 18:58 97.2 F L 82 02/15/17 18:06 81 02/15/17 17:57 81 Resp BP BP BP BP BP Pulse Ox 02/16/17 16:28 02/16/17 16:17 99 02/16/17 16:00 16 156/88 99 02/16/17 13:30 160/77 151/77 158/73 02/16/17 12:00 18 134/71 95 02/16/17 08:00 18 143/68 96 02/16/17 07:41 02/16/17 07:31 02/16/17 04:00 18 140/80 99 02/16/17 00:00 18 173/89 99 02/15/17 22:00 18 02/15/17 21:10 18 131/74 99 02/15/17 20:24 18 129/77 98 02/15/17 18:58 18 157/75 94 L 02/15/17 18:06 02/15/17 17:57 Intake and Output 02/16/17 02/16/17 02/16/17 06:59 14:59 22:59 Intake Total 567.724 360 Balance 567.724 360 Intake: IV 240 Heparin Sod,Pork in 0.45% 240 NaCl 25,000 unit In 0.45 % NaCl 1 500ml.bag @ 12 UNITS/KG/HR 15.24 mls/hr IV .Q24H CHERIE Rx#: [id number] Intake, IV Titration 77.724 Amount Heparin Sod,Pork in 0.45% 77.724 NaCl 25,000 unit In 0.45 % NaCl 1 500ml.bag @ 12 UNITS/KG/HR 15.24 mls/hr IV .Q24H CHERIE Rx#: [id number] Oral 250 360 Other: Voiding Method Toilet Toilet # Voids 3 GENERAL: This is a 66-year-old female in no apparent distress at the time of my examination. HEENT: Head is atraumatic, normocephalic. Pupils are equal, round. Sclerae anicteric. Conjunctivae are clear. Mucous membranes of the mouth are moist. Neck is supple. There is no jugular venous distention. No carotid bruit is heard. LUNGS: Clear to auscultation no wheezes, rales or rhonchi. No chest wall tenderness is noted on palpation or with deep breathing. Diminished air entry. HEART: Regular rate and rhythm with ejection systolic murmur at the base and the apex, no rubs or gallops. S1 and S2 heard. ABDOMEN: Soft, nontender. Bowel sounds are heard. No organomegaly noted. EXTREMITIES: 2+ peripheral pulses with no evidence of peripheral edema and no calf tenderness noted. NEUROLOGIC: Patient is awake, alert and oriented x3. Examination of the skin revealed no evidence of significant rashes, suspicious appearing nevi or other concerning lesions. Results - Laboratory Findings CBC and BMP: 02/16/17 05:29 02/16/17 05:29 PT/INR, D-dimer PT 10.3 sec (9.0-12.0) 02/15/17 17:20 INR 1.1 (<1.2) 02/15/17 17:20 D-Dimer 1.53 mg/L FEU (<0.60) H 02/15/17 17:20 Abnormal lab findings: Abnormal Labs 02/15/17 02/15/17 02/15/17 17:20 17:20 17:20 RBC Hgb 10.6 L Hct MCHC 30.7 L Lymphocytes # 0.8 L APTT D-Dimer Potassium BUN 44 H Glucose 180 H POC Glucose (mg/dL) Hemoglobin A1c CK-MB (CK-2) 2.6 H* Albumin 3.4 L HDL Cholesterol 02/15/17 02/15/17 02/16/17 17:20 21:02 00:05 RBC Hgb Hct MCHC Lymphocytes # APTT 20.9 L D-Dimer 1.53 H Potassium BUN Glucose POC Glucose (mg/dL) 119 H Hemoglobin A1c CK-MB (CK-2) 2.7 H* Albumin HDL Cholesterol 02/16/17 02/16/17 02/16/17 00:05 05:29 05:29 RBC 3.78 L Hgb 10.0 L Hct 32.7 L MCHC 30.5 L Lymphocytes # 0.6 L APTT 38.9 H D-Dimer Potassium BUN Glucose POC Glucose (mg/dL) Hemoglobin A1c CK-MB (CK-2) 2.8 H* Albumin HDL Cholesterol 02/16/17 02/16/17 02/16/17 05:29 05:29 05:29 RBC Hgb Hct MCHC Lymphocytes # APTT 47.9 H D-Dimer Potassium 5.8 H BUN 46 H Glucose 229 H POC Glucose (mg/dL) Hemoglobin A1c 8.6 H CK-MB (CK-2) Albumin HDL Cholesterol 81 H 02/16/17 02/16/17 06:57 11:50 RBC Hgb Hct MCHC Lymphocytes # APTT D-Dimer Potassium BUN Glucose POC Glucose (mg/dL) 203 H 287 H Hemoglobin A1c CK-MB (CK-2) Albumin HDL Cholesterol - Diagnostic Findings Chest x-ray: image reviewed CT scan - chest: image reviewed Assessment and Plan Plan: Assessment 1 acute chest pain, somewhat pleuritic in nature, most likely viral pleuritis. No evidence of pneumonia. No evidence of any pulmonary embolism. 2 COPD with a baseline FEV1 of 57% of predicted 3 coronary artery disease with previous myocardial infarction 4 nonrheumatic aortic valve stenosis with a previous aortic valve replacement and mitral valve repair/annuloplasty 5 history of ischemic cardiomyopathy 6 history of AICD placement 7 diabetes mellitus 8 hyperlipidemia 9 hypertension 10 the off hematologic malignancy/leukemia status post bone marrow transportation 11 acid reflux PLAN Patient's symptoms are noted and nonspecific. COPD is currently inactive and stable. No evidence of an acute cardiac event. Discharge the patient on a prednisone burst taper. Also to complete a course of Zithromax and the time of discharge. Follow with Dr. Morrissey. Reviewed the CAT scan of the chest. Reviewed the blood work. I discussed the case with the medical group.
[2017-02-16 17:13] LABS: Glucose,Whole Blood 346 mg/dL (75-99)
[2017-02-16] MEDS ORDERED: predniSONE 20 MG TAB PO SCH (17:15)
--- NOTE | 2017-02-17 00:15 | DS ---
DISCHARGE SUMMARY FINAL DIAGNOSES: 1. Chest pain, possibly musculoskeletal, possible pleuritic. Myocardial infarction ruled out. 2. History of chronic obstructive pulmonary disease, asthma. 3. History of congestive heart failure. 4. History of diabetes type 2. 5. Gastroesophageal reflux disease. 6. Hypertension. 7. Hyperlipidemia. CONDITION ON DISCHARGE: The patient is being discharged in stable condition with guarded prognosis. HISTORY OF PRESENT ILLNESS: This 66-year-old woman with a past history of multiple problems, followed by Dr. Reina in the outpatient setting, had myocardial infarction ruled out. The patient was treated symptomatically. Dr. Gold saw the patient. The pain is possibly secondary to pulmonary features as well as recurrent cough also. On exam, vitals are stable. Cardiovascular, S1 and S2 muffled. Breath sounds diminished at the bases. Bilateral scattered rhonchi. Abdomen soft. Nervous system, no focal deficits. DISCHARGE DIET: Cardiac. ACTIVITIES: Limited. FOLLOWUP: Follow up with Dr. Reina as advised. Follow up with Cardiology as advised. MEDICATIONS: 1. Albuterol 2.5 q.i.d. and p.r.n. 2. Aspirin 81 mg p.o. daily. 3. Lipitor 40 mg p.o. at bedtime. 4. Coreg 3.125 mg p.o. b.i.d. 5. Zyrtec 10 mg p.o. daily. 6. Pepcid 40 mg p.o. daily. 7. Lasix 40 mg. 8. [place] 10 mg every 6 hours p.r.n. 9. NovoLog scale as before. 10.Lantus 16 units subcu at bedtime. 11.Levaquin 500 mg p.o. daily for 5 days. 12.Lisinopril 5 mg p.o. daily. 13.Paxil 10 mg. 14.Prednisone taper, 40 mg daily for 3 days, 30 for 3 days, 20 for 3 days, then 10 for 3 days. 15.Spiriva 1 puff daily. 16.Ambien 5 mg at bedtime p.r.n. Once again, the patient is being discharged in stable condition with guarded prognosis. MMODL / IJN: [id number] /
--- NOTE | 2017-02-17 17:13 | ECHOF ---
Referral Reason:assess for pericarditis MEASUREMENTS -------- HEIGHT: 157.5 cm WEIGHT: 66.2 kg BP: 140/60 RVIDd: 2.3 cm (< 3.3) IVSd: 1.2 cm (0.6 - 1.1) LVIDd: 4.6 cm (3.9 - 5.3) LVPWd: 1.5 cm (0.6 - 1.1) EDV(Teich): 98 ml IVSs: 1.4 cm LVIDs: 4.0 cm LVPWs: 1.5 cm %IVS Thck: 18 % ESV(Teich): 72 ml EF(Teich): 26 % %FS: 12 % SV(Teich): 26 ml LA Diam: 4.3 cm (2.7 - 3.8) LALs A4C: 6.0 cm LAAs A4C: 23.0 cm LAESV A-L A4C: 75 ml LAESV MOD A4C: 72 ml LALs A2C: 5.8 cm LAAs A2C: 21.2 cm LAESV A-L A2C: 65 ml LAESV MOD A2C: 62 ml LAESV(A-L): 71 ml LAESV Index (A-L): 42.45 ml/m Ao Diam: 2.7 cm (2.0 - 3.7) MV EXCURSION: 15.965 mm (> 18.000) MV EF SLOPE: 37 mm/s (70 - 150) EPSS: 1.1 cm MV E Truong: 1.63 m/s MV DecT: 255 ms MV Dec Converse: 6.4 m/s MV A Truong: 1.48 m/s MV E/A Ratio: 1.10 MV PHT: 74 ms E/E': 39.77 E': 0.04 m/s MV Vmax: 2.13 m/s MV Vmean: 1.08 m/s MV maxP.41 mmHg MV meanP.91 mmHg MV VTI: 46.9 cm LVOT Vmax: 1.13 m/s LVOT maxP.13 mmHg LVOT Vmax: 1.15 m/s LVOT Vmean: 0.75 m/s LVOT maxP.27 mmHg LVOT meanP.71 mmHg LVOT Env.Ti: 309 ms LVOT VTI: 23.1 cm AV Vmax: 2.25 m/s AV maxP.24 mmHg AV Vmax: 2.34 m/s AV Vmean: 1.67 m/s AV maxP.86 mmHg AV meanP.74 mmHg AV Env.Ti: 298 ms AV VTI: 49.9 cm TR Vmax: 2.87 m/s TR maxP.85 mmHg RAP: 5.00 mmHg RVSP: 37.85 mmHg FINDINGS -------- Paced rhythm. This was a technically adequate study. The left ventricular size is normal. Left ventricular wall thickness is normal. There is mild ming bal hypokinesis of LV . Overall left ventricular systolic function is low-normal with, an EF betwee n 50 - 55 %. The right ventricle is normal in size. LA is severely dilated >40 ml/m2 The right atrial size is normal. The aortic valve was not well visualized. Peak/mean gradient across the Aortic Valve is 21.86mmHg / 12.74mmHg. Pt had TAVR procedure 2009. The peak and mean MV gradients are 18.41mmHg 5.91mmHg as measured by doppler. Cannot exclude vegeat ion on he PMVL. Pt had MV repair 2009. Mild tricuspid regurgitation present. There is mild pulmonary hypertension. The right ventricular systolic pressure, as measured by Doppler, is 37.85mmHg. Trace/mild (physiologic) pulmonic regurgitation. The aortic root size is normal. There is no pericardial effusion. CONCLUSIONS -------- 1. The left ventricular size is normal. 2. Left ventricular wall thickness is normal. 3. Overall left ventricular systolic function is low-normal with, an EF between 50 - 55 %. 4. LA is severely dilated >40 ml/m2 5. The aortic valve was not well visualized. 6. Peak/mean gradient across the Aortic Valve is 21.86mmHg / 12.74mmHg. 7. Pt had TAVR procedure 2009. 8. The peak and mean MV gradients are 18.41mmHg 5.91mmHg as measured by doppler. 9. Cannot exclude vegeation on he PMVL. 10. Pt had MV repair 2009. 11. Mild tricuspid regurgitation present. 12. There is mild pulmonary hypertension. 13. The right ventricular systolic pressure, as measured by Doppler, is 37.85mmHg. 14. Trace/mild (physiologic) pulmonic regurgitation. 15. The aortic root size is normal. 16. There is no pericardial effusion. CAPITAL EQUIPMENT SPECIALIST: Ambika Loo RDCS
== END 2017-02-16 18:50 | disposition home or self-care (01) ==
LOC: EC 16:54 → 3OBS 19:09
PROVIDERS: ADMIT Hospitalist; ATTEND Hospitalist
DX: R07.89 Other chest pain (principal); J44.9 Chronic obstructive pulmonary disease, unspecified; I50.22 Chronic systolic (congestive) heart failure; E11.9 Type 2 diabetes mellitus without complications; K21.9 Gastro-esophageal reflux disease without esophagitis; I11.0 Hypertensive heart disease with heart failure; E78.5 Hyperlipidemia, unspecified; M19.90 Unspecified osteoarthritis, unspecified site; F41.9 Anxiety disorder, unspecified; F32.9 Major depressive disorder, single episode, unspecified; J96.11 Chronic respiratory failure with hypoxia; E87.5 Hyperkalemia; I42.0 Dilated cardiomyopathy; I35.0 Nonrheumatic aortic (valve) stenosis; I25.5 Ischemic cardiomyopathy; I25.10 Atherosclerotic heart disease of native coronary artery without angina pectoris; Z95.810 Presence of automatic (implantable) cardiac defibrillator; Z99.81 Dependence on supplemental oxygen; I25.2 Old myocardial infarction; Z79.82 Long term (current) use of aspirin; Z79.899 Other long term (current) drug therapy; Z79.4 Long term (current) use of insulin; Z88.1 Allergy status to other antibiotic agents; Z85.6 Personal history of leukemia; Z95.2 Presence of prosthetic heart valve; Z82.49 Family history of ischemic heart disease and other diseases of the circulatory system; Z80.9 Family history of malignant neoplasm, unspecified; Z94.81 Bone marrow transplant status; Z98.1 Arthrodesis status; Z86.19 Personal history of other infectious and parasitic diseases
CPT/HCPCS: 99285; 96376 ×3; 96365 ×2; 96366 ×2; 96375; 36415; 94640 ×3; 94760; 93306; 85379; 83880; 80061; 80053; 80048; 82550 ×2; 82553 ×2; 83735; 84484 ×2; 85025 ×2; 85610; 85730 ×2; 87502; 83036; 71046; 71275; G0378 ×2; J1644 ×2; J2930 ×2; Q9967; J7512; 93005

== ENCOUNTER 2017-03-30 15:03 | Inpatient (IN) | payer MEDICARE, OTHER ==
[2017-03-30] MEDS ORDERED: DILTIAZEM 5 MG/ML 5 ML VIAL IVP STA (15:40)
[2017-03-30] MEDS ORDERED: DILTIAZEM 125 MG in SODIUM CHLORIDE 0.9% 100 ML IV ONE (15:40)
--- NOTE | 2017-03-30 15:43 | ED ---
General Adult HPI - General Chief complaint: Shortness of Breath Stated complaint: Palpatations Time Seen by Provider: 03/30/17 15:05 Source: patient, RN notes reviewed Mode of arrival: wheelchair Limitations: physical limitation - History of Present Illness Initial comments: This is a 66-year-old female with past medical history significant for open- heart surgery for an aortic repair. Patient comes in today stating for the last week she's been very tired and short of breath. Patient states she also has noticed slightly increased edema in her legs. Patient denies any recent fever chills or cough. Patient denies any palpitation. Patient denies any history of anemia. Patient states she has worsening symptoms with any exertion. Patient denies being lightheaded or dizzy. Patient denies any abdominal pain patient denies nausea vomiting diarrhea. - Related Data Home Medications Medication Instructions Recorded Confirmed Aspirin 81 mg PO DAILY 02/10/14 03/30/17 Lisinopril [Prinivil] 5 mg PO DAILY 02/10/14 03/30/17 PARoxetine HCL [Paxil] 20 mg PO DAILY 02/10/14 03/30/17 Albuterol Sulfate [Proair Hfa] 2 puff INHALATION RT-BID PRN 06/02/14 03/30/17 Atorvastatin [Lipitor] 40 mg PO HS 06/02/14 03/30/17 Zolpidem [Ambien] 5 mg PO HS PRN 06/02/14 03/30/17 Famotidine [Pepcid] 40 mg PO HS 01/02/15 03/30/17 Insulin Aspart [NovoLOG See Protocol SQ TID-W/MEALS PRN 01/02/15 03/30/17 (formulary)] Insulin Glargine,Hum.rec.anlog 16 unit SQ HS 01/02/15 03/30/17 [Lantus Solostar] Carvedilol [Coreg] 3.125 mg PO BID 03/16/15 03/30/17 Furosemide [Lasix] 40 mg PO DAILY 03/16/15 03/30/17 Cetirizine HCl [Zyrtec] 10 mg PO DAILY 11/12/15 03/30/17 Albuterol Nebulized [Ventolin 2.5 mg INHALATION RT-TID PRN 03/05/16 03/30/17 Nebulized] Tiotropium [place] [Spiriva] 1 cap INHALATION RT-DAILY 03/05/16 03/30/17 HYDROcodone/APAP 10-325MG [[place] 1 tab PO Q6H PRN 02/15/17 03/30/17 10-325] Allergies Allergy/AdvReac Type Severity Reaction Status Date / Time oxytetracycline Allergy Rash/Hives Verified 03/30/17 16:12 [From Terramycin] oxytetracycline HCl Allergy Rash/Hives Verified 03/30/17 16:12 [From Terramycin] Review of Systems ROS Statement: Those systems with pertinent positive or pertinent negative responses have been documented in the HPI. ROS Other: All systems not noted in ROS Statement are negative. 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, history of AICD placement, history of ischemic cardio myopathy with the most recent echocardiogram showing improvement in ejection fraction of to 40% history of MSSA bacteremia treated appropriately Last Myocardial Infarction Date:: UNKNOWN History of Any Multi-Drug Resistant Organisms: None Reported Past Surgical History: AICD, Back Surgery, Cholecystectomy, Heart Catheterization, Hernia Repair, Hysterectomy, Orthopedic Surgery, Tonsillectomy Additional Past Surgical History / Comment(s): Bilateral cataract surgery, bone marrow transplantation, C5 cervical spine fusion, aortic valve replacement and mitral valve annuloplasty, AICD placement, back surgery, cholecystectomy, cardiac catheterization, hernia repair, hysterectomy, bilateral cataract surgery , wrist surgery, venogram, EDD Past Anesthesia/Blood Transfusion Reactions: No Reported Reaction Additional Past Anesthesia/Blood Transfusion Reaction / Comment(s): blood-sx reaction Type of Cardiac Device: AICD Device Placement Date:: 2009-GLG Past Psychological History: Anxiety, Depression Smoking Status: Never smoker Past Alcohol Use History: None Reported Past Drug Use History: None Reported - Past Family History Mother Family Medical History: Diabetes Mellitus, Myocardial Infarction ([place]) Father Family Medical History: Cancer General Exam - General Exam Comments Initial Comments: GENERAL: Patient is well-developed and well-nourished. Patient is nontoxic and well- hydrated and is in mild distress. ENT: Neck is soft and supple. No significant lymphadenopathy is noted. Oropharynx is clear. Moist mucous membranes. EYES: The sclera were anicteric and conjunctiva were pink and moist. Extraocular movements were intact and pupils were equal round and reactive to light. Eyelids were unremarkable. PULMONARY: Patient has crackles bilaterally CARDIOVASCULAR: Patient is tachycardic at about 130 beats minute and is irregular ABDOMEN: Soft and nontender with normal bowel sounds. No palpable organomegaly was noted. There is no palpable pulsatile mass. SKIN: Skin is pale NEUROLOGIC: Patient is alert and oriented x3. Cranial nerves II through XII are grossly intact. Motor and sensory are also intact. Normal speech, volume and content. Symmetrical smile. MUSCULOSKELETAL: Normal extremities with adequate strength and full range of motion. Scant edema bilaterally LYMPHATICS: No significant lymphadenopathy is noted PSYCHIATRIC: Normal psychiatric evaluation. Normal interpersonal interactions appears functionally intact in deals appropriately with others. No signs of depression. No signs of anxiety. Limitations: physical limitation Course Vital Signs 03/30/17 03/30/17 03/30/17 15:05 15:31 15:37 Temperature 96.9 F L Pulse Rate 20 L 167 H Respiratory 79 H 24 26 H Rate Blood Pressure 116/74 O2 Sat by Pulse 100 95 Oximetry 03/30/17 03/30/17 15:50 16:43 Temperature Pulse Rate 152 H 111 H Respiratory 24 20 Rate Blood Pressure 123/81 128/82 O2 Sat by Pulse 100 99 Oximetry Medical Decision Making - Medical Decision Making EKG shows atrial fibrillation with rapid ventricular response at 1 34 bpm QRS 150 QT interval 348 QTC is 519. Patient's EKG shows left bundle branch block. Patient was started on Cardizem after a 5 mg Cardizem bolus. Patient's chest x-ray was consistent with some pulmonary edema. I spoke with Dr. Prado he wanted the patient admitted admitted the patient I wrote admitting orders and consult cardiology. Patient also be placed on heparin. - Lab Data Result diagrams: 03/30/17 15:15 03/30/17 15:15 Lab Results 03/30/17 03/30/17 03/30/17 Range/Units 15:15 15:15 15:15 WBC 9.1 (3.8-10.6) k/uL RBC 3.56 L (3.80-5.40) m/uL Hgb 9.8 L (11.4-16.0) gm/dL Hct 32.4 L (34.0-46.0) % MCV 90.8 (80.0-100.0) fL MCH 27.5 (25.0-35.0) pg MCHC 30.3 L (31.0-37.0) g/dL RDW 15.2 (11.5-15.5) % Plt Count 203 (150-450) k/uL Neutrophils % 71 % Lymphocytes % 19 % Monocytes % 6 % Eosinophils % 1 % Basophils % 1 % Neutrophils # 6.5 (1.3-7.7) k/uL Lymphocytes # 1.7 (1.0-4.8) k/uL Monocytes # 0.6 (0-1.0) k/uL Eosinophils # 0.1 (0-0.7) k/uL Basophils # 0.1 (0-0.2) k/uL Hypochromasia Moderate PT (9.0-12.0) sec INR (<1.2) APTT (22.0-30.0) sec Sodium 136 L (137-145) mmol/L Potassium 5.4 H (3.5-5.1) mmol/L Chloride 101 (98-107) mmol/L Carbon Dioxide 23 (22-30) mmol/L Anion Gap 12 mmol/L BUN 75 H (7-17) mg/dL Creatinine 1.42 H (0.52-1.04) mg/dL Est GFR (MDRD) Af Amer 45 (>60 ml/min/1.73 sqM) Est GFR (MDRD) Non-Af 37 (>60 ml/min/1.73 sqM) Glucose 168 H (74-99) mg/dL Calcium 9.3 (8.4-10.2) mg/dL Magnesium 2.0 (1.6-2.3) mg/dL Total Bilirubin 0.8 (0.2-1.3) mg/dL AST 70 H (14-36) U/L ALT 93 H (9-52) U/L Alkaline Phosphatase 120 (38-126) U/L Total Creatine Kinase 97 (30-135) U/L CK-MB (CK-2) 3.3 H* (0.0-2.4) ng/mL CK-MB (CK-2) Rel Index 3.4 Troponin I 0.042 H* (0.000-0.034) ng/mL NT-Pro-B Natriuret Pep pg/mL Total Protein 7.3 (6.3-8.2) g/dL Albumin 3.9 (3.5-5.0) g/dL 03/30/17 03/30/17 Range/Units 15:15 15:15 WBC (3.8-10.6) k/uL RBC (3.80-5.40) m/uL Hgb (11.4-16.0) gm/dL Hct (34.0-46.0) % MCV (80.0-100.0) fL MCH (25.0-35.0) pg MCHC (31.0-37.0) g/dL RDW (11.5-15.5) % Plt Count (150-450) k/uL Neutrophils % % Lymphocytes % % Monocytes % % Eosinophils % % Basophils % % Neutrophils # (1.3-7.7) k/uL Lymphocytes # (1.0-4.8) k/uL Monocytes # (0-1.0) k/uL Eosinophils # (0-0.7) k/uL Basophils # (0-0.2) k/uL Hypochromasia PT 10.6 (9.0-12.0) sec INR 1.1 (<1.2) APTT 22.1 (22.0-30.0) sec Sodium (137-145) mmol/L Potassium (3.5-5.1) mmol/L Chloride (98-107) mmol/L Carbon Dioxide (22-30) mmol/L Anion Gap mmol/L BUN (7-17) mg/dL Creatinine (0.52-1.04) mg/dL Est GFR (MDRD) Af Amer (>60 ml/min/1.73 sqM) Est GFR (MDRD) Non-Af (>60 ml/min/1.73 sqM) Glucose (74-99) mg/dL Calcium (8.4-10.2) mg/dL Magnesium (1.6-2.3) mg/dL Total Bilirubin (0.2-1.3) mg/dL AST (14-36) U/L ALT (9-52) U/L Alkaline Phosphatase (38-126) U/L Total Creatine Kinase (30-135) U/L CK-MB (CK-2) (0.0-2.4) ng/mL CK-MB (CK-2) Rel Index Troponin I (0.000-0.034) ng/mL NT-Pro-B Natriuret Pep 5610 pg/mL Total Protein (6.3-8.2) g/dL Albumin (3.5-5.0) g/dL Critical Care Time Critical Care Time: Yes Total Critical Care Time: 35 Disposition Clinical Impression: Atrial fibrillation with RVR, Pulmonary edema Disposition: ADMITTED IP TO THIS HOSP Referrals: Kaylee Suero MD [Primary Care Provider] - 1-2 days Time of Disposition: 17:02
[2017-03-30 15:55] LABS: Basophils # (A) 0.1 k/uL (0-0.2); Basophils % (A) 1 %; Eosinophils # (A) 0.1 k/uL (0-0.7); Eosinophils % (A) 1 %; HCT 32.4 % (34.0-46.0); HGB 9.8 gm/dL (11.4-16.0); Hypochromasia Moderate; Lymphocytes # (A) 1.7 k/uL (1.0-4.8); Lymphocytes % (A) 19 %; MCH 27.5 pg (25.0-35.0); MCHC 30.3 g/dL (31.0-37.0); MCV 90.8 fL (80.0-100.0); Mean Platelet Volume 7.7; Monocytes # (A) 0.6 k/uL (0-1.0); Monocytes % (A) 6 %; Neutrophils # (A) 6.5 k/uL (1.3-7.7); Neutrophils % (A) 71 %; Platelet Count 203 k/uL (150-450); RBC 3.56 m/uL (3.80-5.40); RDW 15.2 % (11.5-15.5); WBC 9.1 k/uL (3.8-10.6)
[2017-03-30 16:05] LABS: Albumin 3.9 g/dL (3.5-5.0); Calcium 9.3 mg/dL (8.4-10.2); Potassium 5.4 mmol/L (3.5-5.1); Total Bilirubin 0.8 mg/dL (0.2-1.3); Total Protein 7.3 g/dL (6.3-8.2)
[2017-03-30 16:09] LABS: INR 1.1 (<1.2); Partial Thromboplastin Time 22.1 sec (22.0-30.0); Prothrombin Time 10.6 sec (9.0-12.0)
--- NOTE | 2017-03-30 16:25 | XR ---
EXAMINATION TYPE: XR chest 2V DATE OF EXAM: 03/30/2017 COMPARISON: Prior chest x-ray 02/15/2017 HISTORY: Difficulty breathing, shortness of breath TECHNIQUE: Frontal and lateral views of the chest are obtained. FINDINGS: Patient is rotated. Intracardiac defibrillator leads are stable. Aortic valve prosthesis i s again noted. No evident airspace disease, pneumothorax, or sizable pleural effusion. Minimal blunti ng of the right costophrenic angle is noted Interstitium is increased. Pulmonary artery likely promin ent. Heart appears enlarged. IMPRESSION: Correlate for possible interstitial edema, interstitial lung disease, pulmonary artery h ypertension. There may be a spinal curvature.
[2017-03-30 16:42] LABS: Creatine Kinase MB 3.3 ng/mL (0.0-2.4); Troponin I 0.042 ng/mL (0.000-0.034)
[2017-03-30] MEDS ORDERED: HEPARIN SODIUM,PORCINE 5,000 UNIT/ML 1 ML VIAL IV ONE (17:03)
[2017-03-30] MEDS ORDERED: NITROGLYCERIN SL TABS 0.4 MG TAB SUBLINGUAL PRN (17:04)
[2017-03-30] MEDS: HEPARIN SOD,PORK IN 0.45% NACL 25,000 UNIT in 0.45% NACL 1 500ML.BAG IV SCH (17:23)
[2017-03-30] MEDS: INSULIN DETEMIR 100 UNIT/ML 10 ML VIAL SQ SCH (21:18)
[2017-03-30 21:19] LABS: Glucose,Whole Blood 173 mg/dL (75-99)
[2017-03-30 21:45] LABS: Creatine Kinase MB 2.8 ng/mL (0.0-2.4); Troponin I 0.045 ng/mL (0.000-0.034)
[2017-03-30 22:38] VITALS: BMI 28.4
[2017-03-30 22:57] LABS: INR 1.2 (<1.2); Partial Thromboplastin Time 53.5 sec (22.0-30.0); Prothrombin Time 11.3 sec (9.0-12.0)
--- NOTE | 2017-03-30 23:44 | P.HPIM ---
History of Present Illness H&P Date: 03/30/17 Chief Complaint: Tiredness and dizziness Patient is a 66-year-old female with a known history of coronary artery disease , CABG and aortic valve replacement and mitral valve annuloplasty, ischemic cardiomyopathy ejection fraction 40%, COPD, diabetes type 2 and other multiple medical problems was initially presented to Dr. Silva's office with complaints of tiredness and dizziness for the past 2 days. Patient was found have atrial fibrillation and was sent to the hospital. Patient denied any palpitations. Patient does have some shortness of breath. Patient was found to have rapid regular rate and was started on Cardizem drip. Patient states she also has noticed slightly increased edema in her legs. Patient denies any recent fever chills or cough. Patient denies any palpitation. Patient denies any history of anemia. Patient states she has worsening symptoms with any exertion. Patient denies being lightheaded or dizzy. Patient denies any abdominal pain patient denies nausea vomiting diarrhea. Chest x-ray showed correlate for interstitial edema. EKG showed atrial fibrillation with rapid ventricular rate. Potassium 5.4 Troponin 0.043 and 0.045 BNP 5610 Review of Systems Constitutional: Patient denies any fever or chills . Generalized weakness and tiredness Abdomen: Patient denied nausea vomiting and diarrhea and abdominal pain. Cardiovascular: Patient denies any chest pain or short of breath no palpitations. Minimal leg swelling Respiratory: patient denied any cough is from production. Mild shortness of breath Neurologic: Patient denied any numbness or tingling headache. Musculoskeletal: Patient denies any complaints of joint swelling or deformity. Skin: Negative Psychiatric: Negative Endocrine: No heat or cold intolerance. No recent weight gain. Genitourinary: No dysuria or hematuria. 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, history of AICD placement, history of ischemic cardio myopathy with the most recent echocardiogram showing improvement in ejection fraction of to 40% history of MSSA bacteremia treated appropriately Last Myocardial Infarction Date:: UNKNOWN History of Any Multi-Drug Resistant Organisms: None Reported Past Surgical History: AICD, Back Surgery, Cholecystectomy, Heart Catheterization, Hernia Repair, Hysterectomy, Orthopedic Surgery, Tonsillectomy Additional Past Surgical History / Comment(s): Bilateral cataract surgery, bone marrow transplantation, C5 cervical spine fusion, aortic valve replacement and mitral valve annuloplasty, AICD placement, back surgery, cholecystectomy, cardiac catheterization, hernia repair, hysterectomy, bilateral cataract surgery , wrist surgery, venogram, EDD Past Anesthesia/Blood Transfusion Reactions: No Reported Reaction Additional Past Anesthesia/Blood Transfusion Reaction / Comment(s): blood-sx reaction Type of Cardiac Device: AICD Device Placement Date:: 2009-CyotaTRONIC Past Psychological History: Anxiety, Depression Additional Psychological History / Comment(s): pt is a . Is independant. lives with her sister in a single level home that has 4 steps. no home care services recieved, has home o2,nebulizer, glucometer. Smoking Status: Never smoker Past Alcohol Use History: None Reported Past Drug Use History: None Reported - Past Family History Mother Family Medical History: Diabetes Mellitus, Myocardial Infarction ([place]) Father Family Medical History: Cancer Medications and Allergies Home Medications Medication Instructions Recorded Confirmed Type Aspirin 81 mg PO DAILY 02/10/14 03/30/17 History Lisinopril [Prinivil] 5 mg PO DAILY 02/10/14 03/30/17 History PARoxetine HCL [Paxil] 20 mg PO DAILY 02/10/14 03/30/17 History Albuterol Sulfate [Proair Hfa] 2 puff INHALATION RT-BID PRN 06/02/14 03/30/17 History Atorvastatin [Lipitor] 40 mg PO HS 06/02/14 03/30/17 History Zolpidem [Ambien] 5 mg PO HS PRN 06/02/14 03/30/17 History Famotidine [Pepcid] 40 mg PO HS 01/02/15 03/30/17 History Insulin Aspart [NovoLOG See Protocol SQ TID-W/MEALS PRN 01/02/15 03/30/17 History (formulary)] Insulin Glargine,Hum.rec.anlog 16 unit SQ HS 01/02/15 03/30/17 History [Lantus Solostar] Carvedilol [Coreg] 3.125 mg PO BID 03/16/15 03/30/17 History Furosemide [Lasix] 40 mg PO DAILY 03/16/15 03/30/17 History Cetirizine HCl [Zyrtec] 10 mg PO DAILY 11/12/15 03/30/17 History Albuterol Nebulized [Ventolin 2.5 mg INHALATION RT-TID PRN 03/05/16 03/30/17 History Nebulized] Tiotropium [place] [Spiriva] 1 cap INHALATION RT-DAILY 03/05/16 03/30/17 History HYDROcodone/APAP 10-325MG [[place] 1 tab PO Q6H PRN 02/15/17 03/30/17 History 10-325] Allergies Allergy/AdvReac Type Severity Reaction Status Date / Time oxytetracycline Allergy Rash/Hives Verified 03/30/17 16:12 [From Terramycin] oxytetracycline HCl Allergy Rash/Hives Verified 03/30/17 16:12 [From Terramycin] Physical Exam Vitals: Vital Signs Temp Pulse Pulse Resp BP BP Pulse Ox 03/30/17 22:10 97.8 F 117 H 18 123/75 96 03/30/17 20:28 121 H 20 126/85 99 03/30/17 19:17 98.0 F 111 H 18 101/75 98 03/30/17 18:05 108 H 20 137/75 98 03/30/17 16:43 111 H 20 128/82 99 03/30/17 15:50 152 H 24 123/81 100 03/30/17 15:37 26 H 03/30/17 15:31 167 H 24 116/74 95 03/30/17 15:05 96.9 F L 20 L 79 H 100 Intake and Output 03/30/17 03/30/17 03/30/17 06:59 14:59 22:59 Other: Weight 70.6 kg Patient Weight 03/31/17 06:59 Weight 70.6 kg PHYSICAL EXAMINATION: Patient is lying in the bed comfortably, no acute distress, awake alert and oriented.. HEENT: Normocephalic. Neck is supple. Pupils reactive. Nostrils clear. Oral cavity is moist. Ears reveal no drainage. Neck reveals no JVD, carotid bruits, or thyromegaly. CHEST EXAMINATION: Trachea is central. Symmetrical expansion. Bilateral basilar crackles positive. No wheezing CARDIAC: Normal S1, S2 with no gallops. Positive murmur. Irregularly irregular rhythm ABDOMEN: Soft. Bowel sounds normal. No organomegaly. No abdominal bruits. Extremities: Trace edema. No clubbing or cyanosis Neurologically awake, alert, oriented x3 with well-coordinated movements. No focal deficits noted Skin: No rash or skin lesions. Psychiatric: Coperative. Nonsuicidal Musculoskeletal: No joint swelling or deformity. Normal range of motion. Results CBC & Chem 7: 03/30/17 15:15 03/30/17 15:15 Labs: Abnormal Lab Results - Last 24 Hours (Table) 03/30/17 03/30/17 03/30/17 Range/Units 15:15 15:15 15:15 RBC 3.56 L (3.80-5.40) m/uL Hgb 9.8 L (11.4-16.0) gm/dL Hct 32.4 L (34.0-46.0) % MCHC 30.3 L (31.0-37.0) g/dL Sodium 136 L (137-145) mmol/L Potassium 5.4 H (3.5-5.1) mmol/L BUN 75 H (7-17) mg/dL Creatinine 1.42 H (0.52-1.04) mg/dL Glucose 168 H (74-99) mg/dL POC Glucose (mg/dL) (75-99) mg/dL AST 70 H (14-36) U/L ALT 93 H (9-52) U/L CK-MB (CK-2) 3.3 H* (0.0-2.4) ng/mL Troponin I 0.042 H* (0.000-0.034) ng/mL 03/30/17 03/30/17 Range/Units 20:52 21:17 RBC (3.80-5.40) m/uL Hgb (11.4-16.0) gm/dL Hct (34.0-46.0) % MCHC (31.0-37.0) g/dL Sodium (137-145) mmol/L Potassium (3.5-5.1) mmol/L BUN (7-17) mg/dL Creatinine (0.52-1.04) mg/dL Glucose (74-99) mg/dL POC Glucose (mg/dL) 173 H (75-99) mg/dL AST (14-36) U/L ALT (9-52) U/L CK-MB (CK-2) 2.8 H* (0.0-2.4) ng/mL Troponin I 0.045 H* (0.000-0.034) ng/mL Thrombosis Risk Factor Assmnt - Choose All That Apply Any of the Below Risk Factors Present?: Yes Each Factor Represents 1 point: Abnormal pulmonary function (COPD), Obesity ( BMI >25), Swollen legs (current) Other Risk Factors: Yes Each Risk Factor Represents 2 Points: Age 61-74 years Other congenital or acquired thrombophilia - If yes, enter type in comment: No Thrombosis Risk Factor Assessment Total Risk Factor Score: 5 Thrombosis Risk Factor Assessment Level: High Risk Assessment and Plan Assessment: New onset atrial fibrillation with rapid ventricular rate Acute on chronic CHF with systolic dysfunction with elevated BNP and interstitial pulmonary edema Mild hyperkalemia Acute kidney injury creatinine 1.42 Normocytic anemia Ischemic cardio myopathy ejection fraction 40%. Status post AICD placement History of aortic valve replacement and mitral valve annular repair. 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 Continue the telemetry monitoring. Currently patient symptomatically improved. Continue with home medications including breathing treatments and follow closely. Cardiology was consulted. Further recommendations based on the clinical course. Patient was started back on aspirin statins, Coreg and lisinopril. As well as Lasix 40 mg daily. Prognosis is guarded with multiple medical problems and comorbid conditions. Time with Patient: Greater than 30
[2017-03-31] MEDS: HYDROcodone/APAP 10-325MG 1 EACH TAB PO PRN ×4 (00:51→23:46)
[2017-03-31] MEDS: CARVEDILOL 3.125 MG TAB PO SCH ×2 (00:52→10:21)
[2017-03-31] MEDS: FAMOTIDINE 20 MG TAB PO SCH ×2 (00:52→21:39)
[2017-03-31] MEDS: ZOLPIDEM 5 MG TAB PO PRN ×2 (00:52→21:49)
[2017-03-31 04:40] LABS: Creatine Kinase MB 2.6 ng/mL (0.0-2.4); Troponin I 0.035 ng/mL (0.000-0.034)
[2017-03-31 04:46] LABS: Cholesterol 159 mg/dL (<200); HDL Cholesterol 84 mg/dL (40-60); LDL Cholesterol,Calculated 59 mg/dL (0-99); Triglycerides 78 mg/dL (<150)
[2017-03-31] MEDS: ALBUTEROL NEBULIZED 2.5 MG/3 ML INHALATION PRN ×2 (05:17→16:15)
[2017-03-31 06:05] LABS: Glucose,Whole Blood 58 mg/dL (75-99)
[2017-03-31] MEDS: INSULIN ASPART 100 UNIT/ML 1 ML 10 ML VIAL SQ SCH ×4 (06:06→21:47)
[2017-03-31 06:15] LABS: Glucose,Whole Blood 54 mg/dL (75-99)
[2017-03-31 06:48] LABS: Glucose,Whole Blood 93 mg/dL (75-99)
[2017-03-31] MEDS ORDERED: CARVEDILOL 3.125 MG TAB PO SCH (09:00)
[2017-03-31] MEDS ORDERED: FUROSEMIDE 40 MG TAB PO SCH (09:00)
[2017-03-31] MEDS ORDERED: ASPIRIN 325 MG TAB PO SCH (09:00)
[2017-03-31] MEDS: PARoxetine 20 MG TAB PO SCH (10:22)
[2017-03-31] MEDS: ASPIRIN 81 MG PO SCH (10:24)
--- NOTE | 2017-03-31 11:20 | P.CRDCN ---
History of Present Illness Consult date: 03/31/17 Requesting physician: Tess Christine Reason for Consult (text): New onset AF w/RVR Chief complaint: shortness of breath and fatigue History of present illness: Mrs. Busby is a pleasant 66-year-old female patient who follows with Dr. Silva in the office. She has a past medical history significant for a tissue aortic valve replacement, annuloplasty of mitral valve, nonischemic cardiomyopathy with AICD placement, chronic systolic heart failure, stage COPD, oxygen dependent, diabetes, dyslipidemia, hypertension and GERD. She has a history of gross hematuria in 2016 at which time she was evaluated by urologist. She presented to the emergency department with complaints of worsening dyspnea on exertion, abdominal distention, fatigue and an 18 pound weight gain over the last 3 weeks. Chest x-ray on admission showed possible interstitial edema, interstitial lung disease, pulmonary artery hypertension. EKG shows atrial fibrillation with rapid ventricular response. Laboratory values were reviewed, hemoglobin 9.8, sodium 136, potassium 5.4, BUN 75, creatinine 1.42, minimally elevated troponins at 0.042, 0.045 and 0.038 and an NT proBNP of 5610. Most recent echocardiogram from last month showed overall left ventricular systolic function to be low normal with an ejection fraction between 50-55%, mild global hypokinesis of the LV, peak/mean gradient across the aortic valve 21.86 mmHg/12.74mmHg, peak/mean MV gradients 18.41mmHg/ 5.91mmHg. She's been initiated on Cardizem drip going at 5 mg an hour, remains in atrial fibrillation with a heart rate in the 80s. She's also on a heparin drip. Upon examination, patient is resting comfortably in bed. Continues to complain of dyspnea on exertion and fatigue but these are both somewhat improved. Complains of only minimal lower extremity edema mostly notices abdominal distention. She denies recent episodes of bleeding, no recent hematuria. She's had no complaints of chest discomfort. She had no dizziness, lightheadedness or syncope. 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, history of AICD placement, history of ischemic cardio myopathy with the most recent echocardiogram showing improvement in ejection fraction of to 40% history of MSSA bacteremia treated appropriately Last Myocardial Infarction Date:: UNKNOWN History of Any Multi-Drug Resistant Organisms: None Reported Past Surgical History: AICD, Back Surgery, Cholecystectomy, Heart Catheterization, Hernia Repair, Hysterectomy, Orthopedic Surgery, Tonsillectomy Additional Past Surgical History / Comment(s): Bilateral cataract surgery, bone marrow transplantation, C5 cervical spine fusion, aortic valve replacement and mitral valve annuloplasty, AICD placement, back surgery, cholecystectomy, cardiac catheterization, hernia repair, hysterectomy, bilateral cataract surgery , wrist surgery, venogram, EDD Past Anesthesia/Blood Transfusion Reactions: No Reported Reaction Additional Past Anesthesia/Blood Transfusion Reaction / Comment(s): blood-sx reaction Type of Cardiac Device: AICD Device Placement Date:: 2009-[employer] Past Psychological History: Anxiety, Depression Additional Psychological History / Comment(s): pt is a . Is independant. lives with her sister in a single level home that has 4 steps. no home care services recieved, has home o2,nebulizer, glucometer. Smoking Status: Never smoker Past Alcohol Use History: None Reported Past Drug Use History: None Reported - Past Family History Mother Family Medical History: Diabetes Mellitus, Myocardial Infarction ([place]) Father Family Medical History: Cancer Medications and Allergies Home Medications Medication Instructions Recorded Confirmed Type Aspirin 81 mg PO DAILY 02/10/14 03/30/17 History Lisinopril [Prinivil] 5 mg PO DAILY 02/10/14 03/30/17 History PARoxetine HCL [Paxil] 20 mg PO DAILY 02/10/14 03/30/17 History Albuterol Sulfate [Proair Hfa] 2 puff INHALATION RT-BID PRN 06/02/14 03/30/17 History Atorvastatin [Lipitor] 40 mg PO HS 06/02/14 03/30/17 History Zolpidem [Ambien] 5 mg PO HS PRN 06/02/14 03/30/17 History Famotidine [Pepcid] 40 mg PO HS 01/02/15 03/30/17 History Insulin Aspart [NovoLOG See Protocol SQ TID-W/MEALS PRN 01/02/15 03/30/17 History (formulary)] Insulin Glargine,Hum.rec.anlog 16 unit SQ HS 01/02/15 03/30/17 History [Lantus Solostar] Carvedilol [Coreg] 3.125 mg PO BID 03/16/15 03/30/17 History Furosemide [Lasix] 40 mg PO DAILY 03/16/15 03/30/17 History Cetirizine HCl [Zyrtec] 10 mg PO DAILY 11/12/15 03/30/17 History Albuterol Nebulized [Ventolin 2.5 mg INHALATION RT-TID PRN 03/05/16 03/30/17 History Nebulized] Tiotropium Silex [Spiriva] 1 cap INHALATION RT-DAILY 03/05/16 03/30/17 History HYDROcodone/APAP 10-325MG [[place] 1 tab PO Q6H PRN 02/15/17 03/30/17 History 10-325] Allergies Allergy/AdvReac Type Severity Reaction Status Date / Time oxytetracycline Allergy Rash/Hives Verified 03/30/17 16:12 [From Terramycin] oxytetracycline HCl Allergy Rash/Hives Verified 03/30/17 16:12 [From Terramycin] Physical Exam Vitals: Vital Signs Temp Pulse Pulse Resp BP BP Pulse Ox 03/31/17 05:40 86 03/31/17 05:17 86 03/31/17 03:53 97.1 F L 86 16 117/77 100 03/30/17 22:10 97.8 F 117 H 18 123/75 96 03/30/17 20:28 121 H 20 126/85 99 03/30/17 19:17 98.0 F 111 H 18 101/75 98 03/30/17 18:05 108 H 20 137/75 98 03/30/17 16:43 111 H 20 128/82 99 03/30/17 15:50 152 H 24 123/81 100 03/30/17 15:37 26 H 03/30/17 15:31 167 H 24 116/74 95 03/30/17 15:05 96.9 F L 20 L 79 H 100 Intake and Output 03/30/17 03/31/17 03/31/17 22:59 06:59 14:59 Intake Total 5 15 Balance 5 15 Intake: Intake, IV Titration 5 15 Amount Diltiazem 125 mg In 5 15 Sodium Chloride 0.9% 100 ml @ 5 MG/HR 5 mls/hr IV .Q24H ONE Rx#:[id number] Other: # Voids 1 Weight 70.6 kg 70.6 kg PHYSICAL EXAMINATION: HEENT: Head is atraumatic, normocephalic. Pupils equal, round. Neck is supple. There is no elevated jugular venous pressure. HEART EXAMINATION: Heart sounds irregularly irregular, S1 and S2 with a systolic murmur. CHEST EXAMINATION: Lungs reveal diminished air entry bilaterally with crackles at bilateral bases. No chest wall tenderness is noted on palpation or with deep breathing. ABDOMEN: Soft, nontender. Bowel sounds are heard. No organomegaly noted. EXTREMITIES: 2+ peripheral pulses with no evidence of peripheral edema and no calf tenderness noted. NEUROLOGIC patient is awake, alert and oriented x3. . Results 03/30/17 15:15 03/30/17 15:15 Cardiac Enzymes 03/30/17 03/30/17 03/30/17 Range/Units 15:15 15:15 20:52 AST 70 H (14-36) U/L CK-MB (CK-2) 3.3 H* 2.8 H* (0.0-2.4) ng/mL Troponin I 0.042 H* 0.045 H* (0.000-0.034) ng/mL 03/31/17 Range/Units 03:45 AST (14-36) U/L CK-MB (CK-2) 2.6 H* (0.0-2.4) ng/mL Troponin I 0.035 H* (0.000-0.034) ng/mL Coagulation 03/30/17 03/30/17 03/31/17 Range/Units 15:15 22:18 03:45 PT 10.6 11.3 (9.0-12.0) sec APTT 22.1 53.5 H 48.4 H (22.0-30.0) sec Lipids 03/31/17 Range/Units 03:45 Triglycerides 78 (<150) mg/dL Cholesterol 159 (<200) mg/dL HDL Cholesterol 84 H (40-60) mg/dL CBC 03/30/17 Range/Units 15:15 WBC 9.1 (3.8-10.6) k/uL RBC 3.56 L (3.80-5.40) m/uL Hgb 9.8 L (11.4-16.0) gm/dL Hct 32.4 L (34.0-46.0) % Plt Count 203 (150-450) k/uL Comprehensive Metabolic Panel 03/30/17 Range/Units 15:15 Sodium 136 L (137-145) mmol/L Potassium 5.4 H (3.5-5.1) mmol/L Chloride 101 (98-107) mmol/L Carbon Dioxide 23 (22-30) mmol/L BUN 75 H (7-17) mg/dL Creatinine 1.42 H (0.52-1.04) mg/dL Glucose 168 H (74-99) mg/dL Calcium 9.3 (8.4-10.2) mg/dL AST 70 H (14-36) U/L ALT 93 H (9-52) U/L Alkaline Phosphatase 120 (38-126) U/L Total Protein 7.3 (6.3-8.2) g/dL Albumin 3.9 (3.5-5.0) g/dL Current Medications Generic Name Dose Route Start Last Admin Trade Name Freq PRN Reason Stop Dose Admin Hydrocodone Bitart/Acetaminophen 1 each 03/30/17 23:47 03/31/17 00:51 [place] 10 PO 1 each Q6H PRN Administration Pain Albuterol Sulfate 2.5 mg 03/30/17 23:36 03/31/17 05:17 Ventolin Nebulized INHALATION 2.5 mg RT-TID PRN Administration Shortness Of Breath Aspirin 325 mg 03/31/17 09:00 Aspirin PO DAILY [facility] Atorvastatin Calcium 40 mg 03/31/17 21:00 Lipitor PO HS [facility] Carvedilol 3.125 mg 03/30/17 23:45 03/31/17 00:52 Coreg PO 3.125 mg BID [facility] Administration Famotidine 40 mg 03/30/17 23:45 03/31/17 00:52 Pepcid PO 40 mg HS [facility] Administration Furosemide 40 mg 03/31/17 09:00 Lasix PO DAILY [facility] Diltiazem HCl 125 mg/ Sodium 125 mls @ 5 mls/hr 03/30/17 15:40 03/30/17 15:54 Chloride IV 03/31/17 15:39 5 mg/hr .Q24H ONE 5 mls/hr 5 MG/HR Administration Heparin Sodium/Sodium Chloride 500 mls @ 17.2 mls/hr 03/30/17 17:15 03/30/17 17:23 25,000 unit/ Sodium Chloride IV 12 units/kg/hr .Q24H [facility] 17.2 mls/hr Protocol Administration 12 UNITS/KG/HR Insulin Aspart 0 unit 03/31/17 07:30 03/31/17 06:06 Novolog SQ Not Given ACHS [facility] Protocol Insulin Detemir 16 unit 03/30/17 21:00 03/30/17 21:18 Levemir SQ 16 unit HS [facility] Administration Lisinopril 5 mg 03/31/17 09:00 Zestril PO DAILY [facility] Nitroglycerin 0.4 mg 03/30/17 17:04 Nitrostat SUBLINGUAL Q5M PRN Chest Pain Paroxetine HCl 20 mg 03/31/17 09:00 Paxil PO DAILY [facility] Zolpidem Tartrate 5 mg 03/30/17 17:05 03/31/17 00:52 Ambien PO 5 mg HS PRN Administration Insomnia Intake and Output 03/30/17 03/31/17 03/31/17 22:59 06:59 14:59 Intake Total 5 15 Balance 5 15 Intake: Intake, IV Titration 5 15 Amount Diltiazem 125 mg In 5 15 Sodium Chloride 0.9% 100 ml @ 5 MG/HR 5 mls/hr IV .Q24H [facility] Rx#:[id number] Other: # Voids 1 Weight 70.6 kg 70.6 kg 03/30/17 15:15 03/30/17 15:15 EKG Interpretations (text) Atrial fibrillation with rapid ventricular response Assessment and Plan Assessment: #1 new onset atrial fibrillation with rapid ventricular response, likely persistent #2 acute on chronic systolic congestive heart failure #3 nonischemic cardiomyopathy, status post AICD #4 COPD, oxygen dependent #5 history of aortic valve replacement and annuloplasty of the mitral valve #6 diabetes #7 mild troponin leak likely secondary to oxygen supply and demand mismatch related to tachycardia Plan: From cardiology perspective, we will stop by mouth Lasix and start the patient on IV Lasix 40 mg every 12 hours. We will switch carvedilol to metoprolol tartrate 25 mg by mouth 3 times a day. We will repeat chest x-ray in the morning. We will continue to monitor renal function and electrolytes as well as daily weights and intake and output. We'll continue to follow the patient and provide further recommendations accordingly. [employer] note has been reviewed, I agree with a documented findings and plan of care. Patient was seen and examined.
[2017-03-31 12:21] LABS: Glucose,Whole Blood 104 mg/dL (75-99)
[2017-03-31] MEDS: LISINOPRIL 5 MG TAB PO SCH (12:37)
[2017-03-31] MEDS: METOPROLOL TARTRATE 25 MG TAB PO SCH ×2 (16:37→21:40)
[2017-03-31 16:46] LABS: Glucose,Whole Blood 125 mg/dL (75-99)
[2017-03-31] MEDS: HEPARIN SOD,PORK IN 0.45% NACL 25,000 UNIT in 0.45% NACL 1 500ML.BAG IV SCH (18:09)
[2017-03-31 20:49] LABS: Glucose,Whole Blood 183 mg/dL (75-99)
[2017-03-31] MEDS ORDERED: FAMOTIDINE 20 MG TAB PO SCH (21:00)
[2017-03-31] MEDS: FUROSEMIDE 10 MG/ML 4 ML VIAL IV SCH (21:40)
[2017-03-31] MEDS: ATORVASTATIN 40 MG TAB PO SCH (21:40)
[2017-03-31] MEDS: INSULIN DETEMIR 100 UNIT/ML 10 ML VIAL SQ SCH (21:40)
[2017-04-01 06:11] LABS: Glucose,Whole Blood 122 mg/dL (75-99)
[2017-04-01] MEDS: INSULIN ASPART 100 UNIT/ML 1 ML 10 ML VIAL SQ SCH ×4 (06:14→21:20)
[2017-04-01 06:37] LABS: Calcium 8.7 mg/dL (8.4-10.2)
--- NOTE | 2017-04-01 07:11 | XR ---
EXAMINATION TYPE: XR chest 2V DATE OF EXAM: 04/01/2017 HISTORY: follow-up CHF. REFERENCE: Previous study dated 03/30/2017. FINDINGS: There is a multilead pacing device present on the left. The heart is enlarged. There is worsening right basilar atelectasis. There is blunting of the right C P angle. I could not exclude a small right effusion. IMPRESSION: 1. CARDIOMEGALY. 2. WORSENING RIGHT BASILAR ATELECTASIS. 3. I CANNOT EXCLUDE A SMALL, RIGHT PLEURAL EFFUSION.
[2017-04-01] MEDS: METOPROLOL TARTRATE 25 MG TAB PO SCH ×3 (07:32→21:21)
[2017-04-01] MEDS: PARoxetine 20 MG TAB PO SCH (07:32)
[2017-04-01] MEDS: ASPIRIN 81 MG PO SCH (07:32)
[2017-04-01] MEDS: FUROSEMIDE 10 MG/ML 4 ML VIAL IV SCH ×2 (07:32→21:20)
[2017-04-01] MEDS: LISINOPRIL 5 MG TAB PO SCH (07:38)
[2017-04-01] MEDS: ALBUTEROL NEBULIZED 2.5 MG/3 ML INHALATION PRN (08:31)
[2017-04-01 11:39] LABS: Glucose,Whole Blood 182 mg/dL (75-99)
--- NOTE | 2017-04-01 12:39 | P.PN ---
Subjective Progress Note Date: 04/01/17 Mrs. Busby is a pleasant 66-year-old female patient who follows with Dr. Silva in the office. She has a past medical history significant for a tissue aortic valve replacement, annuloplasty of mitral valve, nonischemic cardiomyopathy with AICD placement, chronic systolic heart failure, stage COPD, oxygen dependent, diabetes, dyslipidemia, hypertension and GERD. She has a history of gross hematuria in 2016 at which time she was evaluated by urologist. She presented to the emergency department with complaints of worsening dyspnea on exertion, abdominal distention, fatigue and an 18 pound weight gain over the last 3 weeks. Chest x-ray on admission showed possible interstitial edema, interstitial lung disease, pulmonary artery hypertension. EKG shows atrial fibrillation with rapid ventricular response. Laboratory values were reviewed, hemoglobin 9.8, sodium 136, potassium 5.4, BUN 75, creatinine 1.42, minimally elevated troponins at 0.042, 0.045 and 0.038 and an NT proBNP of 5610. Most recent echocardiogram from last month showed overall left ventricular systolic function to be low normal with an ejection fraction between 50-55%, mild global hypokinesis of the LV, peak/mean gradient across the aortic valve 21.86 mmHg/12.74mmHg, peak/mean MV gradients 18.41mmHg/ 5.91mmHg. She's been initiated on Cardizem drip going at 5 mg an hour, remains in atrial fibrillation with a heart rate in the 80s. She's also on a heparin drip. Upon examination, patient is resting comfortably in bed. Continues to complain of dyspnea on exertion and fatigue but these are both somewhat improved. Complains of only minimal lower extremity edema mostly notices abdominal distention. She denies recent episodes of bleeding, no recent hematuria. She's had no complaints of chest discomfort. She had no dizziness, lightheadedness or syncope. 04/01/2017 Patient was seen and examined this morning, continues to have a cough, productive. Blood pressure 94/60 with a heart rate in the 90s. 94% on 2 L of oxygen. Patient continues to be in atrial fibrillation, we will initiate Coumadin today giving her 5 mg today. Objective - Vital Signs Vital signs: Vital Signs Temp 97 F L 04/01/17 11:23 Pulse 112 H 04/01/17 11:23 Resp 18 04/01/17 11:23 BP 94/66 04/01/17 11:23 Pulse Ox 94 L 04/01/17 11:23 Intake & Output 03/31/17 04/01/17 04/01/17 18:59 06:59 18:59 Intake Total 898.987 920.8 Balance 898.987 920.8 Weight 72.3 kg Intake: IV 560.8 0.9 320 Heparin Sod,Pork in 0.45% 240.8 NaCl 25,000 unit In 0.45 % NaCl 1 500ml.bag @ 12 UNITS/KG/HR 17.2 mls/hr IV .Q24H [facility] Rx#: [id number] Intake, IV Titration 425.987 Amount Heparin Sod,Pork in 0.45% 425.987 NaCl 25,000 unit In 0.45 % NaCl 1 500ml.bag @ 12 UNITS/KG/HR 17.2 mls/hr IV .Q24H [facility] Rx#: [id number] Oral 473 360 Other: Voiding Method Toilet Toilet # Voids 1 2 - Exam PHYSICAL EXAMINATION: HEENT: Head is atraumatic, normocephalic. Pupils equal, round. Neck is supple. There is no elevated jugular venous pressure. HEART EXAMINATION: Heart sounds irregularly irregular, S1 and S2 with a systolic murmur. CHEST EXAMINATION: Lungs reveal diminished air entry bilaterally with crackles at bilateral bases. No chest wall tenderness is noted on palpation or with deep breathing. ABDOMEN: Soft, nontender. Bowel sounds are heard. No organomegaly noted. EXTREMITIES: 2+ peripheral pulses with no evidence of peripheral edema and no calf tenderness noted. NEUROLOGIC patient is awake, alert and oriented x3. - Labs CBC & Chem 7: 03/30/17 15:15 04/01/17 05:47 Labs: Abnormal Lab Results - Last 24 Hours (Table) 03/31/17 03/31/17 04/01/17 Range/Units 16:43 20:47 05:47 APTT 54.0 H (22.0-30.0) sec Sodium (137-145) mmol/L Carbon Dioxide (22-30) mmol/L BUN (7-17) mg/dL Creatinine (0.52-1.04) mg/dL Glucose (74-99) mg/dL POC Glucose (mg/dL) 125 H 183 H (75-99) mg/dL 04/01/17 04/01/17 04/01/17 Range/Units 05:47 06:06 11:37 APTT (22.0-30.0) sec Sodium 134 L (137-145) mmol/L Carbon Dioxide 21 L (22-30) mmol/L BUN 74 H (7-17) mg/dL Creatinine 1.30 H (0.52-1.04) mg/dL Glucose 117 H (74-99) mg/dL POC Glucose (mg/dL) 122 H 182 H (75-99) mg/dL Assessment and Plan Plan: Assessment and Plan Assessment: #1 new onset atrial fibrillation with rapid ventricular response, likely persistent #2 acute on chronic systolic congestive heart failure #3 nonischemic cardiomyopathy, status post AICD #4 COPD, oxygen dependent #5 history of aortic valve replacement and annuloplasty of the mitral valve #6 diabetes #7 mild troponin leak likely secondary to oxygen supply and demand mismatch related to tachycardia plan We will start the patient on Coumadin today, giving her a dose of 5 mg a. We will check daily PT/INRs. DNP note has been reviewed, I agree with a documented findings and plan of care. Patient was seen and examined.
[2017-04-01 16:52] LABS: Glucose,Whole Blood 104 mg/dL (75-99)
[2017-04-01] MEDS: HEPARIN SOD,PORK IN 0.45% NACL 25,000 UNIT in 0.45% NACL 1 500ML.BAG IV SCH ×2 (17:00→22:37)
[2017-04-01] MEDS: HYDROcodone/APAP 10-325MG 1 EACH TAB PO PRN ×2 (17:04→22:37)
[2017-04-01 20:54] LABS: Glucose,Whole Blood 172 mg/dL (75-99)
[2017-04-01] MEDS: FAMOTIDINE 20 MG TAB PO SCH (21:20)
[2017-04-01] MEDS: ATORVASTATIN 40 MG TAB PO SCH (21:20)
[2017-04-01] MEDS: INSULIN DETEMIR 100 UNIT/ML 10 ML VIAL SQ SCH (21:24)
--- NOTE | 2017-04-01 22:55 | P.PN ---
Subjective Progress Note Date: 03/31/17 Principal diagnosis: New onset atrial fibrillation Patient is a 66-year-old female with a known history of coronary artery disease , CABG and aortic valve replacement and mitral valve annuloplasty, ischemic cardiomyopathy ejection fraction 40%, COPD, diabetes type 2 and other multiple medical problems was initially presented to Dr. Silva's office with complaints of tiredness and dizziness for the past 2 days. Patient was found have atrial fibrillation and was sent to the hospital. Patient denied any palpitations. Patient does have some shortness of breath. Patient was found to have rapid regular rate and was started on Cardizem drip. Patient states she also has noticed slightly increased edema in her legs. Patient denies any recent fever chills or cough. Patient denies any palpitation. Patient denies any history of anemia. Patient states she has worsening symptoms with any exertion. Patient denies being lightheaded or dizzy. Patient denies any abdominal pain patient denies nausea vomiting diarrhea. Chest x-ray showed correlate for interstitial edema. EKG showed atrial fibrillation with rapid ventricular rate. Potassium 5.4 Troponin 0.043 and 0.045 BNP 5610 03/31/2017 Patient currently is on Cardizem drip. Symptomatically improved still having dizziness and tiredness. Continued on heparin drip. Patient was started on IV Lasix. no complaints of chest pain no worsening shortness of breath. All other review of systems negative except the above .current medications reviewed Objective - Vital Signs Vital signs: Vital Signs Temp 96.9 F L 03/31/17 16:15 Pulse 88 03/31/17 16:28 Resp 18 03/31/17 16:15 BP 108/69 03/31/17 16:15 Pulse Ox 99 03/31/17 16:15 Intake & Output 03/31/17 03/31/17 04/01/17 06:59 18:59 06:59 Intake Total 20 898.987 Balance 20 898.987 Weight 70.6 kg Intake: Intake, IV Titration 20 425.987 Amount Diltiazem 125 mg In 20 Sodium Chloride 0.9% 100 ml @ 5 MG/HR 5 mls/hr IV .Q24H ONE Rx#:[id number] Heparin Sod,Pork in 0.45% 425.987 NaCl 25,000 unit In 0.45 % NaCl 1 500ml.bag @ 12 UNITS/KG/HR 17.2 mls/hr IV .Q24H [facility] Rx#: [id number] Oral 473 Other: Voiding Method Toilet # Voids 1 1 - Exam PHYSICAL EXAMINATION: Patient is lying in the bed comfortably, no acute distress, awake alert and oriented.. HEENT: Normocephalic. Neck is supple. Pupils reactive. Nostrils clear. Oral cavity is moist. Ears reveal no drainage. Neck reveals no JVD, carotid bruits, or thyromegaly. CHEST EXAMINATION: Trachea is central. Symmetrical expansion. Bilateral basilar crackles positive. No wheezing or rhonchi. CARDIAC: Normal S1, S2 with no gallops. No murmurs ABDOMEN: Soft. Bowel sounds normal. No organomegaly. No abdominal bruits. Extremities: Trace edema. No clubbing or cyanosis Neurologically awake, alert, oriented x3 with well-coordinated movements. No focal deficits noted Skin: No rash or skin lesions. Psychiatric: Cooperative. Nonsuicidal Musculoskeletal: No joint swelling or deformity. Normal range of motion. - Labs CBC & Chem 7: 03/30/17 15:15 04/01/17 05:47 Labs: Abnormal Lab Results - Last 24 Hours (Table) 03/30/17 03/30/17 03/31/17 Range/Units 20:52 22:18 03:45 INR 1.2 H (<1.2) APTT 53.5 H (22.0-30.0) sec POC Glucose (mg/dL) (75-99) mg/dL CK-MB (CK-2) 2.8 H* 2.6 H* (0.0-2.4) ng/mL Troponin I 0.045 H* 0.035 H* (0.000-0.034) ng/mL HDL Cholesterol (40-60) mg/dL 03/31/17 03/31/17 03/31/17 Range/Units 03:45 03:45 05:58 INR (<1.2) APTT 48.4 H (22.0-30.0) sec POC Glucose (mg/dL) 58 L (75-99) mg/dL CK-MB (CK-2) (0.0-2.4) ng/mL Troponin I (0.000-0.034) ng/mL HDL Cholesterol 84 H (40-60) mg/dL 03/31/17 03/31/17 03/31/17 Range/Units 06:13 11:54 16:43 INR (<1.2) APTT (22.0-30.0) sec POC Glucose (mg/dL) 54 L 104 H 125 H (75-99) mg/dL CK-MB (CK-2) (0.0-2.4) ng/mL Troponin I (0.000-0.034) ng/mL HDL Cholesterol (40-60) mg/dL 03/31/17 Range/Units 20:47 INR (<1.2) APTT (22.0-30.0) sec POC Glucose (mg/dL) 183 H (75-99) mg/dL CK-MB (CK-2) (0.0-2.4) ng/mL Troponin I (0.000-0.034) ng/mL HDL Cholesterol (40-60) mg/dL Assessment and Plan Assessment: New onset atrial fibrillation with rapid ventricular rate Acute on chronic CHF with systolic dysfunction with elevated BNP and interstitial pulmonary edema Mild hyperkalemia Acute kidney injury creatinine 1.42 Normocytic anemia Ischemic cardio myopathy ejection fraction 40%. Status post AICD placement History of aortic valve replacement and mitral valve annular repair. 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 Continue the telemetry monitoring. Continue with IV Lasix every 12. Currently patient symptomatically improved. Continue with home medications including breathing treatments and follow closely. Cardiology was consulted. Further recommendations based on the clinical course. Patient was started back on aspirin statins, Coreg and lisinopril. Prognosis is guarded with multiple medical problems and comorbid conditions. Time with Patient: Greater than 30
[2017-04-02] MEDS: INSULIN ASPART 100 UNIT/ML 1 ML 10 ML VIAL SQ SCH ×4 (06:43→21:32)
[2017-04-02 06:44] LABS: Glucose,Whole Blood 113 mg/dL (75-99)
[2017-04-02 06:52] LABS: Basophils # (A) 0.1 k/uL (0-0.2); Basophils % (A) 1 %; Eosinophils # (A) 0.1 k/uL (0-0.7); Eosinophils % (A) 1 %; HCT 31.6 % (34.0-46.0); HGB 9.4 gm/dL (11.4-16.0); Hypochromasia Marked; Lymphocytes # (A) 1.4 k/uL (1.0-4.8); Lymphocytes % (A) 15 %; MCH 27.3 pg (25.0-35.0); MCHC 29.9 g/dL (31.0-37.0); MCV 91.3 fL (80.0-100.0); Mean Platelet Volume 7.8; Monocytes # (A) 0.7 k/uL (0-1.0); Monocytes % (A) 7 %; Neutrophils # (A) 6.9 k/uL (1.3-7.7); Neutrophils % (A) 75 %; Platelet Count 168 k/uL (150-450); RBC 3.47 m/uL (3.80-5.40); RDW 15.3 % (11.5-15.5); WBC 9.3 k/uL (3.8-10.6)
[2017-04-02] MEDS: LISINOPRIL 5 MG TAB PO SCH (07:23)
[2017-04-02] MEDS: FUROSEMIDE 10 MG/ML 4 ML VIAL IV SCH (07:23)
[2017-04-02] MEDS: PARoxetine 20 MG TAB PO SCH (07:23)
[2017-04-02] MEDS: METOPROLOL TARTRATE 25 MG TAB PO SCH ×3 (07:23→21:32)
[2017-04-02] MEDS: ASPIRIN 81 MG PO SCH (07:25)
[2017-04-02 07:26] LABS: Calcium 9.3 mg/dL (8.4-10.2); Potassium 4.6 mmol/L (3.5-5.1)
[2017-04-02] MEDS: ALBUTEROL NEBULIZED 2.5 MG/3 ML INHALATION PRN ×2 (08:24→13:23)
[2017-04-02] MEDS: HYDROcodone/APAP 10-325MG 1 EACH TAB PO PRN ×2 (11:13→18:50)
[2017-04-02 12:01] LABS: Glucose,Whole Blood 187 mg/dL (75-99)
[2017-04-02 17:08] LABS: Glucose,Whole Blood 69 mg/dL (75-99)
[2017-04-02] MEDS: FUROSEMIDE 40 MG TAB PO SCH (17:09)
[2017-04-02] MEDS ORDERED: WARFARIN 7.5 MG TAB PO ONE (18:00)
[2017-04-02 18:11] LABS: Glucose,Whole Blood 154 mg/dL (75-99)
[2017-04-02 21:18] LABS: Glucose,Whole Blood 181 mg/dL (75-99)
[2017-04-02] MEDS: ATORVASTATIN 40 MG TAB PO SCH (21:31)
[2017-04-02] MEDS: FAMOTIDINE 20 MG TAB PO SCH (21:31)
[2017-04-02] MEDS: INSULIN DETEMIR 100 UNIT/ML 10 ML VIAL SQ SCH (21:32)
--- NOTE | 2017-04-02 22:30 | P.PN ---
Subjective Progress Note Date: 04/01/17 Principal diagnosis: New onset atrial fibrillation Patient is a 66-year-old female with a known history of coronary artery disease , CABG and aortic valve replacement and mitral valve annuloplasty, ischemic cardiomyopathy ejection fraction 40%, COPD, diabetes type 2 and other multiple medical problems was initially presented to Dr. Silva's office with complaints of tiredness and dizziness for the past 2 days. Patient was found have atrial fibrillation and was sent to the hospital. Patient denied any palpitations. Patient does have some shortness of breath. Patient was found to have rapid regular rate and was started on Cardizem drip. Patient states she also has noticed slightly increased edema in her legs. Patient denies any recent fever chills or cough. Patient denies any palpitation. Patient denies any history of anemia. Patient states she has worsening symptoms with any exertion. Patient denies being lightheaded or dizzy. Patient denies any abdominal pain patient denies nausea vomiting diarrhea. Chest x-ray showed correlate for interstitial edema. EKG showed atrial fibrillation with rapid ventricular rate. Potassium 5.4 Troponin 0.043 and 0.045 BNP 5610 03/31/2017 Patient currently is on Cardizem drip. Symptomatically improved still having dizziness and tiredness. Continued on heparin drip. Patient was started on IV Lasix. no complaints of chest pain no worsening shortness of breath. 04/01/17 Patient's shortness of breath and dizziness much improved now. No complaint of chest pain. No nausea vomiting or diarrhea. Tolerating oral diet. Continued on IV Lasix. Cardizem drip has been discontinued. Patient was started on Coumadin. All other review of systems negative except the above .current medications reviewed Objective - Vital Signs Vital signs: Vital Signs Temp 97.3 F L 04/01/17 15:44 Pulse 84 04/01/17 16:00 Resp 18 04/01/17 16:00 BP 128/77 04/01/17 15:44 Pulse Ox 98 04/01/17 15:44 Intake & Output 04/01/17 04/01/17 04/02/17 06:59 18:59 06:59 Intake Total 920.8 237 Balance 920.8 237 Weight 72.3 kg Intake: IV 560.8 0.9 320 Heparin Sod,Pork in 0.45% 240.8 NaCl 25,000 unit In 0.45 % NaCl 1 500ml.bag @ 12 UNITS/KG/HR 17.2 mls/hr IV .Q24H [facility] Rx#: [id number] Oral 360 237 Other: Voiding Method Toilet # Voids 2 - Exam PHYSICAL EXAMINATION: Patient is lying in the bed comfortably, no acute distress, awake alert and oriented.. HEENT: Normocephalic. Neck is supple. Pupils reactive. Nostrils clear. Oral cavity is moist. Ears reveal no drainage. Neck reveals no JVD, carotid bruits, or thyromegaly. CHEST EXAMINATION: Trachea is central. Symmetrical expansion. Bilateral basilar crackles positive. No wheezing or rhonchi. CARDIAC: Normal S1, S2 with no gallops. No murmurs ABDOMEN: Soft. Bowel sounds normal. No organomegaly. No abdominal bruits. Extremities: Trace edema. No clubbing or cyanosis Neurologically awake, alert, oriented x3 with well-coordinated movements. No focal deficits noted Skin: No rash or skin lesions. Psychiatric: Cooperative. Nonsuicidal Musculoskeletal: No joint swelling or deformity. Normal range of motion. - Labs CBC & Chem 7: 04/02/17 06:12 04/02/17 06:12 Labs: Abnormal Lab Results - Last 24 Hours (Table) 04/01/17 04/01/17 04/01/17 Range/Units 05:47 05:47 06:06 APTT 54.0 H (22.0-30.0) sec Sodium 134 L (137-145) mmol/L Carbon Dioxide 21 L (22-30) mmol/L BUN 74 H (7-17) mg/dL Creatinine 1.30 H (0.52-1.04) mg/dL Glucose 117 H (74-99) mg/dL POC Glucose (mg/dL) 122 H (75-99) mg/dL 04/01/17 04/01/17 04/01/17 Range/Units 11:37 16:50 20:52 APTT (22.0-30.0) sec Sodium (137-145) mmol/L Carbon Dioxide (22-30) mmol/L BUN (7-17) mg/dL Creatinine (0.52-1.04) mg/dL Glucose (74-99) mg/dL POC Glucose (mg/dL) 182 H 104 H 172 H (75-99) mg/dL Assessment and Plan Assessment: New onset atrial fibrillation with rapid ventricular rate. 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 Status post AICD placement History of aortic valve replacement and mitral valve annular repair. 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 Discontinued at this time and continue with Coreg. Continue the telemetry monitoring. Continue with IV Lasix every 12. Currently patient symptomatically improved. Continue with home medications including breathing treatments and follow closely. Cardiology was consulted. Further recommendations based on the clinical course. Patient was started back on aspirin statins, Coreg and lisinopril. Prognosis is guarded with multiple medical problems and comorbid conditions. Time with Patient: Greater than 30
--- NOTE | 2017-04-02 22:32 | P.PN ---
Subjective Progress Note Date: 04/02/17 Principal diagnosis: New onset atrial fibrillation Patient is a 66-year-old female with a known history of coronary artery disease , CABG and aortic valve replacement and mitral valve annuloplasty, ischemic cardiomyopathy ejection fraction 40%, COPD, diabetes type 2 and other multiple medical problems was initially presented to Dr. Silva's office with complaints of tiredness and dizziness for the past 2 days. Patient was found have atrial fibrillation and was sent to the hospital. Patient denied any palpitations. Patient does have some shortness of breath. Patient was found to have rapid regular rate and was started on Cardizem drip. Patient states she also has noticed slightly increased edema in her legs. Patient denies any recent fever chills or cough. Patient denies any palpitation. Patient denies any history of anemia. Patient states she has worsening symptoms with any exertion. Patient denies being lightheaded or dizzy. Patient denies any abdominal pain patient denies nausea vomiting diarrhea. Chest x-ray showed correlate for interstitial edema. EKG showed atrial fibrillation with rapid ventricular rate. Potassium 5.4 Troponin 0.043 and 0.045 BNP 5610 03/31/2017 Patient currently is on Cardizem drip. Symptomatically improved still having dizziness and tiredness. Continued on heparin drip. Patient was started on IV Lasix. no complaints of chest pain no worsening shortness of breath. 04/01/17 Patient's shortness of breath and dizziness much improved now. No complaint of chest pain. No nausea vomiting or diarrhea. Tolerating oral diet. Continued on IV Lasix. Cardizem drip has been discontinued. Patient was started on Coumadin. 04/02/2017 Patient did improve symptomatically. No commerce of chest pain or worsening shortness of breath. Lasix has been changed to oral. Continue to monitor I PT/ INR. Anticipate discharge in 1-2 days. Active Medications Generic Name Dose Route Start Last Admin Trade Name Freq PRN Reason Stop Dose Admin Hydrocodone Bitart/Acetaminophen 1 each 03/30/17 23:47 04/02/17 18:50 [place] 10 PO 1 each Q6H PRN Administration Pain Albuterol Sulfate 2.5 mg 03/30/17 23:36 04/02/17 13:23 Ventolin Nebulized INHALATION 2.5 mg RT-TID PRN Administration Shortness Of Breath Aspirin 81 mg 03/31/17 10:00 04/02/17 07:25 Aspirin PO 81 mg DAILY [facility] Administration Atorvastatin Calcium 40 mg 03/31/17 21:00 04/02/17 21:31 Lipitor PO 40 mg HS [facility]IE Administration Famotidine 40 mg 03/30/17 23:45 04/02/17 21:31 Pepcid PO 40 mg HS CH[facility]IE Administration Furosemide 40 mg 04/02/17 16:00 04/02/17 17:09 Lasix PO 40 mg BID@0900,1600 CHERIE Administration Heparin Sodium/Sodium Chloride 500 mls @ 17.2 mls/hr 03/30/17 17:15 04/01/17 22:37 25,000 unit/ Sodium Chloride IV 12 units/kg/hr .Q24H [facility] 17.2 mls/hr Protocol Administration 12 UNITS/KG/HR Insulin Aspart 0 unit 03/31/17 07:30 04/02/17 21:32 Novolog SQ 2 unit ACHS CHERIE Administration Protocol Insulin Detemir 16 unit 03/30/17 21:00 04/02/17 21:32 Levemir SQ 16 unit HS CH[facility]IE Administration Lisinopril 5 mg 03/31/17 09:00 04/02/17 07:23 Zestril PO Not Given DAILY [facility] Metoprolol Tartrate 25 mg 03/31/17 16:00 04/02/17 21:32 Lopressor PO 25 mg TID CHERIE Administration Nitroglycerin 0.4 mg 03/30/17 17:04 Nitrostat SUBLINGUAL Q5M PRN Chest Pain Paroxetine HCl 20 mg 03/31/17 09:00 04/02/17 07:23 Paxil PO 20 mg DAILY [facility]IE Administration Zolpidem Tartrate 5 mg 03/30/17 17:05 03/31/17 21:49 Ambien PO 5 mg HS PRN Administration Insomnia All other review of systems negative except the above .current medications reviewed Objective - Vital Signs Vital signs: Vital Signs Temp 97.5 F L 04/02/17 16:00 Pulse 99 04/02/17 16:00 Resp 18 04/02/17 16:00 BP 132/80 04/02/17 16:00 Pulse Ox 94 L 04/02/17 16:00 Intake & Output 04/02/17 04/02/17 04/03/17 06:59 18:59 06:59 Intake Total 945.627 477 Balance 945.627 477 Weight 77.5 kg Intake: IV 456 0.9 120 Heparin Sod,Pork in 0.45% 336 NaCl 25,000 unit In 0.45 % NaCl 1 500ml.bag @ 12 UNITS/KG/HR 17.2 mls/hr IV .Q24H [facility] Rx#: [id number] Intake, IV Titration 489.627 Amount Heparin Sod,Pork in 0.45% 489.627 NaCl 25,000 unit In 0.45 % NaCl 1 500ml.bag @ 12 UNITS/KG/HR 17.2 mls/hr IV .Q24H [facility] Rx#: [id number] Oral 477 - Exam PHYSICAL EXAMINATION: Patient is lying in the bed comfortably, no acute distress, awake alert and oriented.. HEENT: Normocephalic. Neck is supple. Pupils reactive. Nostrils clear. Oral cavity is moist. Ears reveal no drainage. Neck reveals no JVD, carotid bruits, or thyromegaly. CHEST EXAMINATION: Trachea is central. Symmetrical expansion. No crackles. No wheezing or rhonchi. CARDIAC: Normal S1, S2 with no gallops. No murmurs ABDOMEN: Soft. Bowel sounds normal. No organomegaly. No abdominal bruits. Extremities: Trace edema. No clubbing or cyanosis Neurologically awake, alert, oriented x3 with well-coordinated movements. No focal deficits noted Skin: No rash or skin lesions. Psychiatric: Cooperative. Nonsuicidal Musculoskeletal: No joint swelling or deformity. Normal range of motion. - Labs CBC & Chem 7: 04/02/17 06:12 04/02/17 06:12 Labs: Abnormal Lab Results - Last 24 Hours (Table) 04/02/17 04/02/17 04/02/17 Range/Units 06:12 06:12 06:12 RBC 3.47 L (3.80-5.40) m/uL Hgb 9.4 L (11.4-16.0) gm/dL Hct 31.6 L (34.0-46.0) % MCHC 29.9 L (31.0-37.0) g/dL APTT 57.9 H (22.0-30.0) sec Sodium 135 L (137-145) mmol/L Carbon Dioxide 21 L (22-30) mmol/L BUN 76 H (7-17) mg/dL Creatinine 1.44 H (0.52-1.04) mg/dL Glucose 120 H (74-99) mg/dL POC Glucose (mg/dL) (75-99) mg/dL 04/02/17 04/02/17 04/02/17 Range/Units 06:33 11:57 16:52 RBC (3.80-5.40) m/uL Hgb (11.4-16.0) gm/dL Hct (34.0-46.0) % MCHC (31.0-37.0) g/dL APTT (22.0-30.0) sec Sodium (137-145) mmol/L Carbon Dioxide (22-30) mmol/L BUN (7-17) mg/dL Creatinine (0.52-1.04) mg/dL Glucose (74-99) mg/dL POC Glucose (mg/dL) 113 H 187 H 69 L (75-99) mg/dL 04/02/17 04/02/17 Range/Units 18:09 21:12 RBC (3.80-5.40) m/uL Hgb (11.4-16.0) gm/dL Hct (34.0-46.0) % MCHC (31.0-37.0) g/dL APTT (22.0-30.0) sec Sodium (137-145) mmol/L Carbon Dioxide (22-30) mmol/L BUN (7-17) mg/dL Creatinine (0.52-1.04) mg/dL Glucose (74-99) mg/dL POC Glucose (mg/dL) 154 H 181 H (75-99) mg/dL Assessment and Plan Assessment: New onset atrial fibrillation with rapid ventricular rate. Rate controlled. 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 Status post AICD placement History of aortic valve replacement and mitral valve annular repair. 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 Discontinued at this time and continue with Coreg. Continue the telemetry monitoring. Continued with IV Lasix every 12, changed to oral today. Continue to monitor PT and INR. Currently patient symptomatically improved. Continue with home medications including breathing treatments and follow closely. Cardiology was consulted. Further recommendations based on the clinical course. Patient was started back on aspirin statins, Coreg and lisinopril. Prognosis is guarded with multiple medical problems and comorbid conditions. Time with Patient: Greater than 30
--- NOTE | 2017-04-03 | PN ---
PROGRESS NOTE Mrs. Busby is a lady with atrial fib rapid rate. She is comfortable resting. Her breathing is easier. PT/INR is still not suboptimal. She has history of aortic valve replacement and a mitral valve repair. Vitals are stable. JVD is 1 cm. Systolic murmur is evident. Lungs reveal fine rales over both bases, but there is improvement overall. I am recommending that we switch the Lasix from IV to p.o. give 7.5 mg of Coumadin now. Apparently this was not given yesterday inadvertently. We will continue all her other medications and she will be kept in the hospital until INR is at least 1.6 or more. Discussed my thoughts with the patient. MMODL / IJN: [id number] /
[2017-04-03] MEDS: ALBUTEROL NEBULIZED 2.5 MG/3 ML INHALATION PRN ×2 (04:41→13:37)
[2017-04-03 06:01] LABS: Basophils # (A) 0.1 k/uL (0-0.2); Basophils % (A) 1 %; Eosinophils # (A) 0.1 k/uL (0-0.7); Eosinophils % (A) 0 %; HCT 30.4 % (34.0-46.0); Hypochromasia Slight; Lymphocytes # (A) 1.3 k/uL (1.0-4.8); Lymphocytes % (A) 11 %; MCH 26.8 pg (25.0-35.0); MCHC 29.7 g/dL (31.0-37.0); MCV 90.3 fL (80.0-100.0); Monocytes # (A) 0.9 k/uL (0-1.0); Monocytes % (A) 8 %; Neutrophils # (A) 9.2 k/uL (1.3-7.7); Neutrophils % (A) 78 %; Platelet Count 171 k/uL (150-450); RBC 3.37 m/uL (3.80-5.40); RDW 15.8 % (11.5-15.5); WBC 11.9 k/uL (3.8-10.6)
[2017-04-03 06:08] LABS: INR 1.6 (<1.2); Partial Thromboplastin Time 71.1 sec (22.0-30.0); Prothrombin Time 14.6 sec (9.0-12.0)
[2017-04-03 06:26] LABS: Glucose,Whole Blood 170 mg/dL (75-99)
[2017-04-03] MEDS: INSULIN ASPART 100 UNIT/ML 1 ML 10 ML VIAL SQ SCH ×3 (06:41→17:21)
[2017-04-03] MEDS ORDERED: WARFARIN 7.5 MG TAB PO STA (09:03)
[2017-04-03] MEDS: LISINOPRIL 5 MG TAB PO SCH (09:12)
[2017-04-03] MEDS: METOPROLOL TARTRATE 25 MG TAB PO SCH ×2 (09:12→15:49)
[2017-04-03] MEDS: PARoxetine 20 MG TAB PO SCH (09:13)
[2017-04-03] MEDS: ASPIRIN 81 MG PO SCH (09:13)
[2017-04-03] MEDS: FUROSEMIDE 40 MG TAB PO SCH ×2 (09:13→15:49)
[2017-04-03 09:32] LABS: Calcium 9.1 mg/dL (8.4-10.2); Potassium 4.7 mmol/L (3.5-5.1)
[2017-04-03 10:28] VITALS: RESP 18
[2017-04-03] MEDS: HYDROcodone/APAP 10-325MG 1 EACH TAB PO PRN (11:10)
--- NOTE | 2017-04-03 11:38 | PN ---
PROGRESS NOTE Mrs. Busby is a 66-year-old lady with aortic valve replacement and mitral valve repair, is in atrial fib. The rate is much better controlled. Her INR is 1.6. We will give additional 7.5 mg of Coumadin today and 5 mg daily. I am recommending that she can be discharged later this evening and see Dr. Silva later on this week. Her rate control is optimal. She has underlying pacemaker, S1-S2 heard normally, short systolic murmur noted. Lungs are clear, Abdomen and lower exam is unchanged. INR is 1.6. We will give additional Coumadin today. MMODL / IJN: [id number] /
[2017-04-03 11:58] LABS: Glucose,Whole Blood 185 mg/dL (75-99)
--- NOTE | 2017-04-03 14:20 | XR ---
EXAMINATION TYPE: XR chest 1V DATE OF EXAM: 04/03/2017 CLINICAL HISTORY: Difficulty breathing and CHF progress study. TECHNIQUE: Single AP portable upright view of the chest is obtained. COMPARISON: Chest x-ray from 2 days earlier and older studies. FINDINGS: There is persistent cardiomegaly with multi lead pacemaker/AICD. There is redemonstration metallic ascending aorta stent graft. There is chronic parenchymal change with right basilar scarring and herniated right lung laterally. Improved is aeration right lung base is present. No new focal ai rspace opacity, pleural effusion, or pneumothorax is seen bilaterally. Right mid rib resection is aga in seen. Osseous structures are demineralized. IMPRESSION: Cardiomegaly and chronic parenchymal change with improving right basilar infiltrate and/o r atelectasis on background of right basilar scarring. No new infiltrate is seen.
--- NOTE | 2017-04-03 15:49 | P.DS ---
Providers Date of admission: 03/30/17 17:04 Attending physician: Tess Christine Consults: 03/30/17 17:04 Consult Physician Urgent Consulting Provider: [facility] Consult Reason/Comments: A. fib with rapid ventricular response Do you want consulting provider notified?: Yes Primary care physician: Kaylee Suero [place] Hospital Course: 66-year-old female with a known history of coronary artery disease, CABG and aortic valve replacement and mitral valve annuloplasty, ischemic cardiomyopathy ejection fraction 40%, COPD, diabetes type 2 and other multiple medical problems was initially presented to Dr. Silva's office with complaints of tiredness and dizziness for the past 2 days. Patient was found have atrial fibrillation and was sent to the hospital. Patient denied any palpitations. Patient does have some shortness of breath. Patient was found to have rapid regular rate and was started on Cardizem drip. Patient states she also has noticed slightly increased edema in her legs. Patient denies any recent fever chills or cough. Patient denies any palpitation. Patient denies any history of anemia. Patient states she has worsening symptoms with any exertion. Patient denies being lightheaded or dizzy. Patient denies any abdominal pain patient denies nausea vomiting diarrhea. Chest x-ray showed correlate for interstitial edema. EKG showed atrial fibrillation with rapid ventricular rate. Potassium 5.4 Troponin 0.043 and 0.045 BNP 5610 03/31/2017 Patient currently is on Cardizem drip. Symptomatically improved still having dizziness and tiredness. Continued on heparin drip. Patient was started on IV Lasix. no complaints of chest pain no worsening shortness of breath. 04/01/17 Patient's shortness of breath and dizziness much improved now. No complaint of chest pain. No nausea vomiting or diarrhea. Tolerating oral diet. Continued on IV Lasix. Cardizem drip has been discontinued. Patient was started on Coumadin. 04/02/2017 Patient did improve symptomatically. No commerce of chest pain or worsening shortness of breath. Lasix has been changed to oral. Continue to monitor I PT/ INR. Anticipate discharge in 1-2 days. 04/03/2017 Patient had crackles in the right lower lung bases because of which obtained a chest x-ray did not show any pulmonary edema or pneumonic infiltrate patient is euvolemic cleared for discharge from cardiology perspective patient will be discharged today. PHYSICAL EXAMINATION: Patient is lying in the bed comfortably, no acute distress, awake alert and oriented.. HEENT: Normocephalic. Neck is supple. Pupils reactive. Nostrils clear. Oral cavity is moist. Ears reveal no drainage. Neck reveals no JVD, carotid bruits, or thyromegaly. CHEST EXAMINATION: Trachea is central. Symmetrical expansion. No crackles. No wheezing or rhonchi. CARDIAC: Normal S1, S2 with no gallops. No murmurs ABDOMEN: Soft. Bowel sounds normal. No organomegaly. No abdominal bruits. Extremities: Trace edema. No clubbing or cyanosis Neurologically awake, alert, oriented x3 with well-coordinated movements. No focal deficits noted Skin: No rash or skin lesions. Psychiatric: Cooperative. Nonsuicidal Musculoskeletal: No joint swelling or deformity. Normal range of motion. Assessment and Plan Assessment: New onset atrial fibrillation with rapid ventricular rate. Rate controlled. 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 Status post AICD placement History of aortic valve replacement and mitral valve annular repair. 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 C5 cervical spine fusion surgery Anxiety and depression Plan - Discharge Summary Discharge Rx Participant: Yes New Discharge Prescriptions: New Furosemide [Lasix] 40 mg PO BID@0900,1600 tab Metoprolol Tartrate [Lopressor] 25 mg PO TID #60 tab Warfarin [Coumadin] 5 mg PO DAILY@1800 #30 tab Continue Aspirin 81 mg PO DAILY PARoxetine HCL [Paxil] 20 mg PO DAILY Lisinopril [Prinivil] 5 mg PO DAILY Zolpidem [Ambien] 5 mg PO HS PRN PRN Reason: Insomnia Albuterol Sulfate [Proair Hfa] 2 puff INHALATION RT-BID PRN PRN Reason: Shortness Of Breath Atorvastatin [Lipitor] 40 mg PO HS Famotidine [Pepcid] 40 mg PO HS Insulin Glargine,Hum.rec.anlog [Lantus Solostar] 16 unit SQ HS Insulin Aspart [NovoLOG (formulary)] See Protocol SQ TID-W/MEALS PRN PRN Reason: Blood Sugar - High Cetirizine HCl [Zyrtec] 10 mg PO DAILY Tiotropium [place] [Spiriva] 1 cap INHALATION RT-DAILY Albuterol Nebulized [Ventolin Nebulized] 2.5 mg INHALATION RT-TID PRN PRN Reason: Shortness Of Breath HYDROcodone/APAP 10-325MG [[place] 10-325] 1 tab PO Q6H PRN PRN Reason: Pain Discontinued Carvedilol [Coreg] 3.125 mg PO BID Furosemide [Lasix] 40 mg PO DAILY Discharge Medication List Aspirin 81 mg PO DAILY 02/10/14 [History] Lisinopril [Prinivil] 5 mg PO DAILY 02/10/14 [History] PARoxetine HCL [Paxil] 20 mg PO DAILY 02/10/14 [History] Albuterol Sulfate [Proair Hfa] 2 puff INHALATION RT-BID PRN 06/02/14 [History] Atorvastatin [Lipitor] 40 mg PO HS 06/02/14 [History] Zolpidem [Ambien] 5 mg PO HS PRN 06/02/14 [History] Famotidine [Pepcid] 40 mg PO HS 01/02/15 [History] Insulin Aspart [NovoLOG (formulary)] See Protocol SQ TID-W/MEALS PRN 01/02/15 [ History] Insulin Glargine,Hum.rec.anlog [Lantus Solostar] 16 unit SQ HS 01/02/15 [History ] Cetirizine HCl [Zyrtec] 10 mg PO DAILY 11/12/15 [History] Albuterol Nebulized [Ventolin Nebulized] 2.5 mg INHALATION RT-TID PRN 03/05/16 [ History] Tiotropium [place] [Spiriva] 1 cap INHALATION RT-DAILY 03/05/16 [History] HYDROcodone/APAP 10-325MG [[place] 10-325] 1 tab PO Q6H PRN 02/15/17 [History] Furosemide [Lasix] 40 mg PO BID@0900,1600 tab 04/03/17 [Rx] Metoprolol Tartrate [Lopressor] 25 mg PO TID #60 tab 04/03/17 [Rx] Warfarin [Coumadin] 5 mg PO DAILY@1800 #30 tab 04/03/17 [Rx] Follow up Appointment(s)/Referral(s): Kaylee Suero MD [Primary Care Provider] - 04/05/17 12:30 pm Dez Silva MD [STAFF PHYSICIAN] - 04/06/17 11:00 am Ambulatory/Diagnostic Orders: Prothrombin Time INR [LAB.AMB] Time Frame: 3 Days, Location: Determined By Patient Patient Instructions/Handouts: A-fib (Atrial Fibrillation) (DC), Pulmonary Edema (DC), Safe Use of Anticoagulants (DC) Activity/Diet/Wound Care/Special Instructions: D/C after dinner per cardio. Coumadin 5 mg daily recommended by cardiology. Discharge Disposition: HOME SELF-CARE
[2017-04-03 16:32] LABS: Glucose,Whole Blood 120 mg/dL (75-99)
[2017-04-03 17:46] VITALS: BP 105/71; PULSE 96; TEMP 96.5
[2017-04-04] MEDS ORDERED: WARFARIN 5 MG TAB PO SCH (18:00)
== END 2017-04-03 18:10 | disposition home or self-care (01) | DRG 308 ==
LOC: EC 15:03 → 6SEL 17:04
PROVIDERS: ADMIT Internal Medicine; ATTEND Internal Medicine
DX: I48.1 Persistent atrial fibrillation (principal); I50.23 Acute on chronic systolic (congestive) heart failure; N17.9 Acute kidney failure, unspecified; Z94.81 Bone marrow transplant status; E87.1 Hypo-osmolality and hyponatremia; E11.9 Type 2 diabetes mellitus without complications; D64.9 Anemia, unspecified; I11.0 Hypertensive heart disease with heart failure; Z99.81 Dependence on supplemental oxygen; J44.9 Chronic obstructive pulmonary disease, unspecified; E87.5 Hyperkalemia; E78.5 Hyperlipidemia, unspecified; I25.5 Ischemic cardiomyopathy; I25.10 Atherosclerotic heart disease of native coronary artery without angina pectoris; K21.9 Gastro-esophageal reflux disease without esophagitis; G47.00 Insomnia, unspecified; I44.7 Left bundle-branch block, unspecified; M19.91 Primary osteoarthritis, unspecified site; F32.9 Major depressive disorder, single episode, unspecified; F41.9 Anxiety disorder, unspecified; I25.2 Old myocardial infarction; Z95.2 Presence of prosthetic heart valve; Z95.810 Presence of automatic (implantable) cardiac defibrillator; Z90.49 Acquired absence of other specified parts of digestive tract; Z90.710 Acquired absence of both cervix and uterus; Z98.1 Arthrodesis status; Z95.1 Presence of aortocoronary bypass graft; Z98.42 Cataract extraction status, left eye; Z98.41 Cataract extraction status, right eye; Z79.82 Long term (current) use of aspirin; Z79.4 Long term (current) use of insulin; Z79.899 Other long term (current) drug therapy; Z88.1 Allergy status to other antibiotic agents; Z82.49 Family history of ischemic heart disease and other diseases of the circulatory system; Z85.6 Personal history of leukemia; Z86.19 Personal history of other infectious and parasitic diseases
CPT/HCPCS: 36415; 71045; 71046; 80048; 80053; 80061; 82550; 82553; 83735; 83880; 84484; 85025; 85610; 85730; 93005; 94640; 94760; 96365; 96366; 96368; 96376; 99291

== ENCOUNTER 2017-04-06 13:28 | Inpatient (IN) | payer MEDICARE, OTHER ==
[2017-04-06] MEDS ORDERED: DILTIAZEM 125 MG in SODIUM CHLORIDE 0.9% 100 ML IV ONE (14:27)
--- NOTE | 2017-04-06 14:30 | ED ---
General Adult HPI - General Chief complaint: Recheck/Abnormal Lab/Rx Stated complaint: ABNORMAL LABS Time Seen by Provider: 04/06/17 14:02 Source: patient, family, RN notes reviewed Mode of arrival: wheelchair Limitations: physical limitation - History of Present Illness Initial comments: Patient is a pleasant 66-year-old female presenting to the emergency department complaining of fatigue. Patient went to her doctor's office today. Patient was told her Coumadin level was too high and to come to the emergency department. Patient was recently admitted for atrial fibrillation. No chest pain. No dyspnea. - Related Data Home Medications Medication Instructions Recorded Confirmed Aspirin 81 mg PO DAILY 02/10/14 04/06/17 Lisinopril [Prinivil] 5 mg PO DAILY 02/10/14 04/06/17 PARoxetine HCL [Paxil] 20 mg PO DAILY 02/10/14 04/06/17 Albuterol Sulfate [Proair Hfa] 2 puff INHALATION RT-BID PRN 06/02/14 04/06/17 Atorvastatin [Lipitor] 40 mg PO HS 06/02/14 04/06/17 Zolpidem [Ambien] 5 mg PO HS PRN 06/02/14 04/06/17 Famotidine [Pepcid] 40 mg PO HS 01/02/15 04/06/17 Insulin Aspart [NovoLOG See Protocol SQ TID-W/MEALS PRN 01/02/15 04/06/17 (formulary)] Insulin Glargine,Hum.rec.anlog 16 unit SQ HS 01/02/15 04/06/17 [Lantus Solostar] Cetirizine HCl [Zyrtec] 10 mg PO DAILY 11/12/15 04/06/17 Albuterol Nebulized [Ventolin 2.5 mg INHALATION RT-TID PRN 03/05/16 04/06/17 Nebulized] Tiotropium [place] [Spiriva] 1 cap INHALATION RT-DAILY 03/05/16 04/06/17 HYDROcodone/APAP 10-325MG [[place] 1 tab PO Q6H PRN 02/15/17 04/06/17 10-325] Metoprolol Tartrate [Lopressor] 25 mg PO BID 04/06/17 04/06/17 Previous Rx's Medication Instructions Recorded Furosemide [Lasix] 40 mg PO BID@0900,1600 tab 02/19/18 Allergies Allergy/AdvReac Type Severity Reaction Status Date / Time oxytetracycline Allergy Rash/Hives Verified 04/06/17 14:03 [From Terramycin] oxytetracycline HCl Allergy Rash/Hives Verified 04/06/17 14:03 [From Terramycin] Review of Systems ROS Statement: Those systems with pertinent positive or pertinent negative responses have been documented in the HPI. ROS Other: All systems not noted in ROS Statement are negative. Constitutional: Denies: fever Eyes: Denies: eye pain ENT: Denies: ear pain Respiratory: Denies: cough Cardiovascular: Denies: chest pain Endocrine: Reports: fatigue Gastrointestinal: Denies: abdominal pain Genitourinary: Denies: dysuria Musculoskeletal: Denies: back pain Skin: Denies: rash Neurological: Denies: weakness 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, history of AICD placement, history of ischemic cardio myopathy with the most recent echocardiogram showing improvement in ejection fraction of to 40% history of MSSA bacteremia treated appropriately Last Myocardial Infarction Date:: UNKNOWN History of Any Multi-Drug Resistant Organisms: None Reported Past Surgical History: AICD, Back Surgery, Cholecystectomy, Heart Catheterization, Hernia Repair, Hysterectomy, Orthopedic Surgery, Tonsillectomy Additional Past Surgical History / Comment(s): Bilateral cataract surgery, bone marrow transplantation, C5 cervical spine fusion, aortic valve replacement and mitral valve annuloplasty, AICD placement, back surgery, cholecystectomy, cardiac catheterization, hernia repair, hysterectomy, bilateral cataract surgery , wrist surgery, venogram, EDD Past Anesthesia/Blood Transfusion Reactions: No Reported Reaction Additional Past Anesthesia/Blood Transfusion Reaction / Comment(s): blood-sx reaction Type of Cardiac Device: AICD Device Placement Date:: 2009-[employer] Past Psychological History: Anxiety, Depression Smoking Status: Never smoker Past Alcohol Use History: None Reported Past Drug Use History: None Reported - Past Family History Mother Family Medical History: Diabetes Mellitus, Myocardial Infarction ([place]) Father Family Medical History: Cancer General Exam Limitations: physical limitation General appearance: alert, in no apparent distress Head exam: Present: atraumatic Eye exam: Present: normal appearance, PERRL ENT exam: Present: normal oropharynx Neck exam: Present: normal inspection Respiratory exam: Present: normal lung sounds bilaterally Cardiovascular Exam: Present: tachycardia, irregular rhythm Expanded Peripheral pulses: 2+: Radial (R), Radial (L), Posterior Tibialis (R), Posterior Tibialis (L) GI/Abdominal exam: Present: soft. Absent: tenderness Extremities exam: Present: normal inspection. Absent: pedal edema, calf tenderness Neurological exam: Present: alert, oriented X3, CN II-XII intact. Absent: motor sensory deficit Expanded Patient oriented to: Present: person, place, time Speech: Present: fluid speech Motor strength exam: RUE: 5, LUE: 5, RLE: 5, LLE: 5 Eye Response: (4) open spontaneously Motor Response: (6) obeys commands Verbal Response: (5) oriented Psychiatric exam: Present: normal affect, normal mood Skin exam: Present: normal color Course Vital Signs 04/06/17 04/06/17 04/06/17 13:35 15:00 16:00 Temperature 94.3 F L Pulse Rate 150 H 131 H 125 H Respiratory 18 16 18 Rate Blood Pressure 107/75 119/98 173/84 O2 Sat by Pulse 98 100 98 Oximetry EKG Findings - EKG Comments: EKG Findings:: Irregular wide-complex tachycardia at 127. There is appearance of some pacemaker spikes. QRS 150. QT 308. QTC 447. Left axis. Wide QRS complex. T-wave inversion in V6. Medical Decision Making - Medical Decision Making Patient reevaluated and resting comfortably in bed. Patient states she has been previously told that her liver enzymes have been elevated however is unclear why. Heart rate remains around 120 with Cardizem. Case was discussed with Dr. Christensen, who will admit for Dr. Suero. Dr. James will be consulted who did send the patient over from the office. - Lab Data Result diagrams: 04/06/17 13:54 04/06/17 13:54 Lab Results 04/06/17 04/06/17 04/06/17 Range/Units 13:54 13:54 13:54 WBC 13.0 H (3.8-10.6) k/uL RBC 4.24 (3.80-5.40) m/uL Hgb 11.6 (11.4-16.0) gm/dL Hct 38.1 (34.0-46.0) % MCV 89.8 (80.0-100.0) fL MCH 27.3 (25.0-35.0) pg MCHC 30.4 L (31.0-37.0) g/dL RDW 16.8 H (11.5-15.5) % Plt Count 261 (150-450) k/uL Neutrophils % 82 % Lymphocytes % 10 % Monocytes % 6 % Eosinophils % 1 % Basophils % 0 % Neutrophils # 10.7 H (1.3-7.7) k/uL Lymphocytes # 1.3 (1.0-4.8) k/uL Monocytes # 0.7 (0-1.0) k/uL Eosinophils # 0.1 (0-0.7) k/uL Basophils # 0.1 (0-0.2) k/uL Hypochromasia Slight Anisocytosis Slight Sodium 139 (137-145) mmol/L Potassium 4.5 (3.5-5.1) mmol/L Chloride 97 L (98-107) mmol/L Carbon Dioxide 30 (22-30) mmol/L Anion Gap 12 mmol/L BUN 69 H (7-17) mg/dL Creatinine 1.20 H (0.52-1.04) mg/dL Est GFR (MDRD) Af Amer 54 (>60 ml/min/1.73 sqM) Est GFR (MDRD) Non-Af 45 (>60 ml/min/1.73 sqM) Glucose 238 H (74-99) mg/dL Calcium 9.9 (8.4-10.2) mg/dL Magnesium 1.8 (1.6-2.3) mg/dL Total Bilirubin 1.1 (0.2-1.3) mg/dL AST 183 H (14-36) U/L ALT 317 H (9-52) U/L Alkaline Phosphatase 281 H (38-126) U/L Total Creatine Kinase 78 (30-135) U/L CK-MB (CK-2) 2.4 (0.0-2.4) ng/mL CK-MB (CK-2) Rel Index 3.1 Troponin I 0.020 (0.000-0.034) ng/mL Total Protein 8.3 H (6.3-8.2) g/dL Albumin 4.3 (3.5-5.0) g/dL TSH 2.090 (0.465-4.680) mIU/L Free T4 1.34 (0.78-2.19) ng/dL Free T3 pg/mL 2.8 (2.8-5.3) pg/ml - Radiology Data Radiology results: image reviewed (Chest x-ray shows no acute process) Critical Care Time Critical Care Time: Yes Total Critical Care Time: 31 Disposition Clinical Impression: Atrial fibrillation with RVR Disposition: ADMITTED IP TO THIS HOSP Referrals: Kaylee Suero MD [Primary Care Provider] - 1-2 days Decision Time: 16:50
[2017-04-06 14:53] LABS: Albumin 4.3 g/dL (3.5-5.0); Calcium 9.9 mg/dL (8.4-10.2); Total Bilirubin 1.1 mg/dL (0.2-1.3); Total Protein 8.3 g/dL (6.3-8.2)
[2017-04-06 14:54] LABS: Anisocytosis Slight; Basophils # (A) 0.1 k/uL (0-0.2); Basophils % (A) 0 %; Eosinophils # (A) 0.1 k/uL (0-0.7); Eosinophils % (A) 1 %; HCT 38.1 % (34.0-46.0); HGB 11.6 gm/dL (11.4-16.0); Hypochromasia Slight; Lymphocytes # (A) 1.3 k/uL (1.0-4.8); Lymphocytes % (A) 10 %; MCH 27.3 pg (25.0-35.0); MCHC 30.4 g/dL (31.0-37.0); MCV 89.8 fL (80.0-100.0); Mean Platelet Volume 6.9; Monocytes # (A) 0.7 k/uL (0-1.0); Monocytes % (A) 6 %; Neutrophils # (A) 10.7 k/uL (1.3-7.7); Neutrophils % (A) 82 %; Platelet Count 261 k/uL (150-450); RBC 4.24 m/uL (3.80-5.40); RDW 16.8 % (11.5-15.5)
[2017-04-06 15:09] LABS: T4, Free (Free Thyroxine) 1.34 ng/dL (0.78-2.19)
[2017-04-06 15:12] LABS: Magnesium 1.8 mg/dL (1.6-2.3); Potassium 4.5 mmol/L (3.5-5.1)
[2017-04-06 15:18] LABS: Creatine Kinase MB 2.4 ng/mL (0.0-2.4); Troponin I 0.02 ng/mL (0.000-0.034)
--- NOTE | 2017-04-06 15:26 | XR ---
EXAMINATION TYPE: XR chest 2V DATE OF EXAM: 04/06/2017 COMPARISON: NONE INDICATION: Dysrhythmia chest pain TECHNIQUE: Frontal and lateral views of the chest are obtained. FINDINGS: The heart size is normal. Aortic stent is evident. Pacemaker overlies left chest. The pulmonary vasculature is normal. The lungs are clear. Changes at the right costophrenic angle are stable. IMPRESSION: 1. No acute pulmonary process.
[2017-04-06 16:36] LABS: Prothrombin Time >130.0 sec (9.0-12.0)
[2017-04-06 16:38] LABS: INR >10.0 (<1.2)
[2017-04-06] MEDS ORDERED: PHYTONADIONE ORAL 5 MG/5 ML ORAL.SYRG PO STA (16:42)
[2017-04-06] MEDS ORDERED: NALOXONE 0.4 MG/ML 1 ML VIAL IV PRN (16:52)
[2017-04-06] MEDS: SODIUM CHLORIDE 0.9% 1,000 ML IV SCH (16:54)
--- NOTE | 2017-04-06 18:12 | US ---
EXAMINATION TYPE: US gallbladder DATE OF EXAM: 04/06/2017 COMPARISON: NONE CLINICAL HISTORY: Elevated liver enzymes. EXAM MEASUREMENTS: Liver Length: 15.4 cm Gallbladder Wall: Surgically absent CBD: 0.5 cm Right Kidney: 9.2 x 3.9 x 4.2 cm Exam limited by overlying bowel gas. Pancreas: Tail obscured by overlying bowel gas Liver: portions visualized wnl, somewhat limited views Gallbladder: Surgically absent Evidence for sonographic Villasenor's sign: no CBD: partially obscured by bowel gas, portion visualized wnl Right Kidney: No hydronephrosis or masses seen, partially obscured by bowel gas. IMPRESSION: NO ACUTE PROCESS.
[2017-04-06] MEDS ORDERED: IPRATROPIUM-ALBUTEROL 3 ML NEB INHALATION PRN (18:39)
--- NOTE | 2017-04-06 18:52 | P.HPIM ---
History of Present Illness Patient is a pleasant 66-year-old female presenting to the emergency department complaining of fatigue. Patient went to her doctor's office today. Patient was told her Coumadin level was too high and to come to the emergency department. Patient was recently admitted for atrial fibrillation. No chest pain. No dyspnea. [facility] she was treated for atrial fibrillation. Patient was started on warfarin for atrial fibrillation. Patient the INR levels presently is than 10 patient received 5 mg of oral vitamin K INR will be repeated tomorrow. Patient went into atrial fibrillation again today patient was started on IV Cardizem drip, patient had normal ejection fraction during her previous hospitalization, patient had transaortic valvular replacement. Patient did not take any of her medications today which may have precipitated her atrial fibrillation. Patient denied any fever chills nausea vomiting shortness of breath orthopnea or PND but upon exam patient has expiratory wheezing because of which patient was started on inhaled steroids and albuterol ipratropium inhalation patient does have history of COPD patient is comparing of cough with white are no sputum production Review of Systems REVIEW OF SYSTEMS: CONSTITUTIONAL: No fever, no malaise, no fatigue. HEENT: No recent visual problems or hearing problems. Denied any sore throat. CARDIOVASCULAR: No chest pain, orthopnea, PND, no palpitations, no syncope. PULMONARY: No shortness of breath, no cough, no hemoptysis. GASTROINTESTINAL: No diarrhea, no nausea, no vomiting, no abdominal pain. Normoactive bowel sounds. NEUROLOGICAL: No headaches, no weakness, no numbness. HEMATOLOGICAL: Denies any bleeding or petechiae. GENITOURINARY: Denies any burning micturition, frequency, or urgency. MUSCULOSKELETAL/RHEUMATOLOGICAL: Denies any joint pain, swelling, or any muscle pain. ENDOCRINE: Denies any polyuria or polydipsia. The rest of the 14-point review of systems is negative. 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, history of AICD placement, history of ischemic cardio myopathy with the most recent echocardiogram showing improvement in ejection fraction of to 40% history of MSSA bacteremia treated appropriately Last Myocardial Infarction Date:: UNKNOWN History of Any Multi-Drug Resistant Organisms: None Reported Past Surgical History: AICD, Back Surgery, Cholecystectomy, Heart Catheterization, Hernia Repair, Hysterectomy, Orthopedic Surgery, Tonsillectomy Additional Past Surgical History / Comment(s): Bilateral cataract surgery, bone marrow transplantation, C5 cervical spine fusion, aortic valve replacement and mitral valve annuloplasty, AICD placement, back surgery, cholecystectomy, cardiac catheterization, hernia repair, hysterectomy, bilateral cataract surgery , wrist surgery, venogram, EDD Past Anesthesia/Blood Transfusion Reactions: No Reported Reaction Additional Past Anesthesia/Blood Transfusion Reaction / Comment(s): blood-sx reaction Type of Cardiac Device: AICD Device Placement Date:: 2009-[employer] Past Psychological History: Anxiety, Depression Smoking Status: Never smoker Past Alcohol Use History: None Reported Past Drug Use History: None Reported - Past Family History Mother Family Medical History: Diabetes Mellitus, Myocardial Infarction ([place]) Father Family Medical History: Cancer Medications and Allergies Home Medications Medication Instructions Recorded Confirmed Type Aspirin 81 mg PO DAILY 02/10/14 04/06/17 History Lisinopril [Prinivil] 5 mg PO DAILY 02/10/14 04/06/17 History PARoxetine HCL [Paxil] 20 mg PO DAILY 02/10/14 04/06/17 History Albuterol Sulfate [Proair Hfa] 2 puff INHALATION RT-BID PRN 06/02/14 04/06/17 History Atorvastatin [Lipitor] 40 mg PO HS 06/02/14 04/06/17 History Zolpidem [Ambien] 5 mg PO HS PRN 06/02/14 04/06/17 History Famotidine [Pepcid] 40 mg PO HS 01/02/15 04/06/17 History Insulin Aspart [NovoLOG See Protocol SQ TID-W/MEALS PRN 01/02/15 04/06/17 History (formulary)] Insulin Glargine,Hum.rec.anlog 16 unit SQ HS 01/02/15 04/06/17 History [Lantus Solostar] Cetirizine HCl [Zyrtec] 10 mg PO DAILY 11/12/15 04/06/17 History Albuterol Nebulized [Ventolin 2.5 mg INHALATION RT-TID PRN 03/05/16 04/06/17 History Nebulized] Tiotropium [place] [Spiriva] 1 cap INHALATION RT-DAILY 03/05/16 04/06/17 History HYDROcodone/APAP 10-325MG [[place] 1 tab PO Q6H PRN 02/15/17 04/06/17 History 10-325] Furosemide [Lasix] 40 mg PO BID@0900,1600 tab 04/03/17 04/06/17 Rx Metoprolol Tartrate [Lopressor] 25 mg PO BID 04/06/17 04/06/17 History Allergies Allergy/AdvReac Type Severity Reaction Status Date / Time oxytetracycline Allergy Rash/Hives Verified 04/06/17 14:03 [From Terramycin] oxytetracycline HCl Allergy Rash/Hives Verified 04/06/17 14:03 [From Terramycin] Physical Exam Vitals: Vital Signs Temp Pulse Resp BP Pulse Ox 04/06/17 17:39 114 H 16 123/83 98 04/06/17 16:57 120 H 16 110/87 98 04/06/17 16:46 112 H 18 130/83 98 04/06/17 16:00 125 H 18 173/84 98 04/06/17 15:00 131 H 16 119/98 100 04/06/17 13:35 94.3 F L 150 H 18 107/75 98 Intake and Output 04/06/17 04/06/17 04/06/17 06:59 14:59 22:59 Other: Weight 68.946 kg Patient Weight 04/07/17 06:59 Weight 68.946 kg PHYSICAL EXAMINATION: GENERAL: The patient is alert and oriented x3, not in any acute distress. Well developed, well nourished. HEENT: Pupils are round and equally reacting to light. EOMI. No scleral icterus. No conjunctival pallor. Normocephalic, atraumatic. No pharyngeal erythema. No thyromegaly. CARDIOVASCULAR: S1 and S2 present. No murmurs, rubs, or gallops. Tachycardic irregularly irregular rhythm PULMONARY: she does have expiratory wheezing decreased air entry into bilateral lung torres ABDOMEN: Soft, nontender, nondistended, normoactive bowel sounds. No palpable organomegaly. MUSCULOSKELETAL: No joint swelling or deformity. EXTREMITIES: No cyanosis, clubbing, or pedal edema. NEUROLOGICAL: Gross neurological examination did not reveal any focal deficits. SKIN: No rashes. Results CBC & Chem 7: 04/06/17 13:54 04/06/17 13:54 Labs: Abnormal Lab Results - Last 24 Hours (Table) 04/06/17 04/06/17 04/06/17 Range/Units 13:54 13:54 15:45 WBC 13.0 H (3.8-10.6) k/uL MCHC 30.4 L (31.0-37.0) g/dL RDW 16.8 H (11.5-15.5) % Neutrophils # 10.7 H (1.3-7.7) k/uL PT >130.0 H (9.0-12.0) sec INR >10.0 H* (<1.2) APTT 32.0 H (22.0-30.0) sec Chloride 97 L (98-107) mmol/L BUN 69 H (7-17) mg/dL Creatinine 1.20 H (0.52-1.04) mg/dL Glucose 238 H (74-99) mg/dL AST 183 H (14-36) U/L ALT 317 H (9-52) U/L Alkaline Phosphatase 281 H (38-126) U/L Total Protein 8.3 H (6.3-8.2) g/dL Assessment and Plan Plan: -Coumadin coagulopathy: Patient received oral vitamin K in ER. Repeat INR tomorrow. -Atrial fibrillation with rapid unclear rate: Patient did not take her metoprolol today morning patient is prior presently on Cardizem drip we'll give her metoprolol oral and try to get it off Cardizem. -History of severe aortic stenosis and TAVR in the past. 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
[2017-04-06 19:04] LABS: Glucose,Whole Blood 187 mg/dL (75-99)
[2017-04-06] MEDS: METOPROLOL TARTRATE 25 MG TAB PO SCH (20:37)
[2017-04-06] MEDS: AZITHROMYCIN 500 MG TAB PO SCH (20:37)
[2017-04-06] MEDS: FAMOTIDINE 20 MG TAB PO SCH (20:37)
[2017-04-06] MEDS: ATORVASTATIN 40 MG TAB PO SCH (20:37)
[2017-04-06 20:50] VITALS: BMI 27.8
[2017-04-06] MEDS: IPRATROPIUM-ALBUTEROL 3 ML NEB INHALATION SCH (20:50)
[2017-04-06] MEDS: SYMBICORT 160-4.5 MCG INHALER INHALATION SCH (20:50)
[2017-04-06] MEDS: HYDROcodone/APAP 10-325MG 1 EACH TAB PO PRN (20:54)
[2017-04-06 20:59] LABS: Glucose,Whole Blood 298 mg/dL (75-99)
[2017-04-06] MEDS: INSULIN DETEMIR 100 UNIT/ML 10 ML VIAL SQ SCH (21:02)
[2017-04-06] MEDS: INSULIN ASPART 100 UNIT/ML 1 ML 10 ML VIAL SQ SCH (21:03)
[2017-04-06] MEDS: MELATONIN 5 MG TABLET PO SCH (23:45)
[2017-04-07 01:15] LABS: Hepatitis A Antibody IgM Non-Reactive (Non-Reactive); Hepatitis B Core IgM Non-Reactive (Non-Reactive)
[2017-04-07 03:18] LABS: Glucose,Whole Blood 57 mg/dL (75-99)
[2017-04-07] MEDS: HYDROcodone/APAP 10-325MG 1 EACH TAB PO PRN ×3 (03:28→20:21)
[2017-04-07 03:48] LABS: Glucose,Whole Blood 97 mg/dL (75-99)
[2017-04-07 06:26] LABS: Albumin 3.5 g/dL (3.5-5.0); Calcium 9.2 mg/dL (8.4-10.2); Magnesium 1.9 mg/dL (1.6-2.3); Potassium 4.7 mmol/L (3.5-5.1); Total Bilirubin 0.8 mg/dL (0.2-1.3); Total Protein 6.9 g/dL (6.3-8.2)
[2017-04-07 06:37] LABS: INR 2.7 (<1.2)
[2017-04-07 06:39] LABS: Prothrombin Time 23.8 sec (9.0-12.0)
[2017-04-07 06:48] LABS: Anisocytosis Slight; HCT 33.6 % (34.0-46.0); Hypochromasia Marked; MCH 27.6 pg (25.0-35.0); MCHC 29.7 g/dL (31.0-37.0); MCV 92.8 fL (80.0-100.0); Mean Platelet Volume 7.5; Platelet Count 220 k/uL (150-450); RBC 3.62 m/uL (3.80-5.40); RDW 16.7 % (11.5-15.5); WBC 13.2 k/uL (3.8-10.6)
[2017-04-07] MEDS: INSULIN ASPART 100 UNIT/ML 1 ML 10 ML VIAL SQ SCH ×4 (06:52→21:15)
[2017-04-07 06:53] LABS: Glucose,Whole Blood 183 mg/dL (75-99)
[2017-04-07] MEDS: SYMBICORT 160-4.5 MCG INHALER INHALATION SCH ×2 (07:02→20:09)
[2017-04-07] MEDS: IPRATROPIUM-ALBUTEROL 3 ML NEB INHALATION SCH ×5 (07:02→20:08)
[2017-04-07] MEDS ORDERED: LISINOPRIL 5 MG TAB PO SCH (09:00)
[2017-04-07] MEDS: ASPIRIN 81 MG PO SCH (09:27)
[2017-04-07] MEDS: FUROSEMIDE 40 MG TAB PO SCH ×2 (09:27→15:24)
[2017-04-07] MEDS: PARoxetine 20 MG TAB PO SCH (09:28)
[2017-04-07] MEDS: METOPROLOL TARTRATE 25 MG TAB PO SCH ×3 (09:28→19:59)
--- NOTE | 2017-04-07 10:49 | P.CRDCN ---
History of Present Illness Consult date: 04/07/17 Requesting physician: Clifford Christensen Reason for Consult (text): atrial fibrillation Chief complaint: high INR at office visit History of present illness: Mrs. torres is a pleasant 66-year-old female patient who follows with Dr. Silva in the office. His past medical history significant for tissue aortic valve replacement, annuloplasty of mitral valve, nonischemic cardiomyopathy with AICD placement, chronic systolic heart failure, COPD, oxygen dependent, diabetes, dyslipidemia, hypertension and GERD. She was recently admitted to the hospital with new onset persistent atrial fibrillation with rapid ventricular response and she was started on Coumadin and medication adjustments were made and she was discharged home on Coumadin 5 mg daily. She followed up with Dr. Silva yesterday and was found to have an elevated INR and was sent to the hospital for a blood draw. Patient was admitted with an INR of greater than 10. She was given vitamin K 5 mg once with a repeat INR this morning of 2.7. Patient was also found to have a poorly controlled ventricular response and was started on Cardizem drip 5 mg an hour. Home dose of metoprolol had apparently been decreased to 25 mg by mouth twice a day by her primary care physician due to low blood pressure. Currently patient's heart rate is controlled in the 80s and 90s. Upon examination, patient is resting comfortably in bed. She has no complaints of orthopnea she continues to have dyspnea on exertion this is stable for her. She has no lower extremity edema. She does complain of a productive cough with small amounts of yellowish to greenish sputum. Chest x-ray on admission shows no acute pulmonary process. 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, history of AICD placement, history of ischemic cardio myopathy with the most recent echocardiogram showing improvement in ejection fraction of to 40% history of MSSA bacteremia treated appropriately Last Myocardial Infarction Date:: UNKNOWN History of Any Multi-Drug Resistant Organisms: None Reported Past Surgical History: AICD, Back Surgery, Cholecystectomy, Heart Catheterization, Hernia Repair, Hysterectomy, Orthopedic Surgery, Tonsillectomy Additional Past Surgical History / Comment(s): Bilateral cataract surgery, bone marrow transplantation, C5 cervical spine fusion, aortic valve replacement and mitral valve annuloplasty, AICD placement, back surgery, cholecystectomy, cardiac catheterization, hernia repair, hysterectomy, bilateral cataract surgery , wrist surgery, venogram, EDD Past Anesthesia/Blood Transfusion Reactions: No Reported Reaction Additional Past Anesthesia/Blood Transfusion Reaction / Comment(s): blood-sx reaction Type of Cardiac Device: AICD Device Placement Date:: 2009-MED Past Psychological History: Anxiety, Depression Smoking Status: Never smoker Past Alcohol Use History: None Reported Past Drug Use History: None Reported - Past Family History Mother Family Medical History: Diabetes Mellitus, Myocardial Infarction (NE) Father Family Medical History: Cancer Medications and Allergies Home Medications Medication Instructions Recorded Confirmed Type Aspirin 81 mg PO DAILY 02/10/14 04/06/17 History Lisinopril [Prinivil] 5 mg PO DAILY 02/10/14 04/06/17 History PARoxetine HCL [Paxil] 20 mg PO DAILY 02/10/14 04/06/17 History Albuterol Sulfate [Proair Hfa] 2 puff INHALATION RT-BID PRN 06/02/14 04/06/17 History Atorvastatin [Lipitor] 40 mg PO HS 06/02/14 04/06/17 History Zolpidem [Ambien] 5 mg PO HS PRN 06/02/14 04/06/17 History Famotidine [Pepcid] 40 mg PO HS 01/02/15 04/06/17 History Insulin Aspart [NovoLOG See Protocol SQ TID-W/MEALS PRN 01/02/15 04/06/17 History (formulary)] Insulin Glargine,Hum.rec.anlog 16 unit SQ HS 01/02/15 04/06/17 History [Lantus Solostar] Cetirizine HCl [Zyrtec] 10 mg PO DAILY 11/12/15 04/06/17 History Albuterol Nebulized [Ventolin 2.5 mg INHALATION RT-TID PRN 03/05/16 04/06/17 History Nebulized] Tiotropium [place] [Spiriva] 1 cap INHALATION RT-DAILY 03/05/16 04/06/17 History HYDROcodone/APAP 10-325MG [[place] 1 tab PO Q6H PRN 02/15/17 04/06/17 History 10-325] Furosemide [Lasix] 40 mg PO BID@0900,1600 tab 04/03/17 04/06/17 Rx Metoprolol Tartrate [Lopressor] 25 mg PO BID 04/06/17 04/06/17 History Allergies Allergy/AdvReac Type Severity Reaction Status Date / Time oxytetracycline Allergy Rash/Hives Verified 04/06/17 14:03 [From Terramycin] oxytetracycline HCl Allergy Rash/Hives Verified 04/06/17 14:03 [From Terramycin] Physical Exam Vitals: Vital Signs Temp Pulse Pulse Pulse Resp BP BP 04/07/17 10:01 96 110/72 04/07/17 09:15 90 105/66 04/07/17 07:59 97.0 F L 109 H 18 103/55 04/07/17 07:04 80 04/07/17 06:52 84 04/07/17 03:30 97.2 F L 111 H 18 104/63 04/07/17 00:00 97.2 F L 99 17 118/67 04/06/17 21:07 106 H 04/06/17 20:50 104 H 04/06/17 20:00 96.7 F L 111 H 17 101/75 04/06/17 18:40 96.0 F L 125 H 18 141/79 04/06/17 17:39 114 H 16 123/83 04/06/17 16:57 120 H 16 110/87 04/06/17 16:46 112 H 18 130/83 04/06/17 16:00 125 H 18 173/84 04/06/17 15:00 131 H 16 119/98 04/06/17 13:35 94.3 F L 150 H 18 107/75 Pulse Ox 04/07/17 10:01 04/07/17 09:15 04/07/17 07:59 98 04/07/17 07:04 04/07/17 06:52 04/07/17 03:30 98 04/07/17 00:00 100 04/06/17 21:07 04/06/17 20:50 04/06/17 20:00 98 04/06/17 18:40 100 04/06/17 17:39 98 04/06/17 16:57 98 04/06/17 16:46 98 04/06/17 16:00 98 04/06/17 15:00 100 04/06/17 13:35 98 Intake and Output 04/06/17 04/07/17 04/07/17 22:59 06:59 14:59 Intake Total 5 240 Balance 5 240 Intake: Intake, IV Titration 5 Amount Diltiazem 125 mg In 5 Sodium Chloride 0.9% 100 ml @ 5 MG/HR 5 mls/hr IV .Q24H ONE Rx#:[id number] Oral 240 Other: # Bowel Movements 1 Weight 68.94 kg 68.9 kg PHYSICAL EXAMINATION: HEENT: Head is atraumatic, normocephalic. Pupils equal, round. Neck is supple. There is no elevated jugular venous pressure. HEART EXAMINATION: Heart sounds irregularly irregular, S1 and S2 with a systolic murmur. CHEST EXAMINATION: Lungs reveal diminished air entry bilaterally with faint crackles to bilateral bases. No chest wall tenderness is noted on palpation or with deep breathing. ABDOMEN: Soft, nontender. Bowel sounds are heard. No organomegaly noted. EXTREMITIES: 2+ peripheral pulses with no evidence of peripheral edema and no calf tenderness noted. NEUROLOGIC patient is awake, alert and oriented x3. . Results 04/07/17 05:45 04/07/17 05:45 Cardiac Enzymes 04/06/17 04/06/17 04/07/17 Range/Units 13:54 13:54 05:45 AST 183 H 121 H (14-36) U/L CK-MB (CK-2) 2.4 (0.0-2.4) ng/mL Troponin I 0.020 (0.000-0.034) ng/mL Coagulation 04/06/17 04/07/17 Range/Units 15:45 05:45 PT >130.0 H 23.8 H (9.0-12.0) sec APTT 32.0 H (22.0-30.0) sec CBC 04/06/17 04/07/17 Range/Units 13:54 05:45 WBC 13.0 H 13.2 H (3.8-10.6) k/uL RBC 4.24 3.62 L (3.80-5.40) m/uL Hgb 11.6 10.0 L D (11.4-16.0) gm/dL Hct 38.1 33.6 L (34.0-46.0) % Plt Count 261 220 (150-450) k/uL Comprehensive Metabolic Panel 04/06/17 04/07/17 Range/Units 13:54 05:45 Sodium 139 138 (137-145) mmol/L Potassium 4.5 4.7 (3.5-5.1) mmol/L Chloride 97 L 98 (98-107) mmol/L Carbon Dioxide 30 31 H (22-30) mmol/L BUN 69 H 69 H (7-17) mg/dL Creatinine 1.20 H 1.20 H (0.52-1.04) mg/dL Glucose 238 H 187 H (74-99) mg/dL Calcium 9.9 9.2 (8.4-10.2) mg/dL AST 183 H 121 H (14-36) U/L ALT 317 H 244 H (9-52) U/L Alkaline Phosphatase 281 H 226 H (38-126) U/L Total Protein 8.3 H 6.9 (6.3-8.2) g/dL Albumin 4.3 3.5 (3.5-5.0) g/dL Current Medications Generic Name Dose Route Start Last Admin Trade Name Freq PRN Reason Stop Dose Admin Hydrocodone Bitart/Acetaminophen 1 each 04/06/17 18:38 04/07/17 03:28 [place] 10 PO 1 each Q6H PRN Administration Moderate Pain Albuterol/Ipratropium 3 ml 04/06/17 18:39 Duoneb 0.5 Mg-3 Mg/3 Ml Soln INHALATION RT-QID PRN Shortness Of Breath Or Wheezing Albuterol/Ipratropium 3 ml 04/06/17 20:00 04/07/17 07:02 Duoneb 0.5 Mg-3 Mg/3 Ml Soln INHALATION 3 ml RT-QID CHERIE Administration Aspirin 81 mg 04/07/17 09:00 04/07/17 09:27 Aspirin PO 81 mg DAILY CHERIE Administration Atorvastatin Calcium 40 mg 04/06/17 21:00 04/06/17 20:37 Lipitor PO 40 mg HS CHERIE Administration Azithromycin 500 mg 04/06/17 21:00 04/06/17 20:37 Zithromax PO 500 mg HS CHERIE Administration Budesonide/Formoterol Fumarate 2 puff 04/06/17 20:00 04/07/17 07:02 Symbicort 160-4.5 Mcg Inhaler INHALATION 2 puff RT-BID CHERIE Administration Famotidine 40 mg 04/06/17 21:00 04/06/17 20:37 Pepcid PO 40 mg HS CHERIE Administration Furosemide 40 mg 04/07/17 09:00 04/07/17 09:27 Lasix PO 40 mg BID@0900,1600 CHERIE Administration Sodium Chloride 1,000 mls @ 20 mls/hr 04/06/17 17:00 04/06/17 16:54 Saline 0.9% IV Not Given .Q24H CHERIE Insulin Aspart 0 unit 04/06/17 21:00 04/07/17 06:52 Novolog SQ 2 unit ACHS CHERIE Administration Protocol Insulin Detemir 16 unit 04/06/17 21:00 04/06/17 21:02 Levemir SQ 16 unit HS CHERIE Administration Lisinopril 5 mg 04/07/17 09:00 04/07/17 09:27 Zestril PO 5 mg DAILY CHERIE Administration Melatonin 5 mg 04/06/17 23:15 04/06/17 23:45 Melatonin PO 5 mg HS CHERIE Administration Metoprolol Tartrate 25 mg 04/07/17 16:00 Lopressor PO TID CHERIE Naloxone HCl 0.2 mg 04/06/17 16:52 Narcan IV Q2M PRN Opioid Reversal Paroxetine HCl 20 mg 04/07/17 09:00 04/07/17 09:28 Paxil PO 20 mg DAILY CHERIE Administration Intake and Output 04/06/17 04/07/17 04/07/17 22:59 06:59 14:59 Intake Total 5 240 Balance 5 240 Intake: Intake, IV Titration 5 Amount Diltiazem 125 mg In 5 Sodium Chloride 0.9% 100 ml @ 5 MG/HR 5 mls/hr IV .Q24H ONE Rx#:[id number] Oral 240 Other: # Bowel Movements 1 Weight 68.94 kg 68.9 kg 04/07/17 05:45 04/07/17 05:45 Assessment and Plan Assessment: #1 Coumadin coagulopathy #2 persistent atrial fibrillation with rapid ventricular response #3 history of severe aortic stenosis and prior TAVR #4 likely tracheobronchitis, on azithromycin #5 hyperlipidemia #6 COPD #7 chronic systolic congestive heart failure Plan: From cardiology perspective, we will continue to hold Coumadin for now and recheck INR in the morning. We will increase metoprolol to 25 mg by mouth 3 times a day. We anticipate the patient to be discharged within the next 24-48 hours depending on clinical status and INR. Further recommendations to follow. EN[employer]EL[employer] note has been reviewed, I agree with a documented findings and plan of care. Patient was seen and examined.
[2017-04-07 11:51] LABS: Glucose,Whole Blood 211 mg/dL (75-99)
--- NOTE | 2017-04-07 13:15 | P.PN ---
Subjective Patient was admitted for secondary to super that we cannot INR has come down to 2.8 but cardiology is recommending to hold Coumadin until tomorrow. Patient also went into atrial fibrillation with rapid ventricular rate as patient did not take her metoprolol as today metoprolol dose was increased patient is off Cardizem. Constitutional: Denied any fatigue denied any fever. Cardio vascular: denied any chest pain, palpitations Gastrointestinal denied any nausea vomiting Pulmonary: Denied any shortness of breath cough Neurologic denied any new focal deficits Objective - Vital Signs Vital signs: Vital Signs Temp 97.5 F L 04/07/17 11:37 Pulse 86 04/07/17 11:37 Resp 18 04/07/17 11:37 BP 120/69 04/07/17 11:37 Pulse Ox 99 04/07/17 11:37 Intake & Output 04/06/17 04/07/17 04/07/17 18:59 06:59 18:59 Intake Total 5 240 Balance 5 240 Weight 68.94 kg 68.9 kg Intake: Intake, IV Titration 5 Amount Diltiazem 125 mg In 5 Sodium Chloride 0.9% 100 ml @ 5 MG/HR 5 mls/hr IV .Q24H ONE Rx#:[id number] Oral 240 Other: Voiding Method Toilet # Bowel Movements 1 - Exam PHYSICAL EXAMINATION: GENERAL: The patient is alert and oriented x3, not in any acute distress. Well developed, well nourished. HEENT: Pupils are round and equally reacting to light. EOMI. No scleral icterus. No conjunctival pallor. Normocephalic, atraumatic. No pharyngeal erythema. No thyromegaly. CARDIOVASCULAR: S1 and S2 present. No murmurs, rubs, or gallops. PULMONARY: Chest is clear to auscultation, no wheezing or crackles. ABDOMEN: Soft, nontender, nondistended, normoactive bowel sounds. No palpable organomegaly. MUSCULOSKELETAL: No joint swelling or deformity. EXTREMITIES: No cyanosis, clubbing, or pedal edema. NEUROLOGICAL: Gross neurological examination did not reveal any focal deficits. SKIN: No rashes. - Labs CBC & Chem 7: 04/07/17 05:45 04/07/17 05:45 Labs: Abnormal Lab Results - Last 24 Hours (Table) 04/06/17 04/06/17 04/06/17 Range/Units 13:54 13:54 15:45 WBC 13.0 H (3.8-10.6) k/uL RBC (3.80-5.40) m/uL Hgb (11.4-16.0) gm/dL Hct (34.0-46.0) % MCHC 30.4 L (31.0-37.0) g/dL RDW 16.8 H (11.5-15.5) % Neutrophils # 10.7 H (1.3-7.7) k/uL PT >130.0 H (9.0-12.0) sec INR >10.0 H* (<1.2) APTT 32.0 H (22.0-30.0) sec Chloride 97 L (98-107) mmol/L Carbon Dioxide (22-30) mmol/L BUN 69 H (7-17) mg/dL Creatinine 1.20 H (0.52-1.04) mg/dL Glucose 238 H (74-99) mg/dL POC Glucose (mg/dL) (75-99) mg/dL AST 183 H (14-36) U/L ALT 317 H (9-52) U/L Alkaline Phosphatase 281 H (38-126) U/L Total Protein 8.3 H (6.3-8.2) g/dL 04/06/17 04/06/17 04/07/17 Range/Units 19:01 20:56 02:58 WBC (3.8-10.6) k/uL RBC (3.80-5.40) m/uL Hgb (11.4-16.0) gm/dL Hct (34.0-46.0) % MCHC (31.0-37.0) g/dL RDW (11.5-15.5) % Neutrophils # (1.3-7.7) k/uL PT (9.0-12.0) sec INR (<1.2) APTT (22.0-30.0) sec Chloride (98-107) mmol/L Carbon Dioxide (22-30) mmol/L BUN (7-17) mg/dL Creatinine (0.52-1.04) mg/dL Glucose (74-99) mg/dL POC Glucose (mg/dL) 187 H 298 H 57 L (75-99) mg/dL AST (14-36) U/L ALT (9-52) U/L Alkaline Phosphatase (38-126) U/L Total Protein (6.3-8.2) g/dL 04/07/17 04/07/17 04/07/17 Range/Units 05:45 05:45 05:45 WBC 13.2 H (3.8-10.6) k/uL RBC 3.62 L (3.80-5.40) m/uL Hgb 10.0 L D (11.4-16.0) gm/dL Hct 33.6 L (34.0-46.0) % MCHC 29.7 L (31.0-37.0) g/dL RDW 16.7 H (11.5-15.5) % Neutrophils # (1.3-7.7) k/uL PT 23.8 H (9.0-12.0) sec INR 2.7 H (<1.2) APTT (22.0-30.0) sec Chloride (98-107) mmol/L Carbon Dioxide 31 H (22-30) mmol/L BUN 69 H (7-17) mg/dL Creatinine 1.20 H (0.52-1.04) mg/dL Glucose 187 H (74-99) mg/dL POC Glucose (mg/dL) (75-99) mg/dL AST 121 H (14-36) U/L ALT 244 H (9-52) U/L Alkaline Phosphatase 226 H (38-126) U/L Total Protein (6.3-8.2) g/dL 04/07/17 04/07/17 Range/Units 06:47 11:49 WBC (3.8-10.6) k/uL RBC (3.80-5.40) m/uL Hgb (11.4-16.0) gm/dL Hct (34.0-46.0) % MCHC (31.0-37.0) g/dL RDW (11.5-15.5) % Neutrophils # (1.3-7.7) k/uL PT (9.0-12.0) sec INR (<1.2) APTT (22.0-30.0) sec Chloride (98-107) mmol/L Carbon Dioxide (22-30) mmol/L BUN (7-17) mg/dL Creatinine (0.52-1.04) mg/dL Glucose (74-99) mg/dL POC Glucose (mg/dL) 183 H 211 H (75-99) mg/dL AST (14-36) U/L ALT (9-52) U/L Alkaline Phosphatase (38-126) U/L Total Protein (6.3-8.2) g/dL Assessment and Plan Plan: -Coumadin coagulopathy: Patient received oral vitamin K in ER. A since INR is 2.8 today patient will be resumed on Coumadin from tomorrow as recommended by cardiology -Atrial fibrillation with rapid unclear rate: Presently rate controlled now off Cardizem and patient's metoprolol dose was increased and patient will be monitored overnight possibly of discharge tomorrow -History of severe aortic stenosis and TAVR in the past. 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
--- NOTE | 2017-04-07 13:48 | CDI ---
Last Revision, January 2017 Documentation Clarification Form Date: 04/07/2017 1:32:00 PM From: Abby GrubbsAlbertsALIZA castro, CCDS Admit Date: 04/06/2017 4:52:00 PM Patient Name: Jillian Busby Visit Number: [id number] Discharge Date: ATTENTION: The Clinical Documentation Specialists (CDI) and [facility] Coding Staff appreciate your assistance in clarifying documentation. Please respond to the clarification below the line at the bottom and electronically sign. The CDI & [facility] Coding staff will review the response and follow-up if needed. Please note: Queries are made part of the Legal Health Record. If you have any questions, please contact the author of this message via ITS. Dr. Diony Lomax: 66 yo female, presented to ED from her PCPs office due to high Coumadin level, recently admitted with A Fib. Documentation and location in medical record included: History/Risk Factors: A fib, Asthma, Leukemia, CHF, Ischemic Cardiomyopathy, COPD, IDDM, GERD, Hld, Htn, TN, AVR, MVR. Home Rx: Lisinopril, Paxil, Albuterol INH, Lipitor, Ambien, Insulin sc, [place], Lopressor Home oxygen: documented Oxygen dependent (cardiology consult) Clinical Indicators: Vital signs: T 94.3*, P 150^, PO 98 2Lnc Treatment: 2Lnc, IV Cardizem, Albuterol INH, po Zithromax. In your professional opinion, can you please clarify if these findings signify one of the following conditions? Chronic Respiratory Failure Acute on Chronic Respiratory Failure Other Unable to Determine o With Specificity (if known): o With hypercapnia? o With hypoxia? Please continue to document in your progress notes and discharge summary in order to capture severity of illness and risk of mortality. Include clinical findings that support your diagnosis. MTDD
[2017-04-07 16:18] LABS: Glucose,Whole Blood 149 mg/dL (75-99)
[2017-04-07] MEDS: SODIUM CHLORIDE 0.9% 1,000 ML IV SCH (17:39)
[2017-04-07] MEDS: AZITHROMYCIN 500 MG TAB PO SCH (19:59)
[2017-04-07] MEDS: FAMOTIDINE 20 MG TAB PO SCH (19:59)
[2017-04-07 20:55] LABS: Glucose,Whole Blood 190 mg/dL (75-99)
[2017-04-07] MEDS: INSULIN DETEMIR 100 UNIT/ML 10 ML VIAL SQ SCH (21:14)
[2017-04-07] MEDS: MELATONIN 5 MG TABLET PO SCH (23:10)
[2017-04-08] MEDS: HYDROcodone/APAP 10-325MG 1 EACH TAB PO PRN ×2 (03:14→15:50)
[2017-04-08 06:15] LABS: Glucose,Whole Blood 102 mg/dL (75-99)
[2017-04-08] MEDS: INSULIN ASPART 100 UNIT/ML 1 ML 10 ML VIAL SQ SCH ×4 (06:19→22:06)
[2017-04-08 06:26] LABS: INR 1.4 (<1.2); Prothrombin Time 13.2 sec (9.0-12.0)
[2017-04-08] MEDS: SYMBICORT 160-4.5 MCG INHALER INHALATION SCH ×2 (06:56→18:50)
[2017-04-08] MEDS: IPRATROPIUM-ALBUTEROL 3 ML NEB INHALATION SCH ×4 (06:56→18:50)
[2017-04-08] MEDS: ASPIRIN 81 MG PO SCH (09:15)
[2017-04-08] MEDS: METOPROLOL TARTRATE 25 MG TAB PO SCH ×3 (09:15→22:07)
[2017-04-08] MEDS: FUROSEMIDE 40 MG TAB PO SCH (09:15)
[2017-04-08] MEDS: PARoxetine 20 MG TAB PO SCH (09:16)
[2017-04-08] MEDS ORDERED: LISINOPRIL 2.5 MG TAB PO SCH (09:30)
--- NOTE | 2017-04-08 09:43 | P.PN ---
Subjective Patient was admitted for secondary to super that we cannot INR has come down to 2.8 but cardiology is recommending to hold Coumadin until tomorrow. Patient also went into atrial fibrillation with rapid ventricular rate as patient did not take her metoprolol as today metoprolol dose was increased patient is off Cardizem. 04/08/2017 Patient is still tachycardic and blood pressure is quite low. Patient is on Lasix Cardizem and metoprolol. Cardiology regular valid the patient will let the titrate the medications. Patient although doesn't have any overnight events and have any symptoms at this time. Constitutional: Denied any fatigue denied any fever. Cardio vascular: denied any chest pain, palpitations Gastrointestinal denied any nausea vomiting Pulmonary: Denied any shortness of breath cough Neurologic denied any new focal deficits Objective - Vital Signs Vital signs: Vital Signs Temp 98.6 F 04/08/17 08:00 Pulse 125 H 04/08/17 08:00 Resp 18 04/08/17 08:00 BP 85/63 04/08/17 08:00 Pulse Ox 99 04/08/17 08:00 Intake & Output 04/07/17 04/08/17 04/08/17 18:59 06:59 18:59 Intake Total 720 360 Balance 720 360 Weight 70.9 kg Intake: Oral 720 360 Other: Voiding Method Toilet # Voids 2 1 # Bowel Movements 1 - Exam PHYSICAL EXAMINATION: GENERAL: The patient is alert and oriented x3, not in any acute distress. Well developed, well nourished. HEENT: Pupils are round and equally reacting to light. EOMI. No scleral icterus. No conjunctival pallor. Normocephalic, atraumatic. No pharyngeal erythema. No thyromegaly. CARDIOVASCULAR: S1 and S2 present. No murmurs, rubs, or gallops. PULMONARY: Chest is clear to auscultation, no wheezing or crackles. ABDOMEN: Soft, nontender, nondistended, normoactive bowel sounds. No palpable organomegaly. MUSCULOSKELETAL: No joint swelling or deformity. EXTREMITIES: No cyanosis, clubbing, or pedal edema. NEUROLOGICAL: Gross neurological examination did not reveal any focal deficits. SKIN: No rashes. - Labs CBC & Chem 7: 04/07/17 05:45 04/07/17 05:45 Labs: Abnormal Lab Results - Last 24 Hours (Table) 04/07/17 04/07/17 04/07/17 Range/Units 11:49 16:15 20:54 PT (9.0-12.0) sec INR (<1.2) POC Glucose (mg/dL) 211 H 149 H 190 H (75-99) mg/dL 04/08/17 04/08/17 Range/Units 05:45 06:13 PT 13.2 H (9.0-12.0) sec INR 1.4 H (<1.2) POC Glucose (mg/dL) 102 H (75-99) mg/dL Assessment and Plan Plan: -Coumadin coagulopathy: Patient received oral vitamin K in ER. A since INR is 1.4 today patient will be resumed on Coumadin today -Atrial fibrillation with rapid unclear rate: Presently rate controlled now off Cardizem and patient's metoprolol dose was increased and an patient's blood pressure has come down and is in systolics of 80s. Cardiology will titrate Cardizem, beta sebastian and Lasix -History of severe aortic stenosis and TAVR in the past. 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
[2017-04-08 11:40] LABS: Glucose,Whole Blood 261 mg/dL (75-99)
--- NOTE | 2017-04-08 13:06 | P.PN ---
Subjective Progress Note Date: 04/08/17 Mrs. torres is a pleasant 66-year-old female patient who follows with Dr. Silva in the office. Has past medical history significant for tissue aortic valve replacement, annuloplasty of mitral valve, nonischemic cardiomyopathy with AICD placement, chronic systolic heart failure, COPD, chronic respiratory failure with hypoxia, oxygen dependent, diabetes, dyslipidemia, hypertension and GERD. She was recently admitted to the hospital with new onset persistent atrial fibrillation with rapid ventricular response and she was started on Coumadin and medication adjustments were made and she was discharged home on Coumadin 5 mg daily. She followed up with Dr. Silva yesterday and was found to have an elevated INR and was sent to the hospital for a blood draw. Patient was admitted with an INR of greater than 10. She was given vitamin K 5 mg once with a repeat INR this morning of 2.7. Patient was also found to have a poorly controlled ventricular response and was started on Cardizem drip 5 mg an hour. Home dose of metoprolol had apparently been decreased to 25 mg by mouth twice a day by her primary care physician due to low blood pressure. Cardizem drip was discontinued yesterday and metoprolol tartrate was increased to 25 mg by mouth 3 times a day. Today, patient's heart rate remains poorly controlled in the low 100s and blood pressure is running on the low side with a systolic blood pressure in the high 80s. She is asymptomatic with these blood pressures. She is currently on metoprolol tartrate 25 mg by mouth 3 times a day, lisinopril 5 mg daily and Lasix 40 mg by mouth twice a day. Objective - Vital Signs Vital signs: Vital Signs Temp 98.6 F 04/08/17 11:49 Pulse 107 H 04/08/17 11:49 Resp 18 04/08/17 11:49 BP 109/74 04/08/17 11:49 Pulse Ox 94 L 04/08/17 11:49 Intake & Output 04/07/17 04/08/17 04/08/17 18:59 06:59 18:59 Intake Total 720 360 Balance 720 360 Weight 70.9 kg Intake: Oral 720 360 Other: Voiding Method Toilet # Voids 2 1 # Bowel Movements 1 - Exam PHYSICAL EXAMINATION: HEENT: Head is atraumatic, normocephalic. Pupils equal, round. Neck is supple. There is no elevated jugular venous pressure. HEART EXAMINATION: Heart sounds irregularly irregular, S1 and S2 with a systolic murmur. CHEST EXAMINATION: Lungs reveal expiratory wheezing throughout. No chest wall tenderness is noted on palpation or with deep breathing. ABDOMEN: Soft, nontender. Bowel sounds are heard. No organomegaly noted. EXTREMITIES: 2+ peripheral pulses with evidence of 1+ left ankle edema and no calf tenderness noted. NEUROLOGIC patient is awake, alert and oriented x3. - Labs CBC & Chem 7: 04/07/17 05:45 04/07/17 05:45 Labs: Abnormal Lab Results - Last 24 Hours (Table) 04/07/17 04/07/17 04/08/17 Range/Units 16:15 20:54 05:45 PT 13.2 H (9.0-12.0) sec INR 1.4 H (<1.2) POC Glucose (mg/dL) 149 H 190 H (75-99) mg/dL 04/08/17 04/08/17 Range/Units 06:13 11:29 PT (9.0-12.0) sec INR (<1.2) POC Glucose (mg/dL) 102 H 261 H (75-99) mg/dL Assessment and Plan Assessment: #1 Coumadin coagulopathy #2 persistent atrial fibrillation with rapid ventricular response #3 history of severe aortic stenosis and prior TAVR #4 likely tracheobronchitis, on azithromycin #5 hyperlipidemia #6 COPD #7 chronic systolic congestive heart failure Plan: From cardiology perspective, we will give 2 mg Coumadin today and recheck PT/ INR in the morning. We will decrease Lasix to 20 mg by mouth twice a day and discontinue lisinopril altogether. Continue metoprolol tartrate 25 mg by mouth 3 times a day. Further recommendations depending on patient's clinical progress. HEADER SETUP OPERATOR note has been reviewed, I agree with a documented findings and plan of care. Patient was seen and examined.
[2017-04-08] MEDS: FUROSEMIDE 20 MG TAB PO SCH (15:53)
[2017-04-08 17:04] LABS: Glucose,Whole Blood 129 mg/dL (75-99)
[2017-04-08] MEDS: SODIUM CHLORIDE 0.9% 1,000 ML IV SCH (17:34)
[2017-04-08] MEDS ORDERED: WARFARIN 2 MG TAB PO ONE (18:00)
[2017-04-08] MEDS: FAMOTIDINE 20 MG TAB PO SCH (19:55)
[2017-04-08] MEDS: AZITHROMYCIN 500 MG TAB PO SCH (19:55)
[2017-04-08] MEDS: MELATONIN 5 MG TABLET PO SCH (19:55)
[2017-04-08] MEDS: ATORVASTATIN 40 MG TAB PO SCH (19:55)
[2017-04-08 21:07] LABS: Glucose,Whole Blood 158 mg/dL (75-99)
[2017-04-08] MEDS: INSULIN DETEMIR 100 UNIT/ML 10 ML VIAL SQ SCH (22:05)
[2017-04-09 06:04] LABS: Glucose,Whole Blood 194 mg/dL (75-99)
[2017-04-09 06:08] LABS: INR 1.5 (<1.2); Prothrombin Time 13.6 sec (9.0-12.0)
[2017-04-09] MEDS: INSULIN ASPART 100 UNIT/ML 1 ML 10 ML VIAL SQ SCH ×2 (06:38→12:04)
[2017-04-09] MEDS: IPRATROPIUM-ALBUTEROL 3 ML NEB INHALATION SCH ×2 (07:06→10:47)
[2017-04-09] MEDS: SYMBICORT 160-4.5 MCG INHALER INHALATION SCH (07:06)
[2017-04-09 07:45] VITALS: RESP 18
[2017-04-09] MEDS: FUROSEMIDE 20 MG TAB PO SCH (08:47)
[2017-04-09] MEDS: ASPIRIN 81 MG PO SCH (08:47)
[2017-04-09] MEDS: METOPROLOL TARTRATE 25 MG TAB PO SCH (08:48)
[2017-04-09] MEDS: PARoxetine 20 MG TAB PO SCH (08:48)
[2017-04-09 11:37] LABS: Glucose,Whole Blood 153 mg/dL (75-99)
[2017-04-09 11:39] VITALS: BP 112/78; PULSE 125
[2017-04-09 11:57] VITALS: TEMP 98.1
--- NOTE | 2017-04-09 15:06 | PN ---
PROGRESS NOTE Mrs. Busby is status post mitral valve replacement and mitral valve repair. She is in atrial fib. Rate control is fair. I am recommending that we discharge her today on Coumadin 2 mg daily. Her INR is 1.6, and she will see Dr. Silva this week. I gave very specific instructions in terms of the dosage of Coumadin. Last time she ended up with a coagulopathy. Vital signs are stable. Heart rate is in between 80-90 regular. Short systolic murmur noted at the apex and base. Abdomen and lower extremity exam is unchanged. PLAN: Is to increase activity. Home on 2 mg of Coumadin plus other medications. Based on clinical course, we will make further recommendations. MMODL / IJN: [id number] /
--- NOTE | 2017-05-21 18:17 | P.DS ---
Providers Date of admission: 04/06/17 16:52 Attending physician: Clifford Christensen Consults: 04/06/17 16:53 Consult Physician Urgent Consulting Provider: Dez Silva Consult Reason/Comments: a fib Do you want consulting provider notified?: Yes Primary care physician: Kaylee Suero [facility] Course: Patient is a pleasant 66-year-old female presenting to the emergency department complaining of fatigue. Patient went to her doctor's office today. Patient was told her Coumadin level was too high and to come to the emergency department. Patient was recently admitted for atrial fibrillation. No chest pain. No dyspnea. Patient was recently discharged from the [facility] after she was treated for atrial fibrillation. Patient was started on warfarin for atrial fibrillation. Patient the INR levels presently is than 10 patient received 5 mg of oral vitamin K INR will be repeated tomorrow. Patient went into atrial fibrillation again today patient was started on IV Cardizem drip, patient had normal ejection fraction during her previous hospitalization, patient had transaortic valvular replacement. Patient did not take any of her medications today which may have precipitated her atrial fibrillation. Patient denied any fever chills nausea vomiting shortness of breath orthopnea or PND but upon exam patient has expiratory wheezing because of which patient was started on inhaled steroids and albuterol ipratropium inhalation patient does have history of COPD patient is comparing of cough with white are no sputum production Patient was admitted for secondary to super that we cannot INR has come down to 2.8 but cardiology is recommending to hold Coumadin until tomorrow. Patient also went into atrial fibrillation with rapid ventricular rate as patient did not take her metoprolol as today metoprolol dose was increased patient is off Cardizem. Patient is still tachycardic and blood pressure is quite low. Patient is on Lasix Cardizem and metoprolol. Cardiology regular valid the patient will let the titrate the medications. Patient although doesn't have any overnight events and have any symptoms at this time. Patient's heart rate and INR was regulated and was discharged in a stable condition Plan - Discharge Summary New Discharge Prescriptions: New Budesonide-Formot 160-4.5 Mcg [Symbicort 160-4.5 Mcg Inhaler] 2 puff INHALATION RT-BID 30 Days #1 puff Continue Aspirin 81 mg PO DAILY PARoxetine HCL [Paxil] 20 mg PO DAILY Zolpidem [Ambien] 5 mg PO HS PRN PRN Reason: Insomnia Albuterol Sulfate [Proair Hfa] 2 puff INHALATION RT-BID PRN PRN Reason: Shortness Of Breath Atorvastatin [Lipitor] 40 mg PO HS Famotidine [Pepcid] 40 mg PO HS Cetirizine HCl [Zyrtec] 10 mg PO DAILY Tiotropium [place] [Spiriva] 1 cap INHALATION RT-DAILY Albuterol Nebulized [Ventolin Nebulized] 2.5 mg INHALATION RT-TID PRN PRN Reason: Shortness Of Breath HYDROcodone/APAP 10-325MG [[place] 10-325] 1 tab PO Q6H PRN PRN Reason: Pain Furosemide [Lasix] 40 mg PO BID@0900,1600 tab No Action Diltiazem Cd [Cardizem CD] 120 mg PO DAILY #30 cap.er.24h Metoprolol Tartrate [Lopressor] 25 mg PO TID #90 tab Warfarin [Coumadin] 1.5 mg PO MO@1800 Warfarin [Coumadin] 1 mg PO SUTUWETHFRSA@1800 Cefuroxime Axetil [Ceftin] 500 mg PO BID #10 tab Insulin Glargine,Hum.rec.anlog [Lantus Solostar] 20 unit SQ HS #1 insuln.pen INSULIN LISPRO (HumaLOG) [humaLOG] See Protocol SQ ACHS Discharge Medication List Aspirin 81 mg PO DAILY 02/10/14 [History] PARoxetine HCL [Paxil] 20 mg PO DAILY 02/10/14 [History] Albuterol Sulfate [Proair Hfa] 2 puff INHALATION RT-BID PRN 06/02/14 [History] Atorvastatin [Lipitor] 40 mg PO HS 06/02/14 [History] Zolpidem [Ambien] 5 mg PO HS PRN 06/02/14 [History] Famotidine [Pepcid] 40 mg PO HS 01/02/15 [History] Cetirizine HCl [Zyrtec] 10 mg PO DAILY 11/12/15 [History] Albuterol Nebulized [Ventolin Nebulized] 2.5 mg INHALATION RT-TID PRN 03/05/16 [ History] Tiotropium [place] [Spiriva] 1 cap INHALATION RT-DAILY 03/05/16 [History] HYDROcodone/APAP 10-325MG [[place] 10-325] 1 tab PO Q6H PRN 02/15/17 [History] Furosemide [Lasix] 40 mg PO BID@0900,1600 tab 04/03/17 [Rx] Budesonide-Formot 160-4.5 Mcg [Symbicort 160-4.5 Mcg Inhaler] 2 puff INHALATION RT-BID 30 Days #1 puff 04/09/17 [Rx] Diltiazem Cd [Cardizem CD] 120 mg PO DAILY #30 cap.er.24h 04/12/17 [Rx] Metoprolol Tartrate [Lopressor] 25 mg PO TID #90 tab 04/12/17 [Rx] Warfarin [Coumadin] 1 mg PO SUTUWETHFRSA@1800 05/09/17 [History] Warfarin [Coumadin] 1.5 mg PO MO@1800 05/09/17 [History] Cefuroxime Axetil [Ceftin] 500 mg PO BID #10 tab 05/12/17 [Rx] Insulin Glargine,Hum.rec.anlog [Lantus Solostar] 20 unit SQ HS #1 insuln.pen [Rx] INSULIN LISPRO (HumaLOG) [humaLOG] See Protocol SQ ACHS 05/16/17 [History] Follow up Appointment(s)/Referral(s): [facility], [NON-STAFF] - Kaylee Suero MD [Primary Care Provider] - 1-2 days Dez Sivla MD [STAFF PHYSICIAN] - 1 Week Patient Instructions/Handouts: A-fib (Atrial Fibrillation) (DC) Discharge Disposition: HOME SELF-CARE
== END 2017-04-09 16:20 | disposition home or self-care (01) | DRG 309 ==
LOC: EC 13:28 → 6SEL 16:52
PROVIDERS: ADMIT Internal Medicine; ATTEND Internal Medicine
DX: I48.1 Persistent atrial fibrillation (principal); I50.22 Chronic systolic (congestive) heart failure; J96.11 Chronic respiratory failure with hypoxia; Z94.81 Bone marrow transplant status; I11.0 Hypertensive heart disease with heart failure; J44.9 Chronic obstructive pulmonary disease, unspecified; E11.9 Type 2 diabetes mellitus without complications; R79.1 Abnormal coagulation profile; E78.5 Hyperlipidemia, unspecified; F32.9 Major depressive disorder, single episode, unspecified; F41.9 Anxiety disorder, unspecified; I25.10 Atherosclerotic heart disease of native coronary artery without angina pectoris; I25.2 Old myocardial infarction; I25.5 Ischemic cardiomyopathy; I35.0 Nonrheumatic aortic (valve) stenosis; K21.9 Gastro-esophageal reflux disease without esophagitis; M19.90 Unspecified osteoarthritis, unspecified site; T45.515A Adverse effect of anticoagulants, initial encounter; Z79.01 Long term (current) use of anticoagulants; Z79.82 Long term (current) use of aspirin; Z79.899 Other long term (current) drug therapy; Z82.49 Family history of ischemic heart disease and other diseases of the circulatory system; Z83.3 Family history of diabetes mellitus; Z85.6 Personal history of leukemia; Z86.19 Personal history of other infectious and parasitic diseases; Z90.710 Acquired absence of both cervix and uterus; Z95.1 Presence of aortocoronary bypass graft; Z95.2 Presence of prosthetic heart valve; Z95.810 Presence of automatic (implantable) cardiac defibrillator; Z98.1 Arthrodesis status; Z99.81 Dependence on supplemental oxygen
CPT/HCPCS: 36415; 71046; 76705; 80053; 80074; 82140; 82550; 82553; 83735; 84439; 84443; 84481; 84484; 85025; 85027; 85610; 85730; 93005; 94640; 94760; 96365; 96366; 99285

== ENCOUNTER 2017-04-10 20:07 | Inpatient (IN) | payer MEDICARE, OTHER ==
[2017-04-10] MEDS ORDERED: DILTIAZEM 125 MG in SODIUM CHLORIDE 0.9% 100 ML IV STA (20:48)
[2017-04-10 21:08] LABS: Anisocytosis Slight; Basophils # (A) 0.1 k/uL (0-0.2); Basophils % (A) 1 %; Eosinophils # (A) 0.3 k/uL (0-0.7); Eosinophils % (A) 3 %; HCT 35.1 % (34.0-46.0); HGB 10.8 gm/dL (11.4-16.0); Hypochromasia Moderate; Lymphocytes # (A) 1.5 k/uL (1.0-4.8); Lymphocytes % (A) 13 %; MCH 27.3 pg (25.0-35.0); MCHC 30.7 g/dL (31.0-37.0); MCV 88.8 fL (80.0-100.0); Mean Platelet Volume 7.3; Monocytes # (A) 0.7 k/uL (0-1.0); Monocytes % (A) 6 %; Neutrophils # (A) 8.6 k/uL (1.3-7.7); Neutrophils % (A) 75 %; Platelet Count 248 k/uL (150-450); RBC 3.95 m/uL (3.80-5.40); RDW 16.2 % (11.5-15.5); WBC 11.4 k/uL (3.8-10.6)
[2017-04-10 21:19] LABS: Albumin 3.8 g/dL (3.5-5.0); Calcium 9.1 mg/dL (8.4-10.2); Potassium 5.1 mmol/L (3.5-5.1); Total Bilirubin 0.7 mg/dL (0.2-1.3); Total Protein 7.4 g/dL (6.3-8.2)
[2017-04-10 21:22] LABS: INR 1.6 (<1.2); Partial Thromboplastin Time 22.5 sec (22.0-30.0)
--- NOTE | 2017-04-10 21:25 | XR ---
EXAMINATION TYPE: XR chest 2V DATE OF EXAM: 04/10/2017 COMPARISON: 04/06/2017 HISTORY: Dysrhythmia TECHNIQUE: Frontal and lateral views of the chest are obtained. FINDINGS: Heart appears enlarged. There is pulmonary vascular congestion. There is slight blunting o f costophrenic angles. There are chest leads. There is left axillary pacemaker with the lead tips in the right ventricle. There is aortic stent noted. IMPRESSION: Mild heart failure. Pulmonary congestion is slightly worse than last exam. Small pleural effusions.
[2017-04-10 21:31] LABS: Troponin I 0.02 ng/mL (0.000-0.034)
[2017-04-10 21:37] LABS: Creatine Kinase MB 3.2 ng/mL (0.0-2.4)
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
[2017-04-10 22:05] LABS: Appearance,Urine Cloudy (Clear); Bilirubin,Urine Negative (Negative); Blood,Urine Small (Negative); Color,Urine Yellow; Glucose,Urine (UA) Negative (Negative); Hyaline Casts,Urine 4 /lpf (0-2); Ketones,Urine Negative (Negative); Leukocyte Esterase,Urine Large (Negative); Mucus,Urine Rare /hpf; Nitrite,Urine Negative (Negative); Protein,Urine 1+ (Negative); RBC,Urine 10 /hpf (0-5); Specific Gravity,Urine 1.009 (1.001-1.035); Squamous Epithelial Cell,Urine 1 /hpf (0-4); Urobilinogen,Urine <2.0 mg/dL (<2.0); WBC,Urine >182 /hpf (0-5)
[2017-04-10] MEDS ORDERED: DILTIAZEM 5 MG/ML 5 ML VIAL IVP STA (22:05)
[2017-04-10] MEDS ORDERED: MORPHINE SULFATE 4 MG/ML SYRINGE IVP PRN (22:06)
[2017-04-10] MEDS ORDERED: NITROGLYCERIN SL TABS 0.4 MG TAB SUBLINGUAL PRN (22:06)
[2017-04-10] MEDS ORDERED: ALBUTEROL INHALER 60 PUFF/8 GM INHALER INHALATION PRN (22:11)
[2017-04-10] MEDS ORDERED: ZOLPIDEM 5 MG TAB PO PRN (22:11)
[2017-04-10] MEDS ORDERED: DILTIAZEM 5 MG/1 ML (25ML VIAL) IV STA (22:12)
[2017-04-10] MEDS ORDERED: FUROSEMIDE 10 MG/ML 2 ML VIAL IV STA (22:14)
[2017-04-10] MEDS ORDERED: cefTRIAXone IN SWFI 1,000 MG/10 ML SYRINGE IVP STA (22:38)
--- NOTE | 2017-04-10 22:41 | CT ---
EXAMINATION TYPE: CT brain wo con DATE OF EXAM: 04/10/2017 COMPARISON: 04/20/2016 HISTORY: Altered mental status. CT DLP: 977.8 mGycm Automated exposure control for dose reduction was used. FINDINGS: Ventricles have normal size. There is no mass effect nor midline shift. There is no sign of intracran ial hemorrhage. The calvarium is intact. There is minimal mucosal thickening in the ethmoid air cells . There is mild mucosal thickening in the posterior sphenoid sinus. IMPRESSION: MINIMAL SINUSITIS. NO ACUTE INTRACRANIAL ABNORMALITY. NO SIGNIFICANT CHANGE COMPARED TO OLD EXAM.
[2017-04-11 03:22] LABS: Anisocytosis Slight; Basophils # (A) 0.1 k/uL (0-0.2); Basophils % (A) 1 %; Eosinophils # (A) 0.4 k/uL (0-0.7); Eosinophils % (A) 3 %; HCT 34.8 % (34.0-46.0); HGB 10.4 gm/dL (11.4-16.0); Hypochromasia Marked; Lymphocytes # (A) 1.4 k/uL (1.0-4.8); Lymphocytes % (A) 12 %; MCH 27.4 pg (25.0-35.0); MCV 91.3 fL (80.0-100.0); Mean Platelet Volume 7.1; Monocytes # (A) 0.7 k/uL (0-1.0); Monocytes % (A) 6 %; Neutrophils # (A) 8.6 k/uL (1.3-7.7); Neutrophils % (A) 76 %; Platelet Count 228 k/uL (150-450); RBC 3.81 m/uL (3.80-5.40); RDW 16.3 % (11.5-15.5); WBC 11.4 k/uL (3.8-10.6)
[2017-04-11 03:26] LABS: Potassium 4.9 mmol/L (3.5-5.1)
[2017-04-11 04:23] LABS: Troponin I 0.02 ng/mL (0.000-0.034)
[2017-04-11 04:26] LABS: Creatine Kinase MB 3.2 ng/mL (0.0-2.4)
[2017-04-11 06:23] LABS: Glucose,Whole Blood 246 mg/dL (75-99)
[2017-04-11] MEDS: INSULIN ASPART 100 UNIT/ML 1 ML 10 ML VIAL SQ SCH ×4 (06:25→21:09)
[2017-04-11] MEDS: IPRATROPIUM 0.5 MG/2.5 ML NEBU INHALATION SCH ×2 (08:28→20:18)
[2017-04-11] MEDS: SYMBICORT 160-4.5 MCG INHALER INHALATION SCH ×2 (08:28→20:18)
[2017-04-11] MEDS: FUROSEMIDE 40 MG TAB PO SCH ×2 (08:44→15:26)
[2017-04-11] MEDS: LISINOPRIL 5 MG TAB PO SCH (08:45)
[2017-04-11] MEDS: PARoxetine 20 MG TAB PO SCH (08:45)
[2017-04-11] MEDS: LORATADINE 10 MG TAB PO SCH (08:45)
[2017-04-11] MEDS ORDERED: ASPIRIN 325 MG TAB PO SCH (09:00)
[2017-04-11] MEDS ORDERED: METOPROLOL TARTRATE 25 MG TAB PO SCH (09:00)
--- NOTE | 2017-04-11 09:41 | P.CRDCN ---
History of Present Illness Consult date: 04/11/17 Requesting physician: Philip Silver Consult reason: atrial fibrillation History of present illness: Mrs. Busby is a pleasant 66-year-old female patient who follows with Dr. Silva in the office. Her past medical history significant for tissue aortic valve replacement, annuloplasty of mitral valve, nonischemic cardiomyopathy with AICD placement, chronic systolic heart failure, COPD, oxygen dependent, diabetes, dyslipidemia, hypertension and GERD. She was recently admitted to the hospital with new onset persistent atrial fibrillation with rapid ventricular response and she was started on Coumadin and medication adjustments were made and she was discharged home on Coumadin 5 mg daily. She followed up with Dr. Silva and was found to have an elevated INR and was sent to the hospital for a blood draw. INR at that time was found to be greater than 10. Patient then was readmitted to the hospital on the of this month , discharged on the on 2 mg of Coumadin daily. She was now readmitted to the hospital with symptoms of palpitations and heart racing, he states she was quite short of breath and lightheaded. Patient also states she felt mildly confused. She denied any headache, slurring of speech, or blurring of vision. EKG on arrival here showed A. fib with RVR, ventricular paced rhythm. Chest x- ray showed mild congestive heart failure, pulmonary congestion slightly worsened prior exam. CAT scan of the brain was performed which revealed minimal sinusitis, no acute intracranial abnormality. No significant changes compared with old exam. The pressure this morning 95/68, heart rate 108. She is on a Cardizem drip at 5 mg per hour. White blood cell count 11.4, hemoglobin 10.4, platelet count 228. Sodium 137, BUN 71, creatinine 1.4. AST 74, ALT 154, alk phos 245. Troponins 0.020, 0.020. At the time of my examination this morning, patient is lying down in bed, she states she feels significantly better overall today. Just complains of feeling tired. 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, history of AICD placement, history of ischemic cardio myopathy with the most recent echocardiogram showing improvement in ejection fraction of to 40% history of MSSA bacteremia treated appropriately Last Myocardial Infarction Date:: UNKNOWN History of Any Multi-Drug Resistant Organisms: None Reported Past Surgical History: AICD, Back Surgery, Cholecystectomy, Heart Catheterization, Hernia Repair, Hysterectomy, Orthopedic Surgery, Tonsillectomy Additional Past Surgical History / Comment(s): Bilateral cataract surgery, bone marrow transplantation, C5 cervical spine fusion, aortic valve replacement and mitral valve annuloplasty, AICD placement, back surgery, cholecystectomy, cardiac catheterization, hernia repair, hysterectomy, bilateral cataract surgery , wrist surgery, venogram, EDD Past Anesthesia/Blood Transfusion Reactions: No Reported Reaction Additional Past Anesthesia/Blood Transfusion Reaction / Comment(s): blood-sx reaction Type of Cardiac Device: AICD Device Placement Date:: 2009-[employer] Past Psychological History: Anxiety, Depression Additional Psychological History / Comment(s): pt is a . Is independant. lives with her sister in a single level home that has 4 steps. no home care services recieved, has home o2,nebulizer, glucometer. Smoking Status: Never smoker Past Alcohol Use History: None Reported Past Drug Use History: None Reported - Past Family History Mother Family Medical History: Diabetes Mellitus, Myocardial Infarction ([place]) Father Family Medical History: Cancer Medications and Allergies Home Medications Medication Instructions Recorded Confirmed Type Aspirin 81 mg PO DAILY 02/10/14 04/10/17 History Lisinopril [Prinivil] 5 mg PO DAILY 02/10/14 04/10/17 History PARoxetine HCL [Paxil] 20 mg PO DAILY 02/10/14 04/10/17 History Albuterol Sulfate [Proair Hfa] 2 puff INHALATION RT-BID PRN 06/02/14 04/10/17 History Atorvastatin [Lipitor] 40 mg PO HS 06/02/14 04/10/17 History Zolpidem [Ambien] 5 mg PO HS PRN 06/02/14 04/10/17 History Famotidine [Pepcid] 40 mg PO HS 01/02/15 04/10/17 History Insulin Aspart [NovoLOG See Protocol SQ TID-W/MEALS PRN 01/02/15 04/10/17 History (formulary)] Insulin Glargine,Hum.rec.anlog 16 unit SQ HS 01/02/15 04/10/17 History [Lantus Solostar] Cetirizine HCl [Zyrtec] 10 mg PO DAILY 11/12/15 04/10/17 History Albuterol Nebulized [Ventolin 2.5 mg INHALATION RT-TID PRN 03/05/16 04/10/17 History Nebulized] Tiotropium [place] [Spiriva] 1 cap INHALATION RT-DAILY 03/05/16 04/10/17 History HYDROcodone/APAP 10-325MG [[place] 1 tab PO Q6H PRN 02/15/17 04/10/17 History 10-325] Furosemide [Lasix] 40 mg PO BID@0900,1600 tab 04/03/17 04/10/17 Rx Metoprolol Tartrate [Lopressor] 25 mg PO BID 04/06/17 04/10/17 History Azithromycin [Zithromax] 500 mg PO HS #3 tab 04/09/17 04/10/17 Rx Budesonide-Formot 160-4.5 Mcg 2 puff INHALATION RT-BID 30 Days 04/09/17 Rx [Symbicort 160-4.5 Mcg Inhaler] #1 puff Warfarin [Coumadin] 2 mg PO DAILY #10 tab 04/09/17 04/10/17 Rx Allergies Allergy/AdvReac Type Severity Reaction Status Date / Time oxytetracycline Allergy Rash/Hives Verified 04/10/17 21:15 [From Terramycin] oxytetracycline HCl Allergy Rash/Hives Verified 04/10/17 21:15 [From Terramycin] Physical Exam Vitals: Vital Signs Temp Pulse Pulse Resp BP BP Pulse Ox 04/11/17 08:38 108 H 04/11/17 08:31 100 97 04/11/17 07:47 104 H 18 04/11/17 07:26 97.0 F L 104 H 18 95/68 97 04/11/17 03:35 97 F L 109 H 18 105/59 100 04/11/17 00:00 106 H 18 128/84 99 04/10/17 23:00 97.7 F 04/10/17 22:59 97.7 F 04/10/17 22:36 85 16 124/79 99 02/26/18 22:10 101 H 16 118/89 100 04/10/17 21:45 102 H 18 125/88 99 04/10/17 21:22 122 H 18 112/67 99 04/10/17 20:13 97.6 F 125 H 20 119/79 97 Intake and Output 04/10/17 04/11/17 04/11/17 22:59 06:59 14:59 Intake Total 45 360 Balance 45 360 Intake: IV 45 Diltiazem 125 mg In 45 Sodium Chloride 0.9% 100 ml @ 5 MG/HR 5 mls/hr IV .Q24H STA Rx#:[id number] Oral 360 Other: Voiding Method Toilet Toilet Diaper Diaper Incontinent Incontinent # Voids 3 Weight 68.946 kg 70.9 kg PHYSICAL EXAMINATION: HEENT: Head is atraumatic, normocephalic. Pupils equal, round. Neck is supple. There is no elevated jugular venous pressure. HEART EXAMINATION: Heart S1 and S2 irregularly irregular a systolic murmur is heard. CHEST EXAMINATION: Lungs are clear to auscultation and precussion. No chest wall tenderness is noted on palpation or with deep breathing. ABDOMEN: Soft, nontender. Bowel sounds are heard. No organomegaly noted. EXTREMITIES: 2+ peripheral pulses with no evidence of peripheral edema and no calf tenderness noted. NEUROLOGIC patient is awake, alert and oriented -3. . Results 04/11/17 02:45 04/11/17 02:45 Cardiac Enzymes 04/10/17 04/10/17 04/11/17 Range/Units 20:50 20:50 02:45 AST 74 H (14-36) U/L CK-MB (CK-2) 3.2 H* 3.2 H* (0.0-2.4) ng/mL Troponin I 0.020 0.020 (0.000-0.034) ng/mL Coagulation 04/10/17 Range/Units 20:50 PT 15.0 H (9.0-12.0) sec APTT 22.5 (22.0-30.0) sec Lipids 04/11/17 Range/Units 02:45 Triglycerides 107 (<150) mg/dL Cholesterol 131 (<200) mg/dL HDL Cholesterol 68 H (40-60) mg/dL CBC 04/10/17 04/11/17 Range/Units 20:50 02:45 WBC 11.4 H 11.4 H (3.8-10.6) k/uL RBC 3.95 3.81 (3.80-5.40) m/uL Hgb 10.8 L 10.4 L (11.4-16.0) gm/dL Hct 35.1 34.8 (34.0-46.0) % Plt Count 248 228 (150-450) k/uL Comprehensive Metabolic Panel 04/10/17 04/11/17 Range/Units 20:50 02:45 Sodium 135 L 137 (137-145) mmol/L Potassium 5.1 4.9 (3.5-5.1) mmol/L Chloride 97 L 96 L (98-107) mmol/L Carbon Dioxide 28 31 H (22-30) mmol/L BUN 73 H 71 H (7-17) mg/dL Creatinine 1.40 H 1.40 H (0.52-1.04) mg/dL Glucose 283 H 236 H (74-99) mg/dL Calcium 9.1 9.0 (8.4-10.2) mg/dL AST 74 H (14-36) U/L ALT 154 H (9-52) U/L Alkaline Phosphatase 245 H (38-126) U/L Total Protein 7.4 (6.3-8.2) g/dL Albumin 3.8 (3.5-5.0) g/dL Current Medications Generic Name Dose Route Start Last Admin Trade Name Freq PRN Reason Stop Dose Admin Hydrocodone Bitart/Acetaminophen 1 each 04/10/17 22:11 [place] 10 PO Q6H PRN Pain Albuterol Sulfate 2.5 mg 04/10/17 22:11 Ventolin Nebulized INHALATION RT-TID PRN Shortness Of Breath Aspirin 325 mg 04/11/17 09:00 04/11/17 08:44 Aspirin PO 325 mg DAILY CHERIE Administration Atorvastatin Calcium 40 mg 04/11/17 21:00 Lipitor PO HS CHERIE Azithromycin 500 mg 04/11/17 21:00 Zithromax PO HS CHERIE Budesonide/Formoterol Fumarate 2 puff 04/11/17 08:00 04/11/17 08:28 Symbicort 160-4.5 Mcg Inhaler INHALATION 2 puff RT-BID CHERIE Administration Famotidine 40 mg 04/11/17 21:00 Pepcid PO HS [facility] Furosemide 40 mg 04/11/17 09:00 04/11/17 08:44 Lasix PO 40 mg BID@0900,1600 [facility] Administration Diltiazem HCl 125 mg/ Sodium 125 mls @ 5 mls/hr 04/10/17 20:48 04/10/17 21:23 Chloride IV 04/11/17 20:47 5 mg/hr .Q24H STA 5 mls/hr 5 MG/HR Administration Insulin Aspart 0 unit 04/11/17 07:30 04/11/17 06:25 Novolog SQ 4 unit ACHS [facility] Administration Protocol Insulin Detemir 16 unit 04/11/17 21:00 Levemir SQ HS [facility] Ipratropium [place] 0.5 mg 04/11/17 08:00 04/11/17 08:28 Atrovent Nebulized INHALATION 0.5 mg RT-BID [facility] Administration Lisinopril 5 mg 04/11/17 09:00 04/11/17 08:45 Zestril PO 5 mg DAILY [facility] Administration Loratadine 10 mg 04/11/17 09:00 04/11/17 08:45 Claritin PO 10 mg DAILY [facility] Administration Metoprolol Tartrate 25 mg 04/11/17 09:00 04/11/17 08:45 Lopressor PO 25 mg BID [facility] Administration Morphine Sulfate 2 mg 04/10/17 22:06 Morphine Sulfate (Inj) IVP Q5M PRN Chest Pain Nitroglycerin 0.4 mg 04/10/17 22:06 Nitrostat SUBLINGUAL Q5M PRN Chest Pain Paroxetine HCl 20 mg 04/11/17 09:00 04/11/17 08:45 Paxil PO 20 mg DAILY [facility] Administration Zolpidem Tartrate 5 mg 04/10/17 22:11 Ambien PO HS PRN Insomnia Intake and Output 04/10/17 04/11/17 04/11/17 22:59 06:59 14:59 Intake Total 45 360 Balance 45 360 Intake: IV 45 Diltiazem 125 mg In 45 Sodium Chloride 0.9% 100 ml @ 5 MG/HR 5 mls/hr IV .Q24H STA Rx#:[id number] Oral 360 Other: Voiding Method Toilet Toilet Diaper Diaper Incontinent Incontinent # Voids 3 Weight 68.946 kg 70.9 kg 04/11/17 02:45 04/11/17 02:45 EKG Interpretations (text) EKG shows a ventricular paced rhythm with underlying atrial fibrillation Assessment and Plan Plan: Assessment and plan #1 atrial fibrillation with rapid ventricular response, chronic persistent #2 recent admissions with Coumadin coagulopathy, INR this admission 1.6. #3 history of severe aortic stenosis and prior TAVR #4 hyperlipidemia #5 COPD #6 chronic systolic congestive heart failure #7 acute on chronic renal insufficiency Plan We will increase her dose of metoprolol to 25 mg one tablet by mouth 3 times a day. We will check her PT/INR today and daily, give 5 mg of Coumadin today. Further recommendations to follow. DNP note has been reviewed, I agree with a documented findings and plan of care. Patient was seen and examined.
[2017-04-11 10:08] LABS: Troponin I 0.017 ng/mL (0.000-0.034)
[2017-04-11 10:09] LABS: Creatine Kinase MB 3.3 ng/mL (0.0-2.4)
[2017-04-11] MEDS: HYDROcodone/APAP 10-325MG 1 EACH TAB PO PRN ×2 (11:01→21:16)
[2017-04-11] MEDS: DILTIAZEM CD 120 MG CAP.ER.24H PO SCH (11:37)
[2017-04-11 11:40] LABS: Glucose,Whole Blood 301 mg/dL (75-99)
[2017-04-11 15:25] LABS: Hemoglobin A1C 8.5 % (4.0-6.0)
[2017-04-11] MEDS: METOPROLOL TARTRATE 25 MG TAB PO SCH ×2 (15:27→21:09)
[2017-04-11 16:44] LABS: Glucose,Whole Blood 132 mg/dL (75-99)
[2017-04-11] MEDS: ALBUTEROL NEBULIZED 2.5 MG/3 ML INHALATION PRN (16:50)
[2017-04-11 17:31] LABS: INR 2.1 (<1.2); Prothrombin Time 18.6 sec (9.0-12.0)
[2017-04-11] MEDS ORDERED: WARFARIN 5 MG TAB PO ONE (18:00)
[2017-04-11 20:28] LABS: Glucose,Whole Blood 282 mg/dL (75-99)
--- NOTE | 2017-04-11 20:35 | HP ---
HISTORY AND PHYSICAL CHIEF COMPLAINTS: Arrhythmia, palpation, delusion, confusion. HISTORY OF PRESENT ILLNESS: This 66-year-old female with a past medical history of multiple medical problems , including history atrial ablation, history of asthma, COPD, history of CHF, diabetes mellitus, hypertension, hyperlipidemia, history of COPD, AICD being followed by Dr. Suero in the outpatient setting, was recently admitted with Coumadin coagulopathy and atrial fibrillation, multiple other medical problems. Patient went home. The patient noted to have atrial fibrillation with fast ventricular rate as well as hypertension. Patient came to [facility] admitted for evaluation and treatment. There is no history of fever, rigors. No headache, loss of consciousness, seizures. PAST MEDICAL HISTORY: Atrial ablation, asthma, CHF, COPD, diabetes mellitus, GERD, hyperlipidemia. MEDICATIONS PRIOR TO ADMISSION: Include home medications are: 1. Ambien 5 mg q.h.s. p.r.n. 2. Coumadin 2 mg p.o. daily. 3. Spiriva 1 puff daily. 4. Paxil 20 mg p.o. daily. 5. Lopressor 25 mg p.o. 6. Prinivil 5 mg daily. 7. NovoLog scale. 8. Lantus 60 units subcu q.h.s. 9. [place] 1 tablet every 6 hours and. 10.Lasix 40 mg p.o. b.i.d. 11.Pepcid 40 mg p.o. q.h.s. 12.Zyrtec 10 mg b.i.d. 13.Symbicort 160/4.5, 2 puffs b.i.d. 14.Zithromax 500 mg p.o. q.h.s. 15.Lipitor 40 mg q.h.s. 16.Aspirin 81 mg p.o. daily. 17.ProAir HFA 2 puffs b.i.d. p.r.n. 18.Ventolin HFA 2.5 t.i.d. p.r.n. ALLERGIES: OXY, TETRACYCLINE. FAMILY HISTORY: History of cancer in the family. SOCIAL HISTORY: No history of smoking. No history of alcohol intake. REVIEW OF SYSTEMS: ENT: Diminished hearing, diminished vision. CARDIOVASCULAR: As mentioned earlier. RESPIRATORY: As mentioned earlier. GI: As mentioned earlier. : No dysuria. NERVOUS: No numbness or weakness. ALLERGY/IMMUNOLOGY: No asthma or hay fever. MUSCULOSKELETAL: As mentioned earlier. HEMATOLOGY/ONCOLOGY: No history of anemia. ENDOCRINE: No history of hypothyroidism. CONSTITUTIONAL: As mentioned earlier. DERMATOLOGY: Negative. RHEUMATOLOGY: Negative. PSYCHIATRY: As mentioned earlier. PHYSICAL EXAMINATION: The patient is alert and oriented x3. Pulse is 92, blood pressure 122/57, respirations 14, temperature 97 degrees, pulse ox 100% on 2L. HEENT: Conjunctivae normal. Oral mucosa moist. NECK: No jugular venous distention. No carotid bruits. No lymph node enlargement. CARDIOVASCULAR: S1, S2 muffled. RESPIRATORY: Breath sounds diminished in the bases. Bilateral scattered rhonchi and crackles. ABDOMEN: Soft, nontender. No mass palpable. LEGS: No edema. No swelling. NERVOUS SYSTEM: Higher functions as mentioned earlier. Moves all 4 limbs. No focal deficits. LYMPHATIC: No lymphadenopathy in neck or axillae. SKIN: No ulcer, rash or bleeding. LABS: WBC 11, hemoglobin is 10.5. Sodium 136, potassium 4.9, creatinine 1.4. CK-MB is 3.3. ASSESSMENT: 1. Atrial fibrillation with rapid ventricular rate; chronic, persistent. 2. History of recent Coumadin coagulopathy, history of severe aortic stenosis, status post transcatheter aortic valve replacement. 3. Chronic obstructive pulmonary disease. 4. Hyperlipidemia. 5. Congestive heart failure with acute on chronic diastolic dysfunction, ejection fraction 50%-55%. 7. Hypertension. 8. Hyperlipidemia. 9. Coronary artery disease, coronary artery bypass graft. 10.Degenerative joint disease. 11.History of leukemia and previous bone marrow transplantation. 12.C5 cervical spine fusion surgery. 13.Anxiety and depression. RECOMMENDATIONS AND DISCUSSION: Recommend to continue current medical management and symptomatic treatment. Continue the Cardizem. Continue with the rest of the medications. I would recommend TSH. Otherwise, monitor closely. Guarded prognosis. Further recommendations to follow. Discussed with the patient, who understands. MMODL / IJN: [id number] / [place]
[2017-04-11] MEDS ORDERED: AZITHROMYCIN 500 MG TAB PO SCH (21:00)
[2017-04-11] MEDS ORDERED: ATORVASTATIN 40 MG TAB PO SCH (21:00)
[2017-04-11] MEDS ORDERED: INSULIN DETEMIR 100 UNIT/ML 10 ML VIAL SQ SCH (21:00)
[2017-04-11] MEDS ORDERED: FAMOTIDINE 20 MG TAB PO SCH (21:00)
[2017-04-12 03:57] VITALS: TEMP 96.9
[2017-04-12 05:53] LABS: Glucose,Whole Blood 145 mg/dL (75-99)
[2017-04-12] MEDS: INSULIN ASPART 100 UNIT/ML 1 ML 10 ML VIAL SQ SCH ×2 (06:22→12:17)
[2017-04-12 06:30] LABS: Anisocytosis Slight; Basophils # (A) 0.1 k/uL (0-0.2); Basophils % (A) 1 %; Eosinophils # (A) 0.6 k/uL (0-0.7); Eosinophils % (A) 5 %; HGB 9.9 gm/dL (11.4-16.0); Hypochromasia Marked; Lymphocytes # (A) 1.3 k/uL (1.0-4.8); Lymphocytes % (A) 12 %; MCH 26.9 pg (25.0-35.0); MCHC 29.9 g/dL (31.0-37.0); MCV 89.8 fL (80.0-100.0); Mean Platelet Volume 7.5; Monocytes # (A) 0.8 k/uL (0-1.0); Monocytes % (A) 8 %; Neutrophils # (A) 7.9 k/uL (1.3-7.7); Neutrophils % (A) 72 %; Platelet Count 222 k/uL (150-450); RBC 3.67 m/uL (3.80-5.40); RDW 16.2 % (11.5-15.5); WBC 10.9 k/uL (3.8-10.6)
[2017-04-12 06:37] LABS: Calcium 8.8 mg/dL (8.4-10.2); Potassium 4.9 mmol/L (3.5-5.1)
[2017-04-12 06:41] LABS: INR 2.6 (<1.2)
[2017-04-12] MEDS: IPRATROPIUM 0.5 MG/2.5 ML NEBU INHALATION SCH (07:05)
[2017-04-12] MEDS: SYMBICORT 160-4.5 MCG INHALER INHALATION SCH (07:18)
[2017-04-12] MEDS: PARoxetine 20 MG TAB PO SCH (08:04)
[2017-04-12] MEDS: FUROSEMIDE 40 MG TAB PO SCH (08:04)
[2017-04-12] MEDS: METOPROLOL TARTRATE 25 MG TAB PO SCH (08:04)
[2017-04-12] MEDS: LISINOPRIL 5 MG TAB PO SCH (08:04)
[2017-04-12] MEDS: LORATADINE 10 MG TAB PO SCH (08:04)
[2017-04-12] MEDS: DILTIAZEM CD 120 MG CAP.ER.24H PO SCH (08:04)
[2017-04-12 08:08] VITALS: RESP 18
[2017-04-12] MEDS ORDERED: ASPIRIN 81 MG PO SCH (09:00)
[2017-04-12 11:35] VITALS: BP 105/74
[2017-04-12 12:02] LABS: Glucose,Whole Blood 349 mg/dL (75-99)
[2017-04-12] MEDS ORDERED: NITROFURANTOIN MONOHYD/M-CRYST 100 MG CAP PO SCH (12:30)
[2017-04-12] MEDS: ALBUTEROL NEBULIZED 2.5 MG/3 ML INHALATION PRN (12:43)
[2017-04-12 12:54] VITALS: PULSE 108
[2017-04-12] MEDS ORDERED: LEVOFLOXACIN 250MG-D5W PMX 250 MG in DEXTROSE/WATER 1 50ML.BAG IVPB SCH (13:00)
[2017-04-12] MEDS ORDERED: AMOXIC-POT CLAV 500-125 MG 1 EACH TAB PO SCH (13:00)
--- NOTE | 2017-04-12 15:36 | PN ---
PROGRESS NOTE Mrs Busby is a lady with atrial fibrillation, status post aortic valve replacement and mitral valve repair, came into the hospital with rapid rate. Her rate is well controlled. She is doing better. PT/INR is 2.6. I am recommending she should go home on 1 mg daily and have a PT/INR checked this Monday. These instructions were given. I gave her written instructions about her current INR today and the dose she is on and how she should go to the office and check herself. She is doing better, resting comfortably. Denies chest pain. Vital signs are stable. S1-S2 is heard normally. There is irregular rhythm. Short systolic murmur is noted at the base and left sternal border lungs reveal improved air entry. Abdomen and lower extremity exam is unchanged. MMODL / IJN: [id number] /
[2017-04-12] MEDS ORDERED: WARFARIN 2 MG TAB PO SCH (18:00)
[2017-04-12] MEDS ORDERED: WARFARIN 1 MG TAB PO SCH (18:00)
--- NOTE | 2017-04-12 22:42 | DS ---
DISCHARGE SUMMARY FINAL DIAGNOSES: 1. Atrial fibrillation with rapid ventricular rate, chronic persistent. 2. History of recent Coumadin coagulopathy. 3. History of severe aortic stenosis status post transcatheter aortic valve replacement. 4. Chronic obstructive pulmonary disease. 5. Hyperlipidemia. 6. History of congestive heart failure with acute on chronic diastolic dysfunction, ejection fraction 50% to 55%. 7. Hypertension. 8. Hyperlipidemia. 9. History of coronary artery disease with coronary artery bypass grafting. 10.History of leukemia and previous bone marrow transplantation. 11.C5 cervical spine fusion surgery. 12.Anxiety depression history. The patient will be discharged in stable condition with guarded prognosis. HISTORY OF PRESENT ILLNESS: This 66-year-old woman presented with multiple medical problems. We will monitor the patient closely. The patient is treated symptomatically. She was medically cleared with Cardiology. The patient improved significantly. On exam, vital signs stable. CARDIOVASCULAR: Normal S1 and S2. LUNGS: Few rhonchi. ABDOMEN: Soft, nontender. NERVOUS SYSTEMS: No focal deficits. DISCHARGE INSTRUCTIONS: 1. Cardiac diet. 2. Activity limited. MEDICATIONS: 1. Ventolin 2.5 q.i.d. p.r.n. 2. ProAir HFA p.r.n. 3. augmentin 500 mg 1 p.o. b.i.d. for 3 days. 4. Aspirin 81 mg. 5. Lipitor 40 mg at bedtime. 6. symbicort 160/ 4.5 two puffs b.i.d. 7. Zyrtec 10 mg daily. 8. Cardizem CD 120 mg p.o. daily. 9. pepcid 40 mg at bedtime. 10.Lasix 40 mg p.o. daily. 11.[place] 10 mg every 6 hours p.r.n. 12.NovoLog scale. 13.Lantus 16 subcu at bedtime. 14.Levaquin 250 mg p.o. daily. 15.Amaryl 5 mg p.o. daily. 16.Metoprolol 25 mg p.o. t.i.d. 17.Paxil 20 mg p.o. daily. 18.Spiriva 1 puff daily. 19.Coumadin 1 mg. 20.Ambien 5 mg p.o. at bedtime p.r.n. Once again, the patient will be discharged in stable condition with guarded prognosis. Follow labs, PT and other labs with Dr. Suero. MICAELA / TITA: [id number] / [place]
== END 2017-04-12 13:59 | disposition home health service (06) | DRG 308 ==
LOC: EC 20:07 → 6SEL 22:06
PROVIDERS: ADMIT Hospitalist; ATTEND Hospitalist
DX: I48.1 Persistent atrial fibrillation (principal); I50.33 Acute on chronic diastolic (congestive) heart failure; N17.9 Acute kidney failure, unspecified; I13.0 Hypertensive heart and chronic kidney disease with heart failure and stage 1 through stage 4 chronic kidney disease, or unspecified chronic kidney disease; Z94.81 Bone marrow transplant status; E11.22 Type 2 diabetes mellitus with diabetic chronic kidney disease; J44.9 Chronic obstructive pulmonary disease, unspecified; E78.5 Hyperlipidemia, unspecified; I25.10 Atherosclerotic heart disease of native coronary artery without angina pectoris; I25.2 Old myocardial infarction; I25.5 Ischemic cardiomyopathy; K21.9 Gastro-esophageal reflux disease without esophagitis; M19.90 Unspecified osteoarthritis, unspecified site; N18.9 Chronic kidney disease, unspecified; I48.2 Chronic atrial fibrillation; R32 Unspecified urinary incontinence; F41.9 Anxiety disorder, unspecified; F32.9 Major depressive disorder, single episode, unspecified; R41.0 Disorientation, unspecified; Z79.01 Long term (current) use of anticoagulants; Z79.4 Long term (current) use of insulin; Z79.51 Long term (current) use of inhaled steroids; Z79.82 Long term (current) use of aspirin; Z79.899 Other long term (current) drug therapy; Z95.1 Presence of aortocoronary bypass graft; Z95.2 Presence of prosthetic heart valve; Z95.810 Presence of automatic (implantable) cardiac defibrillator; Z98.1 Arthrodesis status; Z90.710 Acquired absence of both cervix and uterus; Z85.6 Personal history of leukemia; Z99.81 Dependence on supplemental oxygen; Z88.1 Allergy status to other antibiotic agents; Z82.49 Family history of ischemic heart disease and other diseases of the circulatory system
CPT/HCPCS: 36415; 70450; 71046; 80048; 80053; 80061; 81001; 82550; 82553; 83036; 83735; 84484; 85025; 85610; 85730; 87077; 87086; 87186; 93005; 94640; 94760; 96365; 96366; 96376; 99291

== ENCOUNTER 2017-05-09 16:55 | Inpatient (IN) | payer MEDICARE, OTHER ==
[2017-05-09] MEDS ORDERED: SODIUM CHLORIDE 0.9% 1,000 ML IV ONE ×2 (18:03)
[2017-05-09 18:05] LABS: Glucose,Whole Blood >600 mg/dL (75-99)
[2017-05-09] MEDS ORDERED: INSULIN REGULAR 100 UNIT/ML VIAL IV ONE (18:06)
[2017-05-09 18:47] LABS: Amphetamine Screen,Urine Not Detected (NotDetected); Barbiturate Screen,Urine Not Detected (NotDetected); Benzodiazepines Screen,Urine Not Detected (NotDetected); Cocaine Screen,Urine Not Detected (NotDetected); Methadone Screen, Urine Not Detected (NotDetected); Opiate Screen,Urine Detected (NotDetected); Oxycodone Screen, Urine Not Detected (NotDetected); Phencyclidine Screen,Urine Not Detected (NotDetected); Tricyclic Antidepressant,Urine Not Detected (NotDetected); Urn Cannabinoid Scrn Not Detected (NotDetected)
[2017-05-09 19:03] LABS: Appearance,Urine Cloudy (Clear); Bacteria,Urine Few /hpf; Bilirubin,Urine Negative (Negative); Blood,Urine Trace (Negative); Budding Yeast,Urine Rare /hpf; Color,Urine Light Yellow; Glucose,Urine (UA) 4+ (Negative); Ketones,Urine Negative (Negative); Leukocyte Esterase,Urine Large (Negative); Mucus,Urine Rare /hpf; Nitrite,Urine Negative (Negative); PH, Urine 5.5 (5.0-8.0); Protein,Urine Trace (Negative); RBC,Urine 6 /hpf (0-5); Specific Gravity,Urine 1.012 (1.001-1.035); Squamous Epithelial Cell,Urine 1 /hpf (0-4); Urobilinogen,Urine <2.0 mg/dL (<2.0); WBC,Urine 92 /hpf (0-5)
[2017-05-09 19:05] LABS: Basophils # (A) 0.1 k/uL (0-0.2); Basophils % (A) 1 %; Eosinophils # (A) 0.2 k/uL (0-0.7); Eosinophils % (A) 3 %; HCT 34.6 % (34.0-46.0); HGB 9.9 gm/dL (11.4-16.0); Hypochromasia Marked; Lymphocytes # (A) 1.3 k/uL (1.0-4.8); Lymphocytes % (A) 14 %; MCH 26.4 pg (25.0-35.0); MCHC 28.8 g/dL (31.0-37.0); MCV 91.8 fL (80.0-100.0); Mean Platelet Volume 8.5; Monocytes # (A) 0.5 k/uL (0-1.0); Monocytes % (A) 5 %; Neutrophils # (A) 6.7 k/uL (1.3-7.7); Neutrophils % (A) 75 %; Platelet Count 209 k/uL (150-450); RBC 3.77 m/uL (3.80-5.40); RDW 15.2 % (11.5-15.5); VBG PH 7.28 (7.31-7.41); WBC 8.9 k/uL (3.8-10.6)
[2017-05-09 19:15] LABS: Albumin 3.3 g/dL (3.5-5.0); Calcium 8.9 mg/dL (8.4-10.2); Partial Thromboplastin Time 24.9 sec (22.0-30.0); Potassium 4.7 mmol/L (3.5-5.1); Prothrombin Time 18.1 sec (9.0-12.0); Total Bilirubin 0.7 mg/dL (0.2-1.3); Total Protein 6.8 g/dL (6.3-8.2)
[2017-05-09 19:40] LABS: Glucose,Whole Blood >600 mg/dL (75-99)
[2017-05-09 19:43] LABS: Troponin I 0.021 ng/mL (0.000-0.034)
[2017-05-09 19:47] LABS: Creatine Kinase MB 3.1 ng/mL (0.0-2.4)
--- NOTE | 2017-05-09 20:21 | CT ---
EXAMINATION TYPE: CT brain wo con DATE OF EXAM: 05/09/2017 COMPARISON: 04/10/2017 HISTORY: c/o elevated blood sugar CT DLP: 1165 mGycm Automated exposure control for dose reduction was used. FINDINGS: There is some cerebral cortical atrophy. There is no mass effect nor midline shift. There is no sign of intracranial hemorrhage. The calvarium is intact. There is some mucosal thickening in the left max illary sinus. IMPRESSION: MILD CEREBRAL ATROPHY. NO ACUTE INTRACRANIAL ABNORMALITY. NO CHANGE.
[2017-05-09 20:50] LABS: Glucose,Whole Blood 437 mg/dL (75-99)
--- NOTE | 2017-05-09 21:09 | XR ---
EXAMINATION TYPE: XR chest 2V DATE OF EXAM: 05/09/2017 COMPARISON: 04/10/2017 HISTORY: Short of breath TECHNIQUE: Frontal and lateral views of the chest are obtained. FINDINGS: Heart is enlarged. There is mild pulmonary vascular congestion. There is left axillary pac emaker with the lead tips in the right ventricle. There is slight blunting of costophrenic angles. IMPRESSION: Mild congestive heart failure with pleural effusions. No change compared to last exam. O ld right rib fractures noted.
[2017-05-09] MEDS ORDERED: ACETAMINOPHEN TAB 325 MG TAB PO PRN (22:03)
[2017-05-09] MEDS ORDERED: ONDANSETRON 4 MG/2 ML VIAL IVP PRN (22:03)
[2017-05-09] MEDS ORDERED: NALOXONE 0.4 MG/ML 1 ML VIAL IV PRN (22:03)
--- NOTE | 2017-05-09 22:03 | ED ---
General Adult HPI - General Chief complaint: Recheck/Abnormal Lab/Rx Stated complaint: High Sugar Time Seen by Provider: 05/09/17 17:51 Source: patient Mode of arrival: wheelchair Limitations: no limitations - History of Present Illness Initial comments: 66 years old female history of diabetes comes in with a very high sugar she said her sugar was too high, median: We'd it was so high also there was a bit of a confusion she has a history of UTIs family thinks that the UTIs she was recently on Cipro and she also concerned about the fact that she is on a Coumadin and family is concerned about being on Coumadin and then we can feel was concerned about the bleeding in the brain. Right now apart from mildly confused she denies any chest pain or shortness of breath without pain no frequency urgency dysuria - Related Data Home Medications Medication Instructions Recorded Confirmed Aspirin 81 mg PO DAILY 02/10/14 05/09/17 Lisinopril [Prinivil] 5 mg PO DAILY 02/10/14 05/09/17 PARoxetine HCL [Paxil] 20 mg PO DAILY 02/10/14 05/09/17 Albuterol Sulfate [Proair Hfa] 2 puff INHALATION RT-BID PRN 06/02/14 05/09/17 Atorvastatin [Lipitor] 40 mg PO HS 06/02/14 05/09/17 Zolpidem [Ambien] 5 mg PO HS PRN 06/02/14 05/09/17 Famotidine [Pepcid] 40 mg PO HS 01/02/15 05/09/17 Insulin Aspart [NovoLOG See Protocol SQ TID-W/MEALS PRN 01/02/15 05/09/17 (formulary)] Insulin Glargine,Hum.rec.anlog 16 unit SQ HS 01/02/15 05/09/17 [Lantus Solostar] Cetirizine HCl [Zyrtec] 10 mg PO DAILY 11/12/15 05/09/17 Albuterol Nebulized [Ventolin 2.5 mg INHALATION RT-TID PRN 03/05/16 05/09/17 Nebulized] Tiotropium [place] [Spiriva] 1 cap INHALATION RT-DAILY 03/05/16 05/09/17 HYDROcodone/APAP 10-325MG [[place] 1 tab PO Q6H PRN 02/15/17 05/09/17 10-325] Warfarin [Coumadin] 1 mg PO [id number] 05/09/17 05/09/17 Warfarin [Coumadin] 1.5 mg PO MO 05/09/17 05/09/17 Previous Rx's Medication Instructions Recorded Furosemide [Lasix] 40 mg PO BID@0900,1600 tab 04/03/17 Budesonide-Formot 160-4.5 Mcg 2 puff INHALATION RT-BID 30 Days 04/09/17 [Symbicort 160-4.5 Mcg Inhaler] #1 puff Diltiazem Cd [Cardizem CD] 120 mg PO DAILY #30 cap.er.24h 04/12/17 Metoprolol Tartrate [Lopressor] 25 mg PO TID #90 tab 04/12/17 Allergies Allergy/AdvReac Type Severity Reaction Status Date / Time oxytetracycline Allergy Rash/Hives Verified 05/09/17 18:24 [From Terramycin] oxytetracycline HCl Allergy Rash/Hives Verified 05/09/17 18:24 [From Terramycin] Review of Systems ROS Statement: Those systems with pertinent positive or pertinent negative responses have been documented in the HPI. ROS Other: All systems not noted in ROS Statement are negative. 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, history of AICD placement, history of ischemic cardio myopathy with the most recent echocardiogram showing improvement in ejection fraction of to 40% history of MSSA bacteremia treated appropriately Last Myocardial Infarction Date:: UNKNOWN History of Any Multi-Drug Resistant Organisms: MRSA, VRE Date of last positivie culture/infection: 04/10/17 MRSA, 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 Past Surgical History: AICD, Back Surgery, Cholecystectomy, Heart Catheterization, Hernia Repair, Hysterectomy, Orthopedic Surgery, Tonsillectomy Additional Past Surgical History / Comment(s): Bilateral cataract surgery, bone marrow transplantation, C5 cervical spine fusion, aortic valve replacement and mitral valve annuloplasty, AICD placement, back surgery, cholecystectomy, cardiac catheterization, hernia repair, hysterectomy, bilateral cataract surgery , wrist surgery, venogram, EDD Past Anesthesia/Blood Transfusion Reactions: No Reported Reaction Additional Past Anesthesia/Blood Transfusion Reaction / Comment(s): blood-sx reaction Type of Cardiac Device: AICD Device Placement Date:: 2009-[facility] Past Psychological History: Anxiety, Depression Smoking Status: Never smoker Past Alcohol Use History: None Reported Past Drug Use History: None Reported - Past Family History Mother Family Medical History: Diabetes Mellitus, Myocardial Infarction (HI) Father Family Medical History: Cancer General Exam - General Exam Comments Initial Comments: General: The patient is awake and alert, in no distress, and does not appear acutely ill. GCS is 15 , looks tired and pale Skin: Skin is warm and dry and no rashes or lesions are noted. Eye: Pupils are equal, round and reactive to light, extra-ocular movements are intact; there is normal conjunctiva bilaterally. Ears, nose, mouth and throat: There are moist mucous membranes and no oral lesions. Neck: The neck is supple, there is no tenderness or JVD. Cardiovascular: There is a regular rate and rhythm. No murmur, rub or gallop is appreciated. Respiratory: To auscultation bilateral, no wheezing no rhonchi no distress respiratory ferraro noticed Gastrointestinal: Soft, non-distended, non-tender abdomen without masses or organomegaly noted. There is no rebound or guarding present. Bowel sounds are unremarkable. Back: There is no tenderness to palpation in the midline. There is no obvious deformity. Musculoskeletal: Normal ROM, no tenderness, There is no pedal edema. There is no calf tenderness or swelling. No cords were appreciated. Neurological: CN II-XII intact, Cranial nerves III through XII are intact. There are no obvious motor or sensory deficits. Coordination appears grossly intact. Speech is normal. Psychiatric: Cooperative, appropriate mood & affect, normal judgment. Limitations: no limitations Course Vital Signs 05/09/17 05/09/17 17:29 20:13 Temperature 97.5 F L Pulse Rate 80 76 Respiratory 20 18 Rate Blood Pressure 113/69 155/78 O2 Sat by Pulse 98 98 Oximetry I reassessed man urine is quite significant lots of white cells and leukocyte esterase, CBC is normal INR is 2 pCO2 is high 71 glucose is 626 on arrival but now it's a little over 200 but considering her sugar was high and now urine is quite significant with some mental status changes though she is doing better with a with the fluids and antibiotics I think IV antibiotics for another 24 hours will expedite her recovery EKG Findings - EKG Comments: EKG Findings:: EKG is a paced rhythm, ventricular rate is 89 UT interval, QRS duration is 148 QT/QTc is 410/498 Medical Decision Making - Lab Data Result diagrams: 05/09/17 18:50 05/09/17 18:50 Lab Results 05/09/17 05/09/17 05/09/17 Range/Units 18:01 18:24 18:50 WBC (3.8-10.6) k/uL RBC (3.80-5.40) m/uL Hgb (11.4-16.0) gm/dL Hct (34.0-46.0) % MCV (80.0-100.0) fL MCH (25.0-35.0) pg MCHC (31.0-37.0) g/dL RDW (11.5-15.5) % Plt Count (150-450) k/uL Neutrophils % % Lymphocytes % % Monocytes % % Eosinophils % % Basophils % % Neutrophils # (1.3-7.7) k/uL Lymphocytes # (1.0-4.8) k/uL Monocytes # (0-1.0) k/uL Eosinophils # (0-0.7) k/uL Basophils # (0-0.2) k/uL Hypochromasia PT (9.0-12.0) sec INR (<1.2) APTT (22.0-30.0) sec VBG pH 7.28 L (7.31-7.41) VBG pCO2 71 H* (37-51) mmHg VBG HCO3 32 H (24-28) mmol/L Sodium (137-145) mmol/L Potassium (3.5-5.1) mmol/L Chloride (98-107) mmol/L Carbon Dioxide (22-30) mmol/L Anion Gap mmol/L BUN (7-17) mg/dL Creatinine (0.52-1.04) mg/dL Est GFR (CKD-EPI)AfAm (>60 ml/min/1.73 sqM) Est GFR (CKD-EPI)NonAf (>60 ml/min/1.73 sqM) Glucose (74-99) mg/dL POC Glucose (mg/dL) >600 H (75-99) mg/dL POC Glu Explosives Operator ID Plasma Lactic Acid Claudio (0.7-2.0) mmol/L Calcium (8.4-10.2) mg/dL Total Bilirubin (0.2-1.3) mg/dL AST (14-36) U/L ALT (9-52) U/L Alkaline Phosphatase (38-126) U/L Total Creatine Kinase (30-135) U/L CK-MB (CK-2) (0.0-2.4) ng/mL CK-MB (CK-2) Rel Index Troponin I (0.000-0.034) ng/mL Total Protein (6.3-8.2) g/dL Albumin (3.5-5.0) g/dL Urine Color Light Yellow Urine Appearance Cloudy H (Clear) Urine pH 5.5 (5.0-8.0) Ur Specific [place] 1.012 (1.001-1.035) Urine Protein Trace H (Negative) Urine Glucose (UA) 4+ H (Negative) Urine Ketones Negative (Negative) Urine Blood Trace H (Negative) Urine Nitrite Negative (Negative) Urine Bilirubin Negative (Negative) Urine Urobilinogen <2.0 (<2.0) mg/dL Ur Leukocyte Esterase Large H (Negative) Urine RBC 6 H (0-5) /hpf Urine WBC 92 H (0-5) /hpf Urine WBC Clumps Moderate H (None) /hpf Ur Squamous Epith Cells 1 (0-4) /hpf Urine Bacteria Few H (None) /hpf Urine Mucus Rare H (None) /hpf Urine Yeast (Budding) Rare H (None) /hpf Urine Opiates Screen Detected H (NotDetected) Ur Oxycodone Screen Not Detected (NotDetected) Urine Methadone Screen Not Detected (NotDetected) Ur Propoxyphene Screen Not Detected (NotDetected) Ur Barbiturates Screen Not Detected (NotDetected) U Tricyclic Antidepress Not Detected (NotDetected) Ur Phencyclidine Scrn Not Detected (NotDetected) Ur Amphetamines Screen Not Detected (NotDetected) U Methamphetamines Scrn Not Detected (NotDetected) U Benzodiazepines Scrn Not Detected (NotDetected) Urine Cocaine Screen Not Detected (NotDetected) U Marijuana (THC) Screen Not Detected (NotDetected) 05/09/17 05/09/17 05/09/17 Range/Units 18:50 18:50 18:50 WBC 8.9 (3.8-10.6) k/uL RBC 3.77 L (3.80-5.40) m/uL Hgb 9.9 L (11.4-16.0) gm/dL Hct 34.6 (34.0-46.0) % MCV 91.8 (80.0-100.0) fL MCH 26.4 (25.0-35.0) pg MCHC 28.8 L (31.0-37.0) g/dL RDW 15.2 (11.5-15.5) % Plt Count 209 (150-450) k/uL Neutrophils % 75 % Lymphocytes % 14 % Monocytes % 5 % Eosinophils % 3 % Basophils % 1 % Neutrophils # 6.7 (1.3-7.7) k/uL Lymphocytes # 1.3 (1.0-4.8) k/uL Monocytes # 0.5 (0-1.0) k/uL Eosinophils # 0.2 (0-0.7) k/uL Basophils # 0.1 (0-0.2) k/uL Hypochromasia Marked PT (9.0-12.0) sec INR (<1.2) APTT (22.0-30.0) sec VBG pH (7.31-7.41) VBG pCO2 (37-51) mmHg VBG HCO3 (24-28) mmol/L Sodium 132 L (137-145) mmol/L Potassium 4.7 (3.5-5.1) mmol/L Chloride 88 L (98-107) mmol/L Carbon Dioxide 32 H (22-30) mmol/L Anion Gap 12 mmol/L BUN 45 H (7-17) mg/dL Creatinine 1.50 H (0.52-1.04) mg/dL Est GFR (CKD-EPI)AfAm 41 (>60 ml/min/1.73 sqM) Est GFR (CKD-EPI)NonAf 36 (>60 ml/min/1.73 sqM) Glucose 626 H* (74-99) mg/dL POC Glucose (mg/dL) (75-99) mg/dL POC Glu Explosives Operator ID Plasma Lactic Acid Claudio (0.7-2.0) mmol/L Calcium 8.9 (8.4-10.2) mg/dL Total Bilirubin 0.7 (0.2-1.3) mg/dL AST 40 H (14-36) U/L ALT 40 (9-52) U/L Alkaline Phosphatase 186 H (38-126) U/L Total Creatine Kinase 68 (30-135) U/L CK-MB (CK-2) 3.1 H* (0.0-2.4) ng/mL CK-MB (CK-2) Rel Index 4.6 Troponin I 0.021 (0.000-0.034) ng/mL Total Protein 6.8 (6.3-8.2) g/dL Albumin 3.3 L (3.5-5.0) g/dL Urine Color Urine Appearance (Clear) Urine pH (5.0-8.0) Ur Specific [place] (1.001-1.035) Urine Protein (Negative) Urine Glucose (UA) (Negative) Urine Ketones (Negative) Urine Blood (Negative) Urine Nitrite (Negative) Urine Bilirubin (Negative) Urine Urobilinogen (<2.0) mg/dL Ur Leukocyte Esterase (Negative) Urine RBC (0-5) /hpf Urine WBC (0-5) /hpf Urine WBC Clumps (None) /hpf Ur Squamous Epith Cells (0-4) /hpf Urine Bacteria (None) /hpf Urine Mucus (None) /hpf Urine Yeast (Budding) (None) /hpf Urine Opiates Screen (NotDetected) Ur Oxycodone Screen (NotDetected) Urine Methadone Screen (NotDetected) Ur Propoxyphene Screen (NotDetected) Ur Barbiturates Screen (NotDetected) U Tricyclic Antidepress (NotDetected) Ur Phencyclidine Scrn (NotDetected) Ur Amphetamines Screen (NotDetected) U Methamphetamines Scrn (NotDetected) U Benzodiazepines Scrn (NotDetected) Urine Cocaine Screen (NotDetected) U Marijuana (THC) Screen (NotDetected) 05/09/17 05/09/17 05/09/17 Range/Units 18:50 18:50 19:36 WBC (3.8-10.6) k/uL RBC (3.80-5.40) m/uL Hgb (11.4-16.0) gm/dL Hct (34.0-46.0) % MCV (80.0-100.0) fL MCH (25.0-35.0) pg MCHC (31.0-37.0) g/dL RDW (11.5-15.5) % Plt Count (150-450) k/uL Neutrophils % % Lymphocytes % % Monocytes % % Eosinophils % % Basophils % % Neutrophils # (1.3-7.7) k/uL Lymphocytes # (1.0-4.8) k/uL Monocytes # (0-1.0) k/uL Eosinophils # (0-0.7) k/uL Basophils # (0-0.2) k/uL Hypochromasia PT 18.1 H (9.0-12.0) sec INR 2.0 H (<1.2) APTT 24.9 (22.0-30.0) sec VBG pH (7.31-7.41) VBG pCO2 (37-51) mmHg VBG HCO3 (24-28) mmol/L Sodium (137-145) mmol/L Potassium (3.5-5.1) mmol/L Chloride (98-107) mmol/L Carbon Dioxide (22-30) mmol/L Anion Gap mmol/L BUN (7-17) mg/dL Creatinine (0.52-1.04) mg/dL Est GFR (CKD-EPI)AfAm (>60 ml/min/1.73 sqM) Est GFR (CKD-EPI)NonAf (>60 ml/min/1.73 sqM) Glucose (74-99) mg/dL POC Glucose (mg/dL) >600 H (75-99) mg/dL POC Glu Explosives Operator ID Teresa Hicks Plasma Lactic Acid Claudio 2.1 H* (0.7-2.0) mmol/L Calcium (8.4-10.2) mg/dL Total Bilirubin (0.2-1.3) mg/dL AST (14-36) U/L ALT (9-52) U/L Alkaline Phosphatase (38-126) U/L Total Creatine Kinase (30-135) U/L CK-MB (CK-2) (0.0-2.4) ng/mL CK-MB (CK-2) Rel Index Troponin I (0.000-0.034) ng/mL Total Protein (6.3-8.2) g/dL Albumin (3.5-5.0) g/dL Urine Color Urine Appearance (Clear) Urine pH (5.0-8.0) Ur Specific [place] (1.001-1.035) Urine Protein (Negative) Urine Glucose (UA) (Negative) Urine Ketones (Negative) Urine Blood (Negative) Urine Nitrite (Negative) Urine Bilirubin (Negative) Urine Urobilinogen (<2.0) mg/dL Ur Leukocyte Esterase (Negative) Urine RBC (0-5) /hpf Urine WBC (0-5) /hpf Urine WBC Clumps (None) /hpf Ur Squamous Epith Cells (0-4) /hpf Urine Bacteria (None) /hpf Urine Mucus (None) /hpf Urine Yeast (Budding) (None) /hpf Urine Opiates Screen (NotDetected) Ur Oxycodone Screen (NotDetected) Urine Methadone Screen (NotDetected) Ur Propoxyphene Screen (NotDetected) Ur Barbiturates Screen (NotDetected) U Tricyclic Antidepress (NotDetected) Ur Phencyclidine Scrn (NotDetected) Ur Amphetamines Screen (NotDetected) U Methamphetamines Scrn (NotDetected) U Benzodiazepines Scrn (NotDetected) Urine Cocaine Screen (NotDetected) U Marijuana (THC) Screen (NotDetected) 05/09/17 Range/Units 20:47 WBC (3.8-10.6) k/uL RBC (3.80-5.40) m/uL Hgb (11.4-16.0) gm/dL Hct (34.0-46.0) % MCV (80.0-100.0) fL MCH (25.0-35.0) pg MCHC (31.0-37.0) g/dL RDW (11.5-15.5) % Plt Count (150-450) k/uL Neutrophils % % Lymphocytes % % Monocytes % % Eosinophils % % Basophils % % Neutrophils # (1.3-7.7) k/uL Lymphocytes # (1.0-4.8) k/uL Monocytes # (0-1.0) k/uL Eosinophils # (0-0.7) k/uL Basophils # (0-0.2) k/uL Hypochromasia PT (9.0-12.0) sec INR (<1.2) APTT (22.0-30.0) sec VBG pH (7.31-7.41) VBG pCO2 (37-51) mmHg VBG HCO3 (24-28) mmol/L Sodium (137-145) mmol/L Potassium (3.5-5.1) mmol/L Chloride (98-107) mmol/L Carbon Dioxide (22-30) mmol/L Anion Gap mmol/L BUN (7-17) mg/dL Creatinine (0.52-1.04) mg/dL Est GFR (CKD-EPI)AfAm (>60 ml/min/1.73 sqM) Est GFR (CKD-EPI)NonAf (>60 ml/min/1.73 sqM) Glucose (74-99) mg/dL POC Glucose (mg/dL) 437 H (75-99) mg/dL POC Glu Explosives Operator ID Storm, Fior Plasma Lactic Acid Claudio (0.7-2.0) mmol/L Calcium (8.4-10.2) mg/dL Total Bilirubin (0.2-1.3) mg/dL AST (14-36) U/L ALT (9-52) U/L Alkaline Phosphatase (38-126) U/L Total Creatine Kinase (30-135) U/L CK-MB (CK-2) (0.0-2.4) ng/mL CK-MB (CK-2) Rel Index Troponin I (0.000-0.034) ng/mL Total Protein (6.3-8.2) g/dL Albumin (3.5-5.0) g/dL Urine Color Urine Appearance (Clear) Urine pH (5.0-8.0) Ur Specific [place] (1.001-1.035) Urine Protein (Negative) Urine Glucose (UA) (Negative) Urine Ketones (Negative) Urine Blood (Negative) Urine Nitrite (Negative) Urine Bilirubin (Negative) Urine Urobilinogen (<2.0) mg/dL Ur Leukocyte Esterase (Negative) Urine RBC (0-5) /hpf Urine WBC (0-5) /hpf Urine WBC Clumps (None) /hpf Ur Squamous Epith Cells (0-4) /hpf Urine Bacteria (None) /hpf Urine Mucus (None) /hpf Urine Yeast (Budding) (None) /hpf Urine Opiates Screen (NotDetected) Ur Oxycodone Screen (NotDetected) Urine Methadone Screen (NotDetected) Ur Propoxyphene Screen (NotDetected) Ur Barbiturates Screen (NotDetected) U Tricyclic Antidepress (NotDetected) Ur Phencyclidine Scrn (NotDetected) Ur Amphetamines Screen (NotDetected) U Methamphetamines Scrn (NotDetected) U Benzodiazepines Scrn (NotDetected) Urine Cocaine Screen (NotDetected) U Marijuana (THC) Screen (NotDetected) Disposition Clinical Impression: Mental status change, Cystitis, Hyperglycemia Disposition: ADMITTED IP TO THIS HOSP Condition: Good Referrals: Kaylee Suero MD [Primary Care Provider] - 1-2 days
[2017-05-09] MEDS ORDERED: cefTRIAXone IN SWFI 2,000 MG/20 ML SYRINGE IVP STA (22:05)
[2017-05-09] MEDS ORDERED: HYDROcodone/APAP 10-325MG 1 EACH TAB PO PRN (22:06)
[2017-05-09] MEDS ORDERED: ALBUTEROL NEBULIZED 2.5 MG/3 ML INHALATION PRN ×2 (22:06)
[2017-05-09 22:13] LABS: Glucose,Whole Blood 294 mg/dL (75-99)
[2017-05-09 22:24] LABS: Glucose,Whole Blood 296 mg/dL (75-99)
[2017-05-10 00:11] LABS: Glucose,Whole Blood 343 mg/dL (75-99)
[2017-05-10] MEDS ORDERED: INSULIN DETEMIR 100 UNIT/ML 10 ML VIAL SQ STA (00:15)
[2017-05-10] MEDS: WARFARIN 1 MG TAB PO SCH ×2 (00:23→21:21)
[2017-05-10] MEDS: ZOLPIDEM 5 MG TAB PO PRN (00:26)
[2017-05-10] MEDS: FAMOTIDINE 20 MG TAB PO SCH (00:26)
[2017-05-10] MEDS: ATORVASTATIN 40 MG TAB PO SCH (00:27)
[2017-05-10 02:53] LABS: Glucose,Whole Blood 441 mg/dL (75-99)
[2017-05-10] MEDS ORDERED: INSULIN ASPART 100 UNIT/ML 1 ML 10 ML VIAL SQ ONE (03:41)
[2017-05-10 03:43] LABS: Glucose,Whole Blood 433 mg/dL (75-99)
[2017-05-10] MEDS ORDERED: INSULIN REGULAR 100 UNIT in SODIUM CHLORIDE 0.9% 100 ML IV SCH (04:15)
[2017-05-10 05:27] LABS: Glucose,Whole Blood 361 mg/dL (75-99)
[2017-05-10 06:17] LABS: Glucose,Whole Blood 312 mg/dL (75-99)
[2017-05-10 06:46] LABS: Glucose,Whole Blood 225 mg/dL (75-99)
[2017-05-10] MEDS ORDERED: INSULIN ASPART 100 UNIT/ML 1 ML 10 ML VIAL SQ SCH (07:30)
[2017-05-10 07:53] LABS: Glucose,Whole Blood 154 mg/dL (75-99)
[2017-05-10] MEDS: IPRATROPIUM 0.5 MG/2.5 ML NEBU INHALATION SCH ×4 (08:18→19:26)
[2017-05-10] MEDS: SYMBICORT 160-4.5 MCG INHALER INHALATION SCH ×2 (08:18→19:26)
[2017-05-10] MEDS ORDERED: LISINOPRIL 5 MG TAB PO SCH (09:00)
[2017-05-10 09:24] LABS: Glucose,Whole Blood 128 mg/dL (75-99)
[2017-05-10 10:06] LABS: Glucose,Whole Blood 184 mg/dL (75-99)
[2017-05-10 11:41] LABS: Glucose,Whole Blood 176 mg/dL (75-99)
[2017-05-10 13:24] LABS: Glucose,Whole Blood 195 mg/dL (75-99)
[2017-05-10] MEDS: INSULIN ASPART 100 UNIT/ML 1 ML 10 ML VIAL SQ SCH ×7 (14:18→21:20)
[2017-05-10] MEDS: LORATADINE 10 MG TAB PO SCH (14:33)
[2017-05-10] MEDS: PARoxetine 20 MG TAB PO SCH (14:33)
[2017-05-10] MEDS: FUROSEMIDE 40 MG TAB PO SCH ×2 (14:33→14:34)
[2017-05-10] MEDS: ASPIRIN 81 MG PO SCH (14:33)
[2017-05-10] MEDS: METOPROLOL TARTRATE 25 MG TAB PO SCH ×3 (14:33→21:20)
[2017-05-10] MEDS: DILTIAZEM CD 120 MG CAP.ER.24H PO SCH (14:34)
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
[2017-05-10] MEDS: cefTRIAXone IN SWFI 1,000 MG/10 ML SYRINGE IVP SCH (16:32)
[2017-05-10 17:17] LABS: Glucose,Whole Blood 220 mg/dL (75-99)
[2017-05-10 20:34] LABS: Glucose,Whole Blood 182 mg/dL (75-99)
[2017-05-10] MEDS ORDERED: INSULIN DETEMIR 100 UNIT/ML 10 ML VIAL SQ SCH (21:00)
[2017-05-11 07:18] LABS: Glucose,Whole Blood 187 mg/dL (75-99)
[2017-05-11] MEDS: INSULIN ASPART 100 UNIT/ML 1 ML 10 ML VIAL SQ SCH ×7 (07:46→22:02)
[2017-05-11] MEDS: LORATADINE 10 MG TAB PO SCH (07:47)
[2017-05-11] MEDS: DILTIAZEM CD 120 MG CAP.ER.24H PO SCH (07:47)
[2017-05-11] MEDS: PARoxetine 20 MG TAB PO SCH (07:47)
[2017-05-11] MEDS: METOPROLOL TARTRATE 25 MG TAB PO SCH ×3 (07:47→22:33)
[2017-05-11] MEDS: ASPIRIN 81 MG PO SCH (07:47)
--- NOTE | 2017-05-11 09:14 | XR ---
EXAMINATION TYPE: XR chest 1V DATE OF EXAM: 05/11/2017 COMPARISON: 05/09/2017 HISTORY: 66-year-old female follow-up CHF TECHNIQUE: Single frontal view of the chest is obtained. FINDINGS: Left anterior chest wall ICD generator with right atrial, right ventricular, and coronary sinus leads . Low lung volumes crowding the vascular markings. Continued diffuse interstitial densities. Trace ef fusions suspected. Some slight increased patchy right basilar density likely atelectasis given the lo w lung volumes. Endovascular aortic valve replacement demonstrated. IMPRESSION: Some limitations due to hypoventilatory changes. Otherwise, findings suggest similar CHF with interst itial edema. Trace effusions.
[2017-05-11 09:38] LABS: HCT 32.7 % (34.0-46.0); HGB 10.3 gm/dL (11.4-16.0); Hypochromasia Moderate; MCH 27.8 pg (25.0-35.0); MCHC 31.4 g/dL (31.0-37.0); MCV 88.5 fL (80.0-100.0); Mean Platelet Volume 7.5; Platelet Count 203 k/uL (150-450); RDW 15.3 % (11.5-15.5); WBC 9.2 k/uL (3.8-10.6)
[2017-05-11] MEDS: SYMBICORT 160-4.5 MCG INHALER INHALATION SCH ×2 (09:38→19:10)
[2017-05-11] MEDS: IPRATROPIUM 0.5 MG/2.5 ML NEBU INHALATION SCH ×4 (09:38→19:11)
[2017-05-11 09:40] LABS: Prothrombin Time 18.1 sec (9.0-12.0)
[2017-05-11 09:52] LABS: Calcium 8.5 mg/dL (8.4-10.2); Potassium 4.6 mmol/L (3.5-5.1)
[2017-05-11 12:07] LABS: Glucose,Whole Blood 264 mg/dL (75-99)
[2017-05-11] MEDS: cefTRIAXone IN SWFI 1,000 MG/10 ML SYRINGE IVP SCH (15:16)
[2017-05-11 17:16] LABS: Glucose,Whole Blood 206 mg/dL (75-99)
[2017-05-11 18:48] LABS: Hemoglobin A1C 11.8 % (4.0-6.0)
--- NOTE | 2017-05-11 19:06 | P.PN ---
Subjective Progress Note Date: 05/11/17 Progress note being dictated for Dr. Silver. interval history:Patient is 69-year-old female was brought in because of altered mental status found to have hyperglycemia with elevated blood sugars is 67,000 hyponatremia secondary to pseudohypha natremia from elevated blood sugars. Patient was on IV insulin which we're switching to subcutaneous insulin today. Patient denied any fever chills when asked the patient did complain of dysuria urinary frequency urine did look abnormal patient was started on Rocephin which will be continued patient has significant multiple medical problems including atrial fibrillation patient was admitted in the past for heart failure exacerbation patient appears to have chronic diastolic dysfunction with acute exacerbation chest x-ray did show some bilateral pleural effusions unchanged from previous exam. Patient does have chronic kidney disease stage III with baseline creatinine of around 0.6 and patient's present creatinine is around that. Patient's IV fluids at this can urine patient was resumed on her Lasix. Patient denied any significant shortness of breath does have history of COPD atrial fibrillation patient heart rate is bit higher patient was received resumed on Cardizem. Patient is on anti-correlation with Coumadin and INR of 2 the patient is presently alert oriented 3, pain completely resolved. Review of Systems REVIEW OF SYSTEMS: CONSTITUTIONAL: No fever, no malaise, no fatigue. HEENT: No recent visual problems or hearing problems. Denied any sore throat. CARDIOVASCULAR: No chest pain, orthopnea, PND, no palpitations, no syncope. PULMONARY: No shortness of breath, no cough, no hemoptysis. GASTROINTESTINAL: No diarrhea, no nausea, no vomiting, no abdominal pain. Normoactive bowel sounds. NEUROLOGICAL: No headaches, no weakness, no numbness. HEMATOLOGICAL: Denies any bleeding or petechiae. GENITOURINARY: Mentioned in HPI MUSCULOSKELETAL/RHEUMATOLOGICAL: Denies any joint pain, swelling, or any muscle pain. ENDOCRINE: Denies any polyuria or polydipsia. The rest of the 14-point review of systems is negative. 05/11/2017 maintained on IV antibiotics.continues to improve. Renal functionin sodium improving.INR 2.Blood sugars elevated. Objective - Vital Signs Vital signs: Vital Signs Temp 96.8 F L 05/11/17 14:47 Pulse 69 05/11/17 16:31 Resp 18 05/11/17 16:31 BP 107/65 05/11/17 14:47 Pulse Ox 98 05/11/17 14:47 Intake & Output 05/10/17 05/11/17 05/11/17 18:59 06:59 18:59 Intake Total 255.504 750 Balance 255.504 750 Weight 61.235 kg 61.235 kg Intake: Intake, IV Titration 5.504 Amount Insulin Regular 100 unit 5.504 In Sodium Chloride 0.9% 100 ml @ Titrate IV .Q0M [facility] Rx#:[id number] Oral 250 750 Other: Voiding Method Toilet Toilet Toilet # Voids 5 2 3 - Exam GENERAL: The patient is alert and oriented x3,slightly confused on her weeks- thinks Easter has passed, not in any acute distress. Well developed, well nourished. HEENT: Pupils are round and equally reacting to light. EOMI. No scleral icterus. No conjunctival pallor. Normocephalic, atraumatic. No pharyngeal erythema. No thyromegaly. CARDIOVASCULAR: S1 and S2 present. No murmurs, rubs, or gallops. PULMONARY: Chest is clear to auscultation, no wheezing or crackles. ABDOMEN: Soft, nontender, nondistended, normoactive bowel sounds. No palpable organomegaly. MUSCULOSKELETAL: No joint swelling or deformity. EXTREMITIES: No cyanosis, clubbing, or pedal edema. NEUROLOGICAL: Gross neurological examination did not reveal any focal deficits. SKIN: No rashes. - Labs CBC & Chem 7: 05/11/17 09:09 05/11/17 09:09 Labs: Abnormal Lab Results - Last 24 Hours (Table) 05/10/17 05/11/17 05/11/17 Range/Units 20:29 07:14 09:09 RBC 3.70 L (3.80-5.40) m/uL Hgb 10.3 L (11.4-16.0) gm/dL Hct 32.7 L (34.0-46.0) % PT (9.0-12.0) sec INR (<1.2) Sodium (137-145) mmol/L Chloride (98-107) mmol/L Carbon Dioxide (22-30) mmol/L BUN (7-17) mg/dL Creatinine (0.52-1.04) mg/dL Glucose (74-99) mg/dL POC Glucose (mg/dL) 182 H 187 H (75-99) mg/dL 05/11/17 05/11/17 05/11/17 Range/Units 09:09 09:09 12:05 RBC (3.80-5.40) m/uL Hgb (11.4-16.0) gm/dL Hct (34.0-46.0) % PT 18.1 H (9.0-12.0) sec INR 2.0 H (<1.2) Sodium 136 L (137-145) mmol/L Chloride 96 L (98-107) mmol/L Carbon Dioxide 34 H (22-30) mmol/L BUN 43 H (7-17) mg/dL Creatinine 1.31 H (0.52-1.04) mg/dL Glucose 272 H (74-99) mg/dL POC Glucose (mg/dL) 264 H (75-99) mg/dL 05/11/17 Range/Units 17:08 RBC (3.80-5.40) m/uL Hgb (11.4-16.0) gm/dL Hct (34.0-46.0) % PT (9.0-12.0) sec INR (<1.2) Sodium (137-145) mmol/L Chloride (98-107) mmol/L Carbon Dioxide (22-30) mmol/L BUN (7-17) mg/dL Creatinine (0.52-1.04) mg/dL Glucose (74-99) mg/dL POC Glucose (mg/dL) 206 H (75-99) mg/dL Assessment and Plan Assessment: 1 altered mental status: Secondary to metabolic and toxic encephalopathy melodic encephalopathy from hyponatremia and hyperglycemia,possible acute UTI -Possible acute urinary tract infection -Pseudohyponatremia from hyperglycemia -hyperglycemia due to noncompliance with medications patient, lost her glucometer since then she stopped using insulin appropriately -Chronic diastolic dysfunction without any acute exacerbation -COPD without any acute exacerbation -Atrial fibrillation mild increased heart rate,anticoagulated on Coumadin -Coronary artery disease Plan: Continue on current medication regime ,monitoring and symptomatic treatment. Long-acting insulin added to med regime with close monitoring of Accu-Cheks.close monitoring of electrolytes and renal function with repeat labs ordered for a.m.Coumadin monitoring. Discharge planning in progress for tomorrow-patient lives with her sister. The impression and plan of care has been dictated as directed. : I performed a history and examination of this patient, discussed the same with the dictator. I agree with the dictator's note ,documented as a scribe. Any additional findings or plans will be noted.
[2017-05-11] MEDS ORDERED: INSULIN DETEMIR 100 UNIT/ML 10 ML VIAL SQ SCH (21:00)
[2017-05-11 21:31] LABS: Glucose,Whole Blood 84 mg/dL (75-99)
[2017-05-11] MEDS: FAMOTIDINE 20 MG TAB PO SCH (22:01)
[2017-05-11] MEDS: ATORVASTATIN 40 MG TAB PO SCH (22:01)
[2017-05-11] MEDS: ZOLPIDEM 5 MG TAB PO PRN (22:33)
[2017-05-11] MEDS: WARFARIN 1 MG TAB PO SCH (22:34)
[2017-05-11 23:49] VITALS: TEMP 97
[2017-05-12 00:54] LABS: Glucose,Whole Blood 193 mg/dL (75-99)
[2017-05-12] MEDS: SYMBICORT 160-4.5 MCG INHALER INHALATION SCH (07:05)
[2017-05-12] MEDS: IPRATROPIUM 0.5 MG/2.5 ML NEBU INHALATION SCH ×2 (07:05→11:11)
[2017-05-12 07:21] LABS: Glucose,Whole Blood 183 mg/dL (75-99)
[2017-05-12] MEDS: INSULIN ASPART 100 UNIT/ML 1 ML 10 ML VIAL SQ SCH ×4 (07:45→12:35)
[2017-05-12] MEDS: DILTIAZEM CD 120 MG CAP.ER.24H PO SCH (07:46)
[2017-05-12] MEDS: PARoxetine 20 MG TAB PO SCH (07:46)
[2017-05-12] MEDS: METOPROLOL TARTRATE 25 MG TAB PO SCH (07:46)
[2017-05-12] MEDS: LORATADINE 10 MG TAB PO SCH (07:46)
[2017-05-12] MEDS: ASPIRIN 81 MG PO SCH (07:46)
[2017-05-12 07:47] VITALS: BP 110/85; PULSE 103; RESP 24
[2017-05-12 10:45] LABS: Basophils # (A) 0.1 k/uL (0-0.2); Basophils % (A) 1 %; Eosinophils # (A) 0.2 k/uL (0-0.7); Eosinophils % (A) 2 %; HCT 32.9 % (34.0-46.0); Hypochromasia Moderate; Lymphocytes # (A) 0.7 k/uL (1.0-4.8); Lymphocytes % (A) 8 %; MCH 27.2 pg (25.0-35.0); MCHC 30.5 g/dL (31.0-37.0); MCV 89.3 fL (80.0-100.0); Mean Platelet Volume 7.5; Monocytes # (A) 0.7 k/uL (0-1.0); Monocytes % (A) 7 %; Neutrophils # (A) 7.8 k/uL (1.3-7.7); Neutrophils % (A) 80 %; Platelet Count 185 k/uL (150-450); RBC 3.69 m/uL (3.80-5.40); RDW 15.3 % (11.5-15.5); WBC 9.7 k/uL (3.8-10.6)
[2017-05-12 10:55] LABS: INR 1.6 (<1.2)
[2017-05-12 11:25] LABS: Calcium 8.6 mg/dL (8.4-10.2)
[2017-05-12 11:31] LABS: Glucose,Whole Blood 196 mg/dL (75-99)
[2017-05-12 12:04] VITALS: BMI 24.7
--- NOTE | 2017-05-12 21:55 | DS ---
DISCHARGE SUMMARY DATE OF SERVICE: 05/12/2017. FINAL DIAGNOSES: 1. Change in mental status, possibly toxic metabolic encephalopathy secondary to hyponatremia and hyperglycemia and urinary tract infection. 2. Acute urinary tract infection, present on admission. 3. Pseudohyponatremia from hyperglycemia. 4. Hyperglycemia due to noncompliance with medications with poorly-controlled diabetes mellitus type 2. Patient lost the glucometer. 5. Chronic diastolic dysfunction with congestive heart failure with no evidence of any acute exacerbation. 6. Chronic obstructive pulmonary disease without any acute exacerbation. 7. Atrial fibrillation. 8. Coronary artery disease. DISCHARGED DISPOSITION: The patient will be discharged in stable condition with a guarded prognosis. HISTORY OF PRESENT ILLNESS: This 66-year-old with a past medical history of multiple medical problems was admitted with change in mental status, multiple other medical problems, treated symptomatically. Patient improved significantly. EXAM: Vital are stable. CARDIOVASCULAR: S1, S2 muffled. ABDOMEN: Soft. NERVOUS SYSTEM: No focal deficits. The patient will be discharged in stable condition with a guarded prognosis with the following advice and medications: 1. Diet is cardiac. 2. Activity limited until followup. 3. Follow up with primary physician Dr. Suero in 2-3 days and home care is being arranged. 4. Medications are: a. Ventolin 2.5 q.i.d. and p.r.n. c. Aspirin 81 mg p.o. daily. d. Lipitor 40 mg q.h.s. e. Symbicort 160/4.5 two puffs b.i.d. f. Ceftin 500 mg p.o. b.i.d. for 5 days. g. Zyrtec 10 mg p.o. daily. h. Cardizem CD 120 mg p.o. daily. i. Pepcid 40 mg q.h.s. j. Lasix 40 mg p.o. b.i.d. k. [place] 10 mg every 6 hours p.r.n. l. Lantus 20 units subcu q.h.s. m. Humalog scale as before. n. Lopressor 25 mg p.o. t.i.d. o. Paxil 20 mg p.o. daily. p. Spiriva 1 puff daily. q. Coumadin 1.5 mg p.o. on Monday and 1 mg on other days. r. Ambien 5 mg q.h.s. p.r.n. 5. Followup labs with Dr. Suero. Once again, the patient will be discharged in stable condition with a guarded prognosis. SHELLYL / NOEMÍN: [id number] / MTDD
[2017-05-15] MEDS ORDERED: WARFARIN 1.5 MG TAB PO SCH (18:00)
== END 2017-05-12 15:20 | disposition home health service (06) | DRG 637 ==
LOC: EC 16:55 → 4MS4W 22:03
PROVIDERS: ADMIT Hospitalist; ATTEND Hospitalist
DX: E11.65 Type 2 diabetes mellitus with hyperglycemia (principal); G92 Toxic encephalopathy; Z94.81 Bone marrow transplant status; I48.91 Unspecified atrial fibrillation; E11.21 Type 2 diabetes mellitus with diabetic nephropathy; I13.0 Hypertensive heart and chronic kidney disease with heart failure and stage 1 through stage 4 chronic kidney disease, or unspecified chronic kidney disease; I50.32 Chronic diastolic (congestive) heart failure; E87.1 Hypo-osmolality and hyponatremia; N39.0 Urinary tract infection, site not specified; E11.22 Type 2 diabetes mellitus with diabetic chronic kidney disease; E78.5 Hyperlipidemia, unspecified; I25.10 Atherosclerotic heart disease of native coronary artery without angina pectoris; I25.2 Old myocardial infarction; I25.5 Ischemic cardiomyopathy; J44.9 Chronic obstructive pulmonary disease, unspecified; K21.9 Gastro-esophageal reflux disease without esophagitis; N18.3 Chronic kidney disease, stage 3 (moderate); Z79.01 Long term (current) use of anticoagulants; Z79.4 Long term (current) use of insulin; Z79.51 Long term (current) use of inhaled steroids; Z79.82 Long term (current) use of aspirin; Z79.899 Other long term (current) drug therapy; Z82.49 Family history of ischemic heart disease and other diseases of the circulatory system; Z83.3 Family history of diabetes mellitus; Z85.6 Personal history of leukemia; Z90.710 Acquired absence of both cervix and uterus; Z91.14 Patient's other noncompliance with medication regimen; Z95.1 Presence of aortocoronary bypass graft; Z95.2 Presence of prosthetic heart valve; Z95.810 Presence of automatic (implantable) cardiac defibrillator; Z98.1 Arthrodesis status; Z86.14 Personal history of Methicillin resistant Staphylococcus aureus infection; Z16.21 Resistance to vancomycin; Z79.891 Long term (current) use of opiate analgesic; Z88.1 Allergy status to other antibiotic agents
CPT/HCPCS: 36415; 70450; 71045; 71046; 80048; 80053; 80306; 81001; 82550; 82553; 82803; 83036; 83605; 84484; 85025; 85027; 85610; 85730; 93005; 94640; 96361; 96374; 99285

== ENCOUNTER 2017-05-26 21:55 | Inpatient (IN) | payer MEDICAID ==
[2017-05-26] MEDS ORDERED: SCOPOLAMINE 1.5MG/72HR PATCH TRANSDERM PRN (22:03)
[2017-05-26] MEDS ORDERED: ACETAMINOPHEN SUPPOSITORY 650 MG SUPP RECTAL PRN (22:03)
[2017-05-26] MEDS ORDERED: ATROPINE OPHTH SOLN 1% 5ML BTL SUBLINGUAL PRN (22:03)
[2017-05-26] MEDS ORDERED: LORazepam 2 MG/ML INJ IV PRN (22:03)
[2017-05-26] MEDS ORDERED: ONDANSETRON 4 MG/2 ML VIAL IVP PRN (22:03)
[2017-05-26] MEDS ORDERED: MORPHINE SULFATE 4MG/4ML SYRG IV PRN (22:03)
[2017-05-26] MEDS ORDERED: BISACODYL 10 MG SUPP RECTAL PRN (22:14)
[2017-05-26] MEDS ORDERED: HYDROmorphone (PF) 50 MG in SODIUM CHLORIDE 0.9% 245 ML IV SCH (23:00)
[2017-05-27 06:55] VITALS: RESP 8
--- NOTE | 2017-05-27 22:32 | P.DS ---
Providers Date of admission: 05/26/17 21:55 Expected date of discharge: 05/27/17 Attending physician: Philip Silver Primary care physician: Kaylee Suero Hospital Course: diagnosis Atrial fibrillation with rapid ventricular rate. Acute on chronic CHF with diastolic dysfunction with interstitial pulmonary edema. Right upper lobe density new with possible pneumonia//HCAP Acute on chronic hypoxic respiratory failure secondary to multifactorial as above Acute kidney injury due to hypotension and hypoperfusion. Possible cardiorenal. Prerenal azotemia likely due to steroids. Subtherapeutic INR/Coumadin coagulopathy Normocytic anemia Ischemic cardio myopathy ejection fraction 40%. Status post AICD placement History of aortic valve replacement and mitral valve annular repair. TAVR COPD stable Hypertension Hyperlipidemia Coronary artery disease History of [place] Osteoarthritis History of leukemia with a previous bone marrow transplantation C5 cervical spine fusion surgery Anxiety and depression Hospital course Patient is a 66-year-old female with a known history of atrial fibrillation, coronary artery disease, CABG and aortic valve replacement and mitral valve annuloplasty, ischemic cardiomyopathy ejection fraction 40%, COPD, diabetes type 2 and other multiple medical problems presented to ER with complaints of shortness of breath worsening since yesterday. Patient denied any complaints of chest pain. Denied any fever or chills. Patient does have palpitations. Patient was found to have rapid regular rate and was started on Cardizem drip. Patient states she also has noticed slightly increased edema in her legs. Patient denies any recent fever chills or cough. Patient denies any history of anemia. Patient states she has worsening symptoms with any exertion. Patient denies being lightheaded or dizzy. Patient denies any abdominal pain patient denies nausea vomiting diarrhea. EKG showed ventricular pacer rhythm Chest x-ray showed COPD and bibasilar effusion with infiltrates. Correlate for chronic interstitial lung disease Patient was continued on metoprolol and Cardizem. Lasix changed to oral.. Continued with the breathing treatments and steroids, changed to oral prednisone. Patient was on antibiotics in the form of Zosyn and Levaquin. Patient was seen by pulmonary cardiology and nephrology. Patient has multiple medical problems and complex issues. Her overall prognosis remains quite poor and guarded. He had a lengthy discussion with the patient and the family who were at the bedside. They now request a DO NOT RESUSCITATE CODE STATUS. She is changed to DO NOT RESUSCITATE/ DO NOT INTUBATE. But later patient decided comfort measures and hospice care was consulted. Patient was transferred to hospice care. Patient was on 05/27/2017 Plan - Discharge Summary New Discharge Prescriptions: No Action Aspirin 81 mg PO DAILY PARoxetine HCL [Paxil] 20 mg PO DAILY Zolpidem [Ambien] 5 mg PO HS PRN PRN Reason: Insomnia Albuterol Sulfate [Proair Hfa] 2 puff INHALATION RT-BID PRN PRN Reason: Shortness Of Breath Atorvastatin [Lipitor] 40 mg PO HS Famotidine [Pepcid] 40 mg PO HS Cetirizine HCl [Zyrtec] 10 mg PO DAILY Tiotropium [place] [Spiriva] 1 cap INHALATION RT-DAILY Albuterol Nebulized [Ventolin Nebulized] 2.5 mg INHALATION RT-TID PRN PRN Reason: Shortness Of Breath HYDROcodone/APAP 10-325MG [[place] 10-325] 1 tab PO Q6H PRN PRN Reason: Pain Furosemide [Lasix] 40 mg PO BID@0900,1600 tab Budesonide-Formot 160-4.5 Mcg [Symbicort 160-4.5 Mcg Inhaler] 2 puff INHALATION RT-BID 30 Days #1 puff Diltiazem Cd [Cardizem CD] 120 mg PO DAILY #30 cap.er.24h Metoprolol Tartrate [Lopressor] 25 mg PO TID #90 tab Warfarin [Coumadin] 1.5 mg PO MO@1800 Warfarin [Coumadin] 1 mg PO SUTUWETHFRSA@1800 Cefuroxime Axetil [Ceftin] 500 mg PO BID #10 tab Insulin Glargine,Hum.rec.anlog [Lantus Solostar] 20 unit SQ HS #1 insuln.pen INSULIN LISPRO (HumaLOG) [humaLOG] See Protocol SQ ACHS Discharge Medication List Aspirin 81 mg PO DAILY 02/10/14 [History] PARoxetine HCL [Paxil] 20 mg PO DAILY 02/10/14 [History] Albuterol Sulfate [Proair Hfa] 2 puff INHALATION RT-BID PRN 06/02/14 [History] Atorvastatin [Lipitor] 40 mg PO HS 06/02/14 [History] Zolpidem [Ambien] 5 mg PO HS PRN 06/02/14 [History] Famotidine [Pepcid] 40 mg PO HS 01/02/15 [History] Cetirizine HCl [Zyrtec] 10 mg PO DAILY 11/12/15 [History] Albuterol Nebulized [Ventolin Nebulized] 2.5 mg INHALATION RT-TID PRN 03/05/16 [ History] Tiotropium [place] [Spiriva] 1 cap INHALATION RT-DAILY 03/05/16 [History] HYDROcodone/APAP 10-325MG [[place] 10-325] 1 tab PO Q6H PRN 02/15/17 [History] Furosemide [Lasix] 40 mg PO BID@0900,1600 tab 04/03/17 [Rx] Budesonide-Formot 160-4.5 Mcg [Symbicort 160-4.5 Mcg Inhaler] 2 puff INHALATION RT-BID 30 Days #1 puff 04/09/17 [Rx] Diltiazem Cd [Cardizem CD] 120 mg PO DAILY #30 cap.er.24h 04/12/17 [Rx] Metoprolol Tartrate [Lopressor] 25 mg PO TID #90 tab 04/12/17 [Rx] Warfarin [Coumadin] 1 mg PO SUTUWETHFRSA@1800 05/09/17 [History] Warfarin [Coumadin] 1.5 mg PO MO@1800 05/09/17 [History] Cefuroxime Axetil [Ceftin] 500 mg PO BID #10 tab 05/12/17 [Rx] Insulin Glargine,Hum.rec.anlog [Lantus Solostar] 20 unit SQ HS #1 insuln.pen [Rx] INSULIN LISPRO (HumaLOG) [humaLOG] See Protocol SQ ACHS 05/16/17 [History] Discharge Disposition: - Preliminary Cause of Preliminary Cause of : Acute on chronic CHF with diastolic dysfunction with pulmonary edema
== END 2017-05-27 13:16 | disposition expired | DRG 291 ==
LOC: 6SEL 21:55
PROVIDERS: ADMIT Hospitalist; ATTEND Hospitalist
DX: I11.0 Hypertensive heart disease with heart failure (principal); J18.9 Pneumonia, unspecified organism; J96.21 Acute and chronic respiratory failure with hypoxia; Z94.81 Bone marrow transplant status; I50.33 Acute on chronic diastolic (congestive) heart failure; D64.9 Anemia, unspecified; E11.9 Type 2 diabetes mellitus without complications; E78.5 Hyperlipidemia, unspecified; F32.9 Major depressive disorder, single episode, unspecified; F41.9 Anxiety disorder, unspecified; I25.10 Atherosclerotic heart disease of native coronary artery without angina pectoris; I25.2 Old myocardial infarction; I25.5 Ischemic cardiomyopathy; I48.91 Unspecified atrial fibrillation; J44.9 Chronic obstructive pulmonary disease, unspecified; M19.90 Unspecified osteoarthritis, unspecified site; R79.1 Abnormal coagulation profile; T38.0X5A Adverse effect of glucocorticoids and synthetic analogues, initial encounter; T45.515A Adverse effect of anticoagulants, initial encounter; Z51.5 Encounter for palliative care; Z66 Do not resuscitate; Z79.01 Long term (current) use of anticoagulants; Z85.6 Personal history of leukemia; Z95.1 Presence of aortocoronary bypass graft; Z95.2 Presence of prosthetic heart valve; Z95.810 Presence of automatic (implantable) cardiac defibrillator; Z98.1 Arthrodesis status; Y95 Nosocomial condition; R22.2 Localized swelling, mass and lump, trunk